=== PATIENT | female | born 1955 | race Caucasian/White ===

== ENCOUNTER 2019-08-12 05:53 | Outpatient (RCR) | payer MEDICARE, MEDICAID, SELFPAY | END 2019-09-07 00:01 | LOC: ONCMED 05:53 | PROVIDERS: Family Provider Family Medicine; Visit Provider Nurse Practitioner | DX: Z51.12 Encounter for antineoplastic immunotherapy (principal); C90.00 Multiple myeloma not having achieved remission; D80.1 Nonfamilial hypogammaglobulinemia; K21.9 Gastro-esophageal reflux disease without esophagitis; J45.20 Mild intermittent asthma, uncomplicated; Z94.84 Stem cells transplant status; Z79.899 Other long term (current) drug therapy; Z79.82 Long term (current) use of aspirin; Z79.891 Long term (current) use of opiate analgesic; Z87.891 Personal history of nicotine dependence | CPT/HCPCS: 96367; 96413; 96415; 99214; J1642; J3489; J7040; J7050; J9145 ==

== ENCOUNTER 2019-09-20 05:39 | Outpatient (RCR) | payer MEDICARE, MEDICAID, SELFPAY ==
[2019-09-17 11:37] LABS: Basophils # 0.1 10^3/uL (0.0-0.1); Basophils % 1.4 %; Eosinophils # 0.2 10^3/uL (0.0-0.8); Eosinophils % 3.6 %; Hemoglobin 15.7 g/dL (11.5-15.3); Lymphocytes # 1.6 10^3/uL (0.8-4.8); Lymphocytes % 32.1 %; Mean Corpuscular HGB Conc 31.4 g/dL (30.0-36.0); Mean Corpuscular Hemoglobin 29.6 pg (28.0-34.0); Mean Corpuscular Volume 94.3 fL (81-99); Mean Platelet Volume 9.9 fL (7.4-10.4); Monocytes # 0.5 10^3/uL (0.2-0.9); Monocytes % 10.3 %; Neutrophils # 2.6 10^3/uL (1.8-7.7); Nucleated Red Blood Cells % 0 %; Platelet Count 224 10^3/cmm (130-400); Red Cell Distribution Width 14.4 % (12.1-15.1)
[2019-09-17 11:52] LABS: Alanine Aminotransferase 11 U/L (0-33); Albumin Level 3.9 g/dL (3.5-5.2); Alkaline Phosphatase 72 IU/L (35-105); Anion Gap 18.4 (5-19); Blood Urea Nitrogen 15 mg/dL (8-23); Calcium 9.5 mg/Dl (8.8-10.2); Carbon Dioxide 22 mmol/L (22-29); Chloride 98 mmol/L (98-107); Globulin 2.6 g/dL (1.3-4.6); Glucose 111 mg/dL (74-106); Potassium 4.4 mmol/L (3.5-5.1); Sodium 134 mmol/L (136-145); Total Bilirubin 0.4 mg/dL (0.15-1.2); Total Protein 6.5 g/dL (6.6-8.7)
[2019-09-17 12:03] LABS: Aspartate Amino Transferase 20 U/L (0-32)
[2019-09-20] MEDS: acetaminophen 325 mg Tablet 650 MG PO (09:20)
[2019-09-20] MEDS: diphenhydrAMINE 25 mg Capsule PO (09:21)
[2019-09-21] MEDS: sodium chloride 0.9% 250 ML 75 ML IV (13:34)
== END 2019-10-08 23:59 | disposition home or self-care (01) ==
LOC: ONCMED 05:39
PROVIDERS: Visit Provider Internal Medicine Medical Oncology
DX: Z51.12 Encounter for antineoplastic immunotherapy (principal); C90.02 Multiple myeloma in relapse; K21.9 Gastro-esophageal reflux disease without esophagitis; J45.20 Mild intermittent asthma, uncomplicated; Z94.84 Stem cells transplant status; Z79.82 Long term (current) use of aspirin; Z79.899 Other long term (current) drug therapy; Z87.891 Personal history of nicotine dependence
CPT/HCPCS: 80053; 85025; 96413; 96415; 99214; J7040; J7050; J9145

== ENCOUNTER 2019-10-18 05:48 | Outpatient (RCR) | payer MEDICARE, MEDICAID, SELFPAY ==
[2019-10-18] MEDS: diphenhydrAMINE 25 mg Capsule PO (09:40)
[2019-10-18] MEDS: acetaminophen 325 mg Tablet 650 MG PO (09:40)
[2019-10-18] MEDS: sodium chloride 0.9% 250 ML 999 ML IV (09:55)
[2019-10-18 12:52] LABS: Folate Level 10.2 ng/mL (4.8-37.3)
[2019-10-18 13:45] LABS: Thyroid Stimulating Hormone 1.98 uIU/mL (0.27-4.20); Vitamin B12 310 pg/mL (232-1245)
[2019-10-18 14:57] LABS: Free T4 Free Thyroxine 0.99 ng/dL (0.82-1.77)
--- NOTE | 2019-10-20 12:53 | ONC FU_ITS ---
[facility] Patient Note Patient: Salima Farrell Unit #: [id number]: [id number] Dictated By: Ac CarrDate of Visit: Oct 18, 2019 Onc MED Follow-Up/Prog Note Chief Complaint: Myeloma. History of Present Illness: Ms Farrell is a 64 year-old woman with IgG lambda myeloma. She had presented in December 2012 with compression fractures of the T11 and L5 vertebral bodies. She underwent kyphoplasty at both levels, and biopsies were consistent with plasma cell neoplasm. Her protein electrophoresis showed biclonal protein bands with lambda light chain 0.33 g/dL and IgG lambda 4.6 g/dL. There were additional lytic lesions noted on her skeletal survey. Her 24 hour urine reportedly showed 7 gm of Bence-Zabala proteinuria. Bone marrow aspiration/biopsy in January 2013 showed atypical plasma cell infiltrate comprising 91% of the marrow cellularity. She underwent treatment with 4 cycles of Velcade/Revlimid/dexamethasone followed by high-dose melphalan/autologous stem cell transplant in May 2013. She began maintenance Revlimid in August 2013. It was stopped as of July 2015 due to toxicities. As of July 2016 her repeat bone marrow aspiration/biopsy showed 30-40% plasma cells. She restarted treatment with Revlimid. It was stopped again in December 2017 due to toxicity, mainly cytopenias. At that point her protein electrophoresis showed M protein at 1.52 g/dL. Skeletal survey reportedly showed no new abnormalities. Her repeat marrow aspiration/biopsy in February 2018 showed 70% involvement by plasma cells. M protein at that point was up to 1.82 g/dL. PET/CT on 04/01/2018 showed new osseous involvement in the right sacral ala, SUV 4.15. She was seen by Dr. Shlomo Tanner on 04/06/2018. It was recommended that she begin salvage therapy with a combination of daratumumab, pomalidomide, and dexamethasone in preparation for possible second transplant procedure. She was seen here initially on 04/10/2018, as at that point she desired to have her treatment administered closer to home. She then returned to begin her treatment with daratumumab, pomalidomide, and dexamethasone on 04/29/2018. Due to her previous cytopenias with Revlimid, the pomalidomide was initiated at a reduced dosage of 3 mg daily on a 21/28 day schedule. She received her initial infusion of daratumumab on 04/29/2018. She tolerated it well, and she was able to proceed with her 2nd weekly infusion on 05/06/2018. She presented for her week 3 infusion on 05/12/2018. At that point her treatment was put on hold due to a decrease in her white blood cell count to 1500. As of 06/03/2018 her repeat protein electrophoresis showed a significant decrease in her M protein to 0.44 g/dL. The free light chain assay showed elevated lambda light chain at 7.99 mg/L with kappa light chain 0.1840 mg/L and decreased kappa/lambda ratio at 0.0230. The pomalidomide remained on hold due to persistent neutropenia, but she was able restart weekly daratumumab infusions. As of 06/17/2018 the white count had recovered, and she then restarted pomalidomide with a further dose reduction to 2 mg daily. She completed her 8th weekly infusion of daratumumab on 07/08/2018, following which the frequency of the infusions was increased to every 2 weeks. Her repeat protein electrophoresis on 08/04/2018 showed the M protein decreased to 0.14 g/dL. The free light chain assay showed the lambda light chain decreased to 0.3960 mg/dL with kappa/lambda ratio at 0.3081. Her quantitative immunoglobulin levels were very low with IgG 280 mg/dL, IgA 13 mg/dL, and IgM < 5 mg/dL. She continued her treatment with daratumumab in combination with pomalidomide/dexamethasone with the pomalidomide dosed at 1 mg daily on a 21/28 day schedule and dexamethasone 40 mg on the weeks of daratumumab. She completed the 8th infusion of daratumumab at the 2-week interval on 10/28/2018. She has since then continued the same treatment but with the daratumumab infusions administered every 4 weeks. As of December 2018 her protein electrophoresis showed just a faint residual M protein band, and her subsequent protein electrophoresis studies had not shown any significant change. Her other medical illnesses have been limited to GERD and mild asthma. Her other surgical/procedural history includes previous appendectomy and hysterectomy/bilateral salpingo-oophorectomy. She had a minimal smoking history in the past, and she quit smoking in 1991. INTERIM HISTORY: On 09/12/2019 she was admitted to [facility] in [place] with shortness of breath, wheezing, and productive cough. She did not have acute infiltrate on chest xray, but she was significantly hypoxic. She continued empiric antibiotic coverage with Levaquin, though it appeared to have most likely have been a viral illness. Since her recent hospitalization, she has been utilizing oxygen supplementation. Ms Farrell is here today for follow-up. She states overall she continues to feel pretty good. Her biggest concern today is that she has a lot of fatigue in the afternoon. She states she takes a nap but is then still really fatigued. Is been consistent over the last several weeks. She denies any shortness of breath or orthopnea. She said no fever or chills. She states she was in the hospital couple weeks ago with shortness of breath but had no diagnosis of any infectious diseases. She states she was discharged on oxygen supplementation and that has helped tremendously. She also has some ulcer symptoms . She states she is had a lot of stress and now has some burning in her upper stomach and lower throat area. She is wondering what she can try [id number] if it flares. We did discuss Maalox or Mylanta and even Tums or Rolaids as needed. We can also increase her PPI to twice daily if needed. She states otherwise she feels pretty good her appetite is good. She states she is had no problems with blood in her stools. She denies any evidence of bleeding elsewhere. She states her pain continues to be well managed with her current pain management regimen. She said no lower extremity edema and denies orthopnea. She denies any mouth sores, sore throat or difficulty swallowing. She continues to require ambulation assistance with a walking cane. Her overall status seems to be stable. Her ECOG is 1. Past Medical History: Gastroesophageal reflux disease IgG kappa myeloma Mild asthma Past Surgical History: Appendectomy Bone marrow aspiration/biopsy in January 2013, July 2016, and February 2018 Kyphoplasty at T11 and L5 vertebral levels Tubal ligation Colonoscopy in 2012 Hysterectomy/bilateral salpingo-oophorectomy in 2008 Allergies: Codeine Sulfate Medications: ALPRAZolam 1 Tablet (of 1 mg) Oral t.i.d. Benzonatate 1 Capsule (of 100 mg) Oral t.i.d. PRN Childrens Aspirin 2 Tablet (of 81 mg) Tablet, chewable Oral daily Cyclobenzaprine HCl 1 Tablet (of 10 mg) Oral t.i.d. Diclofenac Sodium 1 (1 %) Gel (jelly) Transdermal four times a day Gabapentin 1 Capsule (of 100 mg) Oral t.i.d. Lidocaine 3 patch(es) (of 5 %) Patch Topical q 24 hours Lidocaine 1 (5 %) Ointment Topical q 3 hours PRN Melatonin 1 Tablet (of 10 mg) Oral at bedtime Morphine Sulfate 1 - 2 Tablet (of 30 mg) Oral q 4 hours Morphine Sulfate ER 1 (100 mg) Tablet, controlled release Oral q 12 hours Mupirocin 1 (2 %) Ointment Topical PRN Omeprazole 1 Tablet (of 40 mg) Capsule Oral daily Valerian Root 2 (1000 mg) Capsule Oral daily Ventolin HFA 2 puff(s) (of 108 (90 base) mcg/act) Aerosol, solution Inhalation q 4 hours Family History: Ms. Farrell's mother at age 85: breast cancer, and myocardial infarction, and heart disease. Ms. Farrell's father at age 85: heart disease, and myocardial infarction. Ms. Farrell has 4 sisters: 2 alive, 2 . Ms. Farrell's first sister's ovarian cancer. Another sister's colon cancer. Another sister's myeloma. Another sister's breast cancer. Both parents of heart attack in their mid 80s. One brother of a gunshot wound, another with complications of diabetes, and another of old age. A sister of colon cancer and another sister of ovarian cancer. A sister has been treated for melanoma and is still living at age 75. Another sister has been treated for breast cancer and is still living at age 67. Social History: Ms. Farrell is and she is a disabled. Ms. Farrell quit smoking 26 years ago but had smoked for 13 years. She has no history of drinking. She had minimal smoking history in the past, and the range of 2-3 cigarettes per day. She quit smoking in 1991. She currently does not drink alcohol. She has had moderate alcohol use in the past. Review Of Symptoms: Constitutional Denies fevers, chills, night sweats. Has excessive fatigue but no weight loss. Allergic/Immunologic No reactions. Eyes Denies significant visual changes. No diplopia. No amaurosis. ENMT Denies changes in hearing, sore throat, mouth sores, difficulty or changes in swallowing ability, and/or sinus drainage. Endocrine No diabetes, thyroid disease or hormone replacement. Denies hot flashes or night sweats. Hematologic/Lymphatic Denies easy bruising or bleeding. The patient denies any tender or palpable lymph nodes. Respiratory Denies dyspnea on exertion, chest pain, or hemoptysis. Denies orthopnea. Cardiovascular Denies anginal chest pain, palpitations or orthopnea. Gastrointestinal Denies nausea, vomiting, diarrhea, GI bleeding, or constipation. Denies change in bowel habits and/or stool color, or early satiety. Some burning in stomach area-has alot of stress at home. Genitourinary (F) No hematuria, hesitancy, incontinence, vaginal bleeding, discharge or other problems with urination. Musculoskeletal Denies joint swelling or redness. No decreased range of motion. Integumentary Denies chronic rashes, inflammation, ulcerations or skin changes. Neurologic Denies headache, blurred vision, and no areas of focal weakness or numbness. Slow gait-assisted with cane. No sensory problems. Psychiatric Denies insomnia, depression, nicolette or mood swings. Vital Signs: Performed on Oct 18, 2019 09:00 Height - 57.00 in Weight - 167.0 lbs (LOW) BSA - 1.67 sq.m BMI - 36.14 (HIGH) Temperature - 97.7 F (LOW) Pulse - 93 /min Respiration - 20 /min BP - 121/70 mm(hg) O2 Sat - 94 % (LOW) Pain - 0,1 - No physically strenuous activity, but ambulatory and able to carry out light or sedentary work (e.g. office work, light house work). (ECOG) Physical Examination: Constitutional Alert, oriented, no acute distress. Skin pink, warm and dry. Head Normocephalic; atraumatic. Eyes Conjunctivae and sclerae are clear and without icterus. Pupils are reactive and equal. ENMT No oral exudates, ulcers, masses, thrush or mucositis. Oropharynx clear. Tongue normal. Neck Supple without masses or thyromegaly. No jugular venous distension. Hematologic/Lymphatic No petechiae or purpura. No tender or palpable lymph nodes in the cervical or supraclavicular areas. Respiratory Lungs are clear to auscultation without rhonchi or wheezing. Cardiovascular Regular rate and rhythm of heart without murmurs,clicks, gallops or rubs. Abdomen Non-tender, non-distended, no masses, ascites. Good bowel sounds noted in all quads. No guarding or rebound tenderness. No pulsatile masses. Back/Spine Non-tender to palpation. Extremities No visible deformities, no cyanosis, clubbing or edema. Pulses 4+ and equal bilaterally. Musculoskeletal No tenderness or swelling, normal range of motion without obvious weakness. Integumentary No rashes or lesions. Neurologic No sensory or motor deficits, normal cerebellar function, slow gait-normal for her. Psychiatric Alert and oriented times three. Coherent speech. Verbalizes understanding of our discussions today. Laboratory:Test performed on Oct 18, 2019 11:45 T4, Free 0.99 ng/dL TSH 1.98 uIU/mL Vitamin B12 310 pg/mL Test performed on Oct 11, 2019 08:29 Glucose 124 mg/dL Protein, Total 5.7 g/dL Albumin, SPE 3.22 g/dL BUN 13 mg/dL Creatinine 0.64 mg/dL Cr Clearance (Est) 106.50 mL/min Sodium 134 mmol/L Potassium 3.9 mmol/L Chloride 97 mmol/L CO2 26 mmol/L Calcium 9.3 mg/dL Albumin 3.6 g/dL Bilirubin, Total 0.3 mg/dL Alkaline Phosphatase 71 IU/L AST (SGOT) 15 IU/L ALT (SGPT) 12 IU/L WBC 5.1 10^9/L RBC 4.83 10^12/L HGB 13.9 g/dL HCT 43.4 % MCV 89.9 fl MCH 28.8 pg MCHC 32.0 g/dL RDW 15.1 % Platelet Count 291 10^9/L MPV 9.2 fL Neutrophils (Gran) 2.58 10^9/L Lymphocytes 1.19 10^9/L Monocytes 1.08 10^9/L Eosinophils 0.13 10^9/L Basophils 0.12 10^9/L Manual Lymphocytes 23 % Manual Monocytes 21 % Manual Eosinophils 3 % Manual Basophils 2 % IGA 15 mg/dL IGG 332 mg/dL IGM 5 mg/dL [place] / Lambda Ratio 0.17 Absolute Value Lambda Light Chain 6.78 [place] Light Chain 1.18 [id number] 0.22 g/dL [id number] 0.85 g/dL Beta Globulin 0.96 g/dL Gamma Globulin 0.43 g/dL M-Rene 0.09 g/dL SPE Interpretation No significant change in monoclonal proteinemia since prior study. Test performed on Sep 17, 2019 08:40 Neutrophil % 3.6 % Test performed on Sep 09, 2019 14:02 Platelet Estimate Consistent with count RBC Morphology Normal Test performed on Jul 14, 2019 16:04 Vitamin D (25-Hydroxy) 60 ng/mL Test performed on Jul 13, 2019 09:17 Lambda Light Chain (Quant) 6.83 mg/dL [place] Light Chain (Quant) 0.91 mg/dL Test performed on Jun 15, 2019 09:49 Manual Segs 65 % Impression: 1. Patient with IgG lambda myeloma, initially diagnosed in December 2012. She had associated lytic bone involvement with vertebral compression fractures at T11 and L5. 2. She had a good response to initial treatment with or cycles of Velcade/Revlimid/dexamethasone followed by high-dose melphalan/stem cell transplant in May 2013. 3. She then continued maintenance Revlimid until July 2015, stopped at that time due to toxicity. 4. She had evidence of disease progression on repeat bone marrow aspiration/biopsy July 2016, and she then restarted Revlimid. Treatment was stopped in December 2017 due to toxicity, mainly cytopenias. 5. She had evidence of disease progression on repeat bone marrow aspiration/biopsy in February 2018. M protein at that point had increased to 1.82 gm/dL. PET/CT showed new area of bone involvement in the right sacral ala. Her other medical illnesses include: 6. GERD. 7. Mild asthma. As of 04/29/2018 she began treatment with daratumumab in combination with pomalidomide and dexamethasone. The pomalidomide was initiated at a reduced dosage of 3 mg daily on a 21/28 day schedule. She completed the first 2 weekly infusions of daratumumab with minimal side effects. At week 3, on 05/12/2018, her white blood cell count had dropped to 1500, and her treatment was put on hold. As of 06/03/2018 her repeat protein electrophoresis showed a significant decrease in the M protein, to 0.44 g/dL. Her white blood cell count at that point remained moderately decreased, and the pomalidomide remain on hold, but I did have her restart weekly daratumumab infusions. As of 06/17/2018 she was able to restart pomalidomide with a further dose reduction to 2 mg daily. She completed her 8th weekly daratumumab infusion on 07/08/2018, following which her treatment was continued at 2-week intervals. She completed the 8th infusion at the 2-week interval on 10/28/2018. She had a very good response by serum protein electrophoresis, though quantitative immunoglobulin levels did show severe hypogammaglobulinemia. Her treatment was complicated by development of significant swelling in the lower extremities, which was suspected to be related to the dexamethasone. It was managed adequately with furosemide. She otherwise tolerated the treatment well. As of December 2018 her serum protein electrophoresis still showed just a faint M protein, so that she did appear to be showing a good response to the treatment. She had then developed mild anemia. Her serum iron studies were consistent with iron deficiency, and the anemia improved on oral iron supplementation. During subsequent follow-up she had continued to tolerate her treatment well. She occasionally required treatment for sinus/respiratory infection. It was unclear to what extent the hypogammaglobulinemia they have been a contributing factor, but she did not appear to be having severe enough illness to warrant replacement IVIG. In August she did develop a more severe respiratory infection, requiring hospital admission in September. She has had a treatment delay because of it, and she has now recoveryed. However, it appears most likely to have been a viral illness. She has otherwise been stable clinically, and thus far there has been no evidence of progression of the myeloma. Plan: 1. Proceed with cycle 18 day 1daratumumab 1100 mg by IV infusion every 4 weeks. 2. 2. She continues pomalidomide 1 mg daily on a 21/28 day schedule along with dexamethasone 20 mg weekly. 3. Lab review from October 11, 2019 reveals a WBC of 5.1, hemoglobin 13.9, platelets 291,000 ANC is 2600. Creatinine 0.6 LFTs are normal. Her IgA was 15 IgG is 332 IgM is 5. Her M spike was 0.09 with no significant change from previous assessment on September 09, 2019. 4. I did request a TSH, B12 be added to the blood in the lab evaluation of fatigue. TSH and free T4 are normal. Her B12 is borderline at 310 with normal being 232 and hiving 1245. 5. We will plan to see her back in 1 month with CBC, CMP and repeat myeloma labs. 6. She has been instructed to contact us in interim should questions or problems arise. 7. I did send in a prescription for increased omeprazole to 40 mg twice daily. She also received written pain prescriptions per Dr. Davies's authorization. Signed By: Ac Carr-, AOCNP Kenroy Davies MD <<Signature on File>>
== END 2019-11-06 23:59 | disposition home or self-care (01) ==
LOC: ONCMED 05:48
PROVIDERS: Absent Provider Internal Medicine Medical Oncology; Visit Provider Nurse Practitioner
DX: Z51.12 Encounter for antineoplastic immunotherapy (principal); C90.00 Multiple myeloma not having achieved remission; K21.9 Gastro-esophageal reflux disease without esophagitis; J45.20 Mild intermittent asthma, uncomplicated; R53.83 Other fatigue; Z79.899 Other long term (current) drug therapy; Z79.82 Long term (current) use of aspirin; Z87.891 Personal history of nicotine dependence
CPT/HCPCS: 82607; 82746; 84439; 84443; 96413; 96415; 99214; J7040; J7050; J9145

== ENCOUNTER 2019-11-15 05:58 | Outpatient (RCR) | payer MEDICARE, MEDICAID, SELFPAY ==
[2019-11-15] MEDS: acetaminophen 325 mg Tablet 650 MG PO (09:05)
[2019-11-15] MEDS: diphenhydrAMINE 25 mg Capsule PO (09:05)
[2019-11-15] MEDS: sodium chloride 0.9% 250 ML 999 ML IV (09:05)
--- NOTE | 2019-11-15 12:22 | ONC FU_ITS ---
Dr. Davies Patient Follow-Up Note Patient: Salima Farrell Unit #: [id number]: [id number] Dicatated By: Kenroy Davies M.D.Date of Visit:Nov 15, 2019 Onc Med Follow-up/Prog Note Chief Complaint: Myeloma. History of Present Illness: This is a 64 year-old woman with IgG lambda myeloma. She had presented in December 2012 with compression fractures of the T11 and L5 vertebral bodies. She underwent kyphoplasty at both levels, and biopsies were consistent with plasma cell neoplasm. Her protein electrophoresis showed biclonal protein bands with lambda light chain 0.33 g/dL and IgG lambda 4.6 g/dL. There were additional lytic lesions noted on her skeletal survey. Her 24 hour urine reportedly showed 7 gm of Bence-Zabala proteinuria. Bone marrow aspiration/biopsy in January 2013 showed atypical plasma cell infiltrate comprising 91% of the marrow cellularity. She underwent treatment with 4 cycles of Velcade/Revlimid/dexamethasone followed by high-dose melphalan/autologous stem cell transplant in May 2013. She began maintenance Revlimid in August 2013. It was stopped as of July 2015 due to toxicities. As of July 2016 her repeat bone marrow aspiration/biopsy showed 30-40% plasma cells. She restarted treatment with Revlimid. It was stopped again in December 2017 due to toxicity, mainly cytopenias. At that point her protein electrophoresis showed M protein at 1.52 g/dL. Skeletal survey reportedly showed no new abnormalities. Her repeat marrow aspiration/biopsy in February 2018 showed 70% involvement by plasma cells. M protein at that point was up to 1.82 g/dL. PET/CT on 04/01/2018 showed new osseous involvement in the right sacral ala, SUV 4.15. She was seen by Dr. Shlomo Tanner on 04/06/2018. It was recommended that she begin salvage therapy with a combination of daratumumab, pomalidomide, and dexamethasone in preparation for possible second transplant procedure. She was seen here initially on 04/10/2018, as at that point she desired to have her treatment administered closer to home. She then returned to begin her treatment with daratumumab, pomalidomide, and dexamethasone on 04/29/2018. Due to her previous cytopenias with Revlimid, the pomalidomide was initiated at a reduced dosage of 3 mg daily on a 21/28 day schedule. She received her initial infusion of daratumumab on 04/29/2018. She tolerated it well, and she was able to proceed with her 2nd weekly infusion on 05/06/2018. She presented for her week 3 infusion on 05/12/2018. At that point her treatment was put on hold due to a decrease in her white blood cell count to 1500. As of 06/03/2018 her repeat protein electrophoresis showed a significant decrease in her M protein to 0.44 g/dL. The free light chain assay showed elevated lambda light chain at 7.99 mg/L with kappa light chain 0.1840 mg/L and decreased kappa/lambda ratio at 0.0230. The pomalidomide remained on hold due to persistent neutropenia, but she was able restart weekly daratumumab infusions. As of 06/17/2018 the white count had recovered, and she then restarted pomalidomide with a further dose reduction to 2 mg daily. She completed her 8th weekly infusion of daratumumab on 07/08/2018, following which the frequency of the infusions was increased to every 2 weeks. Her repeat protein electrophoresis on 08/04/2018 showed the M protein decreased to 0.14 g/dL. The free light chain assay showed the lambda light chain decreased to 0.3960 mg/dL with kappa/lambda ratio at 0.3081. Her quantitative immunoglobulin levels were very low with IgG 280 mg/dL, IgA 13 mg/dL, and IgM < 5 mg/dL. She continued her treatment with daratumumab in combination with pomalidomide/dexamethasone with the pomalidomide dosed at 1 mg daily on a 21/28 day schedule and dexamethasone 40 mg on the weeks of daratumumab. She completed the 8th infusion of daratumumab at the 2-week interval on 10/28/2018. She has since then continued the same treatment but with the daratumumab infusions administered every 4 weeks. As of December 2018 her protein electrophoresis showed just a faint residual M protein band, and her subsequent protein electrophoresis studies had not shown any significant change. Her other medical illnesses have been limited to GERD and mild asthma. Her other surgical/procedural history includes previous appendectomy and hysterectomy/bilateral salpingo-oophorectomy. She had a minimal smoking history in the past, and she quit smoking in 1991. INTERIM HISTORY: On 09/12/2019 she was admitted to [facility] in [place] with shortness of breath, wheezing, and productive cough. She did not have acute infiltrate on chest xray, but she was significantly hypoxic. She continued empiric antibiotic coverage with Levaquin, though it appeared to have most likely have been a viral illness. At her follow-up visit in September she was finally showing recovery from that illness. She continued her treatment with daratumumab/pomalidomide/dexamethasone. She is seen for a follow-up visit. She has been feeling pretty good. Her main complaint is that her back is been hurting her more. She seems to just be more aware of it rather than actually getting significantly worse. The pain occurs just with activity. It is pretty well controlled with medication, but she has had to double up on the immediate release morphine. The pain is in her back from about her bra line down. It had been radiating into the right hip and leg, but that recently has gone away. She says her energy is good. She is still doing light work. ECOG score is 1. She has good appetite. She has gained weight. She does not have fever. She has been having night sweats, but that also stopped. She has had no mouth sores. She has no shortness of breath, cough, or chest pain. She has heartburn if she eats after 6 PM. She has no other GI or complaints. She does not complain of headache or dizziness. She has no focal neurologic symptoms. Medications: Acetaminophen 2 Tablet (of 325 mg) Oral four times a day PRN, ALPRAZolam 1 Tablet (of 1 mg) Oral t.i.d., Benzonatate 1 Capsule (of 100 mg) Oral t.i.d. PRN, Childrens Aspirin 2 Tablet (of 81 mg) Tablet, chewable Oral daily, Cyclobenzaprine HCl 1 Tablet (of 10 mg) Oral t.i.d., Diclofenac Sodium 1 (1 %) Gel (jelly) Transdermal four times a day, Gabapentin 1 Capsule (of 100 mg) Oral t.i.d., Lidocaine 3 patch(es) (of 5 %) Patch Topical q 24 hours, Lidocaine 1 (5 %) Ointment Topical q 3 hours PRN, Melatonin 1 Tablet (of 10 mg) Oral at bedtime, Morphine Sulfate 1 - 2 Tablet (of 30 mg) Oral q 3 hours, Morphine Sulfate ER 1 Tablet (of 100 mg) Tablet, controlled release Oral q 12 hours, Mupirocin 1 (2 %) Ointment Topical PRN, Omeprazole 1 Tablet (of 40 mg) Capsule Oral daily, Valerian Root 2 (1000 mg) Capsule Oral daily, Ventolin HFA 2 puff(s) (of 108 (90 base) mcg/act) Aerosol, solution Inhalation q 4 hours Allergies: Codeine Sulfate Review of Systems: Constitutional - Her energy level is good. She is doing light work at home. Her appetite is good and her weight is up about 5 pounds from last visit. No fever, chills, hot flashes, or night sweats. ECOG score is 1, ENMT - No sinus congestion/drainage. No mouth sores. No sore throat or difficulty swallowing, Hematologic/Lymphatic - She bruises easily, Respiratory - No shortness of breath. No cough. No pleuritic pain or hemoptysis, Cardiovascular - No angina pain. No palpitations, Gastrointestinal - No nausea or vomiting. She has heartburn in the evenings. No diarrhea or constipation. No blood in the stool or black stools, Genitourinary (F) - No dysuria or hematuria. No urinary frequency. No urgency or incontinence, Musculoskeletal - She complains of pain in her lower back and right hip/leg. It occurs mainly with activity, Integumentary - No skin complications, Neurologic - No headache or dizziness. No numbness/paresthesias or other focal neurologic symptoms, Psychiatric - No anxiety or depression. No insomnia. Vital Signs: Performed on Nov 15, 2019 08:29 Height - 57.00 in Weight - 173.6 lbs (HIGH) BSA - 1.69 sq.m BMI - 37.57 (HIGH) Temperature - 98.2 F (LOW) Pulse - 95 /min Respiration - 24 /min BP - 129/64 mm(hg) O2 Sat - 95 % (LOW) Pain - 4 Physical Examination: Constitutional - She appears somewhat weak generally, Eyes - Sclerae nonicteric. Conjunctivae clear, ENMT - No lesions noted in the oral cavity, Hematologic/Lymphatic - No cervical, clavicular, or axillary adenopathy, Respiratory - Lungs sound clear with some decrease in air movement bilaterally, Cardiovascular - Heart rhythm is regular. There is a II/ systolic murmur. There is no gallop or rub noted, Abdomen - Mildly distended but soft. Liver and spleen are not enlarged. There is no abdominal mass or ascites noted and there is no inguinal adenopathy, Extremities - No edema, Neurologic - No focal neurologic deficits noted. Lab/Imaging: Test performed on Nov 08, 2019 08:48 Glucose 104 mg/dL Protein, Total 5.5 g/dL Albumin, SPE 3.36 g/dL BUN 15 mg/dL Creatinine 0.62 mg/dL Cr Clearance (Est) 109.93 mL/min Sodium 131 mmol/L Potassium 4.3 mmol/L Chloride 96 mmol/L CO2 26 mmol/L Calcium 9.0 mg/dL Albumin 3.8 g/dL Bilirubin, Total 0.3 mg/dL Alkaline Phosphatase 66 IU/L AST (SGOT) 22 IU/L ALT (SGPT) 19 IU/L WBC 5.1 10^9/L RBC 4.63 10^12/L HGB 13.4 g/dL HCT 41.7 % MCV 90.1 fl MCH 28.9 pg MCHC 32.1 g/dL RDW 16.2 % Platelet Count 245 10^9/L MPV 9.3 fL Neutrophils (Gran) 1.94 10^9/L Lymphocytes 1.79 10^9/L Monocytes 0.56 10^9/L Eosinophils 0.26 10^9/L Manual Lymphocytes 35 % Manual Monocytes 11 % Manual Eosinophils 5 % IGA 9 mg/dL IGG 280 mg/dL IGM 5 mg/dL Dequincy / Lambda Ratio 0.16 Absolute Value Lambda Light Chain (Quant) 6.52 mg/dL Dequincy Light Chain (Quant) 1.06 mg/dL [id number] 0.20 g/dL [id number] 0.77 g/dL Gamma Globulin 0.43 g/dL SPE Interpretation No significant change in monoclonal proteinemia since prior study Impression: 1. Patient with IgG lambda myeloma, initially diagnosed in December 2012. She had associated lytic bone involvement with vertebral compression fractures at T11 and L5. 2. She had a good response to initial treatment with or cycles of Velcade/Revlimid/dexamethasone followed by high-dose melphalan/stem cell transplant in May 2013. 3. She then continued maintenance Revlimid until July 2015, stopped at that time due to toxicity. 4. She had evidence of disease progression on repeat bone marrow aspiration/biopsy July 2016, and she then restarted Revlimid. Treatment was stopped in December 2017 due to toxicity, mainly cytopenias. 5. She had evidence of disease progression on repeat bone marrow aspiration/biopsy in February 2018. M protein at that point had increased to 1.82 gm/dL. PET/CT showed new area of bone involvement in the right sacral ala. Her other medical illnesses include: 6. GERD. 7. Mild asthma. As of 04/29/2018 she began treatment with daratumumab in combination with pomalidomide and dexamethasone. The pomalidomide was initiated at a reduced dosage of 3 mg daily on a 21/28 day schedule. She completed the first 2 weekly infusions of daratumumab with minimal side effects. At week 3, on 05/12/2018, her white blood cell count had dropped to 1500, and her treatment was put on hold. As of 06/03/2018 her repeat protein electrophoresis showed a significant decrease in the M protein, to 0.44 g/dL. Her white blood cell count at that point remained moderately decreased, and the pomalidomide remain on hold, but I did have her restart weekly daratumumab infusions. As of 06/17/2018 she was able to restart pomalidomide with a further dose reduction to 2 mg daily. She completed her 8th weekly daratumumab infusion on 07/08/2018, following which her treatment was continued at 2-week intervals. She completed the 8th infusion at the 2-week interval on 10/28/2018. She had a very good response by serum protein electrophoresis, though quantitative immunoglobulin levels did show severe hypogammaglobulinemia. Her treatment was complicated by development of significant swelling in the lower extremities, which I suspected was related to the dexamethasone. It was managed adequately with furosemide. She otherwise tolerated the treatment well. As of December 2018 her serum protein electrophoresis still showed just a faint M protein, so that she did appear to be showing a good response to the treatment. She had then developed mild anemia. Her serum iron studies were consistent with iron deficiency, and the anemia improved on oral iron supplementation. During subsequent follow-up she had continued to tolerate her treatment well. She occasionally required treatment for sinus/respiratory infection. It was unclear to what extent the hypogammaglobulinemia they have been a contributing factor, but she did not appear to be having severe enough illness to warrant replacement IVIG. In August she had developed a more severe respiratory infection, requiring hospital admission in September. She has had a treatment delay because of it, but she did recover. She has since then continued treatment with daratumumab/pomalidomide/dexamethasone at the same dosages, thus far with no obvious progression of the myeloma. However, she has had increase the amount of immediate release morphine she has been taking because of the back pain, though it bothers her mainly just with activity. Plan: She will continue treatment with daratumumab 1100 mg by IV infusion every 4 weeks. She continues pomalidomide 1 mg daily on a day schedule along with dexamethasone 20 mg weekly. She is also due today for her 3-month scheduled Zometa infusion. She will be scheduled for a follow-up visit in 4 weeks. In the meantime, I will increase her morning dosage of extended release morphine to 120 mg. The evening dosage will remain at 60 mg and the immediate release morhpine will also remain the same. Signed By: Kenroy Davies M.D. <<Signature on File>>
== END 2019-12-07 23:59 | disposition home or self-care (01) ==
LOC: ONCMED 05:58
PROVIDERS: Absent Provider Nurse Practitioner; Visit Provider Internal Medicine Medical Oncology
DX: Z51.12 Encounter for antineoplastic immunotherapy (principal); C90.00 Multiple myeloma not having achieved remission; K21.9 Gastro-esophageal reflux disease without esophagitis; J45.20 Mild intermittent asthma, uncomplicated; Z94.84 Stem cells transplant status; Z79.899 Other long term (current) drug therapy; Z79.82 Long term (current) use of aspirin; Z87.891 Personal history of nicotine dependence
CPT/HCPCS: 96367; 96413; 96415; 99214; J3489; J7040; J7050; J9145

== ENCOUNTER 2019-12-13 07:52 | Outpatient (RCR) | payer MEDICARE, MEDICAID, SELFPAY ==
[2019-12-13] MEDS: acetaminophen 325 mg Tablet 650 MG PO (09:15)
[2019-12-13] MEDS: sodium chloride 0.9% 250 ML 75 ML IV (09:15)
[2019-12-13] MEDS: diphenhydrAMINE 25 mg Capsule PO (09:17)
--- NOTE | 2019-12-13 16:01 | ONC FU_ITS ---
Dr. Davies Patient Follow-Up Note Patient: Salima Farrell Unit #: [id number]: 1955 Dicatated By: Kenroy Davies M.D.Date of Visit:Dec 13, 2019 Onc Med Follow-up/Prog Note Chief Complaint: Myeloma. History of Present Illness: This is a 64 year-old woman with IgG lambda myeloma. She had presented in December 2012 with compression fractures of the T11 and L5 vertebral bodies. She underwent kyphoplasty at both levels, and biopsies were consistent with plasma cell neoplasm. Her protein electrophoresis showed biclonal protein bands with lambda light chain 0.33 g/dL and IgG lambda 4.6 g/dL. There were additional lytic lesions noted on her skeletal survey. Her 24 hour urine reportedly showed 7 gm of Bence-Zabala proteinuria. Bone marrow aspiration/biopsy in January 2013 showed atypical plasma cell infiltrate comprising 91% of the marrow cellularity. She underwent treatment with 4 cycles of Velcade/Revlimid/dexamethasone followed by high-dose melphalan/autologous stem cell transplant in May 2013. She began maintenance Revlimid in August 2013. It was stopped as of July 2015 due to toxicities. As of July 2016 her repeat bone marrow aspiration/biopsy showed 30-40% plasma cells. She restarted treatment with Revlimid. It was stopped again in December 2017 due to toxicity, mainly cytopenias. At that point her protein electrophoresis showed M protein at 1.52 g/dL. Skeletal survey reportedly showed no new abnormalities. Her repeat marrow aspiration/biopsy in February 2018 showed 70% involvement by plasma cells. M protein at that point was up to 1.82 g/dL. PET/CT on 04/01/2018 showed new osseous involvement in the right sacral ala, SUV 4.15. She was seen by Dr. Shlomo Tanner on 04/06/2018. It was recommended that she begin salvage therapy with a combination of daratumumab, pomalidomide, and dexamethasone in preparation for possible second transplant procedure. She was seen here initially on 04/10/2018, as at that point she desired to have her treatment administered closer to home. She then returned to begin her treatment with daratumumab, pomalidomide, and dexamethasone on 04/29/2018. Due to her previous cytopenias with Revlimid, the pomalidomide was initiated at a reduced dosage of 3 mg daily on a 21/28 day schedule. She received her initial infusion of daratumumab on 04/29/2018. She tolerated it well, and she was able to proceed with her 2nd weekly infusion on 05/06/2018. She presented for her week 3 infusion on 05/12/2018. At that point her treatment was put on hold due to a decrease in her white blood cell count to 1500. As of 06/03/2018 her repeat protein electrophoresis showed a significant decrease in her M protein to 0.44 g/dL. The free light chain assay showed elevated lambda light chain at 7.99 mg/L with kappa light chain 0.1840 mg/L and decreased kappa/lambda ratio at 0.0230. The pomalidomide remained on hold due to persistent neutropenia, but she was able restart weekly daratumumab infusions. As of 06/17/2018 the white count had recovered, and she then restarted pomalidomide with a further dose reduction to 2 mg daily. She completed her 8th weekly infusion of daratumumab on 07/08/2018, following which the frequency of the infusions was increased to every 2 weeks. Her repeat protein electrophoresis on 08/04/2018 showed the M protein decreased to 0.14 g/dL. The free light chain assay showed the lambda light chain decreased to 0.3960 mg/dL with kappa/lambda ratio at 0.3081. Her quantitative immunoglobulin levels were very low with IgG 280 mg/dL, IgA 13 mg/dL, and IgM < 5 mg/dL. She continued her treatment with daratumumab in combination with pomalidomide/dexamethasone with the pomalidomide dosed at 1 mg daily on a 21/28 day schedule and dexamethasone 40 mg on the weeks of daratumumab. She completed the 8th infusion of daratumumab at the 2-week interval on 10/28/2018. She has since then continued the same treatment but with the daratumumab infusions administered every 4 weeks. As of December 2018 her protein electrophoresis showed just a faint residual M protein band, and her subsequent protein electrophoresis studies had not shown any significant change. Her other medical illnesses have been limited to GERD and mild asthma. Her other surgical/procedural history includes previous appendectomy and hysterectomy/bilateral salpingo-oophorectomy. She had a minimal smoking history in the past, and she quit smoking in 1991. INTERIM HISTORY: On 09/12/2019 she was admitted to [facility] in [place] with shortness of breath, wheezing, and productive cough. She did not have acute infiltrate on chest xray, but she was significantly hypoxic. She continued empiric antibiotic coverage with Levaquin, though it appeared to have most likely have been a viral illness. At her follow-up visit in September she was finally showing recovery from that illness. She continued her treatment with daratumumab/pomalidomide/dexamethasone. She is seen for a follow-up visit. She has been feeling good generally. She says her pain is controlled pretty well now with the recent changes in her pain medication. She is still having some acid reflux, though. She has good energy. She is able to do light work at home. Her appetite is good. She has not had fever. She says that some days she sweats all the time, but it is intermittent. She has had no mouth sores. She is not having shortness of breath, cough, or chest pain. She has no other GI or complaints. She does not complain of headache or dizziness. She has no focal neurologic symptoms. Medications: Acetaminophen 2 Tablet (of 325 mg) Oral four times a day PRN, ALPRAZolam 1 Tablet (of 1 mg) Oral t.i.d., Benzonatate 1 Capsule (of 100 mg) Oral t.i.d. PRN, Childrens Aspirin 2 Tablet (of 81 mg) Tablet, chewable Oral daily, Cyclobenzaprine HCl 1 Tablet (of 10 mg) Oral t.i.d., Diclofenac Sodium 1 (1 %) Gel (jelly) Transdermal four times a day, Gabapentin 1 Capsule (of 100 mg) Oral t.i.d., Lidocaine 3 patch(es) (of 5 %) Patch Topical q 24 hours, Lidocaine 1 (5 %) Ointment Topical q 3 hours PRN, Melatonin 1 Tablet (of 10 mg) Oral at bedtime, Morphine Sulfate 1 - 2 Tablet (of 30 mg) Oral q 3 hours, Morphine Sulfate ER (100 mg) Tablet, controlled release Oral Take as Directed, Mupirocin 1 (2 %) Ointment Topical PRN, Omeprazole 1 Tablet (of 40 mg) Capsule Oral daily, Valerian Root 2 (1000 mg) Capsule Oral daily, Ventolin HFA 2 puff(s) (of 108 (90 base) mcg/act) Aerosol, solution Inhalation q 4 hours Allergies: Codeine Sulfate Review of Systems: Constitutional - Her energy level is overall good. She is able to do [employer] work. Her appetite is good and weight is up a few pounds from last visit. No fever, chills, or hot flashes. She complains that she sweats all the time, but it is intermittent. ECOG score is 1, ENMT - No sinus congestion/drainage. No mouth sores. No sore throat or difficulty swallowing, Hematologic/Lymphatic - She bruises easily, Respiratory - No shortness of breath. No cough. No pleuritic pain or hemoptysis. She is no longer using oygen at home, Cardiovascular - No angina pain. No palpitations, Gastrointestinal - No nausea or vomiting. She still has some acid reflux. No diarrhea or constipation. No blood in the stool or black stools, Genitourinary (F) - No dysuria or hematuria. No urinary frequency. No urgency or incontinence, Musculoskeletal - Her pain is adequately controlled with her the recent changes in her pain medication, Integumentary - She still has a little swelling at times, Neurologic - No headache or dizziness. No numbness/paresthesias or other focal neurologic symptoms, Psychiatric - No anxiety or depression. No insomnia. Vital Signs: Performed on Dec 13, 2019 11:45 Height - 57.00 in Temperature - 98.5 F Pulse - 87 /min Respiration - 18 /min BP - 107/62 mm(hg) O2 Sat - 95 % (LOW) Pain - 0 Fatigue - 0 Performed on Dec 13, 2019 08:43 Height - 57.00 in Weight - 175.0 lbs (HIGH) BSA - 1.70 sq.m BMI - 37.87 (HIGH) Temperature - 98.5 F Pulse - 96 /min Respiration - 22 /min BP - 112/67 mm(hg) O2 Sat - 96 % Pain - 0 Physical Examination: Constitutional - She looks pretty good generally, Eyes - Sclerae nonicteric. Conjunctivae clear, ENMT - No lesions noted in the oral cavity, Hematologic/Lymphatic - No cervical, clavicular, or axillary adenopathy, Respiratory - Lungs sound clear with some decrease in air movement bilaterally, Cardiovascular - Heart rhythm is regular. There is a II/ systolic murmur. There is no gallop or rub noted, Abdomen - Mildly distended but soft. Liver and spleen are not enlarged. There is no abdominal mass or ascites noted and there is no inguinal adenopathy, Extremities - Slight edema, Neurologic - No focal neurologic deficits noted. Lab/Imaging: Test performed on Dec 09, 2019 07:55 Glucose 122 mg/dL Protein, Total 5.6 g/dL Albumin, SPE 3.56 g/dL BUN 16 mg/dL Creatinine 0.80 mg/dL Cr Clearance (Est) 85.20 mL/min Sodium 138 mmol/L Potassium 4.0 mmol/L Chloride 100 mmol/L CO2 26 mmol/L Calcium 9.3 mg/dL Albumin 3.9 g/dL Bilirubin, Total 0.3 mg/dL Alkaline Phosphatase 82 IU/L AST (SGOT) 15 IU/L ALT (SGPT) 14 IU/L WBC 4.0 10^9/L RBC 4.64 10^12/L HGB 13.5 g/dL HCT 42.0 % MCV 90.5 fl MCH 29.1 pg MCHC 32.1 g/dL RDW 15.7 % Platelet Count 259 10^9/L MPV 9.6 fL Neutrophils (Gran) 1.22 10^9/L Lymphocytes 1.85 10^9/L Monocytes 0.67 10^9/L Eosinophils 0.18 10^9/L Basophils 0.09 10^9/L Manual Lymphocytes 46 % Manual Monocytes 17 % Manual Eosinophils 5 % Manual Basophils 2 % [place] / Lambda Ratio 0.11 Absolute Value Lambda Light Chain 8.79 [place] Light Chain 0.95 [id number] 0.18 g/dL [id number]-[id number] 0.70 g/dL Beta Globulin 0.78 g/dL Gamma Globulin 0.32 g/dL SPE Interpretation No significant change in monoclonal proteinemia since prior study Impression: 1. Patient with IgG lambda myeloma, initially diagnosed in December 2012. She had associated lytic bone involvement with vertebral compression fractures at T11 and L5. 2. She had a good response to initial treatment with or cycles of Velcade/Revlimid/dexamethasone followed by high-dose melphalan/stem cell transplant in May 2013. 3. She then continued maintenance Revlimid until July 2015, stopped at that time due to toxicity. 4. She had evidence of disease progression on repeat bone marrow aspiration/biopsy July 2016, and she then restarted Revlimid. Treatment was stopped in December 2017 due to toxicity, mainly cytopenias. 5. She had evidence of disease progression on repeat bone marrow aspiration/biopsy in February 2018. M protein at that point had increased to 1.82 gm/dL. PET/CT showed new area of bone involvement in the right sacral ala. Her other medical illnesses include: 6. GERD. 7. Mild asthma. As of 04/29/2018 she began treatment with daratumumab in combination with pomalidomide and dexamethasone. The pomalidomide was initiated at a reduced dosage of 3 mg daily on a 21/ day schedule. She completed the first 2 weekly infusions of daratumumab with minimal side effects. At week 3, on 05/12/2018, her white blood cell count had dropped to 1500, and her treatment was put on hold. As of 06/03/2018 her repeat protein electrophoresis showed a significant decrease in the M protein, to 0.44 g/dL. Her white blood cell count at that point remained moderately decreased, and the pomalidomide remain on hold, but I did have her restart weekly daratumumab infusions. As of 06/17/2018 she was able to restart pomalidomide with a further dose reduction to 2 mg daily. She completed her 8th weekly daratumumab infusion on 07/08/2018, following which her treatment was continued at 2-week intervals. She completed the 8th infusion at the 2-week interval on 10/28/2018. She had a very good response by serum protein electrophoresis, though quantitative immunoglobulin levels did show severe hypogammaglobulinemia. Her treatment was complicated by development of significant swelling in the lower extremities, which I suspected was related to the dexamethasone. It was managed adequately with furosemide. She otherwise tolerated the treatment well. As of December 2018 her serum protein electrophoresis still showed just a faint M protein, so that she did appear to be showing a good response to the treatment. She had then developed mild anemia. Her serum iron studies were consistent with iron deficiency, and the anemia improved on oral iron supplementation. During subsequent follow-up she had continued to tolerate her treatment well. She occasionally required treatment for sinus/respiratory infection. It was unclear to what extent the hypogammaglobulinemia they have been a contributing factor, but she did not appear to be having severe enough illness to warrant replacement IVIG. In August 2019 she had developed a more severe respiratory infection, requiring hospital admission in September. She has had a treatment delay because of it, but she did recover. She has since then continued treatment with daratumumab/pomalidomide/dexamethasone at the same dosages, thus far with no obvious progression of the myeloma. Plan: She will continue treatment with daratumumab 1100 mg by IV infusion every 4 weeks. She continues pomalidomide 1 mg daily on a 21/28 day schedule along with dexamethasone 20 mg weekly. She will be scheduled for a follow-up visit in 4 weeks. Signed By: Kenroy Davies M.D. <<Signature on File>>
== END 2020-01-06 23:59 | disposition home or self-care (01) ==
LOC: ONCMED 07:52
PROVIDERS: Absent Provider Nurse Practitioner; PCP Family Medicine; Visit Provider Internal Medicine Medical Oncology
DX: Z51.12 Encounter for antineoplastic immunotherapy (principal); C90.00 Multiple myeloma not having achieved remission; D80.1 Nonfamilial hypogammaglobulinemia; D50.9 Iron deficiency anemia, unspecified; K21.9 Gastro-esophageal reflux disease without esophagitis; J45.909 Unspecified asthma, uncomplicated
CPT/HCPCS: 96413; 96415; 99214; J7040; J7050; J9145

== ENCOUNTER 2020-01-12 06:51 | Outpatient (RCR) | payer MEDICARE, MEDICAID, SELFPAY ==
[2020-01-12] MEDS: sodium chloride 0.9% 250 ML 75 ML IV (08:20)
[2020-01-12] MEDS: diphenhydrAMINE 25 mg Capsule PO (08:23)
[2020-01-12] MEDS: acetaminophen 325 mg Tablet 650 MG PO (08:25)
--- NOTE | 2020-01-15 10:28 | ONC FU_ITS ---
Dr. Davies Patient Follow-Up Note Patient: Salima Farrell Unit #: [id number]: [id number] Dicatated By: Kenroy Davies M.D.Date of Visit:January 12, 2020 Onc Med Follow-up/Prog Note Chief Complaint: Myeloma. History of Present Illness: This is a 64 year-old woman with IgG lambda myeloma. She had presented in December 2012 with compression fractures of the T11 and L5 vertebral bodies. She underwent kyphoplasty at both levels, and biopsies were consistent with plasma cell neoplasm. Her protein electrophoresis showed biclonal protein bands with lambda light chain 0.33 g/dL and IgG lambda 4.6 g/dL. There were additional lytic lesions noted on her skeletal survey. Her 24 hour urine reportedly showed 7 gm of Bence-Zabala proteinuria. Bone marrow aspiration/biopsy in January 2013 showed atypical plasma cell infiltrate comprising 91% of the marrow cellularity. She underwent treatment with 4 cycles of Velcade/Revlimid/dexamethasone followed by high-dose melphalan/autologous stem cell transplant in May 2013. She began maintenance Revlimid in August 2013. It was stopped as of July 2015 due to toxicities. As of July 2016 her repeat bone marrow aspiration/biopsy showed 30-40% plasma cells. She restarted treatment with Revlimid. It was stopped again in December 2017 due to toxicity, mainly cytopenias. At that point her protein electrophoresis showed M protein at 1.52 g/dL. Skeletal survey reportedly showed no new abnormalities. Her repeat marrow aspiration/biopsy in February 2018 showed 70% involvement by plasma cells. M protein at that point was up to 1.82 g/dL. PET/CT on 04/01/2018 showed new osseous involvement in the right sacral ala, SUV 4.15. She was seen by Dr. Shlomo Tanner on 04/06/2018. It was recommended that she begin salvage therapy with a combination of daratumumab, pomalidomide, and dexamethasone in preparation for possible second transplant procedure. She was seen here initially on 04/10/2018, as at that point she desired to have her treatment administered closer to home. She then returned to begin her treatment with daratumumab, pomalidomide, and dexamethasone on 04/29/2018. Due to her previous cytopenias with Revlimid, the pomalidomide was initiated at a reduced dosage of 3 mg daily on a 21/28 day schedule. She received her initial infusion of daratumumab on 04/29/2018. She tolerated it well, and she was able to proceed with her 2nd weekly infusion on 05/06/2018. She presented for her week 3 infusion on 05/12/2018. At that point her treatment was put on hold due to a decrease in her white blood cell count to 1500. As of 06/03/2018 her repeat protein electrophoresis showed a significant decrease in her M protein to 0.44 g/dL. The free light chain assay showed elevated lambda light chain at 7.99 mg/L with kappa light chain 0.1840 mg/L and decreased kappa/lambda ratio at 0.0230. The pomalidomide remained on hold due to persistent neutropenia, but she was able restart weekly daratumumab infusions. As of 06/17/2018 the white count had recovered, and she then restarted pomalidomide with a further dose reduction to 2 mg daily. She completed her 8th weekly infusion of daratumumab on 07/08/2018, following which the frequency of the infusions was increased to every 2 weeks. Her repeat protein electrophoresis on 08/04/2018 showed the M protein decreased to 0.14 g/dL. The free light chain assay showed the lambda light chain decreased to 0.3960 mg/dL with kappa/lambda ratio at 0.3081. Her quantitative immunoglobulin levels were very low with IgG 280 mg/dL, IgA 13 mg/dL, and IgM < 5 mg/dL. She continued her treatment with daratumumab in combination with pomalidomide/dexamethasone with the pomalidomide dosed at 1 mg daily on a 21/28 day schedule and dexamethasone 40 mg on the weeks of daratumumab. She completed the 8th infusion of daratumumab at the 2-week interval on 10/28/2018. She has since then continued the same treatment but with the daratumumab infusions administered every 4 weeks. As of December 2018 her protein electrophoresis showed just a faint residual M protein band, and her subsequent protein electrophoresis studies had not shown any significant change. Her other medical illnesses have been limited to GERD and mild asthma. Her other surgical/procedural history includes previous appendectomy and hysterectomy/bilateral salpingo-oophorectomy. She had a minimal smoking history in the past, and she quit smoking in 1991. INTERIM HISTORY: On 09/12/2019 she was admitted to [facility] in [place] with shortness of breath, wheezing, and productive cough. She did not have acute infiltrate on chest xray, but she was significantly hypoxic. She continued empiric antibiotic coverage with Levaquin, though it appeared to have most likely have been a viral illness. At her follow-up visit in September she was finally showing recovery from that illness. She continued her treatment with daratumumab/pomalidomide/dexamethasone. She is seen for a follow-up visit. She has been feeling good generally. She has good energy. Her activity is somewhat limited, but she is doing light work. Appetite also is good. She has no fever or night sweats. She has had no mouth sores. She has no shortness of breath, cough, or chest pain. She has just a little bit of acid reflux now. She has no other GI or complaints. Her pain is well controlled with her current medication. She does not complain of headache or dizziness. She has no focal neurologic symptoms. Medications: Acetaminophen 2 Tablet (of 325 mg) Oral four times a day PRN, ALPRAZolam 1 Tablet (of 1 mg) Oral t.i.d., Benzonatate 1 Capsule (of 100 mg) Oral t.i.d. PRN, Childrens Aspirin 2 Tablet (of 81 mg) Tablet, chewable Oral daily, Cyclobenzaprine HCl 1 Tablet (of 10 mg) Oral t.i.d., Diclofenac Sodium 1 (1 %) Gel (jelly) Transdermal four times a day, Gabapentin 1 Capsule (of 100 mg) Oral t.i.d., Lidocaine 3 patch(es) (of 5 %) Patch Topical q 24 hours, Lidocaine 1 (5 %) Ointment Topical q 3 hours PRN, Melatonin 1 Tablet (of 10 mg) Oral at bedtime, Morphine Sulfate 1 - 2 Tablet (of 30 mg) Oral q 3 hours, Morphine Sulfate ER (100 mg) Tablet, controlled release Oral Take as Directed, Mupirocin 1 (2 %) Ointment Topical PRN, Omeprazole 1 Tablet (of 40 mg) Capsule Oral daily, Valerian Root 2 (1000 mg) Capsule Oral daily, Ventolin HFA 2 puff(s) (of 108 (90 base) mcg/act) Aerosol, solution Inhalation q 4 hours Allergies: Codeine Sulfate Review of Systems: Constitutional - She has been feeling good generally. She is able to do light hosue work. Her appetite is good. Her weight is down a little. No fever or night sweats. ECOG score is 1, ENMT - No sinus congestion/drainage. No mouth sores. No sore throat or difficulty swallowing, Hematologic/Lymphatic - She bruises easily, Respiratory - No shortness of breath. No cough. No pleuritic pain or hemoptysis, Cardiovascular - No angina pain. No palpitations, Gastrointestinal - No nausea or vomiting. She has just a little bit of acid reflux now. No diarrhea or constipation. No blood in the stool or black stools, Genitourinary (F) - No dysuria or hematuria. No urinary frequency. No urgency or incontinence, Musculoskeletal - Her pain is well controlled with her current medication, Neurologic - No headache or dizziness. No numbness/paresthesias or other focal neurologic symptoms, Psychiatric - No anxiety or depression. No insomnia. Vital Signs: Performed on January 12, 2020 07:42 Height - 57.00 in Weight - 168.9 lbs (LOW) BSA - 1.67 sq.m BMI - 36.55 (HIGH) Temperature - 97.5 F (LOW) Pulse - 83 /min Respiration - 17 /min BP - 116/69 mm(hg) O2 Sat - 98 % Pain - 0 Physical Examination: Constitutional - She looks pretty good generally, Eyes - Sclerae nonicteric. Conjunctivae clear, ENMT - No lesions noted in the oral cavity, Hematologic/Lymphatic - No cervical, clavicular, or axillary adenopathy, Respiratory - Lungs sound clear, Cardiovascular - Heart rhythm is regular. There is a II/ systolic murmur. There is no gallop or rub noted, Abdomen - Mildly distended but soft. Liver and spleen are not enlarged. There is no abdominal mass or ascites noted and there is no inguinal adenopathy, Extremities - No edema, Neurologic - No focal neurologic deficits noted. Lab/Imaging: Test performed on Jan 06, 2020 07:25 Glucose 132 mg/dL Protein, Total 5.6 g/dL Albumin, SPE 3.81 g/dL BUN 16 mg/dL Creatinine 0.87 mg/dL Cr Clearance (Est) 78.34 mL/min Sodium 139 mmol/L Potassium 3.9 mmol/L Chloride 101 mmol/L CO2 27 mmol/L Calcium 9.1 mg/dL Albumin 4.0 g/dL Bilirubin, Total 0.3 mg/dL Alkaline Phosphatase 62 IU/L AST (SGOT) 17 IU/L ALT (SGPT) 14 IU/L WBC 4.3 10^9/L RBC 4.52 10^12/L HGB 13.7 g/dL HCT 42.1 % MCV 93.1 fl MCH 30.3 pg MCHC 32.5 g/dL RDW 15.3 % Platelet Count 215 10^9/L MPV 9.9 fL Neutrophils (Gran) 1.70 10^9/L Lymphocytes 1.58 10^9/L Monocytes 0.74 10^9/L Eosinophils 0.19 10^9/L Basophils 0.08 10^9/L Manual Lymphocytes 37 % Manual Monocytes 17 % Manual Eosinophils 4 % Manual Basophils 2 % [place] / Lambda Ratio 0.12 Absolute Value Lambda Light Chain 9.06 [place] Light Chain 1.11 Jjezi-1-dgtzgoga 0.16 g/dL Ohmck-1-flqmgrye 0.63 g/dL Beta Globulin 0.72 g/dL Gamma Globulin 0.28 g/dL SPE Interpretation No significant change in monoclonal proteinemia since prior study Impression: 1. Patient with IgG lambda myeloma, initially diagnosed in December 2012. She had associated lytic bone involvement with vertebral compression fractures at T11 and L5. 2. She had a good response to initial treatment with or cycles of Velcade/Revlimid/dexamethasone followed by high-dose melphalan/stem cell transplant in May 2013. 3. She then continued maintenance Revlimid until July 2015, stopped at that time due to toxicity. 4. She had evidence of disease progression on repeat bone marrow aspiration/biopsy July 2016, and she then restarted Revlimid. Treatment was stopped in December 2017 due to toxicity, mainly cytopenias. 5. She had evidence of disease progression on repeat bone marrow aspiration/biopsy in February 2018. M protein at that point had increased to 1.82 gm/dL. PET/CT showed new area of bone involvement in the right sacral ala. Her other medical illnesses include: 6. GERD. 7. Mild asthma. As of 04/29/2018 she began treatment with daratumumab in combination with pomalidomide and dexamethasone. The pomalidomide was initiated at a reduced dosage of 3 mg daily on a 21/ day schedule. She completed the first 2 weekly infusions of daratumumab with minimal side effects. At week 3, on 05/12/2018, her white blood cell count had dropped to 1500, and her treatment was put on hold. As of 06/03/2018 her repeat protein electrophoresis showed a significant decrease in the M protein, to 0.44 g/dL. Her white blood cell count at that point remained moderately decreased, and the pomalidomide remain on hold, but I did have her restart weekly daratumumab infusions. As of 06/17/2018 she was able to restart pomalidomide with a further dose reduction to 2 mg daily. She completed her 8th weekly daratumumab infusion on 07/08/2018, following which her treatment was continued at 2-week intervals. She completed the 8th infusion at the 2-week interval on 10/28/2018. She had a very good response by serum protein electrophoresis, though quantitative immunoglobulin levels did show severe hypogammaglobulinemia. Her treatment was complicated by development of significant swelling in the lower extremities, which I suspected was related to the dexamethasone. It was managed adequately with furosemide. She otherwise tolerated the treatment well. As of December 2018 her serum protein electrophoresis still showed just a faint M protein, so that she did appear to be showing a good response to the treatment. She had then developed mild anemia. Her serum iron studies were consistent with iron deficiency, and the anemia improved on oral iron supplementation. During subsequent follow-up she had continued to tolerate her treatment well. She occasionally required treatment for sinus/respiratory infection. It was unclear to what extent the hypogammaglobulinemia they have been a contributing factor, but she did not appear to be having severe enough illness to warrant replacement IVIG. In August 2019 she had developed a more severe respiratory infection, requiring hospital admission in September. She had a treatment delay because of it, but she did have a good recovery. She has since then continued treatment with daratumumab/pomalidomide/dexamethasone at the same dosages. She has been doing well clinically, and thus far there has been no obvious progression of the myeloma. Plan: She will continue treatment with daratumumab 1100 mg by IV infusion every 4 weeks. She continues pomalidomide 1 mg daily on a 21/28 day schedule along with dexamethasone 20 mg weekly. She will be scheduled for a follow-up visit in 4 weeks. Signed By: Kenroy Davies M.D. <<Signature on File>>
== END 2020-02-06 23:59 | disposition home or self-care (01) ==
LOC: ONCMED 06:51
PROVIDERS: PCP Family Medicine; Visit Provider Internal Medicine Medical Oncology
DX: Z51.12 Encounter for antineoplastic immunotherapy (principal); C90.00 Multiple myeloma not having achieved remission; D80.1 Nonfamilial hypogammaglobulinemia; D50.9 Iron deficiency anemia, unspecified; K21.9 Gastro-esophageal reflux disease without esophagitis; J45.909 Unspecified asthma, uncomplicated; Z92.21 Personal history of antineoplastic chemotherapy
CPT/HCPCS: 96413; 96415; 99214; J7040; J7050; J9145

== ENCOUNTER 2020-02-09 05:52 | Outpatient (CLI) | payer MEDICARE, MEDICAID, SELFPAY ==
[2020-02-09] MEDS: sodium chloride 0.9% (100 ml) 100 ML 75 ML IV (10:15)
[2020-02-09] MEDS: sodium chloride 0.9% 250 ML 75 ML IV (10:15)
[2020-02-09] MEDS: acetaminophen 325 mg Tablet 650 MG PO (10:15)
[2020-02-09] MEDS: diphenhydrAMINE 25 mg Capsule PO (10:30)
--- NOTE | 2020-02-13 14:35 | ONC FU_ITS ---
[facility] Patient Note Patient: Salima Farrell Unit #: [id number]: 1955 Dictated By: Ac CarrDate of Visit: Feb 09, 2020 Onc MED Follow-Up/Prog Note Chief Complaint: Myeloma. History of Present Illness: Ms Farrell is a 64 year-old woman with IgG lambda myeloma. She had presented in December 2012 with compression fractures of the T11 and L5 vertebral bodies. She underwent kyphoplasty at both levels, and biopsies were consistent with plasma cell neoplasm. Her protein electrophoresis showed biclonal protein bands with lambda light chain 0.33 g/dL and IgG lambda 4.6 g/dL. There were additional lytic lesions noted on her skeletal survey. Her 24 hour urine reportedly showed 7 gm of Bence-Zabala proteinuria. Bone marrow aspiration/biopsy in January 2013 showed atypical plasma cell infiltrate comprising 91% of the marrow cellularity. She underwent treatment with 4 cycles of Velcade/Revlimid/dexamethasone followed by high-dose melphalan/autologous stem cell transplant in May 2013. She began maintenance Revlimid in August 2013. It was stopped as of July 2015 due to toxicities. As of July 2016 her repeat bone marrow aspiration/biopsy showed 30-40% plasma cells. She restarted treatment with Revlimid. It was stopped again in December 2017 due to toxicity, mainly cytopenias. At that point her protein electrophoresis showed M protein at 1.52 g/dL. Skeletal survey reportedly showed no new abnormalities. Her repeat marrow aspiration/biopsy in February 2018 showed 70% involvement by plasma cells. M protein at that point was up to 1.82 g/dL. PET/CT on 04/01/2018 showed new osseous involvement in the right sacral ala, SUV 4.15. She was seen by Dr. Shlomo Tanner on 04/06/2018. It was recommended that she begin salvage therapy with a combination of daratumumab, pomalidomide, and dexamethasone in preparation for possible second transplant procedure. She was seen here initially on 04/10/2018, as at that point she desired to have her treatment administered closer to home. She then returned to begin her treatment with daratumumab, pomalidomide, and dexamethasone on 04/29/2018. Due to her previous cytopenias with Revlimid, the pomalidomide was initiated at a reduced dosage of 3 mg daily on a 21/28 day schedule. She received her initial infusion of daratumumab on 04/29/2018. She tolerated it well, and she was able to proceed with her 2nd weekly infusion on 05/06/2018. She presented for her week 3 infusion on 05/12/2018. At that point her treatment was put on hold due to a decrease in her white blood cell count to 1500. As of 06/03/2018 her repeat protein electrophoresis showed a significant decrease in her M protein to 0.44 g/dL. The free light chain assay showed elevated lambda light chain at 7.99 mg/L with kappa light chain 0.1840 mg/L and decreased kappa/lambda ratio at 0.0230. The pomalidomide remained on hold due to persistent neutropenia, but she was able restart weekly daratumumab infusions. As of 06/17/2018 the white count had recovered, and she then restarted pomalidomide with a further dose reduction to 2 mg daily. She completed her 8th weekly infusion of daratumumab on 07/08/2018, following which the frequency of the infusions was increased to every 2 weeks. Her repeat protein electrophoresis on 08/04/2018 showed the M protein decreased to 0.14 g/dL. The free light chain assay showed the lambda light chain decreased to 0.3960 mg/dL with kappa/lambda ratio at 0.3081. Her quantitative immunoglobulin levels were very low with IgG 280 mg/dL, IgA 13 mg/dL, and IgM < 5 mg/dL. She continued her treatment with daratumumab in combination with pomalidomide/dexamethasone with the pomalidomide dosed at 1 mg daily on a 21/28 day schedule and dexamethasone 40 mg on the weeks of daratumumab. She completed the 8th infusion of daratumumab at the 2-week interval on 10/28/2018. She has since then continued the same treatment but with the daratumumab infusions administered every 4 weeks. As of December 2018 her protein electrophoresis showed just a faint residual M protein band, and her subsequent protein electrophoresis studies had not shown any significant change. Her other medical illnesses have been limited to GERD and mild asthma. Her other surgical/procedural history includes previous appendectomy and hysterectomy/bilateral salpingo-oophorectomy. She had a minimal smoking history in the past, and she quit smoking in 1991. INTERIM HISTORY: On 09/12/2019 she was admitted to [facility] in [place] with shortness of breath, wheezing, and productive cough. She did not have acute infiltrate on chest xray, but she was significantly hypoxic. She continued empiric antibiotic coverage with Levaquin, though it appeared to have most likely have been a viral illness. At her follow-up visit in September she was finally showing recovery from that illness. She continued her treatment with daratumumab/pomalidomide/dexamethasone. Mrs. Farrell is here today for follow-up. She states overall she is doing really good. Her energy is good. She is been cooking for her family and staying very busy with this. She states that she tires easily but recovers well with rest. She denies any fever chills or signs of infection for the last 72 hours. She denies any mouth sores. She has had no hearing changes. She denies any worsening of her neuropathy symptoms. She states she has had some pain in the left shoulder but thinks was due to changing bras recently and is tender with the bra strap normally lays. She states that she feels she can move the shoulder fine is just tender. She has had no swelling or redness around the joint. She is had no lymphedema in the arm. She denies any new shortness of breath. She continues to walk with a cane. She states her bowel and bladder are normal for her. She states her breathing is about the same to she states is no worse. She denies cough. She denies any orthopnea. She states she is had no hemoptysis. Her ECOG is 1. Past Medical History: Gastroesophageal reflux disease IgG kappa myeloma Mild asthma Past Surgical History: Appendectomy Bone marrow aspiration/biopsy in January 2013, July 2016, and February 2018 Kyphoplasty at T11 and L5 vertebral levels Tubal ligation Colonoscopy in 2012 Hysterectomy/bilateral salpingo-oophorectomy in 2008 Allergies: Codeine Sulfate Medications: Acetaminophen 2 Tablet (of 325 mg) Oral four times a day PRN ALPRAZolam 1 Tablet (of 1 mg) Oral t.i.d. Benzonatate 1 Capsule (of 100 mg) Oral t.i.d. PRN Childrens Aspirin 2 Tablet (of 81 mg) Tablet, chewable Oral daily Cyclobenzaprine HCl 1 Tablet (of 10 mg) Oral t.i.d. Gabapentin 1 Capsule (of 100 mg) Oral t.i.d. Lidocaine 3 patch(es) (of 5 %) Patch Topical q 24 hours Lidocaine 1 (5 %) Ointment Topical q 3 hours PRN Melatonin 1 Tablet (of 10 mg) Oral at bedtime Morphine Sulfate 1 - 2 Tablet (of 30 mg) Oral q 3 hours Morphine Sulfate ER (100 mg) Tablet, controlled release Oral Take as Directed Mupirocin 1 (2 %) Ointment Topical PRN Omeprazole 1 Tablet (of 40 mg) Capsule Oral daily Phentermine HCl 1 Capsule (of 37.5 mg) Oral daily Pomalidomide 1 Capsule (of 2 mg) Oral daily Valerian Root 2 (1000 mg) Capsule Oral daily Ventolin HFA 2 puff(s) (of 108 (90 base) mcg/act) Aerosol, solution Inhalation q 4 hours Voltaren Gel (jelly) Transdermal Family History: Ms. Farrell's mother at age 85: breast cancer, and myocardial infarction, and heart disease. Ms. Farrell's father at age 85: heart disease, and myocardial infarction. Ms. Farrell has 4 sisters: 2 alive, 2 . Ms. Farrell's first sister's ovarian cancer. Another sister's colon cancer. Another sister's myeloma. Another sister's breast cancer. Both parents of heart attack in their mid 80s. One brother of a gunshot wound, another with complications of diabetes, and another of old age. A sister of colon cancer and another sister of ovarian cancer. A sister has been treated for melanoma and is still living at age 75. Another sister has been treated for breast cancer and is still living at age 67. Social History: Ms. Farrell is and she is a disabled. Ms. Farrell quit smoking 26 years ago but had smoked for 13 years. She has no history of drinking. She had minimal smoking history in the past, and the range of 2-3 cigarettes per day. She quit smoking in 1991. She currently does not drink alcohol. She has had moderate alcohol use in the past. Review Of Symptoms: Constitutional Denies fevers, chills, night sweats. Has excessive fatigue but no weight loss. Allergic/Immunologic No reactions. Eyes Denies significant visual changes. No diplopia. No amaurosis. ENMT Denies changes in hearing, sore throat, mouth sores, difficulty or changes in swallowing ability, and/or sinus drainage. Endocrine No diabetes, thyroid disease or hormone replacement. Denies hot flashes or night sweats. Hematologic/Lymphatic Denies easy bruising or bleeding. The patient denies any tender or palpable lymph nodes. Respiratory Denies dyspnea on exertion, chest pain, or hemoptysis. Denies orthopnea. Cardiovascular Denies anginal chest pain, palpitations or orthopnea. Gastrointestinal Denies nausea, vomiting, diarrhea, GI bleeding, or constipation. Denies change in bowel habits and/or stool color, or early satiety. Genitourinary (F) No hematuria, hesitancy, incontinence, vaginal bleeding, discharge or other problems with urination. Musculoskeletal Denies joint swelling or redness. No decreased range of motion. Integumentary Denies chronic rashes, inflammation, ulcerations or skin changes. Neurologic Denies headache, blurred vision, and no areas of focal weakness or numbness. Slow gait-assisted with cane. No sensory problems. Psychiatric Denies insomnia, depression, nicolette or mood swings. Vital Signs: Performed on Feb 09, 2020 12:00 Height - 57.00 in Temperature - 96.7 F (LOW) Pulse - 87 /min Respiration - 18 /min BP - 115/67 mm(hg) O2 Sat - 95 % (LOW) Pain - 0 Fatigue - 0 Performed on Feb 09, 2020 09:16 Height - 57.00 in Weight - 167.2 lbs (LOW) BSA - 1.67 sq.m BMI - 36.18 (HIGH) Temperature - 97.5 F (LOW) Pulse - 82 /min Respiration - 18 /min BP - 137/65 mm(hg) O2 Sat - 95 % (LOW) Pain - 0,1 - No physically strenuous activity, but ambulatory and able to carry out light or sedentary work (e.g. office work, light house work). (ECOG) Physical Examination: Constitutional Alert, oriented, no acute distress. Skin pink, warm and dry. Head Normocephalic; atraumatic. Eyes Conjunctivae and sclerae are clear and without icterus. Pupils are reactive and equal. Neck Supple without masses or thyromegaly. No jugular venous distension. Hematologic/Lymphatic No petechiae or purpura. No tender or palpable lymph nodes in the cervical or supraclavicular areas. Respiratory Lungs are clear to auscultation without rhonchi or wheezing. Cardiovascular Regular rate and rhythm of heart without murmurs,clicks, gallops or rubs. Abdomen Non-tender, non-distended, no masses, ascites. Good bowel sounds noted in all quads. No guarding or rebound tenderness. No pulsatile masses. Back/Spine Non-tender to palpation. Extremities No visible deformities, no cyanosis, clubbing or edema. Pulses 4+ and equal bilaterally. Musculoskeletal No tenderness or swelling, normal range of motion without obvious weakness. Integumentary No rashes or lesions. Neurologic No sensory or motor deficits, normal cerebellar function, slow gait-normal for her. Psychiatric Alert and oriented times three. Coherent speech. Verbalizes understanding of our discussions today. Laboratory:Test performed on Feb 07, 2020 08:05 Glucose 154 mg/dL Protein, Total 5.5 g/dL Albumin, SPE 3.36 g/dL BUN 20 mg/dL Creatinine 0.65 mg/dL Cr Clearance (Est) 104.86 mL/min Sodium 137 mmol/L Potassium 4.1 mmol/L Chloride 102 mmol/L CO2 23 mmol/L Calcium 9.3 mg/dL Albumin 3.8 g/dL Bilirubin, Total 0.2 mg/dL Alkaline Phosphatase 56 IU/L AST (SGOT) 17 IU/L ALT (SGPT) 18 IU/L WBC 5.7 10^9/L RBC 4.75 10^12/L HGB 14.2 g/dL HCT 42.9 % MCV 90.3 fl MCH 29.9 pg MCHC 33.1 g/dL RDW 14.4 % Platelet Count 209 10^9/L MPV 9.4 fL Neutrophils (Gran) 2.85 10^9/L Lymphocytes 1.95 10^9/L Monocytes 0.67 10^9/L Eosinophils 0.16 10^9/L Basophils 0.07 10^9/L Manual Lymphocytes 34 % Manual Monocytes 12 % Manual Eosinophils 3 % Manual Basophils 1 % [place] / Lambda Ratio 0.14 Absolute Value Lambda Light Chain 9.60 [place] Light Chain 1.38 [id number] 0.20 g/dL [id number] 0.70 g/dL Beta Globulin 0.77 g/dL Gamma Globulin 0.47 g/dL SPE Interpretation No significant change in monoclonal proteinemia since prior study Impression: 1. Patient with IgG lambda myeloma, initially diagnosed in December 2012. She had associated lytic bone involvement with vertebral compression fractures at T11 and L5. 2. She had a good response to initial treatment with or cycles of Velcade/Revlimid/dexamethasone followed by high-dose melphalan/stem cell transplant in May 2013. 3. She then continued maintenance Revlimid until July 2015, stopped at that time due to toxicity. 4. She had evidence of disease progression on repeat bone marrow aspiration/biopsy July 2016, and she then restarted Revlimid. Treatment was stopped in December 2017 due to toxicity, mainly cytopenias. 5. She had evidence of disease progression on repeat bone marrow aspiration/biopsy in February 2018. M protein at that point had increased to 1.82 gm/dL. PET/CT showed new area of bone involvement in the right sacral ala. Her other medical illnesses include: 6. GERD. 7. Mild asthma. As of 04/29/2018 she began treatment with daratumumab in combination with pomalidomide and dexamethasone. The pomalidomide was initiated at a reduced dosage of 3 mg daily on a 21/28 day schedule. She completed the first 2 weekly infusions of daratumumab with minimal side effects. At week 3, on 05/12/2018, her white blood cell count had dropped to 1500, and her treatment was put on hold. As of 06/03/2018 her repeat protein electrophoresis showed a significant decrease in the M protein, to 0.44 g/dL. Her white blood cell count at that point remained moderately decreased, and the pomalidomide remain on hold, but I did have her restart weekly daratumumab infusions. As of 06/17/2018 she was able to restart pomalidomide with a further dose reduction to 2 mg daily. She completed her 8th weekly daratumumab infusion on 07/08/2018, following which her treatment was continued at 2-week intervals. She completed the 8th infusion at the 2-week interval on 10/28/2018. She had a very good response by serum protein electrophoresis, though quantitative immunoglobulin levels did show severe hypogammaglobulinemia. Her treatment was complicated by development of significant swelling in the lower extremities, which was suspected to be related to the dexamethasone. It was managed adequately with furosemide. She otherwise tolerated the treatment well. As of December 2018 her serum protein electrophoresis still showed just a faint M protein, so that she did appear to be showing a good response to the treatment. She had then developed mild anemia. Her serum iron studies were consistent with iron deficiency, and the anemia improved on oral iron supplementation. During subsequent follow-up she had continued to tolerate her treatment well. She occasionally required treatment for sinus/respiratory infection. It was unclear to what extent the hypogammaglobulinemia they have been a contributing factor, but she did not appear to be having severe enough illness to warrant replacement IVIG. In August 2019 she had developed a more severe respiratory infection, requiring hospital admission in September. She had a treatment delay because of it, but she did have a good recovery. She has since then continued treatment with daratumumab/pomalidomide/dexamethasone at the same dosages. She has been doing well clinically, and thus far there has been no obvious progression of the myeloma. Plan: 1. Proceed with cycle 22 day 1 daratumumab 1100 mg by IV infusion every 4 weeks. 2. She continues pomalidomide 1 mg daily on a 21/28 day schedule along with dexamethasone 20 mg weekly. She is due to start the pomalidomide on 02/12/2020. 3. Lab review from February 07, 2020 reveals a WBC of 5.7, hemoglobin 14.2, platelets 209,000 ANC is 2900. Creatinine 0.6 LFTs are normal. Her M spike was 0.09 with no significant change from previous assessment on jan, 2020. 4. We will plan to see her back in 1 month with CBC, CMP and repeat myeloma labs. 5. She has been instructed to contact us in interim should questions or problems arise. Signed By: Ac Carr-CINDY, HARITHA Davies MD <<Signature on File>>
== END 2020-02-09 05:53 | disposition home or self-care (01) ==
PROVIDERS: PCP Family Medicine; Visit Provider Nurse Practitioner
DX: Z51.12 Encounter for antineoplastic immunotherapy (principal); C90.00 Multiple myeloma not having achieved remission; D50.9 Iron deficiency anemia, unspecified; D80.1 Nonfamilial hypogammaglobulinemia; J45.902 Unspecified asthma with status asthmaticus; K21.9 Gastro-esophageal reflux disease without esophagitis; Z79.899 Other long term (current) drug therapy
CPT/HCPCS: 96367; 96413; 99214; J3489; J7040; J7050; J9145

== ENCOUNTER 2020-03-08 08:55 | Outpatient (CLI) | payer MEDICARE, MEDICAID, SELFPAY ==
[2020-03-08] MEDS: alteplase 1 mg/mL SDV 2 mL 2 MG INTRACATH (10:50)
[2020-03-08] MEDS: acetaminophen 325 mg Tablet 650 MG PO (10:55)
[2020-03-08] MEDS: diphenhydrAMINE 25 mg Capsule PO (10:55)
[2020-03-08] MEDS: sodium chloride 0.9% 250 ML 75 ML IV (10:59)
--- NOTE | 2020-03-09 07:09 | ONC FU_ITS ---
Dr. Davies Patient Follow-Up Note Patient: Salima Farrell Unit #: [id number]: [id number] Dicatated By: Kenroy Davies M.D.Date of Visit:Mar 08, 2020 Onc Med Follow-up/Prog Note Chief Complaint: Myeloma. History of Present Illness: This is a 64 year-old woman with IgG lambda myeloma. She had presented in December 2012 with compression fractures of the T11 and L5 vertebral bodies. She underwent kyphoplasty at both levels, and biopsies were consistent with plasma cell neoplasm. Her protein electrophoresis showed biclonal protein bands with lambda light chain 0.33 g/dL and IgG lambda 4.6 g/dL. There were additional lytic lesions noted on her skeletal survey. Her 24 hour urine reportedly showed 7 gm of Bence-Zabala proteinuria. Bone marrow aspiration/biopsy in January 2013 showed atypical plasma cell infiltrate comprising 91% of the marrow cellularity. She underwent treatment with 4 cycles of Velcade/Revlimid/dexamethasone followed by high-dose melphalan/autologous stem cell transplant in May 2013. She began maintenance Revlimid in August 2013. It was stopped as of July 2015 due to toxicities. As of July 2016 her repeat bone marrow aspiration/biopsy showed 30-40% plasma cells. She restarted treatment with Revlimid. It was stopped again in December 2017 due to toxicity, mainly cytopenias. At that point her protein electrophoresis showed M protein at 1.52 g/dL. Skeletal survey reportedly showed no new abnormalities. Her repeat marrow aspiration/biopsy in February 2018 showed 70% involvement by plasma cells. M protein at that point was up to 1.82 g/dL. PET/CT on 04/01/2018 showed new osseous involvement in the right sacral ala, SUV 4.15. She was seen by Dr. Shlomo Tanner on 04/06/2018. It was recommended that she begin salvage therapy with a combination of daratumumab, pomalidomide, and dexamethasone in preparation for possible second transplant procedure. She was seen here initially on 04/10/2018, as at that point she desired to have her treatment administered closer to home. She then returned to begin her treatment with daratumumab, pomalidomide, and dexamethasone on 04/29/2018. Due to her previous cytopenias with Revlimid, the pomalidomide was initiated at a reduced dosage of 3 mg daily on a 21/28 day schedule. She received her initial infusion of daratumumab on 04/29/2018. She tolerated it well, and she was able to proceed with her 2nd weekly infusion on 05/06/2018. She presented for her week 3 infusion on 05/12/2018. At that point her treatment was put on hold due to a decrease in her white blood cell count to 1500. As of 06/03/2018 her repeat protein electrophoresis showed a significant decrease in her M protein to 0.44 g/dL. The free light chain assay showed elevated lambda light chain at 7.99 mg/L with kappa light chain 0.1840 mg/L and decreased kappa/lambda ratio at 0.0230. The pomalidomide remained on hold due to persistent neutropenia, but she was able restart weekly daratumumab infusions. As of 06/17/2018 the white count had recovered, and she then restarted pomalidomide with a further dose reduction to 2 mg daily. She completed her 8th weekly infusion of daratumumab on 07/08/2018, following which the frequency of the infusions was increased to every 2 weeks. Her repeat protein electrophoresis on 08/04/2018 showed the M protein decreased to 0.14 g/dL. The free light chain assay showed the lambda light chain decreased to 0.3960 mg/dL with kappa/lambda ratio at 0.3081. Her quantitative immunoglobulin levels were very low with IgG 280 mg/dL, IgA 13 mg/dL, and IgM < 5 mg/dL. She continued her treatment with daratumumab in combination with pomalidomide/dexamethasone with the pomalidomide dosed at 1 mg daily on a 21/28 day schedule and dexamethasone 40 mg on the weeks of daratumumab. She completed the 8th infusion of daratumumab at the 2-week interval on 10/28/2018. She has since then continued the same treatment but with the daratumumab infusions administered every 4 weeks. As of December 2018 her protein electrophoresis showed just a faint residual M protein band, and her subsequent protein electrophoresis studies had not shown any significant change. Her other medical illnesses have been limited to GERD and mild asthma. Her other surgical/procedural history includes previous appendectomy and hysterectomy/bilateral salpingo-oophorectomy. She had a minimal smoking history in the past, and she quit smoking in 1991. INTERIM HISTORY: On 09/12/2019 she was admitted to [facility] in [place] with shortness of breath, wheezing, and productive cough. She did not have acute infiltrate on chest xray, but she was significantly hypoxic. She continued empiric antibiotic coverage with Levaquin, though it appeared to have most likely have been a viral illness. At her follow-up visit in September she was finally showing recovery from that illness. She continued her treatment with daratumumab/pomalidomide/dexamethasone. She is seen for a follow-up visit. Her main complaint is that she recently suffered a fracture of her right foot. It occurred after she had walked a mile on a gravel road. She had not been aware of any injury. Her energy has generally been good, though she says she does get tired. ECOG score is 1. She has good appetite. She has been trying to control her weight. She has no shortness of breath, cough, or chest pain. She has no GI or complaints. Her pain is generally well controlled with her medication. She has no focal neurologic symptoms. Medications: Acetaminophen 2 Tablet (of 325 mg) Oral four times a day PRN, ALPRAZolam 1 Tablet (of 1 mg) Oral t.i.d., Benzonatate 1 Capsule (of 100 mg) Oral t.i.d. PRN, Childrens Aspirin 2 Tablet (of 81 mg) Tablet, chewable Oral daily, Cyclobenzaprine HCl 1 Tablet (of 10 mg) Oral t.i.d., Gabapentin 1 Capsule (of 100 mg) Oral t.i.d., Lidocaine 3 patch(es) (of 5 %) Patch Topical q 24 hours, Lidocaine 1 (5 %) Ointment Topical q 3 hours PRN, Melatonin 1 Tablet (of 10 mg) Oral at bedtime, Morphine Sulfate 1 - 2 Tablet (of 30 mg) Oral q 3 hours, Morphine Sulfate ER (100 mg) Tablet, controlled release Oral Take as Directed, Mupirocin 1 (2 %) Ointment Topical PRN, Omeprazole 1 Tablet (of 40 mg) Capsule Oral daily, Phentermine HCl 1 Capsule (of 37.5 mg) Oral daily, Pomalidomide 1 Capsule (of 2 mg) Oral daily, Valerian Root 2 (1000 mg) Capsule Oral daily, Ventolin HFA 2 puff(s) (of 108 (90 base) mcg/act) Aerosol, solution Inhalation q 4 hours, Voltaren Gel (jelly) Transdermal Allergies: Codeine Sulfate Review of Systems: Constitutional - Her energy is good, but she does get tired. Her appetite is good. She is trying to contorl her weight. No fever, night sweats, or hot flashes. ECOG score is 1, ENMT - No sinus congestion/drainage. No mouth sores. No sore throat or difficulty swallowing, Hematologic/Lymphatic - No abnormal bruising or bleeding, Respiratory - No shortness of breath. No cough. No pleuritic pain or hemoptysis, Cardiovascular - No angina pain. No palpitations, Gastrointestinal - No nausea or vomiting. Her acid reflux is adequately managed. No diarrhea or constipation. No blood in the stool or black stools, Genitourinary (F) - No dysuria or hematuria. No urinary frequency. No urgency or incontinence, Musculoskeletal - She recently suffered a fracture in her right foot. It occurred after she had been walking on a gravel road. She did not have any injury. Her pain is generally well controlled with medication, Integumentary - No skin complications, Neurologic - No headache or dizziness. No numbness or tingling. No other focal neurologic symptoms, Psychiatric - No anxiety or depression. No insomnia. Vital Signs: Performed on Mar 08, 2020 09:20 Height - 57.00 in Weight - 169.9 lbs (HIGH) BSA - 1.68 sq.m BMI - 36.77 (HIGH) Temperature - 97.9 F (LOW) Pulse - 85 /min Respiration - 22 /min BP - 109/72 mm(hg) O2 Sat - 95 % (LOW) Pain - 0 Physical Examination: Constitutional - She looks pretty good generally, Eyes - Sclerae nonicteric. Conjunctivae clear, ENMT - No lesions noted in the oral cavity, Hematologic/Lymphatic - No cervical, clavicular, or axillary adenopathy, Respiratory - Lungs are clear, Cardiovascular - Heart rhythm is regular. There is a II/ systolic murmur. There is no gallop or rub noted, Abdomen - Soft. Liver and spleen are not enlarged. There is no abdominal mass or ascites noted and there is no inguinal adenopathy, Extremities - There is mild swelling of the right leg and right foot. There are small purpuric lesions on both legs, Neurologic - No focal neurologic deficits noted. Lab/Imaging: Test performed on Mar 06, 2020 08:26 Glucose 121 mg/dL Protein, Total 5.3 g/dL Albumin, SPE 2.96 g/dL BUN 17 mg/dL Creatinine 0.67 mg/dL Cr Clearance (Est) 101.73 mL/min Sodium 139 mmol/L Potassium 4.0 mmol/L Chloride 105 mmol/L CO2 25 mmol/L Calcium 8.8 mg/dL Albumin 3.6 g/dL Bilirubin, Total 0.2 mg/dL Alkaline Phosphatase 65 IU/L AST (SGOT) 20 IU/L ALT (SGPT) 22 IU/L WBC 5.7 10^9/L RBC 4.52 10^12/L HGB 13.4 g/dL HCT 41.0 % MCV 90.7 fl MCH 29.6 pg MCHC 32.7 g/dL RDW 14.6 % Platelet Count 207 10^9/L MPV 9.4 fL Neutrophils (Gran) 3.40 10^9/L Lymphocytes 1.34 10^9/L Monocytes 0.66 10^9/L Eosinophils 0.15 10^9/L Basophils 0.08 10^9/L Manual Lymphocytes 24 % Manual Monocytes 12 % Manual Eosinophils 3 % Manual Basophils 1 % Bncfo-5-[id number] 0.21 g/dL Hmtyk-1-sgwthafe 0.76 g/dL Beta Globulin 0.85 g/dL Gamma Globulin 0.52 g/dL M-Rene 0.11 g/dL SPE Interpretation No significant change in monoclonal proteinemia since prior study Impression: 1. Patient with IgG lambda myeloma, initially diagnosed in December 2012. She had associated lytic bone involvement with vertebral compression fractures at T11 and L5. 2. She had a good response to initial treatment with or cycles of Velcade/Revlimid/dexamethasone followed by high-dose melphalan/stem cell transplant in May 2013. 3. She then continued maintenance Revlimid until July 2015, stopped at that time due to toxicity. 4. She had evidence of disease progression on repeat bone marrow aspiration/biopsy July 2016, and she then restarted Revlimid. Treatment was stopped in December 2017 due to toxicity, mainly cytopenias. 5. She had evidence of disease progression on repeat bone marrow aspiration/biopsy in February 2018. M protein at that point had increased to 1.82 gm/dL. PET/CT showed new area of bone involvement in the right sacral ala. Her other medical illnesses include: 6. GERD. 7. Mild asthma. As of 04/29/2018 she began treatment with daratumumab in combination with pomalidomide and dexamethasone. The pomalidomide was initiated at a reduced dosage of 3 mg daily on a 21/28 day schedule. She completed the first 2 weekly infusions of daratumumab with minimal side effects. At week 3, on 05/12/2018, her white blood cell count had dropped to 1500, and her treatment was put on hold. As of 06/03/2018 her repeat protein electrophoresis showed a significant decrease in the M protein, to 0.44 g/dL. Her white blood cell count at that point remained moderately decreased, and the pomalidomide remain on hold, but I did have her restart weekly daratumumab infusions. As of 06/17/2018 she was able to restart pomalidomide with a further dose reduction to 2 mg daily. She completed her 8th weekly daratumumab infusion on 07/08/2018, following which her treatment was continued at 2-week intervals. She completed the 8th infusion at the 2-week interval on 10/28/2018. She had a very good response by serum protein electrophoresis, though quantitative immunoglobulin levels did show severe hypogammaglobulinemia. Her treatment was complicated by development of significant swelling in the lower extremities, which I suspected was related to the dexamethasone. It was managed adequately with furosemide. She otherwise tolerated the treatment well. As of December 2018 her serum protein electrophoresis still showed just a faint M protein, so that she did appear to be showing a good response to the treatment. She had then developed mild anemia. Her serum iron studies were consistent with iron deficiency, and the anemia improved on oral iron supplementation. During follow-up she has occasionally required treatment for sinus/respiratory infection. In August 2019 she had developed a more severe respiratory infection, requiring hospital admission in September. She had a treatment delay because of it, but she did have a good recovery. She has since then continued treatment with daratumumab/pomalidomide/dexamethasone at the same dosages. Overall she has been doing well clinically. There has been no evidence of progression of the myeloma. Thus far I have not felt that her hypogammaglobulinemia has warranted treatment. Plan: She will continue treatment with daratumumab 1100 mg by IV infusion every 4 weeks. She continues pomalidomide 1 mg daily on a 21/28 day schedule along with dexamethasone 20 mg weekly. She will be scheduled for a follow-up visit in 4 weeks. In the meantime, she will be seen at orthopedic clinic for the foot fracture. Signed By: Kenroy Davies M.D. <<Signature on File>>
== END 2020-03-08 08:56 | disposition home or self-care (01) ==
LOC: ONCMED 09:00
PROVIDERS: PCP Family Medicine; Visit Provider Internal Medicine Medical Oncology
DX: Z51.12 Encounter for antineoplastic immunotherapy (principal); C90.00 Multiple myeloma not having achieved remission; D80.1 Nonfamilial hypogammaglobulinemia; D50.9 Iron deficiency anemia, unspecified; K21.9 Gastro-esophageal reflux disease without esophagitis; J45.909 Unspecified asthma, uncomplicated; Z94.84 Stem cells transplant status; Z79.52 Long term (current) use of systemic steroids; Z79.899 Other long term (current) drug therapy
CPT/HCPCS: 36593; 73630; 96375; 96413; 96415; 99214; J2997; J7040; J7050; J9145

== ENCOUNTER 2020-03-08 15:31 | Outpatient (CLI) | payer MEDICARE, MEDICAID, SELFPAY | END 2020-03-08 15:32 | disposition home or self-care (01) | LOC: SPT 15:31 | PROVIDERS: PCP Family Medicine; Visit Provider Specialist | DX: Z46.89 Encounter for fitting and adjustment of other specified devices (principal); S92.354D Nondisplaced fracture of fifth metatarsal bone, right foot, subsequent encounter for fracture with routine healing; X58.XXXD Exposure to other specified factors, subsequent encounter | CPT/HCPCS: 97760; L4361 ==

== ENCOUNTER → 2020-03-29 09:30 | Outpatient (BNVA) | payer MEDICARE, MEDICAID, SELFPAY | PROVIDERS: PCP Family Medicine; Visit Provider Specialist | DX: S92.354A Nondisplaced fracture of fifth metatarsal bone, right foot, initial encounter for closed fracture (principal); X58.XXXA Exposure to other specified factors, initial encounter | CPT/HCPCS: 73630 ==

== ENCOUNTER 2020-04-05 08:43 | Outpatient (CLI) | payer MEDICARE, MEDICAID, SELFPAY ==
[2020-04-05] MEDS: diphenhydrAMINE 25 mg Capsule PO (10:10)
[2020-04-05] MEDS: sodium chloride 0.9% 250 ML 999 ML IV (10:10)
[2020-04-05] MEDS: acetaminophen 325 mg Tablet 650 MG PO (10:10)
--- NOTE | 2020-04-09 13:11 | ONC FU_ITS ---
[facility] Patient Note Patient: Salima Farrell Unit #: [id number]: [id number] Dictated By: Ac CarrDate of Visit: Apr 05, 2020 Onc MED Follow-Up/Prog Note Chief Complaint: Myeloma. History of Present Illness: Ms Farrell is a 64 year-old woman with IgG lambda myeloma. She had presented in December 2012 with compression fractures of the T11 and L5 vertebral bodies. She underwent kyphoplasty at both levels, and biopsies were consistent with plasma cell neoplasm. Her protein electrophoresis showed biclonal protein bands with lambda light chain 0.33 g/dL and IgG lambda 4.6 g/dL. There were additional lytic lesions noted on her skeletal survey. Her 24 hour urine reportedly showed 7 gm of Bence-Zabala proteinuria. Bone marrow aspiration/biopsy in January 2013 showed atypical plasma cell infiltrate comprising 91% of the marrow cellularity. She underwent treatment with 4 cycles of Velcade/Revlimid/dexamethasone followed by high-dose melphalan/autologous stem cell transplant in May 2013. She began maintenance Revlimid in August 2013. It was stopped as of July 2015 due to toxicities. As of July 2016 her repeat bone marrow aspiration/biopsy showed 30-40% plasma cells. She restarted treatment with Revlimid. It was stopped again in December 2017 due to toxicity, mainly cytopenias. At that point her protein electrophoresis showed M protein at 1.52 g/dL. Skeletal survey reportedly showed no new abnormalities. Her repeat marrow aspiration/biopsy in February 2018 showed 70% involvement by plasma cells. M protein at that point was up to 1.82 g/dL. PET/CT on 04/01/2018 showed new osseous involvement in the right sacral ala, SUV 4.15. She was seen by Dr. Shlomo Tanner on 04/06/2018. It was recommended that she begin salvage therapy with a combination of daratumumab, pomalidomide, and dexamethasone in preparation for possible second transplant procedure. She was seen here initially on 04/10/2018, as at that point she desired to have her treatment administered closer to home. She then returned to begin her treatment with daratumumab, pomalidomide, and dexamethasone on 04/29/2018. Due to her previous cytopenias with Revlimid, the pomalidomide was initiated at a reduced dosage of 3 mg daily on a 21/28 day schedule. She received her initial infusion of daratumumab on 04/29/2018. She tolerated it well, and she was able to proceed with her 2nd weekly infusion on 05/06/2018. She presented for her week 3 infusion on 05/12/2018. At that point her treatment was put on hold due to a decrease in her white blood cell count to 1500. As of 06/03/2018 her repeat protein electrophoresis showed a significant decrease in her M protein to 0.44 g/dL. The free light chain assay showed elevated lambda light chain at 7.99 mg/L with kappa light chain 0.1840 mg/L and decreased kappa/lambda ratio at 0.0230. The pomalidomide remained on hold due to persistent neutropenia, but she was able restart weekly daratumumab infusions. As of 06/17/2018 the white count had recovered, and she then restarted pomalidomide with a further dose reduction to 2 mg daily. She completed her 8th weekly infusion of daratumumab on 07/08/2018, following which the frequency of the infusions was increased to every 2 weeks. Her repeat protein electrophoresis on 08/04/2018 showed the M protein decreased to 0.14 g/dL. The free light chain assay showed the lambda light chain decreased to 0.3960 mg/dL with kappa/lambda ratio at 0.3081. Her quantitative immunoglobulin levels were very low with IgG 280 mg/dL, IgA 13 mg/dL, and IgM < 5 mg/dL. She continued her treatment with daratumumab in combination with pomalidomide/dexamethasone with the pomalidomide dosed at 1 mg daily on a 21/28 day schedule and dexamethasone 40 mg on the weeks of daratumumab. She completed the 8th infusion of daratumumab at the 2-week interval on 10/28/2018. She has since then continued the same treatment but with the daratumumab infusions administered every 4 weeks. As of December 2018 her protein electrophoresis showed just a faint residual M protein band, and her subsequent protein electrophoresis studies had not shown any significant change. Her other medical illnesses have been limited to GERD and mild asthma. Her other surgical/procedural history includes previous appendectomy and hysterectomy/bilateral salpingo-oophorectomy. She had a minimal smoking history in the past, and she quit smoking in 1991. INTERIM HISTORY: On 09/12/2019 she was admitted to [facility] in [place] with shortness of breath, wheezing, and productive cough. She did not have acute infiltrate on chest xray, but she was significantly hypoxic. She continued empiric antibiotic coverage with Levaquin, though it appeared to have most likely have been a viral illness. At her follow-up visit in September she was finally showing recovery from that illness. She continued her treatment with daratumumab/pomalidomide/dexamethasone. Ms. Farrell is here today for follow-up. She states overall she is feeling good. She states she had upper respiratory infection/bronchitis last week. She states that she still has a bit of a cough but overall it is much better. She denies any fever or chills. She has had no mouth sores sore throat or difficulty swallowing. She denies any nausea or vomiting. She denies any new pain. She did recently have a fracture in her foot that is noted to be healing she has followed with Dr. Ybarra for that. She denies any diarrhea or constipation. Other than her foot she denies any pain. She states her pain medication is working well for her currently. Her ECOG is 1. Past Medical History: Gastroesophageal reflux disease IgG kappa myeloma Mild asthma Past Surgical History: Appendectomy Bone marrow aspiration/biopsy in January 2013, July 2016, and February 2018 Kyphoplasty at T11 and L5 vertebral levels Tubal ligation Colonoscopy in 2012 Hysterectomy/bilateral salpingo-oophorectomy in 2008 Allergies: Codeine Sulfate Medications: Acetaminophen 2 Tablet (of 325 mg) Oral four times a day PRN ALPRAZolam 1 Tablet (of 1 mg) Oral t.i.d. Benzonatate 1 Capsule (of 100 mg) Oral t.i.d. PRN Childrens Aspirin 2 Tablet (of 81 mg) Tablet, chewable Oral daily Cyclobenzaprine HCl 1 Tablet (of 10 mg) Oral t.i.d. Gabapentin 1 Capsule (of 100 mg) Oral t.i.d. Lidocaine 3 patch(es) (of 5 %) Patch Topical q 24 hours Lidocaine 1 (5 %) Ointment Topical q 3 hours PRN Melatonin 1 Tablet (of 10 mg) Oral at bedtime Morphine Sulfate 1 - 2 Tablet (of 30 mg) Oral q 3 hours Morphine Sulfate ER (100 mg) Tablet, controlled release Oral Take as Directed Mupirocin 1 (2 %) Ointment Topical PRN Omeprazole 1 Tablet (of 40 mg) Capsule Oral daily Phentermine HCl 1 Capsule (of 37.5 mg) Oral daily Pomalidomide 1 Capsule (of 2 mg) Oral daily Valerian Root 2 (1000 mg) Capsule Oral daily Ventolin HFA 2 puff(s) (of 108 (90 base) mcg/act) Aerosol, solution Inhalation q 4 hours Voltaren Gel (jelly) Transdermal Family History: Ms. Farrell's mother at age 85: breast cancer, and myocardial infarction, and heart disease. Ms. Farrell's father at age 85: heart disease, and myocardial infarction. Ms. Farrell has 4 sisters: 2 alive, 2 . Ms. Farrell's first sister's ovarian cancer. Another sister's colon cancer. Another sister's myeloma. Another sister's breast cancer. Both parents of heart attack in their mid 80s. One brother of a gunshot wound, another with complications of diabetes, and another of old age. A sister of colon cancer and another sister of ovarian cancer. A sister has been treated for melanoma and is still living at age 75. Another sister has been treated for breast cancer and is still living at age 67. Social History: Ms. Farrell is and she is a disabled. Ms. Farrell quit smoking 26 years ago but had smoked for 13 years. She has no history of drinking. She had minimal smoking history in the past, and the range of 2-3 cigarettes per day. She quit smoking in 1991. She currently does not drink alcohol. She has had moderate alcohol use in the past. Review Of Symptoms: Constitutional Denies fevers, chills, night sweats. Has excessive fatigue but no weight loss. Allergic/Immunologic No reactions. Eyes Denies significant visual changes. No diplopia. No amaurosis. ENMT Denies changes in hearing, sore throat, mouth sores, difficulty or changes in swallowing ability, and/or sinus drainage. Endocrine No diabetes, thyroid disease or hormone replacement. Denies hot flashes or night sweats. Hematologic/Lymphatic Denies easy bruising or bleeding. The patient denies any tender or palpable lymph nodes. Respiratory Denies dyspnea on exertion, chest pain, or hemoptysis. Denies orthopnea. Cardiovascular Denies anginal chest pain, palpitations or orthopnea. Gastrointestinal Denies nausea, vomiting, diarrhea, GI bleeding, or constipation. Denies change in bowel habits and/or stool color, or early satiety. Genitourinary (F) No hematuria, hesitancy, incontinence, vaginal bleeding, discharge or other problems with urination. Musculoskeletal Denies joint swelling or redness. No decreased range of motion. Integumentary Denies chronic rashes, inflammation, ulcerations or skin changes. Neurologic Denies headache, blurred vision, and no areas of focal weakness or numbness. Slow gait-assisted with cane. No sensory problems. Psychiatric Denies insomnia, depression, nicolette or mood swings. Vital Signs: Performed on Apr 05, 2020 09:05 Height - 57.00 in Weight - 175.4 lbs (HIGH) BSA - 1.70 sq.m BMI - 37.96 (HIGH) Temperature - 97.6 F (LOW) Pulse - 93 /min Respiration - 17 /min BP - 124/77 mm(hg) O2 Sat - 94 % (LOW) Pain - 0,1 - No physically strenuous activity, but ambulatory and able to carry out light or sedentary work (e.g. office work, light house work). (ECOG) Physical Examination: Constitutional Alert, oriented, no acute distress. Skin pink, warm and dry. Head Normocephalic; atraumatic. Eyes Conjunctivae and sclerae are clear and without icterus. Pupils are reactive and equal. Neck Supple without masses or thyromegaly. No jugular venous distension. Hematologic/Lymphatic No petechiae or purpura. No tender or palpable lymph nodes in the cervical or supraclavicular areas. Respiratory Lungs are clear to auscultation without rhonchi or wheezing. Cardiovascular Regular rate and rhythm of heart without murmurs,clicks, gallops or rubs. Abdomen Non-tender, non-distended, no masses, ascites. Back/Spine Non-tender to palpation. Extremities No visible deformities, no cyanosis, clubbing or edema. Pulses 4+ and equal bilaterally. Musculoskeletal No tenderness or swelling, normal range of motion without obvious weakness. Integumentary No rashes or lesions. Neurologic No sensory or motor deficits, normal cerebellar function, slow gait-normal for her. Psychiatric Alert and oriented times three. Coherent speech. Verbalizes understanding of our discussions today. Laboratory:Test performed on Apr 03, 2020 09:52 Glucose 106 mg/dL Protein, Total 5.4 g/dL Albumin, SPE 3.35 g/dL BUN 21 mg/dL Creatinine 0.83 mg/dL Cr Clearance (Est) 82.12 mL/min Sodium 140 mmol/L Potassium 4.3 mmol/L Chloride 102 mmol/L CO2 27 mmol/L Calcium 9.3 mg/dL Albumin 3.7 g/dL Bilirubin, Total 0.2 mg/dL Alkaline Phosphatase 66 IU/L AST (SGOT) 18 IU/L ALT (SGPT) 17 IU/L WBC 6.0 10^9/L RBC 4.52 10^12/L HGB 13.4 g/dL HCT 41.0 % MCV 90.7 fl MCH 29.6 pg MCHC 32.7 g/dL RDW 14.7 % Platelet Count 268 10^9/L MPV 9.3 fL Neutrophils (Gran) 3.32 10^9/L Lymphocytes 1.85 10^9/L Monocytes 0.57 10^9/L Eosinophils 0.17 10^9/L Basophils 0.08 10^9/L Manual Lymphocytes 31 % Manual Monocytes 10 % Manual Eosinophils 3 % Manual Basophils 1 % IGA 13 mg/dL IGG 379 mg/dL IGM 6 mg/dL Calhoun / Lambda Ratio 0.17 Absolute Value Lambda Light Chain 24.34 Calhoun Light Chain 4.07 [id number] 0.31 g/dL [id number]-[id number] 0.73 g/dL Beta Globulin 0.71 g/dL Gamma Globulin 0.32 g/dL SPE Interpretation No significant change in monoclonal proteinemia since prior study Test performed on Mar 06, 2020 08:26 M-Rene 0.11 g/dL Test performed on Nov 08, 2019 08:48 Lambda Light Chain (Quant) 6.52 mg/dL Calhoun Light Chain (Quant) 1.06 mg/dL Test performed on Oct 18, 2019 11:45 T4, Free 0.99 ng/dL TSH 1.98 uIU/mL Vitamin B12 310 pg/mL Impression: 1. Patient with IgG lambda myeloma, initially diagnosed in December 2012. She had associated lytic bone involvement with vertebral compression fractures at T11 and L5. 2. She had a good response to initial treatment with or cycles of Velcade/Revlimid/dexamethasone followed by high-dose melphalan/stem cell transplant in May 2013. 3. She then continued maintenance Revlimid until July 2015, stopped at that time due to toxicity. 4. She had evidence of disease progression on repeat bone marrow aspiration/biopsy July 2016, and she then restarted Revlimid. Treatment was stopped in December 2017 due to toxicity, mainly cytopenias. 5. She had evidence of disease progression on repeat bone marrow aspiration/biopsy in February 2018. M protein at that point had increased to 1.82 gm/dL. PET/CT showed new area of bone involvement in the right sacral ala. Her other medical illnesses include: 6. GERD. 7. Mild asthma. As of 04/29/2018 she began treatment with daratumumab in combination with pomalidomide and dexamethasone. The pomalidomide was initiated at a reduced dosage of 3 mg daily on a 21/28 day schedule. She completed the first 2 weekly infusions of daratumumab with minimal side effects. At week 3, on 05/12/2018, her white blood cell count had dropped to 1500, and her treatment was put on hold. As of 06/03/2018 her repeat protein electrophoresis showed a significant decrease in the M protein, to 0.44 g/dL. Her white blood cell count at that point remained moderately decreased, and the pomalidomide remain on hold, but I did have her restart weekly daratumumab infusions. As of 06/17/2018 she was able to restart pomalidomide with a further dose reduction to 2 mg daily. She completed her 8th weekly daratumumab infusion on 07/08/2018, following which her treatment was continued at 2-week intervals. She completed the 8th infusion at the 2-week interval on 10/28/2018. She had a very good response by serum protein electrophoresis, though quantitative immunoglobulin levels did show severe hypogammaglobulinemia. Her treatment was complicated by development of significant swelling in the lower extremities, which was suspected to be related to the dexamethasone. It was managed adequately with furosemide. She otherwise tolerated the treatment well. As of December 2018 her serum protein electrophoresis still showed just a faint M protein, so that she did appear to be showing a good response to the treatment. She had then developed mild anemia. Her serum iron studies were consistent with iron deficiency, and the anemia improved on oral iron supplementation. During subsequent follow-up she had continued to tolerate her treatment well. She occasionally required treatment for sinus/respiratory infection. It was unclear to what extent the hypogammaglobulinemia they have been a contributing factor, but she did not appear to be having severe enough illness to warrant replacement IVIG. In August 2019 she had developed a more severe respiratory infection, requiring hospital admission in September. She had a treatment delay because of it, but she did have a good recovery. She has since then continued treatment with daratumumab/pomalidomide/dexamethasone at the same dosages. She has been doing well clinically, and thus far there has been no obvious progression of the myeloma. Plan: 1. Proceed with cycle 24 day 1 daratumumab 1100 mg by IV infusion every 4 weeks. 2. She continues pomalidomide 1 mg daily on a 21/28 day schedule along with dexamethasone 10 mg twice weekly. She started the pomalidomide on 03/22/2020. 3. Lab review from April 03, 2020 reveals a WBC of 6.0, hemoglobin 13.4, platelets 268,000 ANC is 3300. Creatinine 0.8 LFTs are normal. Her SPEP from 04/03/2020 reports no significant change in monoclonal proteinemia since prior study . 4. We will plan to see her back in 1 month with CBC, CMP and repeat myeloma labs. 5. She has been instructed to contact us in interim should questions or problems arise. 6. I did hold her Zometa today she does have a healing fracture in her foot. 7. We did discuss her frequent infections but she states this 1 she acquired from her family and she is not been sick for some time. She has immunoglobulin deficiency and may be a candidate for IVIG replacement if she has frequent infections. She verbalized understanding states she will keep us updated. Signed By: Ac Carr-CINDY, AOGURVINDERP Kenroy Davies MD <<Signature on File>>
== END 2020-04-05 08:44 | disposition home or self-care (01) ==
LOC: ONCMED 08:47
PROVIDERS: PCP Family Medicine; Visit Provider Nurse Practitioner
DX: Z51.12 Encounter for antineoplastic immunotherapy (principal); C90.00 Multiple myeloma not having achieved remission; D80.1 Nonfamilial hypogammaglobulinemia; S92.909D Unspecified fracture of unspecified foot, subsequent encounter for fracture with routine healing; X58.XXXD Exposure to other specified factors, subsequent encounter; K21.9 Gastro-esophageal reflux disease without esophagitis; J45.909 Unspecified asthma, uncomplicated; Z87.891 Personal history of nicotine dependence; Z79.899 Other long term (current) drug therapy; Z79.52 Long term (current) use of systemic steroids
CPT/HCPCS: 96413; 96415; 99214; J7040; J7050; J9145

== ENCOUNTER 2020-05-03 09:24 | Outpatient (CLI) | payer MEDICARE, MEDICAID, SELFPAY ==
[2020-05-03] MEDS: sodium chloride 0.9% 250 ML 75 ML IV (10:15)
[2020-05-03] MEDS: diphenhydrAMINE 25 mg Capsule PO (10:15)
[2020-05-03] MEDS: acetaminophen 325 mg Tablet 650 MG PO (10:30)
--- NOTE | 2020-05-07 09:28 | ONC FU_ITS ---
Dr. Davies Patient Follow-Up Note Patient: Salima Farrell Unit #: [id number]: 1955 Dicatated By: Kenroy Davies M.D.Date of Visit:May 03, 2020 Onc Med Follow-up/Prog Note Chief Complaint: Myeloma. History of Present Illness: This is a 64 year-old woman with IgG lambda myeloma. She had presented in December 2012 with compression fractures of the T11 and L5 vertebral bodies. She underwent kyphoplasty at both levels, and biopsies were consistent with plasma cell neoplasm. Her protein electrophoresis showed biclonal protein bands with lambda light chain 0.33 g/dL and IgG lambda 4.6 g/dL. There were additional lytic lesions noted on her skeletal survey. Her 24 hour urine reportedly showed 7 gm of Bence-Zabala proteinuria. Bone marrow aspiration/biopsy in January 2013 showed atypical plasma cell infiltrate comprising 91% of the marrow cellularity. She underwent treatment with 4 cycles of Velcade/Revlimid/dexamethasone followed by high-dose melphalan/autologous stem cell transplant in May 2013. She began maintenance Revlimid in August 2013. It was stopped as of July 2015 due to toxicities. As of July 2016 her repeat bone marrow aspiration/biopsy showed 30-40% plasma cells. She restarted treatment with Revlimid. It was stopped again in December 2017 due to toxicity, mainly cytopenias. At that point her protein electrophoresis showed M protein at 1.52 g/dL. Skeletal survey reportedly showed no new abnormalities. Her repeat marrow aspiration/biopsy in February 2018 showed 70% involvement by plasma cells. M protein at that point was up to 1.82 g/dL. PET/CT on 04/01/2018 showed new osseous involvement in the right sacral ala, SUV 4.15. She was seen by Dr. Shlomo Tanner on 04/06/2018. It was recommended that she begin salvage therapy with a combination of daratumumab, pomalidomide, and dexamethasone in preparation for possible second transplant procedure. She was seen here initially on 04/10/2018, as at that point she desired to have her treatment administered closer to home. She then returned to begin her treatment with daratumumab, pomalidomide, and dexamethasone on 04/29/2018. Due to her previous cytopenias with Revlimid, the pomalidomide was initiated at a reduced dosage of 3 mg daily on a 21/28 day schedule. She received her initial infusion of daratumumab on 04/29/2018. She tolerated it well, and she was able to proceed with her 2nd weekly infusion on 05/06/2018. She presented for her week 3 infusion on 05/12/2018. At that point her treatment was put on hold due to a decrease in her white blood cell count to 1500. As of 06/03/2018 her repeat protein electrophoresis showed a significant decrease in her M protein to 0.44 g/dL. The free light chain assay showed elevated lambda light chain at 7.99 mg/L with kappa light chain 0.1840 mg/L and decreased kappa/lambda ratio at 0.0230. The pomalidomide remained on hold due to persistent neutropenia, but she was able restart weekly daratumumab infusions. As of 06/17/2018 the white count had recovered, and she then restarted pomalidomide with a further dose reduction to 2 mg daily. She completed her 8th weekly infusion of daratumumab on 07/08/2018, following which the frequency of the infusions was increased to every 2 weeks. Her repeat protein electrophoresis on 08/04/2018 showed the M protein decreased to 0.14 g/dL. The free light chain assay showed the lambda light chain decreased to 0.3960 mg/dL with kappa/lambda ratio at 0.3081. Her quantitative immunoglobulin levels were very low with IgG 280 mg/dL, IgA 13 mg/dL, and IgM < 5 mg/dL. She continued her treatment with daratumumab in combination with pomalidomide/dexamethasone with the pomalidomide dosed at 1 mg daily on a 21/28 day schedule and dexamethasone 40 mg on the weeks of daratumumab. She completed the 8th infusion of daratumumab at the 2-week interval on 10/28/2018. She has since then continued the same treatment but with the daratumumab infusions administered every 4 weeks. As of December 2018 her protein electrophoresis showed just a faint residual M protein band, and her subsequent protein electrophoresis studies had not shown any significant change. Her other medical illnesses have been limited to GERD and mild asthma. Her other surgical/procedural history includes previous appendectomy and hysterectomy/bilateral salpingo-oophorectomy. She had a minimal smoking history in the past, and she quit smoking in 1991. INTERIM HISTORY: On 09/12/2019 she was admitted to [facility] in [place] with shortness of breath, wheezing, and productive cough. She did not have acute infiltrate on chest xray, but she was significantly hypoxic. She continued empiric antibiotic coverage with Levaquin, though it appeared to have most likely have been a viral illness. At her follow-up visit in September she was finally showing recovery from that illness. She continued her treatment with daratumumab/pomalidomide/dexamethasone. She is seen for a follow-up visit. As of her follow-up visit on 04/05/2020 she had been doing well clinically with her M protein stable at 0.16 g/dL. Following that treatment, though, she became very ill. She indicates that she actually started having a cough during her daratumumab infusion and after returning home she had fever in the range of 101 to 102 degrees and she was out of it for 2 days, with virtually no recollection of that time period. She then had generalized bone pain and severe headache for 2 weeks and she could not eat during that time. By about the 11th day she began to feel better, but during that week she developed vomiting and diarrhea. During the past week she has felt better, with resolution of virtually all of those symptoms. She indicates that her son and daughter had a similar illness, as did a nephew of a friend of hers. He had actually been hospitalized and diagnosed with viral encephalitis. She did not have COVID testing. She says her energy is okay now. Her ECOG score is 1. Her appetite also is better. She has had no further fever. She does complain that she sweats all the time, but that is not new. She had sore mouth and throat for 10 days, but that is better now. She has no shortness of breath, cough, or chest pain. She still has some acid reflux, but she is not having nausea and her bowel function is back to normal. She has no complaints. Her pain is much better, and it is now controlled with her medication. She is no longer having headache. She does not complain of dizziness. She has no focal neurologic symptoms. Medications: Acetaminophen 2 Tablet (of 325 mg) Oral four times a day PRN, ALPRAZolam 1 Tablet (of 1 mg) Oral t.i.d., Benzonatate 1 Capsule (of 100 mg) Oral t.i.d. PRN, Childrens Aspirin 2 Tablet (of 81 mg) Tablet, chewable Oral daily, Cyclobenzaprine HCl 1 Tablet (of 10 mg) Oral t.i.d., Gabapentin 1 Capsule (of 100 mg) Oral t.i.d., Lidocaine 3 patch(es) (of 5 %) Patch Topical q 24 hours, Lidocaine 1 (5 %) Ointment Topical q 3 hours PRN, Melatonin 1 Tablet (of 10 mg) Oral at bedtime, Morphine Sulfate 1 - 2 Tablet (of 30 mg) Oral q 3 hours, Morphine Sulfate ER (100 mg) Tablet, controlled release Oral Take as Directed, Mupirocin 1 (2 %) Ointment Topical PRN, Omeprazole 1 Tablet (of 40 mg) Capsule Oral daily, Phentermine HCl 1 Capsule (of 37.5 mg) Oral daily, Pomalidomide 1 Capsule (of 2 mg) Oral daily, Valerian Root 2 (1000 mg) Capsule Oral daily, Ventolin HFA 2 puff(s) (of 108 (90 base) mcg/act) Aerosol, solution Inhalation q 4 hours, Voltaren Gel (jelly) Transdermal Allergies: Codeine Sulfate Review of Systems: Constitutional - She was very ill after her last treatment. Her energy is OK now. Appetite also is better. She had fever the first night, but none since then. She sweats all the time. ECOG score is 1, ENMT - She had sinus drainage, sore mouth, and sore throat. No difficulty swallowing, Hematologic/Lymphatic - She has easy bruising, Respiratory - No shortness of breath. No cough. No pleuritic pain or hemoptysis, Cardiovascular - No angina pain. No palpitations, Gastrointestinal - She had nausea/vomiting and diarrhea, but that has been better this past week. No blood in the stool or black stools, Genitourinary (F) - No dysuria or hematuria. No urinary frequency. No urgency or incontinence, Musculoskeletal - She had generalized bone pain for 2 weeks, but her pain now is well controlled with medication, Integumentary - No skin rash, Neurologic - She had severe headache. No dizziness. No numbness or tingling. No other focal neurologic symptoms, Psychiatric - No anxiety or depression. No insomnia. Vital Signs: Performed on May 03, 2020 12:00 Height - 57.00 in Temperature - 96.7 F (LOW) Pulse - 78 /min Respiration - 18 /min BP - 110/69 mm(hg) O2 Sat - 99 % Pain - 0 Fatigue - 0 Performed on May 03, 2020 09:29 Height - 57.00 in Weight - 171.2 lbs (LOW) BSA - 1.68 sq.m BMI - 37.05 (HIGH) Temperature - 98.3 F (LOW) Pulse - 101 /min (HIGH) Respiration - 20 /min BP - 149/75 mm(hg) (HIGH) O2 Sat - 97 % Pain - 0 Physical Examination: Constitutional - She looks pretty good generally, Eyes - Sclerae nonicteric. Conjunctivae clear, ENMT - No lesions noted in the oral cavity, Hematologic/Lymphatic - No cervical, clavicular, or axillary adenopathy, Respiratory - Lungs are clear, Cardiovascular - Heart rhythm is regular. There is a II/ systolic murmur. There is no gallop or rub noted, Abdomen - Mildly distended but soft. Liver and spleen are not enlarged. There is no abdominal mass or ascites noted and there is no inguinal adenopathy, Extremities - Slight edema, Neurologic - No focal neurologic deficits noted. Lab/Imaging: Test performed on Apr 28, 2020 07:46 Glucose 170 mg/dL Protein, Total 5.4 g/dL Albumin, SPE 3.48 g/dL BUN 15 mg/dL Creatinine 0.52 mg/dL Cr Clearance (Est) 131.07 mL/min Sodium 138 mmol/L Potassium 3.9 mmol/L Chloride 104 mmol/L CO2 22 mmol/L Calcium 8.9 mg/dL Albumin 3.8 g/dL Bilirubin, Total 0.3 mg/dL Alkaline Phosphatase 51 IU/L AST (SGOT) 15 IU/L ALT (SGPT) 12 IU/L WBC 5.2 10^9/L RBC 4.17 10^12/L HGB 12.5 g/dL HCT 38.2 % MCV 91.6 fl MCH 30.0 pg MCHC 32.7 g/dL RDW 15.0 % Platelet Count 250 10^9/L MPV 9.4 fL Neutrophils (Gran) 3.17 10^9/L Lymphocytes 1.52 10^9/L Monocytes 0.42 10^9/L Eosinophils 0.01 10^9/L Basophils 0.01 10^9/L Manual Lymphocytes 30 % Manual Monocytes 8 % Manual Eosinophils 0 % Manual Basophils 0 % IGA 12 mg/dL IGG 403 mg/dL IGM 9 mg/dL [place] / Lambda Ratio 0.06 Absolute Value Lambda Light Chain 21.46 [place] Light Chain 1.21 [id number] 0.29 g/dL [id number] 0.64 g/dL Beta Globulin 0.64 g/dL Gamma Globulin 0.34 g/dL SPE Interpretation No significant change in monoclonal proteinemia since prior study Impression: 1. Patient with IgG lambda myeloma, initially diagnosed in December 2012. She had associated lytic bone involvement with vertebral compression fractures at T11 and L5. 2. She had a good response to initial treatment with or cycles of Velcade/Revlimid/dexamethasone followed by high-dose melphalan/stem cell transplant in May 2013. 3. She then continued maintenance Revlimid until July 2015, stopped at that time due to toxicity. 4. She had evidence of disease progression on repeat bone marrow aspiration/biopsy July 2016, and she then restarted Revlimid. Treatment was stopped in December 2017 due to toxicity, mainly cytopenias. 5. She had evidence of disease progression on repeat bone marrow aspiration/biopsy in February 2018. M protein at that point had increased to 1.82 gm/dL. PET/CT showed new area of bone involvement in the right sacral ala. Her other medical illnesses include: 6. GERD. 7. Mild asthma. As of 04/29/2018 she began treatment with daratumumab in combination with pomalidomide and dexamethasone. The pomalidomide was initiated at a reduced dosage of 3 mg daily on a 21/28 day schedule. She completed the first 2 weekly infusions of daratumumab with minimal side effects. At week 3, on 05/12/2018, her white blood cell count had dropped to 1500, and her treatment was put on hold. As of 06/03/2018 her repeat protein electrophoresis showed a significant decrease in the M protein, to 0.44 g/dL. Her white blood cell count at that point remained moderately decreased, and the pomalidomide remain on hold, but I did have her restart weekly daratumumab infusions. As of 06/17/2018 she was able to restart pomalidomide with a further dose reduction to 2 mg daily. She completed her 8th weekly daratumumab infusion on 07/08/2018, following which her treatment was continued at 2-week intervals. She completed the 8th infusion at the 2-week interval on 10/28/2018. She had a very good response by serum protein electrophoresis, though quantitative immunoglobulin levels did show severe hypogammaglobulinemia. Her treatment was complicated by development of significant swelling in the lower extremities, which I suspected was related to the dexamethasone. It was managed adequately with furosemide. She otherwise tolerated the treatment well. As of December 2018 her serum protein electrophoresis still showed just a faint M protein, so that she did appear to be showing a good response to the treatment. She had then developed mild anemia. Her serum iron studies were consistent with iron deficiency, and the anemia improved on oral iron supplementation. During follow-up she has occasionally required treatment for sinus/respiratory infection. In August 2019 she had developed a more severe respiratory infection, requiring hospital admission in September. She had a treatment delay because of it, but she did have a good recovery. She then continued treatment with daratumumab/pomalidomide/dexamethasone at the same dosages. As of her follow-up visit on 04/05/2020 she was doing well clinically, and her M protein was stable at 0.16 g/dL. Following that treatment, she had a severe illness which included cough, fever, memory loss, generalized bone pain, severe headache, sore mouth and throat, and eventually vomiting and diarrhea. Over the past week or so her symptoms have completely resolved. The cause of the illness is uncertain, though it was likely some type of viral syndrome. She did not have COVID testing. Plan: Her symptoms now have completely resolved. Her blood counts are adequate and her M protein is stable. As such, she will continue treatment with daratumumab in combination with pomalidomide and dexamethasone. The dosages remain the same. She returns in 1 month. Signed By: Kenroy Davies M.D. <<Signature on File>>
== END 2020-05-03 09:25 | disposition home or self-care (01) ==
LOC: ONCMED 09:26
PROVIDERS: PCP Family Medicine; Visit Provider Internal Medicine Medical Oncology
DX: Z51.12 Encounter for antineoplastic immunotherapy (principal); C90.00 Multiple myeloma not having achieved remission; K21.9 Gastro-esophageal reflux disease without esophagitis; J45.909 Unspecified asthma, uncomplicated; Z79.899 Other long term (current) drug therapy; Z79.52 Long term (current) use of systemic steroids; Z94.84 Stem cells transplant status
CPT/HCPCS: 96413; 96415; 99214; J7040; J7050; J9145

== ENCOUNTER 2020-05-31 08:57 | Outpatient (CLI) | payer MEDICARE, MEDICAID, SELFPAY ==
[2020-05-31] MEDS: acetaminophen 325 mg Tablet 650 MG PO (10:10)
[2020-05-31] MEDS: diphenhydrAMINE 25 mg Capsule PO (10:10)
[2020-05-31] MEDS: alteplase 1 mg/mL SDV 2 mL 2 MG IV (10:10)
[2020-05-31] MEDS: sodium chloride 0.9% 250 ML 75 ML IV (10:40)
[2020-05-31] MEDS: zoledronic acid 4 MG in sodium chloride 0.9% (100 ml) 100 ML 375 MG IV (12:20)
--- NOTE | 2020-06-09 07:14 | ONC FU_ITS ---
[facility] Patient Note Patient: Salima Farrell Unit #: [id number]: [id number] Dictated By: Ac CarrDate of Visit: May 31, 2020 Onc MED Follow-Up/Prog Note Chief Complaint: Myeloma. History of Present Illness: Ms Farrell is a 64 year-old woman with IgG lambda myeloma. She had presented in December 2012 with compression fractures of the T11 and L5 vertebral bodies. She underwent kyphoplasty at both levels, and biopsies were consistent with plasma cell neoplasm. Her protein electrophoresis showed biclonal protein bands with lambda light chain 0.33 g/dL and IgG lambda 4.6 g/dL. There were additional lytic lesions noted on her skeletal survey. Her 24 hour urine reportedly showed 7 gm of Bence-Zabala proteinuria. Bone marrow aspiration/biopsy in January 2013 showed atypical plasma cell infiltrate comprising 91% of the marrow cellularity. She underwent treatment with 4 cycles of Velcade/Revlimid/dexamethasone followed by high-dose melphalan/autologous stem cell transplant in May 2013. She began maintenance Revlimid in August 2013. It was stopped as of July 2015 due to toxicities. As of July 2016 her repeat bone marrow aspiration/biopsy showed 30-40% plasma cells. She restarted treatment with Revlimid. It was stopped again in December 2017 due to toxicity, mainly cytopenias. At that point her protein electrophoresis showed M protein at 1.52 g/dL. Skeletal survey reportedly showed no new abnormalities. Her repeat marrow aspiration/biopsy in February 2018 showed 70% involvement by plasma cells. M protein at that point was up to 1.82 g/dL. PET/CT on 04/01/2018 showed new osseous involvement in the right sacral ala, SUV 4.15. She was seen by Dr. Shlomo Tanner on 04/06/2018. It was recommended that she begin salvage therapy with a combination of daratumumab, pomalidomide, and dexamethasone in preparation for possible second transplant procedure. She was seen here initially on 04/10/2018, as at that point she desired to have her treatment administered closer to home. She then returned to begin her treatment with daratumumab, pomalidomide, and dexamethasone on 04/29/2018. Due to her previous cytopenias with Revlimid, the pomalidomide was initiated at a reduced dosage of 3 mg daily on a 21/28 day schedule. She received her initial infusion of daratumumab on 04/29/2018. She tolerated it well, and she was able to proceed with her 2nd weekly infusion on 05/06/2018. She presented for her week 3 infusion on 05/12/2018. At that point her treatment was put on hold due to a decrease in her white blood cell count to 1500. As of 06/03/2018 her repeat protein electrophoresis showed a significant decrease in her M protein to 0.44 g/dL. The free light chain assay showed elevated lambda light chain at 7.99 mg/L with kappa light chain 0.1840 mg/L and decreased kappa/lambda ratio at 0.0230. The pomalidomide remained on hold due to persistent neutropenia, but she was able restart weekly daratumumab infusions. As of 06/17/2018 the white count had recovered, and she then restarted pomalidomide with a further dose reduction to 2 mg daily. She completed her 8th weekly infusion of daratumumab on 07/08/2018, following which the frequency of the infusions was increased to every 2 weeks. Her repeat protein electrophoresis on 08/04/2018 showed the M protein decreased to 0.14 g/dL. The free light chain assay showed the lambda light chain decreased to 0.3960 mg/dL with kappa/lambda ratio at 0.3081. Her quantitative immunoglobulin levels were very low with IgG 280 mg/dL, IgA 13 mg/dL, and IgM < 5 mg/dL. She continued her treatment with daratumumab in combination with pomalidomide/dexamethasone with the pomalidomide dosed at 1 mg daily on a 21/28 day schedule and dexamethasone 40 mg on the weeks of daratumumab. She completed the 8th infusion of daratumumab at the 2-week interval on 10/28/2018. She has since then continued the same treatment but with the daratumumab infusions administered every 4 weeks. As of December 2018 her protein electrophoresis showed just a faint residual M protein band, and her subsequent protein electrophoresis studies had not shown any significant change. Her other medical illnesses have been limited to GERD and mild asthma. Her other surgical/procedural history includes previous appendectomy and hysterectomy/bilateral salpingo-oophorectomy. She had a minimal smoking history in the past, and she quit smoking in 1991. INTERIM HISTORY: On 09/12/2019 she was admitted to [facility] in [place] with shortness of breath, wheezing, and productive cough. She did not have acute infiltrate on chest xray, but she was significantly hypoxic. She continued empiric antibiotic coverage with Levaquin, though it appeared to have most likely have been a viral illness. At her follow-up visit in September she was finally showing recovery from that illness. She continued her treatment with daratumumab/pomalidomide/dexamethasone. She is seen for a follow-up visit. As of her follow-up visit on 04/05/2020 she had been doing well clinically with her M protein stable at 0.16 g/dL. Following that treatment, though, she became very ill. She indicates that she actually started having a cough during her daratumumab infusion and after returning home she had fever in the range of 101 to 102 degrees and she was out of it for 2 days, with virtually no recollection of that time period. She then had generalized bone pain and severe headache for 2 weeks and she could not eat during that time. By about the 11th day she began to feel better, but during that week she developed vomiting and diarrhea. During the past week she has felt better, with resolution of virtually all of those symptoms. She indicates that her son and daughter had a similar illness, as did a nephew of a friend of hers. He had actually been hospitalized and diagnosed with viral encephalitis. She did not have COVID testing. Ms. Farrell is here today for follow-up. She is due for cycle 26 daratumumab. She states overall she feels good. She denies any new concerns. She has had no new pain. She states her pain is well controlled with her current pain regimen. She denies any new shortness of breath orthopnea. She denies chest pain, palpitations and syncope. She denies any nausea or vomiting. He states her bowels and bladder are normal for her. She has no new neuropathy symptoms and states essentially if she has any its pretty well contained to just her hands and that comes and goes. She denies any mouth sores, sore throat or difficulty swallowing. She states overall she is doing well. Her appetite is good. She is starting to be more active around the house. She states that she is cooking for her family a couple times a week and tolerates this well. Her ECOG is 1. Past Medical History: Gastroesophageal reflux disease IgG kappa myeloma Mild asthma Past Surgical History: Appendectomy Bone marrow aspiration/biopsy in January 2013, July 2016, and February 2018 Kyphoplasty at T11 and L5 vertebral levels Tubal ligation Colonoscopy in 2012 Hysterectomy/bilateral salpingo-oophorectomy in 2008 Allergies: Codeine Sulfate Medications: Acetaminophen 2 Tablet (of 325 mg) Oral four times a day PRN ALPRAZolam 1 Tablet (of 1 mg) Oral t.i.d. Benzonatate 1 Capsule (of 100 mg) Oral t.i.d. PRN Childrens Aspirin 2 Tablet (of 81 mg) Tablet, chewable Oral daily Cyclobenzaprine HCl 1 Tablet (of 10 mg) Oral t.i.d. Gabapentin 1 Capsule (of 100 mg) Oral t.i.d. Lidocaine 3 patch(es) (of 5 %) Patch Topical q 24 hours Lidocaine 1 (5 %) Ointment Topical q 3 hours PRN Melatonin 1 Tablet (of 10 mg) Oral at bedtime Morphine Sulfate 1 - 2 Tablet (of 30 mg) Oral q 3 hours Morphine Sulfate ER (100 mg) Tablet, controlled release Oral Take as Directed Mupirocin 1 (2 %) Ointment Topical PRN Omeprazole 1 Tablet (of 40 mg) Capsule Oral daily Phentermine HCl 1 Capsule (of 37.5 mg) Oral daily Pomalidomide 1 Capsule (of 1 mg) Oral daily Valerian Root 2 (1000 mg) Capsule Oral daily Ventolin HFA 2 puff(s) (of 108 (90 base) mcg/act) Aerosol, solution Inhalation q 4 hours Voltaren Gel (jelly) Transdermal Family History: Ms. Farrell's mother at age 85: breast cancer, and myocardial infarction, and heart disease. Ms. Farrell's father at age 85: heart disease, and myocardial infarction. Ms. Farrell has 4 sisters: 2 alive, 2 . Ms. Farrell's first sister's ovarian cancer. Another sister's colon cancer. Another sister's myeloma. Another sister's breast cancer. Both parents of heart attack in their mid 80s. One brother of a gunshot wound, another with complications of diabetes, and another of old age. A sister of colon cancer and another sister of ovarian cancer. A sister has been treated for melanoma and is still living at age 75. Another sister has been treated for breast cancer and is still living at age 67. Social History: Ms. Farrell is and she is a disabled. Ms. Farrell quit smoking 26 years ago but had smoked for 13 years. She has no history of drinking. She had minimal smoking history in the past, and the range of 2-3 cigarettes per day. She quit smoking in 1991. She currently does not drink alcohol. She has had moderate alcohol use in the past. Review Of Symptoms: Constitutional Denies fevers, chills, night sweats. Allergic/Immunologic No reactions. Eyes Denies significant visual changes. No diplopia. No amaurosis. ENMT Denies changes in hearing, sore throat, mouth sores, difficulty or changes in swallowing ability, and/or sinus drainage. Hematologic/Lymphatic Denies easy bruising or bleeding. The patient denies any tender or palpable lymph nodes. Respiratory Denies dyspnea on exertion, chest pain, or hemoptysis. Denies orthopnea. Cardiovascular Denies anginal chest pain, palpitations or orthopnea. Gastrointestinal Denies nausea, vomiting, diarrhea, GI bleeding, or constipation. Denies change in bowel habits and/or stool color, or early satiety. Genitourinary (F) No hematuria, hesitancy, incontinence, vaginal bleeding, discharge or other problems with urination. Musculoskeletal Denies joint swelling or redness. No decreased range of motion. Integumentary Denies chronic rashes, inflammation, ulcerations or skin changes. Neurologic Denies headache, blurred vision, and no areas of focal weakness or numbness. Slow gait-assisted with cane. No sensory problems. Psychiatric Denies insomnia, depression, nicolette or mood swings. Vital Signs: Performed on May 31, 2020 09:03 Height - 57.00 in Weight - 173.2 lbs (HIGH) BSA - 1.69 sq.m BMI - 37.48 (HIGH) Temperature - 97.8 F (LOW) Pulse - 101 /min (HIGH) Respiration - 20 /min BP - 118/64 mm(hg) O2 Sat - 96 % Pain - 0,1 - No physically strenuous activity, but ambulatory and able to carry out light or sedentary work (e.g. office work, light house work). (ECOG) Physical Examination: Constitutional Alert, oriented, no acute distress. Skin pink, warm and dry. Head Normocephalic; atraumatic. Eyes Conjunctivae and sclerae are clear and without icterus. Pupils are reactive and equal. ENMT No oral exudates, ulcers, masses, thrush or mucositis. Oropharynx clear. Tongue normal. Neck Supple without masses or thyromegaly. No jugular venous distension. Hematologic/Lymphatic No petechiae or purpura. No tender or palpable lymph nodes in the cervical or supraclavicular areas. Respiratory Lungs are clear to auscultation without rhonchi or wheezing. Cardiovascular Regular rate and rhythm of heart without murmurs,clicks, gallops or rubs. Abdomen Non-tender, non-distended, no masses, ascites. Back/Spine Non-tender to palpation. Extremities No visible deformities, no cyanosis, clubbing or edema. Pulses 4+ and equal bilaterally. Musculoskeletal No tenderness or swelling, normal range of motion without obvious weakness. Integumentary No rashes or lesions. Neurologic No sensory or motor deficits, normal cerebellar function, slow gait-normal for her. Psychiatric Alert and oriented times three. Coherent speech. Verbalizes understanding of our discussions today. Laboratory:Test performed on May 24, 2020 16:19 Protein, Total 6 g/dL Albumin, SPE 3.71 g/dL Sudnv-3-dudbgugm 0.32 g/dL Pczqn-0-ujhyanlw 0.82 g/dL Beta Globulin 0.73 g/dL Gamma Globulin 0.40 g/dL Test performed on May 24, 2020 11:02 [place] / Lambda Ratio 0.14 Absolute Value Lambda Light Chain 29.54 [place] Light Chain 3.99 Test performed on May 24, 2020 09:03 Glucose 195 mg/dL BUN 19 mg/dL Creatinine 0.57 mg/dL Cr Clearance (Est) 119.58 mL/min Sodium 138 mmol/L Potassium 4.2 mmol/L Chloride 103 mmol/L CO2 22 mmol/L Calcium 9.4 mg/dL Albumin 4.1 g/dL Bilirubin, Total 0.2 mg/dL Alkaline Phosphatase 64 IU/L AST (SGOT) 21 IU/L ALT (SGPT) 20 IU/L WBC 5.5 10^9/L RBC 4.41 10^12/L HGB 13.2 g/dL HCT 40.3 % MCV 91.4 fl MCH 29.9 pg MCHC 32.8 g/dL RDW 14.9 % Platelet Count 300 10^9/L Neutrophils (Gran) 3.08 10^9/L Lymphocytes 1.66 10^9/L Monocytes 0.61 10^9/L Eosinophils 0 10^9/L Basophils 0.02 10^9/L Test performed on Apr 28, 2020 07:46 MPV 9.4 fL Manual Lymphocytes 30 % Manual Monocytes 8 % Manual Eosinophils 0 % Manual Basophils 0 % IGA 12 mg/dL IGG 403 mg/dL IGM 9 mg/dL SPE Interpretation No significant change in monoclonal proteinemia since prior study Test performed on Mar 06, 2020 08:26 M-Rene 0.11 g/dL Impression: 1. Patient with IgG lambda myeloma, initially diagnosed in December 2012. She had associated lytic bone involvement with vertebral compression fractures at T11 and L5. 2. She had a good response to initial treatment with or cycles of Velcade/Revlimid/dexamethasone followed by high-dose melphalan/stem cell transplant in May 2013. 3. She then continued maintenance Revlimid until July 2015, stopped at that time due to toxicity. 4. She had evidence of disease progression on repeat bone marrow aspiration/biopsy July 2016, and she then restarted Revlimid. Treatment was stopped in December 2017 due to toxicity, mainly cytopenias. 5. She had evidence of disease progression on repeat bone marrow aspiration/biopsy in February 2018. M protein at that point had increased to 1.82 gm/dL. PET/CT showed new area of bone involvement in the right sacral ala. Her other medical illnesses include: 6. GERD. 7. Mild asthma. As of 04/29/2018 she began treatment with daratumumab in combination with pomalidomide and dexamethasone. The pomalidomide was initiated at a reduced dosage of 3 mg daily on a 21/28 day schedule. She completed the first 2 weekly infusions of daratumumab with minimal side effects. At week 3, on 05/12/2018, her white blood cell count had dropped to 1500, and her treatment was put on hold. As of 06/03/2018 her repeat protein electrophoresis showed a significant decrease in the M protein, to 0.44 g/dL. Her white blood cell count at that point remained moderately decreased, and the pomalidomide remain on hold, but I did have her restart weekly daratumumab infusions. As of 06/17/2018 she was able to restart pomalidomide with a further dose reduction to 2 mg daily. She completed her 8th weekly daratumumab infusion on 07/08/2018, following which her treatment was continued at 2-week intervals. She completed the 8th infusion at the 2-week interval on 10/28/2018. She had a very good response by serum protein electrophoresis, though quantitative immunoglobulin levels did show severe hypogammaglobulinemia. Her treatment was complicated by development of significant swelling in the lower extremities, which I suspected was related to the dexamethasone. It was managed adequately with furosemide. She otherwise tolerated the treatment well. As of December 2018 her serum protein electrophoresis still showed just a faint M protein, so that she did appear to be showing a good response to the treatment. She had then developed mild anemia. Her serum iron studies were consistent with iron deficiency, and the anemia improved on oral iron supplementation. During follow-up she has occasionally required treatment for sinus/respiratory infection. In August 2019 she had developed a more severe respiratory infection, requiring hospital admission in September. She had a treatment delay because of it, but she did have a good recovery. She then continued treatment with daratumumab/pomalidomide/dexamethasone at the same dosages. As of her follow-up visit on 04/05/2020 she was doing well clinically, and her M protein was stable at 0.16 g/dL. Following that treatment, she had a severe illness which included cough, fever, memory loss, generalized bone pain, severe headache, sore mouth and throat, and eventually vomiting and diarrhea. Over the past week or so her symptoms have completely resolved. The cause of the illness is uncertain, though it was likely some type of viral syndrome. She did not have COVID testing. Plan: 1. Continue daratumumab cycle 26 today. 2. Continue pomalidomide at 1 mg days 1 through 21 and offer 7 days. 3. Labs from May 24, 2020 were reviewed in detail and discussed with Ms. Farrell and a copy was given to her. WBC 5.5, hemoglobin 13.2, platelets 300,000 ANC is 3000. Potassium 4.2 creatinine 0.57 LFTs are normal. Her monoclonal protein 1 is reported as no significant change in monoclonal proteinemia since prior study her kappa free light chain was reported at 3.99 and her lambda free light chain was 29.64 on 05/24/2020. After Dr. Davies's review, it is reported that the proteins are stable compared to her April 2020 studies. 4. She may have supportive care as needed thus far she has not needed it. 5. We will plan to see her back in a month with CBC CMP and repeat myeloma protein to include SPEP with ANA LILIA, QUIGS, and free light chain analysis. 6. Mrs. Farrell was instructed to contact us in interim should questions or problems arise. Signed By: Ac Carr-, AOCNP Kenroy Davies MD <<Signature on File>>
== END 2020-05-31 08:58 | disposition home or self-care (01) ==
LOC: ONCMED 09:01
PROVIDERS: PCP Family Medicine; Visit Provider Nurse Practitioner
DX: Z51.12 Encounter for antineoplastic immunotherapy (principal); C90.00 Multiple myeloma not having achieved remission; D80.1 Nonfamilial hypogammaglobulinemia; D50.9 Iron deficiency anemia, unspecified; J45.902 Unspecified asthma with status asthmaticus
CPT/HCPCS: 36593; 96367; 96375; 96413; 96415; 99214; J2997; J3489; J7040; J7050; J9145

== ENCOUNTER 2020-06-28 08:46 | Outpatient (CLI) | payer MEDICARE, MEDICAID, SELFPAY ==
[2020-06-28] MEDS: diphenhydrAMINE 25 mg Capsule PO (09:45)
[2020-06-28] MEDS: acetaminophen 325 mg Tablet 650 MG PO (09:45)
[2020-06-28] MEDS: ketorolac 30 mg/mL INJ IVP (09:55)
[2020-06-28] MEDS: sodium chloride 0.9% 250 ML 75 ML IV (10:00)
--- NOTE | 2020-06-28 10:08 | ONC FU_ITS ---
[facility] Patient Note Patient: Salima Farrell Unit #: [id number]: 1955 Dictated By: Ac CarrDate of Visit: Jun 28, 2020 Onc MED Follow-Up/Prog Note Chief Complaint: Myeloma. History of Present Illness: Ms Farrell is a 65 year-old woman with IgG lambda myeloma. She had presented in December 2012 with compression fractures of the T11 and L5 vertebral bodies. She underwent kyphoplasty at both levels, and biopsies were consistent with plasma cell neoplasm. Her protein electrophoresis showed biclonal protein bands with lambda light chain 0.33 g/dL and IgG lambda 4.6 g/dL. There were additional lytic lesions noted on her skeletal survey. Her 24 hour urine reportedly showed 7 gm of Bence-Zabala proteinuria. Bone marrow aspiration/biopsy in January 2013 showed atypical plasma cell infiltrate comprising 91% of the marrow cellularity. She underwent treatment with 4 cycles of Velcade/Revlimid/dexamethasone followed by high-dose melphalan/autologous stem cell transplant in May 2013. She began maintenance Revlimid in August 2013. It was stopped as of July 2015 due to toxicities. As of July 2016 her repeat bone marrow aspiration/biopsy showed 30-40% plasma cells. She restarted treatment with Revlimid. It was stopped again in December 2017 due to toxicity, mainly cytopenias. At that point her protein electrophoresis showed M protein at 1.52 g/dL. Skeletal survey reportedly showed no new abnormalities. Her repeat marrow aspiration/biopsy in February 2018 showed 70% involvement by plasma cells. M protein at that point was up to 1.82 g/dL. PET/CT on 04/01/2018 showed new osseous involvement in the right sacral ala, SUV 4.15. She was seen by Dr. Shlomo Tanner on 04/06/2018. It was recommended that she begin salvage therapy with a combination of daratumumab, pomalidomide, and dexamethasone in preparation for possible second transplant procedure. She was seen here initially on 04/10/2018, as at that point she desired to have her treatment administered closer to home. She then returned to begin her treatment with daratumumab, pomalidomide, and dexamethasone on 04/29/2018. Due to her previous cytopenias with Revlimid, the pomalidomide was initiated at a reduced dosage of 3 mg daily on a 21/28 day schedule. She received her initial infusion of daratumumab on 04/29/2018. She tolerated it well, and she was able to proceed with her 2nd weekly infusion on 05/06/2018. She presented for her week 3 infusion on 05/12/2018. At that point her treatment was put on hold due to a decrease in her white blood cell count to 1500. As of 06/03/2018 her repeat protein electrophoresis showed a significant decrease in her M protein to 0.44 g/dL. The free light chain assay showed elevated lambda light chain at 7.99 mg/L with kappa light chain 0.1840 mg/L and decreased kappa/lambda ratio at 0.0230. The pomalidomide remained on hold due to persistent neutropenia, but she was able restart weekly daratumumab infusions. As of 06/17/2018 the white count had recovered, and she then restarted pomalidomide with a further dose reduction to 2 mg daily. She completed her 8th weekly infusion of daratumumab on 07/08/2018, following which the frequency of the infusions was increased to every 2 weeks. Her repeat protein electrophoresis on 08/04/2018 showed the M protein decreased to 0.14 g/dL. The free light chain assay showed the lambda light chain decreased to 0.3960 mg/dL with kappa/lambda ratio at 0.3081. Her quantitative immunoglobulin levels were very low with IgG 280 mg/dL, IgA 13 mg/dL, and IgM < 5 mg/dL. She continued her treatment with daratumumab in combination with pomalidomide/dexamethasone with the pomalidomide dosed at 1 mg daily on a 21/28 day schedule and dexamethasone 40 mg on the weeks of daratumumab. She completed the 8th infusion of daratumumab at the 2-week interval on 10/28/2018. She has since then continued the same treatment but with the daratumumab infusions administered every 4 weeks. As of December 2018 her protein electrophoresis showed just a faint residual M protein band, and her subsequent protein electrophoresis studies had not shown any significant change. Her other medical illnesses have been limited to GERD and mild asthma. Her other surgical/procedural history includes previous appendectomy and hysterectomy/bilateral salpingo-oophorectomy. She had a minimal smoking history in the past, and she quit smoking in 1991. INTERIM HISTORY: On 09/12/2019 she was admitted to [facility] in [place] with shortness of breath, wheezing, and productive cough. She did not have acute infiltrate on chest xray, but she was significantly hypoxic. She continued empiric antibiotic coverage with Levaquin, though it appeared to have most likely have been a viral illness. At her follow-up visit in September she was finally showing recovery from that illness. She continued her treatment with daratumumab/pomalidomide/dexamethasone. She is seen for a follow-up visit. As of her follow-up visit on 04/05/2020 she had been doing well clinically with her M protein stable at 0.16 g/dL. Following that treatment, though, she became very ill. She indicates that she actually started having a cough during her daratumumab infusion and after returning home she had fever in the range of 101 to 102 degrees and she was out of it for 2 days, with virtually no recollection of that time period. She then had generalized bone pain and severe headache for 2 weeks and she could not eat during that time. By about the 11th day she began to feel better, but during that week she developed vomiting and diarrhea. During the past week she has felt better, with resolution of virtually all of those symptoms. She indicates that her son and daughter had a similar illness, as did a nephew of a friend of hers. He had actually been hospitalized and diagnosed with viral encephalitis. She did not have COVID testing. Ms. Farrell is here today for follow-up. She is due for cycle 27 daratumumab. She was seen in the emergency room at [facility] earlier this week for increased back pain. She states the pain in is around the eighth rib and radiates to both sides. She states it hurts to take a deep breath, cough or just move. She is still having pain today. She states they did not find anything at [place] . She has had slight productive cough but this is not unusual for her. She denies any fever or chills. She does have an abrasion on her left lower leg that is weepy and dark yellow in appearance with associated redness. She states it started out as just a little sore and is now this . It is tender. She states is been draining more over the last 24 to 48 hours. She denies any lower extremity swelling. She denies any recent falls or trauma to account for the sudden pain. She denies any diarrhea or constipation. Her appetite is waxing and waning but good for the most part . She states her fatigue has gotten significantly worse and she is just so tired . Her ECOG currently is 2. Past Medical History: Gastroesophageal reflux disease IgG kappa myeloma Mild asthma Past Surgical History: Appendectomy Bone marrow aspiration/biopsy in January 2013, July 2016, and February 2018 Kyphoplasty at T11 and L5 vertebral levels Tubal ligation Colonoscopy in 2012 Hysterectomy/bilateral salpingo-oophorectomy in 2008 Allergies: Codeine Sulfate Medications: Acetaminophen 2 Tablet (of 325 mg) Oral four times a day PRN ALPRAZolam 1 Tablet (of 1 mg) Oral t.i.d. Benzonatate 1 Capsule (of 100 mg) Oral t.i.d. PRN Childrens Aspirin 2 Tablet (of 81 mg) Tablet, chewable Oral daily Cyclobenzaprine HCl 1 Tablet (of 10 mg) Oral t.i.d. Gabapentin 1 Capsule (of 100 mg) Oral t.i.d. Lidocaine 3 patch(es) (of 5 %) Patch Topical q 24 hours Lidocaine 1 (5 %) Ointment Topical q 3 hours PRN Melatonin 1 Tablet (of 10 mg) Oral at bedtime Morphine Sulfate 1 - 2 Tablet (of 30 mg) Oral q 3 hours Morphine Sulfate ER (100 mg) Tablet, controlled release Oral Take as Directed Mupirocin 1 (2 %) Ointment Topical PRN Omeprazole 1 Tablet (of 40 mg) Capsule Oral daily Phentermine HCl 1 Capsule (of 37.5 mg) Oral daily Pomalidomide 1 Capsule (of 1 mg) Oral daily Valerian Root 2 (1000 mg) Capsule Oral daily Ventolin HFA 2 puff(s) (of 108 (90 base) mcg/act) Aerosol, solution Inhalation q 4 hours Voltaren Gel (jelly) Transdermal Family History: Ms. Farrell's mother at age 85: breast cancer, and myocardial infarction, and heart disease. Ms. Farrell's father at age 85: heart disease, and myocardial infarction. Ms. Farrell has 4 sisters: 2 alive, 2 . Ms. Farrell's first sister's ovarian cancer. Another sister's colon cancer. Another sister's myeloma. Another sister's breast cancer. Both parents of heart attack in their mid 80s. One brother of a gunshot wound, another with complications of diabetes, and another of old age. A sister of colon cancer and another sister of ovarian cancer. A sister has been treated for melanoma and is still living at age 75. Another sister has been treated for breast cancer and is still living at age 67. Social History: Ms. Farrell is and she is a disabled. Ms. Farrell quit smoking 27 years ago but had smoked for 13 years. She has no history of drinking. She had minimal smoking history in the past, and the range of 2-3 cigarettes per day. She quit smoking in 1991. She currently does not drink alcohol. She has had moderate alcohol use in the past. Review Of Symptoms: Constitutional Denies fevers, chills, night sweats. Feels bad overall-worsening fatigue. Back pain Allergic/Immunologic No reactions. Eyes Denies significant visual changes. No diplopia. No amaurosis. ENMT Denies changes in hearing, sore throat, mouth sores, difficulty or changes in swallowing ability, and/or sinus drainage. Endocrine No diabetes, thyroid disease or hormone replacement. Denies hot flashes or night sweats. Hematologic/Lymphatic Denies easy bruising or bleeding. The patient denies any tender or palpable lymph nodes. Respiratory Denies dyspnea on exertion, chest pain, or hemoptysis. Denies orthopnea. Cardiovascular Denies anginal chest pain, palpitations or orthopnea. Gastrointestinal Denies nausea, vomiting, diarrhea, GI bleeding, or constipation. Denies change in bowel habits and/or stool color, or early satiety. Genitourinary (F) No hematuria, hesitancy, incontinence, vaginal bleeding, discharge or other problems with urination. Musculoskeletal Denies joint swelling or redness. No decreased range of motion. Integumentary Denies chronic rashes, inflammation, ulcerations or skin changes. Left leg sore . Neurologic Denies headache, blurred vision, and no areas of focal weakness or numbness. Slow gait-assisted with cane. No sensory problems. Psychiatric Denies insomnia, depression, nicolette or mood swings. Vital Signs: Performed on Jun 28, 2020 08:56 Height - 57.00 in Weight - 172.6 lbs (LOW) BSA - 1.69 sq.m BMI - 37.35 (HIGH) Temperature - 98.2 F (LOW) Pulse - 93 /min Respiration - 20 /min BP - 142/74 mm(hg) (HIGH) O2 Sat - 95 % (LOW) Pain - 10,2 - Ambulatory/capable of all self-care, unable to perform any work activities. Up and about more than 50% of waking hours. (ECOG) Physical Examination: Constitutional Alert, oriented, no acute distress. Skin pink, warm and dry. She obviously does not feel well today and is slower in her gait than normal. She is uncomfortable just sitting in a chair. Head Normocephalic; atraumatic. Eyes Conjunctivae and sclerae are clear and without icterus. Pupils are reactive and equal. Neck Supple without masses or thyromegaly. No jugular venous distension. Hematologic/Lymphatic No petechiae or purpura. No tender or palpable lymph nodes in the cervical or supraclavicular areas. Respiratory Lungs are clear to auscultation without rhonchi or wheezing after cough-lower plcp-luxrpbcop-jvrlscyhj rhonchi prior to cough. Cardiovascular Regular rate and rhythm of heart without murmurs,clicks, gallops or rubs. Abdomen Non-tender, non-distended, no masses, ascites. Back/Spine Non-tender to palpation. Extremities Left lower extremity reveals a 2 cm in diameter open abrasion that is draining a small amount of yellow serosanguineous fluid. It is surrounded by significant redness and mild tissue swelling. Musculoskeletal No tenderness or swelling, normal range of motion without obvious weakness. Integumentary No rashes or lesions. Neurologic No sensory or motor deficits, normal cerebellar function, slow gait-slower than her normal today. Psychiatric Alert and oriented times three. Coherent speech. Verbalizes understanding of our discussions today. Laboratory:Test performed on Jun 22, 2020 04:08 Glucose 218 mg/dL Protein, Total 6.6 g/dL Albumin 4.4 g/dL Albumin, SPE 3.94 g/dL BUN 19 mg/dL Bilirubin, Total 0.2 mg/dL Creatinine 0.60 mg/dL Alkaline Phosphatase 73 IU/L AST (SGOT) 30 IU/L Sodium 136 mmol/L ALT (SGPT) 25 IU/L Potassium 4.2 mmol/L Chloride 100 mmol/L CO2 26 mmol/L Calcium 10.0 mg/dL WBC 6.2 10^9/L RBC 4.80 10^12/L HGB 14.4 g/dL HCT 44.5 % MCV 92.7 fl MCH 30.0 pg MCHC 32.4 g/dL RDW 14.8 % Platelet Count 295 10^9/L MPV 9.7 fL Neutrophils (Gran) 5.31 10^9/L Lymphocytes 0.32 10^9/L Monocytes 0.52 10^9/L Eosinophils 0.00 10^9/L Basophils 0.04 10^9/L Manual Lymphocytes 5 % Manual Monocytes 8 % Manual Eosinophils 0 % Manual Basophils 1 % [place] / Lambda Ratio 0.02 Absolute Value Lambda Light Chain 53.49 [place] Light Chain 1.30 Eiflo-0-jtdhqfkg 0.35 g/dL Gfiwe-1-ynsfdgnr 0.89 g/dL Beta Globulin 0.86 g/dL Gamma Globulin 0.52 g/dL SPE Interpretation Slight increase in monoclonal proteinemia since last study on 05/25/20 (previously M1=0.15, now M1=0.24) Test performed on May 24, 2020 09:03 Cr Clearance (Est) 119.58 mL/min Test performed on Apr 28, 2020 07:46 IGA 12 mg/dL IGG 403 mg/dL IGM 9 mg/dL Test performed on Mar 06, 2020 08:26 M-Rene 0.11 g/dL Impression: 1. Patient with IgG lambda myeloma, initially diagnosed in December 2012. She had associated lytic bone involvement with vertebral compression fractures at T11 and L5. 2. She had a good response to initial treatment with or cycles of Velcade/Revlimid/dexamethasone followed by high-dose melphalan/stem cell transplant in May 2013. 3. She then continued maintenance Revlimid until July 2015, stopped at that time due to toxicity. 4. She had evidence of disease progression on repeat bone marrow aspiration/biopsy July 2016, and she then restarted Revlimid. Treatment was stopped in December 2017 due to toxicity, mainly cytopenias. 5. She had evidence of disease progression on repeat bone marrow aspiration/biopsy in February 2018. M protein at that point had increased to 1.82 gm/dL. PET/CT showed new area of bone involvement in the right sacral ala. Her other medical illnesses include: 6. GERD. 7. Mild asthma. As of 04/29/2018 she began treatment with daratumumab in combination with pomalidomide and dexamethasone. The pomalidomide was initiated at a reduced dosage of 3 mg daily on a 21/ day schedule. She completed the first 2 weekly infusions of daratumumab with minimal side effects. At week 3, on 05/12/2018, her white blood cell count had dropped to 1500, and her treatment was put on hold. As of 06/03/2018 her repeat protein electrophoresis showed a significant decrease in the M protein, to 0.44 g/dL. Her white blood cell count at that point remained moderately decreased, and the pomalidomide remain on hold, but I did have her restart weekly daratumumab infusions. As of 06/17/2018 she was able to restart pomalidomide with a further dose reduction to 2 mg daily. She completed her 8th weekly daratumumab infusion on 07/08/2018, following which her treatment was continued at 2-week intervals. She completed the 8th infusion at the 2-week interval on 10/28/2018. She had a very good response by serum protein electrophoresis, though quantitative immunoglobulin levels did show severe hypogammaglobulinemia. Her treatment was complicated by development of significant swelling in the lower extremities, which I suspected was related to the dexamethasone. It was managed adequately with furosemide. She otherwise tolerated the treatment well. As of December 2018 her serum protein electrophoresis still showed just a faint M protein, so that she did appear to be showing a good response to the treatment. She had then developed mild anemia. Her serum iron studies were consistent with iron deficiency, and the anemia improved on oral iron supplementation. During follow-up she has occasionally required treatment for sinus/respiratory infection. In August 2019 she had developed a more severe respiratory infection, requiring hospital admission in September. She had a treatment delay because of it, but she did have a good recovery. She then continued treatment with daratumumab/pomalidomide/dexamethasone at the same dosages. As of her follow-up visit on 04/05/2020 she was doing well clinically, and her M protein was stable at 0.16 g/dL. Following that treatment, she had a severe illness which included cough, fever, memory loss, generalized bone pain, severe headache, sore mouth and throat, and eventually vomiting and diarrhea. Her symptoms have completely resolved. The cause of the illness is uncertain, though it was likely some type of viral syndrome. She did not have COVID testing. Mrs. Farrell was in the emergency room at [facility] earlier this week with increased pain. There is also noted an increase in her lambda free light chain per her recent labs. This is concerning for possible disease progression of the myeloma. We will have restaging PET CT imaging done as soon as possible. For now she will continue on the daratumumab and we will adjust her pain medication accordingly. Plan: 1. Continue daratumumab cycle 27 today. 2. Continue pomalidomide at 1 mg days 1 through 21 and off for 7 days. 3. Labs from 06/25/2020 were reviewed in detail and discussed with Ms. Farrell and a copy was given to her. WBC 6.2, hemoglobin 14.2, platelets 295,000 ANC is 5000. Creatinine 0.6. LFTs are normal. Her monoclonal protein was reported at 0.24 on May 24, 2020 it was 0.15. Her lambda free light chain was reported at 53.49 and on May 24, 2020 was 29.54. 4. She states she had Toradol in the ER in [place] and this really relieved her pain and helped her breathe better. Will repeat Toradol 30 mg IV while she is here today during her treatment. We have also asked her to increase her extended release morphine from 2 tablets in the morning and 1 at at bedtime to 2 tablets every 12 hours. She is advised she can also increase her immediate release morphine to 2 tablets of the 30 mg every 3-4 hours as needed. 5. I have sent in Levaquin 500 mg 1 daily for her cellulitis in the left lower leg and this will help cover her lungs if she is trying to develop bronchitis/pneumonia which she does pretty easily. 6. We have requested that she have PET CT scanning and healthy will be able to obtain this on the Friday through the mobile PET CT unit. 7. We will plan for tentative follow-up in 1 month but that will be determined based upon the PET CT results. 8 Her routine followup will include CBC CMP and repeat myeloma protein to include SPEP with ANA LILIA, QUIGS, and free light chain analysis. 9. Mrs. Farrell was instructed to contact us in interim should questions or problems arise. Signed By: Ac Carr-, AOCNP Kenroy Davies MD <<Signature on File>>
== END 2020-06-28 08:47 | disposition home or self-care (01) ==
LOC: ONCMED 08:49
PROVIDERS: PCP Family Medicine; Visit Provider Nurse Practitioner
DX: Z51.12 Encounter for antineoplastic immunotherapy (principal); C90.00 Multiple myeloma not having achieved remission; D80.1 Nonfamilial hypogammaglobulinemia; D50.9 Iron deficiency anemia, unspecified; J45.902 Unspecified asthma with status asthmaticus; K21.9 Gastro-esophageal reflux disease without esophagitis; Z79.899 Other long term (current) drug therapy
CPT/HCPCS: 96375; 96413; 96415; 99214; J1885; J7040; J7050; J9145

== ENCOUNTER 2020-08-02 08:45 | Outpatient (CLI) | payer MEDICARE, MEDICAID, SELFPAY ==
[2020-08-02] MEDS: sodium chloride 0.9% 250 ML 999 ML IV (09:38)
[2020-08-02] MEDS: diphenhydrAMINE 25 mg Capsule PO (09:38)
[2020-08-02] MEDS: acetaminophen 325 mg Tablet 650 MG PO (09:38)
--- NOTE | 2020-08-06 11:37 | ONC FU_ITS ---
Dr. Davies Patient Follow-Up Note Patient: Salima Farrell Unit #: [id number]: [id number] Dicatated By: Kenroy Davies M.D.Date of Visit:Aug 02, 2020 Onc Med Follow-up/Prog Note Chief Complaint: Myeloma. History of Present Illness: This is a 65 year-old woman with IgG lambda myeloma. She had presented in December 2012 with compression fractures of the T11 and L5 vertebral bodies. She underwent kyphoplasty at both levels, and biopsies were consistent with plasma cell neoplasm. Her protein electrophoresis showed biclonal protein bands with lambda light chain 0.33 g/dL and IgG lambda 4.6 g/dL. There were additional lytic lesions noted on her skeletal survey. Her 24 hour urine reportedly showed 7 gm of Bence-Zabala proteinuria. Bone marrow aspiration/biopsy in January 2013 showed atypical plasma cell infiltrate comprising 91% of the marrow cellularity. She underwent treatment with 4 cycles of Velcade/Revlimid/dexamethasone followed by high-dose melphalan/autologous stem cell transplant in May 2013. She began maintenance Revlimid in August 2013. It was stopped as of July 2015 due to toxicities. As of July 2016 her repeat bone marrow aspiration/biopsy showed 30-40% plasma cells. She restarted treatment with Revlimid. It was stopped again in December 2017 due to toxicity, mainly cytopenias. At that point her protein electrophoresis showed M protein at 1.52 g/dL. Skeletal survey reportedly showed no new abnormalities. Her repeat marrow aspiration/biopsy in February 2018 showed 70% involvement by plasma cells. M protein at that point was up to 1.82 g/dL. PET/CT on 04/01/2018 showed new osseous involvement in the right sacral ala, SUV 4.15. She was seen by Dr. Shlomo Tanner on 04/06/2018. It was recommended that she begin salvage therapy with a combination of daratumumab, pomalidomide, and dexamethasone in preparation for possible second transplant procedure. She was seen here initially on 04/10/2018, as at that point she desired to have her treatment administered closer to home. She then returned to begin her treatment with daratumumab, pomalidomide, and dexamethasone on 04/29/2018. Due to her previous cytopenias with Revlimid, the pomalidomide was initiated at a reduced dosage of 3 mg daily on a 21/28 day schedule. She received her initial infusion of daratumumab on 04/29/2018. She tolerated it well, and she was able to proceed with her 2nd weekly infusion on 05/06/2018. She presented for her week 3 infusion on 05/12/2018. At that point her treatment was put on hold due to a decrease in her white blood cell count to 1500. As of 06/03/2018 her repeat protein electrophoresis showed a significant decrease in her M protein to 0.44 g/dL. The free light chain assay showed elevated lambda light chain at 7.99 mg/L with kappa light chain 0.1840 mg/L and decreased kappa/lambda ratio at 0.0230. The pomalidomide remained on hold due to persistent neutropenia, but she was able restart weekly daratumumab infusions. As of 06/17/2018 the white count had recovered, and she then restarted pomalidomide with a further dose reduction to 2 mg daily. She completed her 8th weekly infusion of daratumumab on 07/08/2018, following which the frequency of the infusions was increased to every 2 weeks. Her repeat protein electrophoresis on 08/04/2018 showed the M protein decreased to 0.14 g/dL. The free light chain assay showed the lambda light chain decreased to 0.3960 mg/dL with kappa/lambda ratio at 0.3081. Her quantitative immunoglobulin levels were very low with IgG 280 mg/dL, IgA 13 mg/dL, and IgM < 5 mg/dL. She continued her treatment with daratumumab in combination with pomalidomide/dexamethasone with the pomalidomide dosed at 1 mg daily on a 21/28 day schedule and dexamethasone 40 mg on the weeks of daratumumab. She completed the 8th infusion of daratumumab at the 2-week interval on 10/28/2018. She has since then continued the same treatment but with the daratumumab infusions administered every 4 weeks. As of December 2018 her protein electrophoresis showed just a faint residual M protein band, and her subsequent protein electrophoresis studies had not shown any significant change. Her other medical illnesses have been limited to GERD and mild asthma. Her other surgical/procedural history includes previous appendectomy and hysterectomy/bilateral salpingo-oophorectomy. She had a minimal smoking history in the past, and she quit smoking in 1991. INTERIM HISTORY: On 09/12/2019 she was admitted to [facility] in [place] with shortness of breath, wheezing, and productive cough. She did not have acute infiltrate on chest xray, but she was significantly hypoxic. She continued empiric antibiotic coverage with Levaquin, though it appeared to have most likely have been a viral illness. At her follow-up visit in September she was finally showing recovery from that illness, and she was able to continue her treatment. As of her follow-up visit on 04/05/2020 she had been doing well clinically with her M protein stable at 0.16 g/dL. Following that treatment, though, she became very ill. She had actually started having a cough during her daratumumab infusion and after returning home she had fever in the range of 101 to 102 degrees and she was out of it for 2 days, with virtually no recollection of that time period. She then had generalized bone pain and severe headache for 2 weeks and she could not eat during that time. By about the 11th day she began to feel better, but during that week she developed vomiting and diarrhea. She then continued to show gradually recovery. She did not have COVID testing. I had seen her for a follow-up visit on 05/03/2020, and at that point she was able to resume treatment with daratumumab in combination with pomalidomide and dexamethasone. At her follow-up visit on 06/28/2020 she reported increased pain in her back and rib cage. It was severe enough that she had been seen in the emergency room in [place] earlier that week. There have been a slight increase in her lambda free light chain, concerning for disease progression. She was given IV Toradol for the pain and she also was given antibiotic therapy with Levaquin for possible bronchitis. She also was scheduled for restaging PET/CT. That study was completed on 07/01/2020. It showed mild sacral activity and a bilateral pattern which was thought to be more suggestive of reactive uptake than myeloma. Pelvic lesions did not demonstrate increased FDG activity, and were felt to likely correspond to prior sites of active myeloma. She is seen for a scheduled follow-up visit. She says that her whole body was sore after her last treatment and that it took about 2 weeks, but she eventually started to get better. That pain is now almost all resolved, so that she is pretty much back to baseline, with her pain adequately managed with her medication. She also has had improvement in her energy/activity tolerance. ECOG score is 1. Her appetite is good. She has no fever or night sweats. She has just a little bit of cough now. She does not complain of shortness of breath or chest pain. She has no GI or complaints. She does not complain of headache or dizziness, and she has no focal neurologic symptoms. Medications: Acetaminophen 2 Tablet (of 325 mg) Oral four times a day PRN, ALPRAZolam 1 Tablet (of 1 mg) Oral t.i.d., Benzonatate 1 Capsule (of 100 mg) Oral t.i.d. PRN, Childrens Aspirin 2 Tablet (of 81 mg) Tablet, chewable Oral daily, Cyclobenzaprine HCl 1 Tablet (of 10 mg) Oral t.i.d., Gabapentin 1 Capsule (of 100 mg) Oral t.i.d., Lidocaine 3 patch(es) (of 5 %) Patch Topical q 24 hours, Lidocaine 1 (5 %) Ointment Topical q 3 hours PRN, Melatonin 1 Tablet (of 10 mg) Oral at bedtime, Morphine Sulfate 1 - 2 Tablet (of 30 mg) Oral q 3 hours, Morphine Sulfate ER (100 mg) Tablet, controlled release Oral Take as Directed, Mupirocin 1 (2 %) Ointment Topical PRN, Omeprazole 1 Tablet (of 40 mg) Capsule Oral daily, Phentermine HCl 1 Capsule (of 37.5 mg) Oral daily, Pomalidomide 1 Capsule (of 1 mg) Oral daily, Valerian Root 2 (1000 mg) Capsule Oral daily, Ventolin HFA 2 puff(s) (of 108 (90 base) mcg/act) Aerosol, solution Inhalation q 4 hours, Voltaren Gel (jelly) Transdermal Allergies: Codeine Sulfate Review of Systems: Constitutional - Her energy is better, and she is doing light work again. Appetite is good and weight is stable. No fever, night sweats, or hot flashes. ECOG score is 1, ENMT - No sinus congestion/drainage. No mouth sores. No sore throat or difficulty swallowing, Hematologic/Lymphatic - She has easy bruising, Respiratory - No shortness of breath. She has a little bit of cough. No pleuritic pain or hemoptysis, Cardiovascular - No angina pain. No palpitations, Gastrointestinal - No nausea or vomiting. No heartburn or acid reflux. No diarrhea or constipation. No blood in the stool or black stools, Genitourinary (F) - No dysuria or hematuria. No urinary frequency. No urgency or incontinence, Musculoskeletal - Her whole body was sore for about 2 weeks, but it is much better now, and her pain currently is being managed adequately with her medication, Integumentary - No skin rash, Neurologic - No headache or dizziness. No numbness or tingling. No other focal neurologic symptoms, Psychiatric - No anxiety or depression. No insomnia. Vital Signs: Performed on Aug 02, 2020 08:56 Height - 57.00 in Weight - 167.6 lbs (LOW) BSA - 1.67 sq.m BMI - 36.27 (HIGH) Temperature - 98.6 F Pulse - 98 /min Respiration - 24 /min BP - 152/72 mm(hg) (HIGH) O2 Sat - 98 % Pain - 0 Physical Examination: Constitutional - She looks pretty good generally, Eyes - Sclerae nonicteric. Conjunctivae clear, ENMT - No lesions noted in the oral cavity, Hematologic/Lymphatic - No cervical, clavicular, or axillary adenopathy, Respiratory - Lungs are clear, Cardiovascular - Heart rhythm is regular. There is a II/ systolic murmur. There is no gallop or rub noted, Abdomen - Soft. Liver and spleen are not enlarged. There is no abdominal mass or ascites noted and there is no inguinal adenopathy, Extremities - No edema, Integumentary - No skin eruption, Neurologic - She has somewhat limited mobility, but she does not appear to have any focal neurologic deficit. Lab/Imaging: Test performed on Jul 24, 2020 11:03 Protein, Total 6.2 g/dL Albumin, SPE 3.69 g/dL IGA 14 mg/dL IGG 744 mg/dL IGM 6 mg/dL [id number]-[id number] 0.32 g/dL Bkxmc-1-sdhwtexr 0.80 g/dL Beta Globulin 0.79 g/dL Gamma Globulin 0.62 g/dL M-Rene 0.41 g/dL SPE Interpretation trending increase in monoclonal protein since prior studies Impression: 1. Patient with IgG lambda myeloma, initially diagnosed in December 2012. She had associated lytic bone involvement with vertebral compression fractures at T11 and L5. 2. She had a good response to initial treatment with or cycles of Velcade/Revlimid/dexamethasone followed by high-dose melphalan/stem cell transplant in May 2013. 3. She then continued maintenance Revlimid until July 2015, stopped at that time due to toxicity. 4. She had evidence of disease progression on repeat bone marrow aspiration/biopsy July 2016, and she then restarted Revlimid. Treatment was stopped in December 2017 due to toxicity, mainly cytopenias. 5. She had evidence of disease progression on repeat bone marrow aspiration/biopsy in February 2018. M protein at that point had increased to 1.82 gm/dL. PET/CT showed new area of bone involvement in the right sacral ala. Her other medical illnesses include: 6. GERD. 7. Mild asthma. As of 04/29/2018 she began treatment with daratumumab in combination with pomalidomide and dexamethasone. The pomalidomide was initiated at a reduced dosage of 3 mg daily on a 21/28 day schedule. She completed the first 2 weekly infusions of daratumumab with minimal side effects. At week 3, on 05/12/2018, her white blood cell count had dropped to 1500, and her treatment was put on hold. As of 06/03/2018 her repeat protein electrophoresis showed a significant decrease in the M protein, to 0.44 g/dL. Her white blood cell count at that point remained moderately decreased, and the pomalidomide remain on hold, but I did have her restart weekly daratumumab infusions. As of 06/17/2018 she was able to restart pomalidomide with a further dose reduction to 2 mg daily. She completed her 8th weekly daratumumab infusion on 07/08/2018, following which her treatment was continued at 2-week intervals. She completed the 8th infusion at the 2-week interval on 10/28/2018. She had a very good response by serum protein electrophoresis, though quantitative immunoglobulin levels did show severe hypogammaglobulinemia. Her treatment was complicated by development of significant swelling in the lower extremities, which I suspected was related to the dexamethasone. It was managed adequately with furosemide. She otherwise tolerated the treatment well. As of December 2018 her serum protein electrophoresis still showed just a faint M protein, so that she did appear to be showing a good response to the treatment. She had then developed mild anemia. Her serum iron studies were consistent with iron deficiency, and the anemia improved on oral iron supplementation. During follow-up she has occasionally required treatment for sinus/respiratory infection. In August 2019 she had developed a more severe respiratory infection, requiring hospital admission in September 2019. She had a treatment delay because of it, but she did have a good recovery. She then continued treatment with daratumumab/pomalidomide/dexamethasone at the same dosages. As of her follow-up visit on 04/05/2020 she was doing well clinically, and her M protein was stable at 0.16 g/dL. Following that treatment, she had a severe illness which included cough, fever, memory loss, generalized bone pain, severe headache, sore mouth and throat, and eventually vomiting and diarrhea. Those symptoms gradually resolved. A specific cause for illness was not determined. She did not have COVID-19 testing, though. As of her follow-up visit on 05/03/2020 she was able to resume treatment. At her scheduled visit in June 2020 she was having increased pain in the back and rib cage, and there was a slight increase in her M protein and her lambda free light chain. She continued treatment, and she was given Levaquin empirically for bronchitis. Subsequent to that visit, she had increased whole body pain which lasted for about 2 weeks, but it has since then resolved. There has been a slight further increase in the M protein, but the significance of that is uncertain. Her restaging PET/CT on 07/01/2020 showed no obvious progression of the myeloma. Plan: She will continue treatment with daratumumab together with pomalidomide at 1 mg daily on a 21/20-day schedule and weekly dexamethasone. She will be scheduled for a follow-up visit in 4 weeks. Signed By: Kenroy Davies M.D. <<Signature on File>>
== END 2020-08-02 08:46 | disposition home or self-care (01) ==
PROVIDERS: PCP Family Medicine; Visit Provider Internal Medicine Medical Oncology
DX: Z51.12 Encounter for antineoplastic immunotherapy (principal); C90.00 Multiple myeloma not having achieved remission; D80.1 Nonfamilial hypogammaglobulinemia; D50.9 Iron deficiency anemia, unspecified; J45.902 Unspecified asthma with status asthmaticus; K21.9 Gastro-esophageal reflux disease without esophagitis; Z79.899 Other long term (current) drug therapy
CPT/HCPCS: 96413; 96415; 99214; J7040; J7050; J9145

== ENCOUNTER 2020-08-29 08:41 | Outpatient (CLI) | payer MEDICARE, MEDICAID, SELFPAY ==
[2020-08-29] MEDS: sodium chloride 0.9% 250 ML 75 ML IV (09:30)
[2020-08-29] MEDS: acetaminophen 325 mg Tablet 650 MG PO (09:30)
[2020-08-29] MEDS: diphenhydrAMINE 25 mg Capsule PO (09:32)
--- NOTE | 2020-08-29 23:03 | ONC FU_ITS ---
[facility] Patient Note Patient: Salima Farrell Unit #: [id number]: [id number] Dictated By: Ac CarrDate of Visit: Aug 29, 2020 Onc MED Follow-Up/Prog Note Chief Complaint: Myeloma. History of Present Illness: Mrs Farrell is a 65 year-old woman with IgG lambda myeloma. She had presented in December 2012 with compression fractures of the T11 and L5 vertebral bodies. She underwent kyphoplasty at both levels, and biopsies were consistent with plasma cell neoplasm. Her protein electrophoresis showed biclonal protein bands with lambda light chain 0.33 g/dL and IgG lambda 4.6 g/dL. There were additional lytic lesions noted on her skeletal survey. Her 24 hour urine reportedly showed 7 gm of Bence-Zabala proteinuria. Bone marrow aspiration/biopsy in January 2013 showed atypical plasma cell infiltrate comprising 91% of the marrow cellularity. She underwent treatment with 4 cycles of Velcade/Revlimid/dexamethasone followed by high-dose melphalan/autologous stem cell transplant in May 2013. She began maintenance Revlimid in August 2013. It was stopped as of July 2015 due to toxicities. As of July 2016 her repeat bone marrow aspiration/biopsy showed 30-40% plasma cells. She restarted treatment with Revlimid. It was stopped again in December 2017 due to toxicity, mainly cytopenias. At that point her protein electrophoresis showed M protein at 1.52 g/dL. Skeletal survey reportedly showed no new abnormalities. Her repeat marrow aspiration/biopsy in February 2018 showed 70% involvement by plasma cells. M protein at that point was up to 1.82 g/dL. PET/CT on 04/01/2018 showed new osseous involvement in the right sacral ala, SUV 4.15. She was seen by Dr. Shlomo Tanner on 04/06/2018. It was recommended that she begin salvage therapy with a combination of daratumumab, pomalidomide, and dexamethasone in preparation for possible second transplant procedure. She was seen here initially on 04/10/2018, as at that point she desired to have her treatment administered closer to home. She then returned to begin her treatment with daratumumab, pomalidomide, and dexamethasone on 04/29/2018. Due to her previous cytopenias with Revlimid, the pomalidomide was initiated at a reduced dosage of 3 mg daily on a 21/28 day schedule. She received her initial infusion of daratumumab on 04/29/2018. She tolerated it well, and she was able to proceed with her 2nd weekly infusion on 05/06/2018. She presented for her week 3 infusion on 05/12/2018. At that point her treatment was put on hold due to a decrease in her white blood cell count to 1500. As of 06/03/2018 her repeat protein electrophoresis showed a significant decrease in her M protein to 0.44 g/dL. The free light chain assay showed elevated lambda light chain at 7.99 mg/L with kappa light chain 0.1840 mg/L and decreased kappa/lambda ratio at 0.0230. The pomalidomide remained on hold due to persistent neutropenia, but she was able restart weekly daratumumab infusions. As of 06/17/2018 the white count had recovered, and she then restarted pomalidomide with a further dose reduction to 2 mg daily. She completed her 8th weekly infusion of daratumumab on 07/08/2018, following which the frequency of the infusions was increased to every 2 weeks. Her repeat protein electrophoresis on 08/04/2018 showed the M protein decreased to 0.14 g/dL. The free light chain assay showed the lambda light chain decreased to 0.3960 mg/dL with kappa/lambda ratio at 0.3081. Her quantitative immunoglobulin levels were very low with IgG 280 mg/dL, IgA 13 mg/dL, and IgM < 5 mg/dL. She continued her treatment with daratumumab in combination with pomalidomide/dexamethasone with the pomalidomide dosed at 1 mg daily on a 21/28 day schedule and dexamethasone 40 mg on the weeks of daratumumab. She completed the 8th infusion of daratumumab at the 2-week interval on 10/28/2018. She has since then continued the same treatment but with the daratumumab infusions administered every 4 weeks. As of December 2018 her protein electrophoresis showed just a faint residual M protein band, and her subsequent protein electrophoresis studies had not shown any significant change. Her other medical illnesses have been limited to GERD and mild asthma. Her other surgical/procedural history includes previous appendectomy and hysterectomy/bilateral salpingo-oophorectomy. She had a minimal smoking history in the past, and she quit smoking in 1991. INTERIM HISTORY: On 09/12/2019 she was admitted to [facility] in [place] with shortness of breath, wheezing, and productive cough. She did not have acute infiltrate on chest xray, but she was significantly hypoxic. She continued empiric antibiotic coverage with Levaquin, though it appeared to have most likely have been a viral illness. At her follow-up visit in September she was finally showing recovery from that illness, and she was able to continue her treatment. As of her follow-up visit on 04/05/2020 she had been doing well clinically with her M protein stable at 0.16 g/dL. Following that treatment, though, she became very ill. She had actually started having a cough during her daratumumab infusion and after returning home she had fever in the range of 101 to 102 degrees and she was out of it for 2 days, with virtually no recollection of that time period. She then had generalized bone pain and severe headache for 2 weeks and she could not eat during that time. By about the 11th day she began to feel better, but during that week she developed vomiting and diarrhea. She then continued to show gradually recovery. She did not have COVID testing. I had seen her for a follow-up visit on 05/03/2020, and at that point she was able to resume treatment with daratumumab in combination with pomalidomide and dexamethasone. At her follow-up visit on 06/28/2020 she reported increased pain in her back and rib cage. It was severe enough that she had been seen in the emergency room in [place] earlier that week. There have been a slight increase in her lambda free light chain, concerning for disease progression. She was given IV Toradol for the pain and she also was given antibiotic therapy with Levaquin for possible bronchitis. She also was scheduled for restaging PET/CT. That study was completed on 07/01/2020. It showed mild sacral activity and a bilateral pattern which was thought to be more suggestive of reactive uptake than myeloma. Pelvic lesions did not demonstrate increased FDG activity, and were felt to likely correspond to prior sites of active myeloma. Ms Farrell is here today for followup. She has no new concerns today. Her monoclonal protein from 08/23/2020 is stable at 0.48. She states overall she is feeling better. She has had some heartburn but the omeprazole controls this. She states that she has developed an allergy to milk and ice cream and that is when she consumes that she has shortness of breath and wheezing. She has had no throat swelling or tongue swelling . But she states it seems to be pretty persistent every time she drinks milk or eats ice cream. She states she is kind of learned to avoid that or has been taking Benadryl if those symptoms occur. She denies any new pain. She states that her appetite is good. Her energy is fair. She denies any diarrhea or constipation. She has no new neuropathy concerns. She denies any fever or chills. She has had no known recent Covid exposure or pending test. She states that she has had no nausea. She states she is due to see the dentist on September 11, 2019 for some dental work and has requested to hold the [place] until after the dentist appointment. Her ECOG is 1. Past Medical History: Gastroesophageal reflux disease IgG kappa myeloma Mild asthma Past Surgical History: Appendectomy Bone marrow aspiration/biopsy in January 2013, July 2016, and February 2018 Kyphoplasty at T11 and L5 vertebral levels Tubal ligation Colonoscopy in 2012 Hysterectomy/bilateral salpingo-oophorectomy in 2008 Allergies: Codeine Sulfate Medications: Acetaminophen 2 Tablet (of 325 mg) Oral four times a day PRN ALPRAZolam 1 Tablet (of 1 mg) Oral t.i.d. Benzonatate 1 Capsule (of 100 mg) Oral t.i.d. PRN Childrens Aspirin 2 Tablet (of 81 mg) Tablet, chewable Oral daily Cyclobenzaprine HCl 1 Tablet (of 10 mg) Oral t.i.d. Gabapentin 1 Capsule (of 100 mg) Oral t.i.d. Lidocaine 3 patch(es) (of 5 %) Patch Topical q 24 hours Lidocaine 1 (5 %) Ointment Topical q 3 hours PRN Melatonin 1 Tablet (of 10 mg) Oral at bedtime Morphine Sulfate 1 - 2 Tablet (of 30 mg) Oral q 3 hours Morphine Sulfate ER (100 mg) Tablet, controlled release Oral Take as Directed Mupirocin 1 (2 %) Ointment Topical PRN Omeprazole 1 Tablet (of 40 mg) Capsule Oral daily Phentermine HCl 1 Capsule (of 37.5 mg) Oral daily Pomalidomide 1 Capsule (of 1 mg) Oral daily Valerian Root 2 (1000 mg) Capsule Oral daily Ventolin HFA 2 puff(s) (of 108 (90 base) mcg/act) Aerosol, solution Inhalation q 4 hours Voltaren Gel (jelly) Transdermal Family History: Ms. Farrell's mother at age 85: breast cancer, and myocardial infarction, and heart disease. Ms. Farrell's father at age 85: heart disease, and myocardial infarction. Ms. Farrell has 4 sisters: 2 alive, 2 . Ms. Farrell's first sister's ovarian cancer. Another sister's colon cancer. Another sister's myeloma. Another sister's breast cancer. Both parents of heart attack in their mid 80s. One brother of a gunshot wound, another with complications of diabetes, and another of old age. A sister of colon cancer and another sister of ovarian cancer. A sister has been treated for melanoma and is still living at age 75. Another sister has been treated for breast cancer and is still living at age 67. Social History: Ms. Farrell is and she is a disabled. Ms. Farrell quit smoking 27 years ago but had smoked for 13 years. She has no history of drinking. She had minimal smoking history in the past, and the range of 2-3 cigarettes per day. She quit smoking in 1991. She currently does not drink alcohol. She has had moderate alcohol use in the past. Review Of Symptoms: Constitutional Denies fevers, chills, night sweats. Feels bad overall-worsening fatigue. Back pain-chronic and controlled with current pain regimen. Allergic/Immunologic No reactions. Eyes Denies significant visual changes. No diplopia. No amaurosis. ENMT Denies changes in hearing, sore throat, mouth sores, difficulty or changes in swallowing ability, and/or sinus drainage. Hematologic/Lymphatic Denies easy bruising or bleeding. The patient denies any tender or palpable lymph nodes. Respiratory Denies dyspnea on exertion, chest pain, or hemoptysis. Denies orthopnea. Cardiovascular Denies anginal chest pain, palpitations or orthopnea. Gastrointestinal Denies nausea, vomiting, diarrhea, GI bleeding, or constipation. Denies change in bowel habits and/or stool color, or early satiety. Genitourinary (F) No hematuria, hesitancy, incontinence, vaginal bleeding, discharge or other problems with urination. Musculoskeletal Denies joint swelling or redness. No decreased range of motion. Integumentary Denies chronic rashes, inflammation, ulcerations or skin changes. Neurologic Denies headache, blurred vision, and no areas of focal weakness or numbness. Slow gait-assisted with cane. No sensory problems. Psychiatric Denies insomnia, depression, nicolette or mood swings. Vital Signs: Performed on Aug 29, 2020 08:45 Height - 57.00 in Weight - 172.3 lbs (HIGH) BSA - 1.69 sq.m BMI - 37.29 (HIGH) Temperature - 96.5 F (LOW) Pulse - 99 /min Respiration - 15 /min BP - 129/68 mm(hg) O2 Sat - 95 % (LOW) Pain - 0,1 - No physically strenuous activity, but ambulatory and able to carry out light or sedentary work (e.g. office work, light house work). (ECOG) Physical Examination: Constitutional Alert, oriented, no acute distress. Skin pink, warm and dry. Head Normocephalic; atraumatic. Eyes Conjunctivae and sclerae are clear and without icterus. Pupils are reactive and equal. Neck Supple without masses or thyromegaly. No jugular venous distension. Hematologic/Lymphatic No petechiae or purpura. No tender or palpable lymph nodes in the cervical or supraclavicular areas. Respiratory Lungs are clear to auscultation without rhonchi or wheezing. Cardiovascular Regular rate and rhythm of heart without murmurs,clicks, gallops or rubs. Abdomen Non-tender, non-distended, no masses, ascites. Back/Spine Non-tender to palpation. Musculoskeletal No tenderness or swelling, normal range of motion without obvious weakness. Integumentary No rashes or lesions. Neurologic No sensory or motor deficits, normal cerebellar function, slow gait-slow per her normal. Psychiatric Alert and oriented times three. Coherent speech. Verbalizes understanding of our discussions today. Laboratory:Test performed on Aug 23, 2020 07:23 Glucose 130 mg/dL Protein, Total 6.1 g/dL Albumin, SPE 3.58 g/dL BUN 18 mg/dL Creatinine 0.61 mg/dL Cr Clearance (Est) 110.23 mL/min Sodium 137 mmol/L Potassium 3.5 mmol/L Chloride 102 mmol/L CO2 26 mmol/L Calcium 9.2 mg/dL Albumin 4.0 g/dL Globulin 130 g/dL Bilirubin, Total 0.3 mg/dL Alkaline Phosphatase 67 IU/L AST (SGOT) 24 IU/L ALT (SGPT) 19 IU/L WBC 6.5 10^9/L RBC 4.49 10^12/L HGB 13.1 g/dL HCT 41.1 % MCV 91.5 fl MCH 29.2 pg MCHC 31.9 g/dL RDW 14.6 % Platelet Count 265 10^9/L MPV 9.5 fL Neutrophils (Gran) 4.08 10^9/L Lymphocytes 1.92 10^9/L Monocytes 0.42 10^9/L Eosinophils 0.00 10^9/L Basophils 0.01 10^9/L Manual Lymphocytes 30 % Manual Monocytes 7 % Manual Eosinophils 0 % Manual Basophils 0 % IGA 10 mg/dL IGG 848 mg/dL IGM 7 mg/dL [place] / Lambda Ratio 0.01 Absolute Value Lambda Light Chain 164.70 [place] Light Chain 1.16 Ydrsj-5-tglutocr 0.32 g/dL Zevrh-2-ondqyfyg 0.79 g/dL Beta Globulin 0.73 g/dL Gamma Globulin 0.68 g/dL M-Rene 0.48 g/dL SPE Interpretation No significant change in monoclonal proteinemia since prior study. Test performed on Jun 22, 2020 04:08 Bilirubin, Direct 0.2 mg/dL Impression: 1. Patient with IgG lambda myeloma, initially diagnosed in December 2012. She had associated lytic bone involvement with vertebral compression fractures at T11 and L5. 2. She had a good response to initial treatment with or cycles of Velcade/Revlimid/dexamethasone followed by high-dose melphalan/stem cell transplant in May 2013. 3. She then continued maintenance Revlimid until July 2015, stopped at that time due to toxicity. 4. She had evidence of disease progression on repeat bone marrow aspiration/biopsy July 2016, and she then restarted Revlimid. Treatment was stopped in December 2017 due to toxicity, mainly cytopenias. 5. She had evidence of disease progression on repeat bone marrow aspiration/biopsy in February 2018. M protein at that point had increased to 1.82 gm/dL. PET/CT showed new area of bone involvement in the right sacral ala. Her other medical illnesses include: 6. GERD. 7. Mild asthma. As of 04/29/2018 she began treatment with daratumumab in combination with pomalidomide and dexamethasone. The pomalidomide was initiated at a reduced dosage of 3 mg daily on a 21/ day schedule. She completed the first 2 weekly infusions of daratumumab with minimal side effects. At week 3, on 05/12/2018, her white blood cell count had dropped to 1500, and her treatment was put on hold. As of 06/03/2018 her repeat protein electrophoresis showed a significant decrease in the M protein, to 0.44 g/dL. Her white blood cell count at that point remained moderately decreased, and the pomalidomide remain on hold, but I did have her restart weekly daratumumab infusions. As of 06/17/2018 she was able to restart pomalidomide with a further dose reduction to 2 mg daily. She completed her 8th weekly daratumumab infusion on 07/08/2018, following which her treatment was continued at 2-week intervals. She completed the 8th infusion at the 2-week interval on 10/28/2018. She had a very good response by serum protein electrophoresis, though quantitative immunoglobulin levels did show severe hypogammaglobulinemia. Her treatment was complicated by development of significant swelling in the lower extremities, which I suspected was related to the dexamethasone. It was managed adequately with furosemide. She otherwise tolerated the treatment well. As of December 2018 her serum protein electrophoresis still showed just a faint M protein, so that she did appear to be showing a good response to the treatment. She had then developed mild anemia. Her serum iron studies were consistent with iron deficiency, and the anemia improved on oral iron supplementation. During follow-up she has occasionally required treatment for sinus/respiratory infection. In August 2019 she had developed a more severe respiratory infection, requiring hospital admission in September 2019. She had a treatment delay because of it, but she did have a good recovery. She then continued treatment with daratumumab/pomalidomide/dexamethasone at the same dosages. As of her follow-up visit on 04/05/2020 she was doing well clinically, and her M protein was stable at 0.16 g/dL. Following that treatment, she had a severe illness which included cough, fever, memory loss, generalized bone pain, severe headache, sore mouth and throat, and eventually vomiting and diarrhea. Those symptoms gradually resolved. A specific cause for illness was not determined. She did not have COVID-19 testing, though. As of her follow-up visit on 05/03/2020 she was able to resume treatment. At her scheduled visit in June 2020 she was having increased pain in the back and rib cage, and there was a slight increase in her M protein and her lambda free light chain. She continued treatment, and she was given Levaquin empirically for bronchitis. Subsequent to that visit, she had increased whole body pain which lasted for about 2 weeks, but it has since then resolved. There has been a slight further increase in the M protein, but the significance of that is uncertain. Her restaging PET/CT on 07/01/2020 showed no obvious progression of the myeloma. Plan: 1. Proceed with cycle 29s daratumumab together with pomalidomide at 1 mg daily on a 21/20-day schedule and weekly dexamethasone. She will be off the pomalidomide starting this Friday. 2. Labs from 08/23/2020 were reviewed in detail and discussed with Ms. Farrell and a copy was given to her. WBC 6.5, hemoglobin 13.1, platelets are 65,000 ANC was 4000 potassium 3.5 creatinine 0.61 LFTs are normal her abnormal protein is reported at 0.48 and was 0.41 on 07/24/2020. Her IgA and IgM continue to be low but she has been asymptomatic. 3. We will plan to see her back in 4 weeks with CBC CMP. Serum free light chains, SPEP with ANA LILIA. 4. She will need refills on her morphine per written prescription for Dr. Davies today. 5. We will also go ahead and send in a refill for her pomalidomide at 1 mg 21 of 28 days. 6. Ms. Farrell was instructed to contact us in interim should questions or problems arise. Signed By: Melly Carr.Luz Maria.-CINDY, AOCNP Kenroy Davies MD <<Signature on File>>
== END 2020-08-29 08:42 | disposition home or self-care (01) ==
LOC: ONCMED 08:43
PROVIDERS: PCP Family Medicine; Visit Provider Nurse Practitioner
DX: Z51.12 Encounter for antineoplastic immunotherapy (principal); C90.00 Multiple myeloma not having achieved remission; Z87.891 Personal history of nicotine dependence; Z79.899 Other long term (current) drug therapy; K21.9 Gastro-esophageal reflux disease without esophagitis; J45.909 Unspecified asthma, uncomplicated; Z79.891 Long term (current) use of opiate analgesic; Z79.52 Long term (current) use of systemic steroids
CPT/HCPCS: 96413; 96415; 99214; J7040; J7050; J9145

== ENCOUNTER 2020-10-02 08:51 | Outpatient (CLI) | payer MEDICARE, MEDICAID, SELFPAY ==
[2020-10-02] MEDS: diphenhydrAMINE 25 mg Capsule PO (10:19)
[2020-10-02] MEDS: sodium chloride 0.9% 250 ML 75 ML IV (10:20)
[2020-10-02] MEDS: acetaminophen 325 mg Tablet 650 MG PO (10:20)
[2020-10-02] MEDS: zoledronic acid 4 MG in sodium chloride 0.9% (100 ml) 100 ML 315 MG IV (10:20)
--- NOTE | 2020-10-02 16:00 | ONC FU_ITS ---
[facility] Patient Note Patient: Salima Farrell Unit #: [id number]: 1955 Dictated By: Ac CarrDate of Visit: Oct 02, 2020 Onc MED Follow-Up/Prog Note Chief Complaint: Myeloma. History of Present Illness: Mrs Farrell is a 65 year-old woman with IgG lambda myeloma. She had presented in December 2012 with compression fractures of the T11 and L5 vertebral bodies. She underwent kyphoplasty at both levels, and biopsies were consistent with plasma cell neoplasm. Her protein electrophoresis showed biclonal protein bands with lambda light chain 0.33 g/dL and IgG lambda 4.6 g/dL. There were additional lytic lesions noted on her skeletal survey. Her 24 hour urine reportedly showed 7 gm of Bence-Zabala proteinuria. Bone marrow aspiration/biopsy in January 2013 showed atypical plasma cell infiltrate comprising 91% of the marrow cellularity. She underwent treatment with 4 cycles of Velcade/Revlimid/dexamethasone followed by high-dose melphalan/autologous stem cell transplant in May 2013. She began maintenance Revlimid in August 2013. It was stopped as of July 2015 due to toxicities. As of July 2016 her repeat bone marrow aspiration/biopsy showed 30-40% plasma cells. She restarted treatment with Revlimid. It was stopped again in December 2017 due to toxicity, mainly cytopenias. At that point her protein electrophoresis showed M protein at 1.52 g/dL. Skeletal survey reportedly showed no new abnormalities. Her repeat marrow aspiration/biopsy in February 2018 showed 70% involvement by plasma cells. M protein at that point was up to 1.82 g/dL. PET/CT on 04/01/2018 showed new osseous involvement in the right sacral ala, SUV 4.15. She was seen by Dr. Shlomo Tanner on 04/06/2018. It was recommended that she begin salvage therapy with a combination of daratumumab, pomalidomide, and dexamethasone in preparation for possible second transplant procedure. She was seen here initially on 04/10/2018, as at that point she desired to have her treatment administered closer to home. She then returned to begin her treatment with daratumumab, pomalidomide, and dexamethasone on 04/29/2018. Due to her previous cytopenias with Revlimid, the pomalidomide was initiated at a reduced dosage of 3 mg daily on a 21/28 day schedule. She received her initial infusion of daratumumab on 04/29/2018. She tolerated it well, and she was able to proceed with her 2nd weekly infusion on 05/06/2018. She presented for her week 3 infusion on 05/12/2018. At that point her treatment was put on hold due to a decrease in her white blood cell count to 1500. As of 06/03/2018 her repeat protein electrophoresis showed a significant decrease in her M protein to 0.44 g/dL. The free light chain assay showed elevated lambda light chain at 7.99 mg/L with kappa light chain 0.1840 mg/L and decreased kappa/lambda ratio at 0.0230. The pomalidomide remained on hold due to persistent neutropenia, but she was able restart weekly daratumumab infusions. As of 06/17/2018 the white count had recovered, and she then restarted pomalidomide with a further dose reduction to 2 mg daily. She completed her 8th weekly infusion of daratumumab on 07/08/2018, following which the frequency of the infusions was increased to every 2 weeks. Her repeat protein electrophoresis on 08/04/2018 showed the M protein decreased to 0.14 g/dL. The free light chain assay showed the lambda light chain decreased to 0.3960 mg/dL with kappa/lambda ratio at 0.3081. Her quantitative immunoglobulin levels were very low with IgG 280 mg/dL, IgA 13 mg/dL, and IgM < 5 mg/dL. She continued her treatment with daratumumab in combination with pomalidomide/dexamethasone with the pomalidomide dosed at 1 mg daily on a 21/28 day schedule and dexamethasone 40 mg on the weeks of daratumumab. She completed the 8th infusion of daratumumab at the 2-week interval on 10/28/2018. She has since then continued the same treatment but with the daratumumab infusions administered every 4 weeks. As of December 2018 her protein electrophoresis showed just a faint residual M protein band, and her subsequent protein electrophoresis studies had not shown any significant change. Her other medical illnesses have been limited to GERD and mild asthma. Her other surgical/procedural history includes previous appendectomy and hysterectomy/bilateral salpingo-oophorectomy. She had a minimal smoking history in the past, and she quit smoking in 1991. INTERIM HISTORY: On 09/12/2019 she was admitted to [facility] in [place] with shortness of breath, wheezing, and productive cough. She did not have acute infiltrate on chest xray, but she was significantly hypoxic. She continued empiric antibiotic coverage with Levaquin, though it appeared to have most likely have been a viral illness. At her follow-up visit in September she was finally showing recovery from that illness, and she was able to continue her treatment. As of her follow-up visit on 04/05/2020 she had been doing well clinically with her M protein stable at 0.16 g/dL. Following that treatment, though, she became very ill. She had actually started having a cough during her daratumumab infusion and after returning home she had fever in the range of 101 to 102 degrees and she was out of it for 2 days, with virtually no recollection of that time period. She then had generalized bone pain and severe headache for 2 weeks and she could not eat during that time. By about the 11th day she began to feel better, but during that week she developed vomiting and diarrhea. She then continued to show gradually recovery. She did not have COVID testing. She was seen for a follow-up visit on 05/03/2020, and at that point she was able to resume treatment with daratumumab in combination with pomalidomide and dexamethasone. At her follow-up visit on 06/28/2020 she reported increased pain in her back and rib cage. It was severe enough that she had been seen in the emergency room in [place] earlier that week. There have been a slight increase in her lambda free light chain, concerning for disease progression. She was given IV Toradol for the pain and she also was given antibiotic therapy with Levaquin for possible bronchitis. She also was scheduled for restaging PET/CT. That study was completed on 07/01/2020. It showed mild sacral activity and a bilateral pattern which was thought to be more suggestive of reactive uptake than myeloma. Pelvic lesions did not demonstrate increased FDG activity, and were felt to likely correspond to prior sites of active myeloma. Ms Farrell is here today for followup. She was delayed last week because she was sick . She states she had a virus as had been spread around her family. She did have stomach ache/diarrhea; low-grade fever; aches and a cough. She developed a lesion on her right laeral calf area that was draining yellow stuff . She states she applied Nystatin cream to it and it is better . She denies any fever or chills within the last 48 hours. She denies any known COVID-19 exposure and has not been tested within the last 5-7 days.She states she has some Keflex on hand for her leg and started it yesteray. She did bring her bottle with her and she does have enough tablets for 7 days. She was encourgaed to complete this prescription. She states she still has some cough but it is better overall. She has no new concerns today. Her monoclonal protein from 10/02/2020 was 0.61 verses 0.49 in 08/2020. Her IgG is 1001 IgA is 8 IgM is 5. She states overall she is feeling better. She wishes to proceed with treatment today. She denies any new orthopnea. She has had no chest pain or palpitations. She denies any nausea or vomiting. Her energy has been down since has been recovering from this viral illness but states overall she is able to take care of her self. Her ECOG is 2 today. Past Medical History: Gastroesophageal reflux disease IgG kappa myeloma Mild asthma Past Surgical History: Appendectomy Bone marrow aspiration/biopsy in January 2013, July 2016, and February 2018 Kyphoplasty at T11 and L5 vertebral levels Tubal ligation Colonoscopy in 2012 Hysterectomy/bilateral salpingo-oophorectomy in 2008 Allergies: Codeine Sulfate Medications: Acetaminophen 2 Tablet (of 325 mg) Oral four times a day PRN ALPRAZolam 1 Tablet (of 1 mg) Oral t.i.d. Benzonatate 1 Capsule (of 100 mg) Oral t.i.d. PRN Childrens Aspirin 2 Tablet (of 81 mg) Tablet, chewable Oral daily Cyclobenzaprine HCl 1 Tablet (of 10 mg) Oral t.i.d. Gabapentin 1 Capsule (of 100 mg) Oral t.i.d. Lidocaine 3 patch(es) (of 5 %) Patch Topical q 24 hours Lidocaine 1 (5 %) Ointment Topical q 3 hours PRN Melatonin 1 Tablet (of 10 mg) Oral at bedtime Morphine Sulfate 1 - 2 Tablet (of 30 mg) Oral q 3 hours Morphine Sulfate ER (100 mg) Tablet, controlled release Oral Take as Directed Mupirocin 1 (2 %) Ointment Topical PRN Omeprazole 1 Tablet (of 40 mg) Capsule Oral daily Phentermine HCl 1 Capsule (of 37.5 mg) Oral daily Pomalidomide 1 Capsule (of 1 mg) Oral daily Valerian Root 2 (1000 mg) Capsule Oral daily Ventolin HFA 2 puff(s) (of 108 (90 base) mcg/act) Aerosol, solution Inhalation q 4 hours Voltaren Gel (jelly) Transdermal Family History: Ms. Farrell's mother at age 85: breast cancer, and myocardial infarction, and heart disease. Ms. Farrell's father at age 85: heart disease, and myocardial infarction. Ms. Farrell has 4 sisters: 2 alive, 2 . Ms. Farrell's first sister's ovarian cancer. Another sister's colon cancer. Another sister's myeloma. Another sister's breast cancer. Both parents of heart attack in their mid 80s. One brother of a gunshot wound, another with complications of diabetes, and another of old age. A sister of colon cancer and another sister of ovarian cancer. A sister has been treated for melanoma and is still living at age 75. Another sister has been treated for breast cancer and is still living at age 67. Social History: Ms. Farrell is and she is a disabled. Ms. Farrell quit smoking 27 years ago but had smoked for 13 years. She has no history of drinking. She had minimal smoking history in the past, and the range of 2-3 cigarettes per day. She quit smoking in 1991. She currently does not drink alcohol. She has had moderate alcohol use in the past. Review Of Symptoms: Constitutional Denies fevers, chills, night sweats. Back pain-chronic and controlled with current pain regimen. Allergic/Immunologic No reactions. Eyes Denies significant visual changes. No diplopia. No amaurosis. ENMT Denies changes in hearing, sore throat, mouth sores, difficulty or changes in swallowing ability, and/or sinus drainage. Hematologic/Lymphatic Denies easy bruising or bleeding. The patient denies any tender or palpable lymph nodes. Respiratory Denies dyspnea on exertion, chest pain, or hemoptysis. Denies orthopnea. Cardiovascular Denies anginal chest pain, palpitations or orthopnea. Gastrointestinal Denies nausea, vomiting, diarrhea, GI bleeding, or constipation. Denies change in bowel habits and/or stool color, or early satiety. Genitourinary (F) No hematuria, hesitancy, incontinence, vaginal bleeding, discharge or other problems with urination. Musculoskeletal Denies joint swelling or redness. No decreased range of motion. Integumentary Denies chronic rashes, inflammation, ulcerations or skin changes. Neurologic Denies headache, blurred vision, and no areas of focal weakness or numbness. Slow gait-assisted with cane. No sensory problems. Psychiatric Denies insomnia, depression, nicolette or mood swings. Vital Signs: Performed on Oct 02, 2020 12:45 Height - 57.00 in Temperature - 97.6 F (LOW) Pulse - 89 /min Respiration - 18 /min BP - 134/76 mm(hg) O2 Sat - 95 % (LOW) Pain - 0 Fatigue - 0 Performed on Oct 02, 2020 09:21 Height - 57.00 in Weight - 175 lbs (HIGH) BSA - 1.70 sq.m BMI - 37.87 (HIGH) Temperature - 97.0 F (LOW) Pulse - 89 /min Respiration - 17 /min BP - 115/55 mm(hg) O2 Sat - 90 % (LOW) Pain - 0,1 - No physically strenuous activity, but ambulatory and able to carry out light or sedentary work (e.g. office work, light house work). (ECOG) Physical Examination: Constitutional Alert, oriented, no acute distress. Skin pink, warm and dry. Head Normocephalic; atraumatic. Eyes Conjunctivae and sclerae are clear and without icterus. Pupils are reactive and equal. ENMT No oral exudates, ulcers, masses, thrush or mucositis. Oropharynx clear. Tongue normal. Neck Supple without masses or thyromegaly. No jugular venous distension. Hematologic/Lymphatic No petechiae or purpura. No tender or palpable lymph nodes in the cervical or supraclavicular areas. Respiratory Lungs are clear to auscultation without rhonchi or wheezing. Cardiovascular Regular rate and rhythm of heart without murmurs,clicks, gallops or rubs. Abdomen Non-tender, non-distended, no masses, ascites. Back/Spine Non-tender to palpation. Extremities Right lower extremity (lateral calf area) reveals a 1 cm in diameter open abrasion that is yellowish with pink tissue-no active drainage at present. It is surrounded by significant redness (2 cm diameter) and mild tissue swelling. Left calf = 15 inches and right is 17 inches without tenderness or warmth-she states it is chronic bigger than the left. Musculoskeletal No tenderness or swelling, normal range of motion without obvious weakness. Integumentary No rashes or lesions. Neurologic No sensory or motor deficits, normal cerebellar function, slow gait-slow per her normal. Psychiatric Alert and oriented times three. Coherent speech. Verbalizes understanding of our discussions today. Laboratory:Test performed on Sep 28, 2020 16:23 Glucose 137 mg/dL BUN 21 mg/dL Creatinine 0.62 mg/dL Cr Clearance (Est) 108.45 mL/min Sodium 137 mmol/L Potassium 3.7 mmol/L Chloride 105 mmol/L CO2 23 mmol/L Calcium 9.1 mg/dL Protein, Total 6.5 g/dL Albumin 3.4 g/dL Bilirubin, Total 0.3 mg/dL Alkaline Phosphatase 56 IU/L AST (SGOT) 23 IU/L ALT (SGPT) 18 IU/L WBC 7 10^9/L RBC 4.43 10^12/L HGB 12.9 g/dL HCT 41 % MCV 92.6 fl MCH 29.1 pg MCHC 31.5 g/dL RDW 15.3 % Platelet Count 185 10^9/L Neutrophils (Gran) 3.73 10^9/L Lymphocytes 1.68 10^9/L Monocytes 0.96 10^9/L Eosinophils 0.5 10^9/L Basophils 0.08 10^9/L Test performed on Sep 28, 2020 11:09 IGA 8 mg/dL IGG 1001 mg/dL IGM 5 mg/dL Gibson / Lambda Ratio 0.01 Absolute Value Lambda Light Chain 366.71 Gibson Light Chain 3.93 Test performed on Aug 23, 2020 07:23 Albumin, SPE 3.58 g/dL Globulin 130 g/dL MPV 9.5 fL Manual Lymphocytes 30 % Manual Monocytes 7 % Manual Eosinophils 0 % Manual Basophils 0 % Suybt-5-enaslwzy 0.32 g/dL Efwug-6-sqkikswz 0.79 g/dL Beta Globulin 0.73 g/dL Gamma Globulin 0.68 g/dL M-Rene 0.48 g/dL SPE Interpretation No significant change in monoclonal proteinemia since prior study. Test performed on Jun 22, 2020 04:08 Bilirubin, Direct 0.2 mg/dL Impression: 1. Patient with IgG lambda myeloma, initially diagnosed in December 2012. She had associated lytic bone involvement with vertebral compression fractures at T11 and L5. 2. She had a good response to initial treatment with or cycles of Velcade/Revlimid/dexamethasone followed by high-dose melphalan/stem cell transplant in May 2013. 3. She then continued maintenance Revlimid until July 2015, stopped at that time due to toxicity. 4. She had evidence of disease progression on repeat bone marrow aspiration/biopsy July 2016, and she then restarted Revlimid. Treatment was stopped in December 2017 due to toxicity, mainly cytopenias. 5. She had evidence of disease progression on repeat bone marrow aspiration/biopsy in February 2018. M protein at that point had increased to 1.82 gm/dL. PET/CT showed new area of bone involvement in the right sacral ala. Her other medical illnesses include: 6. GERD. 7. Mild asthma. As of 04/29/2018 she began treatment with daratumumab in combination with pomalidomide and dexamethasone. The pomalidomide was initiated at a reduced dosage of 3 mg daily on a 21/28 day schedule. She completed the first 2 weekly infusions of daratumumab with minimal side effects. At week 3, on 05/12/2018, her white blood cell count had dropped to 1500, and her treatment was put on hold. As of 06/03/2018 her repeat protein electrophoresis showed a significant decrease in the M protein, to 0.44 g/dL. Her white blood cell count at that point remained moderately decreased, and the pomalidomide remain on hold, but I did have her restart weekly daratumumab infusions. As of 06/17/2018 she was able to restart pomalidomide with a further dose reduction to 2 mg daily. She completed her 8th weekly daratumumab infusion on 07/08/2018, following which her treatment was continued at 2-week intervals. She completed the 8th infusion at the 2-week interval on 10/28/2018. She had a very good response by serum protein electrophoresis, though quantitative immunoglobulin levels did show severe hypogammaglobulinemia. Her treatment was complicated by development of significant swelling in the lower extremities, which I suspected was related to the dexamethasone. It was managed adequately with furosemide. She otherwise tolerated the treatment well. As of December 2018 her serum protein electrophoresis still showed just a faint M protein, so that she did appear to be showing a good response to the treatment. She had then developed mild anemia. Her serum iron studies were consistent with iron deficiency, and the anemia improved on oral iron supplementation. During follow-up she has occasionally required treatment for sinus/respiratory infection. In August 2019 she had developed a more severe respiratory infection, requiring hospital admission in September 2019. She had a treatment delay because of it, but she did have a good recovery. She then continued treatment with daratumumab/pomalidomide/dexamethasone at the same dosages. As of her follow-up visit on 04/05/2020 she was doing well clinically, and her M protein was stable at 0.16 g/dL. Following that treatment, she had a severe illness which included cough, fever, memory loss, generalized bone pain, severe headache, sore mouth and throat, and eventually vomiting and diarrhea. Those symptoms gradually resolved. A specific cause for illness was not determined. She did not have COVID-19 testing, though. As of her follow-up visit on 05/03/2020 she was able to resume treatment. At her scheduled visit in June 2020 she was having increased pain in the back and rib cage, and there was a slight increase in her M protein and her lambda free light chain. She continued treatment, and she was given Levaquin empirically for bronchitis. Subsequent to that visit, she had increased whole body pain which lasted for about 2 weeks, but it has since then resolved. There has been a slight further increase in the M protein, but the significance of that is uncertain. Her restaging PET/CT on 07/01/2020 showed no obvious progression of the myeloma. Plan: PROBLEMS ADDRESSED TODAY: A. MULTIPLE MYELOMA 1. Proceed with cycle 30 daratumumab together with pomalidomide at 1 mg daily on a -day schedule and weekly dexamethasone. She will resume the pomalidomide starting this Friday (October 07, 2019). 2. Labs from 10/02/2020 were reviewed in detail and discussed with Ms. Farrell and a copy was given to her. WBC 7.0, hemoglobin 12.9, platelets are 185,000 ANC was 3730 potassium 3.7 creatinine 0.62. LFTs are normal her abnormal protein is reported at 0.61 and was 0.41 on 07/24/2020. Her IgA and IgM continue to be low but she does not want to pursue IVIG replacement at this time. 3. We will plan to see her back in 4 weeks with CBC CMP. Serum free light chains, SPEP with ANA LILIA. 4. She will need refills on her morphine per written prescription for Dr. Davies today. 5. We will also go ahead and send in a refill for her Levaquin in the event she does not respond to the current antibiotic. 6. Ms. Farrell was instructed to contact us in interim should questions or problems arise. Signed By: Ac Carr-, AOCNP Kenroy Davies MD <<Signature on File>>
== END 2020-10-02 08:52 | disposition home or self-care (01) ==
LOC: ONCMED 08:55
PROVIDERS: PCP Family Medicine; Visit Provider Nurse Practitioner
DX: Z51.12 Encounter for antineoplastic immunotherapy (principal); C90.00 Multiple myeloma not having achieved remission; R77.9 Abnormality of plasma protein, unspecified; K21.9 Gastro-esophageal reflux disease without esophagitis; J45.909 Unspecified asthma, uncomplicated; Z79.899 Other long term (current) drug therapy; Z87.891 Personal history of nicotine dependence; Z79.891 Long term (current) use of opiate analgesic
CPT/HCPCS: 96367; 96413; 96415; 99215; J3489; J7040; J7050; J9145

== ENCOUNTER 2020-10-30 09:04 | Outpatient (CLI) | payer MEDICARE, MEDICAID, SELFPAY ==
[2020-10-30] MEDS: acetaminophen 325 mg Tablet 650 MG PO (10:10)
[2020-10-30] MEDS: sodium chloride 0.9% 250 ML 75 ML IV (10:10)
[2020-10-30] MEDS: diphenhydrAMINE 25 mg Capsule PO (10:12)
--- NOTE | 2020-11-03 17:09 | ONC FU_ITS ---
Dr. Davies Patient Follow-Up Note Patient: Salima Farrell Unit #: [id number]: [id number] Dicatated By: Kenroy Davies M.D.Date of Visit:Oct 30, 2020 Onc Med Follow-up/Prog Note Chief Complaint: Myeloma. History of Present Illness: This is a 65 year-old woman with IgG lambda myeloma. She had presented in December 2012 with compression fractures of the T11 and L5 vertebral bodies. She underwent kyphoplasty at both levels, and biopsies were consistent with plasma cell neoplasm. Her protein electrophoresis showed biclonal protein bands with lambda light chain 0.33 g/dL and IgG lambda 4.6 g/dL. There were additional lytic lesions noted on her skeletal survey. Her 24 hour urine reportedly showed 7 gm of Bence-Zabala proteinuria. Bone marrow aspiration/biopsy in January 2013 showed atypical plasma cell infiltrate comprising 91% of the marrow cellularity. She underwent treatment with 4 cycles of Velcade/Revlimid/dexamethasone followed by high-dose melphalan/autologous stem cell transplant in May 2013. She began maintenance Revlimid in August 2013. It was stopped as of July 2015 due to toxicities. As of July 2016 her repeat bone marrow aspiration/biopsy showed 30-40% plasma cells. She restarted treatment with Revlimid. It was stopped again in December 2017 due to toxicity, mainly cytopenias. At that point her protein electrophoresis showed M protein at 1.52 g/dL. Skeletal survey reportedly showed no new abnormalities. Her repeat marrow aspiration/biopsy in February 2018 showed 70% involvement by plasma cells. The M protein at that point was up to 1.82 g/dL. PET/CT on 04/01/2018 showed new osseous involvement in the right sacral ala, SUV 4.15. She was seen by Dr. Shlomo Tanner on 04/06/2018. It was recommended that she begin salvage therapy with a combination of daratumumab, pomalidomide, and dexamethasone in preparation for possible second transplant procedure. She was seen here initially on 04/10/2018, as at that point she desired to have her treatment administered closer to home. She then returned to begin her treatment with daratumumab, pomalidomide, and dexamethasone on 04/29/2018. Due to her previous cytopenias with Revlimid, the pomalidomide was initiated at a reduced dosage of 3 mg daily on a day schedule. She began her initial infusion of daratumumab on 04/29/2018. She tolerated it without acute toxicity. She was able to complete 8 infusions at the weekly interval followed by 8 infusions at the 2-week interval. The treatments were then administered at a 4-week interval beginning in November 2018. During that time, she her pomalidomide had to be put on hold due to neutropenia. She eventually was able to tolerate it with the dosage reduced to 1 mg. She did have a very good response by protein electrophoresis. On 09/12/2019 she was admitted to [facility] in [place] with shortness of breath, wheezing, and productive cough. She did not have acute infiltrate on chest xray, but she was significantly hypoxic. She continued empiric antibiotic coverage with Levaquin, though it appeared to have most likely have been a viral illness. At her follow-up visit in September she was finally showing recovery from that illness, and she was able to continue her treatment. As of her follow-up visit on 04/05/2020 she had been doing well clinically with her M protein stable at 0.16 g/dL. Following that treatment, though, she became very ill. She had actually started having a cough during her daratumumab infusion and after returning home she had fever in the range of 101 to 102 degrees and she was out of it for 2 days, with virtually no recollection of that time period. She then had generalized bone pain and severe headache for 2 weeks and she could not eat during that time. By about the 11th day she began to feel better, but during that week she developed vomiting and diarrhea. She then continued to show gradually recovery. She did not have COVID testing. I had seen her for a follow-up visit on 05/03/2020, and at that point she was able to resume treatment with daratumumab in combination with pomalidomide and dexamethasone. Her other medical illnesses have been limited to GERD and mild asthma. Her other surgical/procedural history includes previous appendectomy and hysterectomy/bilateral salpingo-oophorectomy. She had a minimal smoking history in the past, and she quit smoking in 1991. INTERIM HISTORY: At her follow-up visit on 06/28/2020 she reported increased pain in her back and rib cage. It was severe enough that she had been seen in the emergency room in [place] earlier that week. There had been a slight increase in her lambda free light chain, concerning for disease progression. She was given IV Toradol for the pain and she was given antibiotic therapy with Levaquin for possible bronchitis. She also was scheduled for restaging PET/CT. That study was completed on 07/01/2020. It showed mild sacral activity and a bilateral pattern which was thought to be more suggestive of reactive uptake than myeloma. Pelvic lesions did not demonstrate increased FDG activity, and were felt to likely correspond to prior sites of active myeloma. She continued her treatment with daratumumab/pomalidomide/dexamethasone at 4-week intervals. However, at her follow-up visit in September 2020 her M protein had increased to 0.61 g/dL and there was a significant increase in her lambda free light chain to 366.71 mg/L. She is seen for a follow-up visit. She has been feeling tired, but she is still able to do light work. ECOG score is 1. She has good appetite. She has no fever or night sweats. She has not had sore mouth or throat. She has no shortness of breath, cough, or chest pain. She currently has no GI or complaints. She has some back pain, and it does limit her activity, but it is managed adequately with her pain medication. She does not complain of headache or dizziness. She has no focal neurologic symptoms. Medications: Acetaminophen 2 Tablet (of 325 mg) Oral four times a day PRN, ALPRAZolam 1 Tablet (of 1 mg) Oral t.i.d., Benzonatate 1 Capsule (of 100 mg) Oral t.i.d. PRN, Childrens Aspirin 2 Tablet (of 81 mg) Tablet, chewable Oral daily, Cyclobenzaprine HCl 1 Tablet (of 10 mg) Oral t.i.d., Gabapentin 1 Capsule (of 100 mg) Oral t.i.d., Lidocaine 3 patch(es) (of 5 %) Patch Topical q 24 hours, Lidocaine 1 (5 %) Ointment Topical q 3 hours PRN, Melatonin 1 Tablet (of 10 mg) Oral at bedtime, Morphine Sulfate 1 - 2 Tablet (of 30 mg) Oral q 3 hours, Morphine Sulfate ER (100 mg) Tablet, controlled release Oral Take as Directed, Mupirocin 1 (2 %) Ointment Topical PRN, Omeprazole 1 Tablet (of 40 mg) Capsule Oral daily, Phentermine HCl 1 Capsule (of 37.5 mg) Oral daily, Pomalidomide 1 Capsule (of 1 mg) Oral daily, Valerian Root 2 (1000 mg) Capsule Oral daily, Ventolin HFA 2 puff(s) (of 108 (90 base) mcg/act) Aerosol, solution Inhalation q 4 hours, Voltaren Gel (jelly) Transdermal Allergies: Codeine Sulfate Vital Signs: Performed on Oct 30, 2020 09:21 Height - 57.00 in Weight - 173.6 lbs (LOW) BSA - 1.69 sq.m BMI - 37.57 (HIGH) Temperature - 97.9 F (LOW) Pulse - 85 /min Respiration - 18 /min BP - 114/70 mm(hg) O2 Sat - 98 % Pain - 0 Fatigue - 5 Physical Examination: Constitutional - She looks pretty good generally, Eyes - Sclerae nonicteric. Conjunctivae clear, ENMT - No lesions noted in the oral cavity, Hematologic/Lymphatic - No cervical, clavicular, or axillary adenopathy, Respiratory - Lungs are clear, Cardiovascular - Heart rhythm is regular. There is a II/ systolic murmur. There is no gallop or rub noted, Abdomen - Mildly distended but soft. Liver and spleen are not enlarged. There is no abdominal mass or ascites noted and there is no inguinal adenopathy, Extremities - There is mild swelling of the right leg. There are 2 areas of skin ulceration on the right leg. These do appear to be healing, Integumentary - No skin eruption, Neurologic - She does not appear to have any focal neurologic deficit. Lab/Imaging: Test performed on Oct 27, 2020 08:29 Glucose 99 mg/dL Vitamin D (25-Hydroxy) 32 ng/mL BUN 21 mg/dL Creatinine 0.64 mg/dL Cr Clearance (Est) 105.06 mL/min Sodium 139 mmol/L Potassium 4.0 mmol/L Chloride 105 mmol/L CO2 24 mmol/L Calcium 9.5 mg/dL Protein, Total 6.8 g/dL Albumin 3.8 g/dL Bilirubin, Total 0.3 mg/dL Alkaline Phosphatase 51 IU/L AST (SGOT) 22 IU/L ALT (SGPT) 16 IU/L WBC 5.5 10^9/L RBC 4.19 10^12/L HGB 12.5 g/dL HCT 39.1 % MCV 93.3 fl MCH 29.8 pg MCHC 32.0 g/dL RDW 15.6 % Platelet Count 200 10^9/L MPV 9.4 fL Neutrophils (Gran) 2.59 10^9/L Lymphocytes 1.82 10^9/L Monocytes 0.88 10^9/L Eosinophils 0.17 10^9/L Manual Lymphocytes 33 % Manual Monocytes 1 % Manual Eosinophils 16 % Manual Basophils 3 % IGA 7 mg/dL IGG 1414 mg/dL IGM 5 mg/dL [place] / Lambda Ratio 0.01 Absolute Value Lambda Light Chain 4443.34 [place] Light Chain 3.98 Problem List: 1. IgG lambda myeloma, initially diagnosed in December 2012. She had associated lytic bone involvement with vertebral compression fractures at T11 and L5. 2. She has associated hypogammaglobulinemia. 3. GERD. 4. Mild asthma. Problems Addressed with this Encounter and Plan: 1. IgG lambda myeloma, initially diagnosed in December 2012. She had associated lytic bone involvement with vertebral compression fractures at T11 and L5. She had a good response to initial treatment with 4 cycles of Velcade/Revlimid/dexamethasone followed by high-dose melphalan/stem cell transplant in May 2013. She then continued maintenance Revlimid until July 2015, stopped at that time due to toxicity. She had evidence of disease progression on repeat bone marrow aspiration/biopsy July 2016, and she then restarted Revlimid. Treatment was stopped in December 2017 due to toxicity, mainly cytopenias. She had evidence of disease progression again by bone marrow aspiration/biopsy in February 2018. Her M protein at that point had increased to 1.82 gm/dL. PET/CT showed new area of bone involvement in the right sacral ala. As of 04/29/2018 she began treatment with daratumumab in combination with pomalidomide and dexamethasone. The daratumumab was administered weekly for 8 weeks, then every 2 weeks for an additional 8 doses. During that time the pomalidomide had to be put on hold due to neutropenia. She eventually was able to tolerate it with the dosage reduced to 1 mg daily on a 21/28-day schedule. Since November 2018 her treatments have been administered at 4-week intervals. She had a very good response by protein electrophoresis. Over the past several months or has been a continued increase in her M protein and in her serum free lambda light chain, consistent with disease progression. As yet she does not appear to be overtly symptomatic with it. She will now be scheduled for restaging PET/CT. She will be administered her scheduled dosage of daratumumab and she will continue dexamethasone, but the pomalidomide will now be put on hold, and I will begin arrangements to get her started on treatment with a carfilzomib-containing regimen. She will need a baseline echocardiogram due to the potential for cardiac toxicity with the carfilzomib. 2. She has associated hypogammaglobulinemia. She has had occasional respiratory infections, but thus far they have not been frequent enough to justify starting replacement IVIG. 3. She has chronic back pain associated with her vertebral compression fractures. It is being managed adequately with her current medication regimen. 4. She has new swelling in the right leg and she has some associated skin ulcers. As she has been on a treatment regimen which has associated risk for thromboembolism, I will check a venous Doppler of the right leg. She will have further evaluation as indicated. In the meantime, I will have her continue antibiotic coverage with Ceftin. Signed By: Kenroy Davies M.D. <<Signature on File>>
== END 2020-10-30 09:05 | disposition home or self-care (01) ==
PROVIDERS: PCP Family Medicine; Visit Provider Internal Medicine Medical Oncology
DX: Z51.12 Encounter for antineoplastic immunotherapy (principal); C90.00 Multiple myeloma not having achieved remission; D80.1 Nonfamilial hypogammaglobulinemia; M79.89 Other specified soft tissue disorders; L97.919 Non-pressure chronic ulcer of unspecified part of right lower leg with unspecified severity; M48.50XD Collapsed vertebra, not elsewhere classified, site unspecified, subsequent encounter for fracture with routine healing; K21.9 Gastro-esophageal reflux disease without esophagitis; Z79.899 Other long term (current) drug therapy
CPT/HCPCS: 96413; 96415; 99215; J7040; J7050; J9145

== ENCOUNTER 2020-10-30 10:35 | Outpatient (CLI) | payer MEDICARE, MEDICAID, SELFPAY ==
--- NOTE | 2020-10-30 10:51 | USCV_ITS ---
Salima Farrell Age: 65 Gender: F : 1955 Exam Date: 10/30/2020 11:16 Ordering Phys: Kenroy Davies MD Technologist: Mary Gomez [place] [facility] [place]: NON HEALING WOUND RT LOWER LEG HISTORY: Non healing wound Rt. lower leg PROCEDURES: Venous duplex imaging was performed in only the right lower extremity. In addition, the posterior tibial and peroneal trunk were evaluated. The following venous structures were evaluated: common femoral vein, profunda vein, proximal portion of the greater saphenous vein, superficial femoral vein, and the popliteal vein. Serial compression, augmentation maneuvers, and spectral Doppler flow evaluation were performed. FINDINGS: No DVT seen in any vein examined CONCLUSIONS No evidence of right lower extremity DVT. Louie Montiel MD (Electronically Signed) Final Date: 30 October 2020 14:26 S
--- NOTE | 2020-10-30 10:51 | USCV_ITS ---
Salima Farrell Age: 65 Gender: F : 1955 Exam Date: 10/30/2020 11:25 Ordering Phys: Kenroy Davies MD Technologist: Mary Gomez [place] [facility] [place]ication: HI RISK MEDS FOR CHEMO BP: / HR: 75 Rhythm: Sinus Technical Quality: Adequate MEASUREMENTS (Male / Female) Normal Values 2D ECHO LV Diastolic Diameter PLAX 3.5 cm 4.2 - 5.9 / 3.9 - 5.3 cm LV Systolic Diameter PLAX 2.6 cm LV Chamber Size 3.1 cm IVS Diastolic Thickness 1.2 cm 0.6 - 1.0 / 0.6 - 0.9 cm IVS Systolic Thickness 1.5 cm LVPW Diastolic Thickness 1.1 cm 0.6 - 1.0 / 0.6 - 0.9 cm LVPW Systolic Thickness 1.4 cm RV Chamber Size 1.8 cm LVOT Diameter 2.1 cm LV Ejection Fraction 2D Teich 48.2 % LV Ejection Fraction MOD 2C 62.4 % LV Ejection Fraction 2C AL 65.8 % LA Diameter 3.4 cm LA Width 3.3 cm LA Height 4.6 cm RA Width 3.3 cm RA Height 3.1 cm Aorta at Sinotubular Diameter 2.5 cm M-MODE LV Diastolic Diameter MM 4.9 cm 4.2 - 5.9 / 3.9 - 5.3 cm LV Systolic Diameter MM 2.7 cm LV Ejection Fraction MM Teich 75.8 % IVS Diastolic Thickness MM 0.8 cm 0.6 - 1.0 / 0.6 - 0.9 cm IVS Systolic Thickness MM 1.3 cm LVPW Diastolic Thickness MM 0.9 cm 0.6 - 1.0 / 0.6 - 0.9 cm LVPW Systolic Thickness MM 1.3 cm RV Diastolic Diameter MM 0.9 cm Aortic Annulus Diameter 3.3 cm LA Ao Ratio MM 1.3 MV E Point Septal Separation 1.2 cm FINDINGS Left Ventricle Normal left ventricular size. LV systolic function is normal with EF of 60-65%. No regional wall motion abnormalities. Right Ventricle The right ventricle is normal in size and function. Right Atrium The right atrium is normal in size. Left Atrium The left atrium is normal in size. Mitral Valve Mild to moderate mitral annular calcification is seen Aortic Valve Grossly normal Tricuspid Valve Grossly normal Pulmonic Valve Not visualized Pericardium Normal pericardium without effusion. Aorta Normal ascending aorta dimension. CONCLUSIONS This is a limited echocardiogram performed to assess LV systolic function and regional wall motion LV systolic function is normal with EF of 60-65%. No regional wall motion abnormalities. No comparison studies are available. Fausto Mcgarry MD (Electronically Signed) Final Date: 05 November 2020 15:02 S
== END 2020-10-30 10:36 | disposition home or self-care (01) ==
PROVIDERS: PCP Family Medicine; Visit Provider Internal Medicine Medical Oncology
DX: M79.89 Other specified soft tissue disorders (principal); M79.604 Pain in right leg; Z79.899 Other long term (current) drug therapy
CPT/HCPCS: 93308; 93971

== ENCOUNTER 2020-11-23 12:06 | Outpatient (CLI) | payer MEDICARE, MEDICAID, SELFPAY ==
[2020-11-23] MEDS: alteplase 1 mg/mL SDV 2 mL 2 MG INTRACATH ×3 (12:38→16:00)
[2020-11-23 12:58] LABS: Basophils % 0.8 %; Eosinophils # 0.1 10^3/uL (0.0-0.8); Eosinophils % 2.6 %; Hematocrit 41.8 % (37.0-47.0); Hemoglobin 12.8 g/dL (11.5-15.3); Mean Corpuscular HGB Conc 30.6 g/dL (30.0-36.0); Mean Corpuscular Hemoglobin 29.4 pg (28.0-34.0); Mean Corpuscular Volume 96.1 fL (81-99); Mean Platelet Volume 9.8 fL (7.4-10.4); Monocytes # 0.7 10^3/uL (0.2-0.9); Neutrophils # 2.32 10^3/uL (1.8-7.7); Neutrophils % 43.9 %; Nucleated Red Blood Cells % 0 %; Platelet Count 219 10^3/cmm (130-400); Red Blood Count 4.35 10^6/uL (4.1-5.3); White Blood Count 5.3 10^3/uL (4.0-10.0)
[2020-11-23 13:26] LABS: Alanine Aminotransferase 15 U/L (0-33); Albumin Level 3.4 g/dL (3.5-5.2); Alkaline Phosphatase 55 IU/L (35-105); Aspartate Amino Transferase 27 U/L (0-32); Blood Urea Nitrogen 17 mg/dL (8-23); Calcium 9.2 mg/dL (8.5-10.5); Carbon Dioxide 30 mmol/L (22-29); Chloride 103 mmol/L (98-107); Globulin 3.6 g/dL (1.3-4.6); Glomerular Filtration Rate 99.7 mL/min (90-130); Glucose 85 mg/dL (65-115); Osmolality Calculated 289 mOsm/kg (285-295); Sodium 139 mmol/L (136-145); Total Bilirubin 0.2 mg/dL (0.15-1.2)
[2020-11-23] MEDS: dextrose 5% 250 ML IV (16:00)
[2020-11-23] MEDS: dexamethasone 4 mg Tablet 20 MG PO (16:00)
[2020-11-23] MEDS: sodium chloride 0.9% 1,000 ML 1000 ML IV (16:00)
[2020-11-23 16:35] LABS: Immunoglobulin IGA 50 mg/dL (70-400); Immunoglobulin IGG 1844 mg/dL (700-1600); Immunoglobulin IGM 25 mg/dL (40-230); Thyroid Stimulating Hormone 6.91 uIU/mL (0.27-4.20)
[2020-11-24 09:08] LABS: PROTEIN, TOTAL 6.8 g/dL (6.1-8.1)
[2020-11-24 13:19] LABS: KAPPA LIGHT CHAIN, FREE, SERUM 1.1 mg/L (3.3-19.4); KAPPA/LAMBDA LIGHT CHAINS FREE <0.01 (0.26-1.65)
[2020-11-24 13:49] LABS: ABNORMAL PROTEIN BAND 1 1.5 g/dL (NONE DETECTED); ALBUMIN 3.3 g/dL (3.8-4.8); ALPHA 1 GLOBULIN 0.3 g/dL (0.2-0.3); ALPHA 2 GLOBULIN 0.8 g/dL (0.5-0.9); BETA 1 GLOBULIN 0.5 g/dL (0.4-0.6); BETA 2 GLOBULIN 0.3 g/dL (0.2-0.5); GAMMA GLOBULIN 1.6 g/dL (0.8-1.7)
--- NOTE | 2020-12-04 01:00 | ONC FU_ITS ---
[facility] Patient Note Patient: Salima Farrell Unit #: [id number]: 1955 Dictated By: Ac CarrDate of Visit: Nov 23, 2020 Onc MED Follow-Up/Prog Note Chief Complaint: Myeloma. History of Present Illness: Ms Farrell is a 65 year-old woman with IgG lambda myeloma. She had presented in December 2012 with compression fractures of the T11 and L5 vertebral bodies. She underwent kyphoplasty at both levels, and biopsies were consistent with plasma cell neoplasm. Her protein electrophoresis showed biclonal protein bands with lambda light chain 0.33 g/dL and IgG lambda 4.6 g/dL. There were additional lytic lesions noted on her skeletal survey. Her 24 hour urine reportedly showed 7 gm of Bence-Zabala proteinuria. Bone marrow aspiration/biopsy in January 2013 showed atypical plasma cell infiltrate comprising 91% of the marrow cellularity. She underwent treatment with 4 cycles of Velcade/Revlimid/dexamethasone followed by high-dose melphalan/autologous stem cell transplant in May 2013. She began maintenance Revlimid in August 2013. It was stopped as of July 2015 due to toxicities. As of July 2016 her repeat bone marrow aspiration/biopsy showed 30-40% plasma cells. She restarted treatment with Revlimid. It was stopped again in December 2017 due to toxicity, mainly cytopenias. At that point her protein electrophoresis showed M protein at 1.52 g/dL. Skeletal survey reportedly showed no new abnormalities. Her repeat marrow aspiration/biopsy in February 2018 showed 70% involvement by plasma cells. The M protein at that point was up to 1.82 g/dL. PET/CT on 04/01/2018 showed new osseous involvement in the right sacral ala, SUV 4.15. She was seen by Dr. Shlomo Tanner on 04/06/2018. It was recommended that she begin salvage therapy with a combination of daratumumab, pomalidomide, and dexamethasone in preparation for possible second transplant procedure. She was seen here initially on 04/10/2018, as at that point she desired to have her treatment administered closer to home. She then returned to begin her treatment with daratumumab, pomalidomide, and dexamethasone on 04/29/2018. Due to her previous cytopenias with Revlimid, the pomalidomide was initiated at a reduced dosage of 3 mg daily on a day schedule. She began her initial infusion of daratumumab on 04/29/2018. She tolerated it without acute toxicity. She was able to complete 8 infusions at the weekly interval followed by 8 infusions at the 2-week interval. The treatments were then administered at a 4-week interval beginning in November 2018. During that time, she her pomalidomide had to be put on hold due to neutropenia. She eventually was able to tolerate it with the dosage reduced to 1 mg. She did have a very good response by protein electrophoresis. On 09/12/2019 she was admitted to [facility] in [place] with shortness of breath, wheezing, and productive cough. She did not have acute infiltrate on chest xray, but she was significantly hypoxic. She continued empiric antibiotic coverage with Levaquin, though it appeared to have most likely have been a viral illness. At her follow-up visit in September she was finally showing recovery from that illness, and she was able to continue her treatment. As of her follow-up visit on 04/05/2020 she had been doing well clinically with her M protein stable at 0.16 g/dL. Following that treatment, though, she became very ill. She had actually started having a cough during her daratumumab infusion and after returning home she had fever in the range of 101 to 102 degrees and she was out of it for 2 days, with virtually no recollection of that time period. She then had generalized bone pain and severe headache for 2 weeks and she could not eat during that time. By about the 11th day she began to feel better, but during that week she developed vomiting and diarrhea. She then continued to show gradually recovery. She did not have COVID testing. Dr Davies had seen her for a follow-up visit on 05/03/2020, and at that point she was able to resume treatment with daratumumab in combination with pomalidomide and dexamethasone. Her other medical illnesses have been limited to GERD and mild asthma. Her other surgical/procedural history includes previous appendectomy and hysterectomy/bilateral salpingo-oophorectomy. She had a minimal smoking history in the past, and she quit smoking in 1991. INTERIM HISTORY: At her follow-up visit on 06/28/2020 she reported increased pain in her back and rib cage. It was severe enough that she had been seen in the emergency room in [place] earlier that week. There had been a slight increase in her lambda free light chain, concerning for disease progression. She was given IV Toradol for the pain and she was given antibiotic therapy with Levaquin for possible bronchitis. She also was scheduled for restaging PET/CT. That study was completed on 07/01/2020. It showed mild sacral activity and a bilateral pattern which was thought to be more suggestive of reactive uptake than myeloma. Pelvic lesions did not demonstrate increased FDG activity, and were felt to likely correspond to prior sites of active myeloma. She continued her treatment with daratumumab/pomalidomide/dexamethasone at 4-week intervals. However, at her follow-up visit in September 2020 her M protein had increased to 0.61 g/dL and there was a significant increase in her lambda free light chain to 366.71 mg/L. Based on her elevated M protein and lambda free light chain, Dr. Davies recommended that she stop treatment with the daratumumab, pomalidomide, dexamethasone and start a carfilzomib-containing regimen. She has had insurance approval for her treatment plan consisting of carfilzomib 20 mg per metered squared day 1 of cycle 1 only then 70 mg mg/m2 day 8 and 15 of cycle 1 and day 1, 8, 15 of subsequent cycles and dexamethasone 8 mg weekly. This is a 28 day cycle. Ms Farrell is here today for follow-up and to start her first cycle of carfilzomib. She states overall she is more tired and draggy. She has also had more back pain. She is currently on MS ER 100 mg 1 in the morning and 2 at bedtime. She is requesting to increase it to twice daily for the pain. She states her bowels are moving normally for her. She does use stool softeners and laxatives as needed. She denies any nausea or vomiting. She denies any fever or chills. She denies mouth sores, sore throat or difficulty swallowing. She denies any chest pain or palpitations. She has had no recent illnesses. She is known to have hypogammaglobulinemia but has not required any IVIG at this point. She denies any new concerns other than her back pain. Her ECOG is 2. It is noted that her lambda light chain on October 27, 2020 was 4443.34. Past Medical History: Gastroesophageal reflux disease IgG kappa myeloma Mild asthma Past Surgical History: Appendectomy Bone marrow aspiration/biopsy in January 2013, July 2016, and February 2018 Kyphoplasty at T11 and L5 vertebral levels Tubal ligation Colonoscopy in 2012 Hysterectomy/bilateral salpingo-oophorectomy in 2008 Allergies: Codeine Sulfate Medications: Acetaminophen 2 Tablet (of 325 mg) Oral four times a day PRN ALPRAZolam 1 Tablet (of 1 mg) Oral t.i.d. Benzonatate 1 Capsule (of 100 mg) Oral t.i.d. PRN Childrens Aspirin 2 Tablet (of 81 mg) Tablet, chewable Oral daily Cyclobenzaprine HCl 1 Tablet (of 10 mg) Oral t.i.d. Gabapentin 1 Capsule (of 100 mg) Oral t.i.d. Lidocaine 3 patch(es) (of 5 %) Patch Topical q 24 hours Lidocaine 1 (5 %) Ointment Topical q 3 hours PRN Melatonin 1 Tablet (of 10 mg) Oral at bedtime Morphine Sulfate 1 - 2 Tablet (of 30 mg) Oral q 3 hours Morphine Sulfate ER (100 mg) Tablet, controlled release Oral Take as Directed Mupirocin 1 (2 %) Ointment Topical PRN Omeprazole 1 Tablet (of 40 mg) Capsule Oral daily Phentermine HCl 1 Capsule (of 37.5 mg) Oral daily Pomalidomide 1 Capsule (of 1 mg) Oral daily Valerian Root 2 (1000 mg) Capsule Oral daily Ventolin HFA 2 puff(s) (of 108 (90 base) mcg/act) Aerosol, solution Inhalation q 4 hours Voltaren Gel (jelly) Transdermal Family History: Ms. Farrell's mother at age 85: breast cancer, and myocardial infarction, and heart disease. Ms. Farrell's father at age 85: heart disease, and myocardial infarction. Ms. Farrell has 4 sisters: 2 alive, 2 . Ms. Farrell's first sister's ovarian cancer. Another sister's colon cancer. Another sister's myeloma. Another sister's breast cancer. Both parents of heart attack in their mid 80s. One brother of a gunshot wound, another with complications of diabetes, and another of old age. A sister of colon cancer and another sister of ovarian cancer. A sister has been treated for melanoma and is still living at age 75. Another sister has been treated for breast cancer and is still living at age 67. Social History: Ms. Farrell is and she is a disabled. Ms. Farrell quit smoking 27 years ago but had smoked for 13 years. She has no history of drinking. She had minimal smoking history in the past, and the range of 2-3 cigarettes per day. She quit smoking in 1991. She currently does not drink alcohol. She has had moderate alcohol use in the past. Review Of Symptoms: Constitutional Denies fevers, chills, night sweats. Back pain-chronic and NOT controlled with current pain regimen. Allergic/Immunologic No reactions. Eyes Denies significant visual changes. No diplopia. No amaurosis. ENMT Denies changes in hearing, sore throat, mouth sores, difficulty or changes in swallowing ability, and/or sinus drainage. Hematologic/Lymphatic Denies easy bruising or bleeding. The patient denies any tender or palpable lymph nodes. Respiratory Denies dyspnea on exertion, chest pain, or hemoptysis. Denies orthopnea. Cardiovascular Denies anginal chest pain, palpitations or orthopnea. Gastrointestinal Denies nausea, vomiting, diarrhea, GI bleeding, or constipation. Denies change in bowel habits and/or stool color, or early satiety. Genitourinary (F) No hematuria, hesitancy, incontinence, vaginal bleeding, discharge or other problems with urination. Musculoskeletal Denies joint swelling or redness. No decreased range of motion. Integumentary Denies chronic rashes, inflammation, ulcerations or skin changes. Neurologic Denies headache, blurred vision, and no areas of focal weakness or numbness. Slow gait-assisted with cane. No sensory problems. Psychiatric Denies insomnia, depression, nicolette or mood swings. Vital Signs: Performed on Nov 23, 2020 14:35 Height - 57.00 in Weight - 175.2 lbs (HIGH) BSA - 1.70 sq.m BMI - 37.91 (HIGH) Temperature - 97.9 F (LOW) Pulse - 89 /min Respiration - 16 /min BP - 136/84 mm(hg) O2 Sat - 93 % (LOW) Pain - 5,2 - Ambulatory/capable of all self-care, unable to perform any work activities. Up and about more than 50% of waking hours. (ECOG) Physical Examination: Constitutional Alert, oriented, no acute distress. Skin pink, warm and dry. Head Normocephalic; atraumatic. Eyes Conjunctivae and sclerae are clear and without icterus. Pupils are reactive and equal. Hematologic/Lymphatic No petechiae or purpura. No tender or palpable lymph nodes in the cervical or supraclavicular areas. Respiratory Lungs are clear to auscultation without rhonchi or wheezing. Cardiovascular Regular rate and rhythm of heart without murmurs,clicks, gallops or rubs. Chest Left chest wall venous access device is unremarkable. Abdomen Non-tender, non-distended, no masses, ascites. Back/Spine Non-tender to palpation. Musculoskeletal No tenderness or swelling, normal range of motion without obvious weakness. Integumentary No rashes or lesions. Neurologic No sensory or motor deficits, normal cerebellar function, slow cane assisted gait-slow per her normal. Psychiatric Alert and oriented times three. Coherent speech. Verbalizes understanding of our discussions today. Laboratory:Test performed on Nov 28, 2020 08:10 Glucose 121 mg/dL BUN 21 mg/dL Creatinine 0.74 mg/dL Cr Clearance (Est) 91.71 mL/min Sodium 133 mmol/L Potassium 4.0 mmol/L Chloride 98 mmol/L CO2 27 mmol/L Calcium 9.0 mg/dL Protein, Total 7.0 g/dL Albumin 3.3 g/dL Bilirubin, Total 0.2 mg/dL Alkaline Phosphatase 59 IU/L AST (SGOT) 31 IU/L ALT (SGPT) 16 IU/L WBC 7.3 10^9/L RBC 4.36 10^12/L HGB 12.9 g/dL HCT 40.7 % MCV 93.3 fl MCH 29.6 pg MCHC 31.7 g/dL RDW 15.2 % Platelet Count 225 10^9/L MPV 9.6 fL Neutrophils (Gran) 3.68 10^9/L Lymphocytes 2.70 10^9/L Monocytes 0.66 10^9/L Eosinophils 0.14 10^9/L Basophils 0.01 10^9/L Manual Lymphocytes 37 % Manual Monocytes 9 % Manual Eosinophils 2 % Manual Basophils 0 % Test performed on Nov 23, 2020 15:43 TSH 6.91 uIU/mL IgG 1844 mg/dL [place] Free Light Chains 1.1 mg/L Lambda Free Light Chains 1228.9 mg/L IgA 50 mg/dL [place]/Lambda Free Ratio < 0.01 IgM 25 mg/dL Test performed on Nov 23, 2020 12:25 Anion Gap 10.0 eGFR 99.7 mL/min Osmolality - Calculated 289 mOsm/kg Globulin 3.6 g/dL Neutrophil % 43.9 % Lymphocyte % 38.0 % Monocyte % 13.0 % Eosinophil % 2.6 % Basophils % 0.8 % NRBC % 0 % Test performed on Oct 27, 2020 08:29 Vitamin D (25-Hydroxy) 32 ng/mL [place] / Lambda Ratio 0.01 Absolute Value Lambda Light Chain 4443.34 [place] Light Chain 3.98 Test performed on Aug 23, 2020 07:23 Albumin, SPE 3.58 g/dL [id number] 0.32 g/dL [id number] 0.79 g/dL Beta Globulin 0.73 g/dL Gamma Globulin 0.68 g/dL M-Rene 0.48 g/dL SPE Interpretation No significant change in monoclonal proteinemia since prior study. Test performed on Jun 22, 2020 04:08 Bilirubin, Direct 0.2 mg/dL Impression: 1. IgG lambda myeloma, initially diagnosed in December 2012. She had associated lytic bone involvement with vertebral compression fractures at T11 and L5. 2. She has associated hypogammaglobulinemia. 3. GERD. 4. Mild asthma. Plan: 1. IgG lambda myeloma, initially diagnosed in December 2012. She had associated lytic bone involvement with vertebral compression fractures at T11 and L5. She had a good response to initial treatment with 4 cycles of Velcade/Revlimid/dexamethasone followed by high-dose melphalan/stem cell transplant in May 2013. She then continued maintenance Revlimid until July 2015, stopped at that time due to toxicity. She had evidence of disease progression on repeat bone marrow aspiration/biopsy July 2016, and she then restarted Revlimid. Treatment was stopped in December 2017 due to toxicity, mainly cytopenias. She had evidence of disease progression again by bone marrow aspiration/biopsy in February 2018. Her M protein at that point had increased to 1.82 gm/dL. PET/CT showed new area of bone involvement in the right sacral ala. As of 04/29/2018 she began treatment with daratumumab in combination with pomalidomide and dexamethasone. The daratumumab was administered weekly for 8 weeks, then every 2 weeks for an additional 8 doses. During that time the pomalidomide had to be put on hold due to neutropenia. She eventually was able to tolerate it with the dosage reduced to 1 mg daily on a 21/28-day schedule. Since November 2018 her treatments have been administered at 4-week intervals. She had a very good response by protein electrophoresis. Over the past several months or has been a continued increase in her M protein and in her serum free lambda light chain, consistent with disease progression. Her lambda free light chain as of October 27, 2020 was 4443.34. She has been advised to change treatments from the daratumumab/pomalidomide/dexamethasone to carfilzomib and dexamethasone. A. Proceed with cycle 1 day 1 carfilzomib 20 mg per metered squared. B. She is instructed to do dexamethasone 8 mg weekly???day 1, 8, 15 and 22. This is a 28-day regimen. C. Prophylaxis treatment: she will proceed with aspirin 81 mg daily; she is currently on acyclovir 400 mg twice daily and Bactrim twice daily on Mondays and . D. Today's labs reviewed in detail and discussed with Mrs. Farrell and a copy was given to her. WBC 5.3, hemoglobin 12.8, platelets 219,000, ANC is 2320. Creatinine 0.6 potassium 4.0 random glucose 85 LFTs are normal. E. I did request baseline myeloma labs to include SPEP with ANA LILIA, serum free light chain assay, QUIGS and a TSH for monitoring of her significant fatigue. F. Carfilzomib has increased risk for cardiac toxicity. She has also been heavily treatment with chemotherapy in the past. She did have echocardiogram???limited to assess LV systolic function and regional wall motion. This was done on October 30, 2020. It reported LVEF at 6065% and no regional wall motion abnormalities. 2. She has associated hypogammaglobulinemia. She has had occasional respiratory infections, but thus far they have not been frequent enough to justify starting replacement IVIG. 3. She has chronic back pain associated with her vertebral compression fractures. A. She currently is being managed with morphine extended release 100 mg in the morning and 200 mg at night. She has MS IR 30 mg to use 1 or 2 every 4-6 hours as needed. She also has cyclobenzaprine 10 mg to take 3 times daily. She is on gabapentin 100 mg 3 times daily. She also uses Lidoderm patches 5% as needed. She also has Voltaren gel to use as needed. B. Her pain is not adequately controlled with the current dose of MS extended release at 100 mg the morning and 20 mg at night. We will increase her to 200 mg the morning 20 mg at night. She has been advised to watch for sedation and constipation. A new prescription will be authorized per Dr. Davies's written prescription. 4. She had swelling in the right leg and she had some associated skin ulcers. A. As she has been on a treatment regimen which has associated risk for thromboembolism, she did have ultrasound on October 30, 2020 to assess for DVT. It was negative. She was treated with Ceftin and remains on baby aspirin daily. B. The swelling and ulcers patients have vastly improved. She has very slight edema and the ulcerations are healed. 5. Follow-up plan A. I have asked for baseline labs as indicated above. B. To return in 1 week for cycle 1 day 8 carfilzomib. C. I have asked that she have a CBC CMP which may be done the day before her appointment if she wishes. D. She will require port maintenance as she does have a left subclavian Port-A-Cath. Refill EMLA cream for port access. E. Mrs. Farrell was instructed to contact us in interim should questions or problems arise. F. 60 minutes was spent on this visit to include chart review prior to visit; discussion [id number] with the patient in regards to the new plan of care/ medication education and answering questions as well as lab review and post visit documentation. Signed By: Ac Carr-, [facility] Kenroy Davies MD <<Signature on File>>
== END 2020-11-23 12:07 | disposition home or self-care (01) ==
PROVIDERS: PCP Family Medicine; Visit Provider Nurse Practitioner
DX: Z51.11 Encounter for antineoplastic chemotherapy (principal); C90.00 Multiple myeloma not having achieved remission; D80.1 Nonfamilial hypogammaglobulinemia; R53.83 Other fatigue; G89.29 Other chronic pain; M84.58XD Pathological fracture in neoplastic disease, other specified site, subsequent encounter for fracture with routine healing; R60.0 Localized edema; K21.9 Gastro-esophageal reflux disease without esophagitis; J45.909 Unspecified asthma, uncomplicated; Z94.84 Stem cells transplant status; Z79.899 Other long term (current) drug therapy; Z79.82 Long term (current) use of aspirin; Z79.891 Long term (current) use of opiate analgesic; Z95.828 Presence of other vascular implants and grafts
CPT/HCPCS: 36415; 36593; 80053; 82784; 83883; 84155; 84165; 84443; 85025; 96375; 96376; 96413; 99215; J2997; J7030; J8540; J9047

== ENCOUNTER 2020-11-30 05:47 | Outpatient (CLI) | payer MEDICARE, MEDICAID, SELFPAY ==
[2020-11-30] MEDS: sodium chloride 0.9% 500 ML 999 ML IV ×2 (09:30→12:07)
--- NOTE | 2020-11-30 11:07 | IR_ITS ---
WS: [id number] Exam: [place] [id number] Date/Time of Exam: 11/30/2020 11:08 AM Reason For Exam: FLOW STUDY-NO BLOOD RETURN Fluoroscopy time: 1.8 minutes Fluoroscopy of the chest is performed to confirm patency of the indwelling left subclavian port. Injection of contrast into the indwelling left subclavian port shows free spillage from the distal en d of the port indicating patency. The tip of the port ends at the cavoatrial junction. IR/[place] [id number] IMPRESSION: 1. Patent left subclavian port as confirmed by contrast injection.
[2020-11-30] MEDS: iohexol 300 mg/mL 50 mL Btl IV (11:17)
[2020-11-30] MEDS: dexamethasone 4 mg Tablet 20 MG PO (11:34)
--- NOTE | 2020-12-04 01:17 | ONC FU_ITS ---
[facility] Patient Note Patient: Salima Farrell Unit #: [id number]: 1955 Dictated By: Ac CarrDate of Visit: Nov 30, 2020 Onc MED Follow-Up/Prog Note Chief Complaint: Myeloma. History of Present Illness: Ms Farrell is a 65 year-old woman with IgG lambda myeloma. She had presented in December 2012 with compression fractures of the T11 and L5 vertebral bodies. She underwent kyphoplasty at both levels, and biopsies were consistent with plasma cell neoplasm. Her protein electrophoresis showed biclonal protein bands with lambda light chain 0.33 g/dL and IgG lambda 4.6 g/dL. There were additional lytic lesions noted on her skeletal survey. Her 24 hour urine reportedly showed 7 gm of Bence-Zabala proteinuria. Bone marrow aspiration/biopsy in January 2013 showed atypical plasma cell infiltrate comprising 91% of the marrow cellularity. She underwent treatment with 4 cycles of Velcade/Revlimid/dexamethasone followed by high-dose melphalan/autologous stem cell transplant in May 2013. She began maintenance Revlimid in August 2013. It was stopped as of July 2015 due to toxicities. As of July 2016 her repeat bone marrow aspiration/biopsy showed 30-40% plasma cells. She restarted treatment with Revlimid. It was stopped again in December 2017 due to toxicity, mainly cytopenias. At that point her protein electrophoresis showed M protein at 1.52 g/dL. Skeletal survey reportedly showed no new abnormalities. Her repeat marrow aspiration/biopsy in February 2018 showed 70% involvement by plasma cells. The M protein at that point was up to 1.82 g/dL. PET/CT on 04/01/2018 showed new osseous involvement in the right sacral ala, SUV 4.15. She was seen by Dr. Shlomo Tanner on 04/06/2018. It was recommended that she begin salvage therapy with a combination of daratumumab, pomalidomide, and dexamethasone in preparation for possible second transplant procedure. She was seen here initially on 04/10/2018, as at that point she desired to have her treatment administered closer to home. She then returned to begin her treatment with daratumumab, pomalidomide, and dexamethasone on 04/29/2018. Due to her previous cytopenias with Revlimid, the pomalidomide was initiated at a reduced dosage of 3 mg daily on a day schedule. She began her initial infusion of daratumumab on 04/29/2018. She tolerated it without acute toxicity. She was able to complete 8 infusions at the weekly interval followed by 8 infusions at the 2-week interval. The treatments were then administered at a 4-week interval beginning in November 2018. During that time, she her pomalidomide had to be put on hold due to neutropenia. She eventually was able to tolerate it with the dosage reduced to 1 mg. She did have a very good response by protein electrophoresis. On 09/12/2019 she was admitted to [facility] in [place] with shortness of breath, wheezing, and productive cough. She did not have acute infiltrate on chest xray, but she was significantly hypoxic. She continued empiric antibiotic coverage with Levaquin, though it appeared to have most likely have been a viral illness. At her follow-up visit in September she was finally showing recovery from that illness, and she was able to continue her treatment. As of her follow-up visit on 04/05/2020 she had been doing well clinically with her M protein stable at 0.16 g/dL. Following that treatment, though, she became very ill. She had actually started having a cough during her daratumumab infusion and after returning home she had fever in the range of 101 to 102 degrees and she was out of it for 2 days, with virtually no recollection of that time period. She then had generalized bone pain and severe headache for 2 weeks and she could not eat during that time. By about the 11th day she began to feel better, but during that week she developed vomiting and diarrhea. She then continued to show gradually recovery. She did not have COVID testing. Dr Davies had seen her for a follow-up visit on 05/03/2020, and at that point she was able to resume treatment with daratumumab in combination with pomalidomide and dexamethasone. Her other medical illnesses have been limited to GERD and mild asthma. Her other surgical/procedural history includes previous appendectomy and hysterectomy/bilateral salpingo-oophorectomy. She had a minimal smoking history in the past, and she quit smoking in 1991. INTERIM HISTORY: At her follow-up visit on 06/28/2020 she reported increased pain in her back and rib cage. It was severe enough that she had been seen in the emergency room in [place] earlier that week. There had been a slight increase in her lambda free light chain, concerning for disease progression. She was given IV Toradol for the pain and she was given antibiotic therapy with Levaquin for possible bronchitis. She also was scheduled for restaging PET/CT. That study was completed on 07/01/2020. It showed mild sacral activity and a bilateral pattern which was thought to be more suggestive of reactive uptake than myeloma. Pelvic lesions did not demonstrate increased FDG activity, and were felt to likely correspond to prior sites of active myeloma. She continued her treatment with daratumumab/pomalidomide/dexamethasone at 4-week intervals. However, at her follow-up visit in September 2020 her M protein had increased to 0.61 g/dL and there was a significant increase in her lambda free light chain to 366.71 mg/L. Based on her elevated M protein and lambda free light chain, Dr. Davies recommended that she stop treatment with the daratumumab, pomalidomide, dexamethasone and start a carfilzomib-containing regimen. She has had insurance approval for her treatment plan consisting of carfilzomib 20 mg per metered squared day 1 of cycle 1 only then 70 mg mg/m2 day 8 and 15 of cycle 1 and day 1, 8, 15 of subsequent cycles and dexamethasone 8 mg weekly. This is a 28 day cycle. Ms Farrell began her first cycle of carfilzomib on 11/23/2020. She was having more back pain on the 11/23/2020 visit. Her MS ER was increased to 200 mg every 12 hours. She states her back pain is much better. She states I feel great overall . She states her energy is some better especially with the pain improved. Her appetite is good. She states she is able to do more around the house. She denies any nausea or vomiting. She denies any neuropathy symptoms. She has had no fever or chills. She denies any mouth sores, sore throat or difficulty swallowing. She states her bowels are normal for her. She denies any diarrhea. She denies any urinary symptoms. She denies cough or shortness of breath. She denies any hemoptysis. Her ECOG is 1 today. Past Medical History: Gastroesophageal reflux disease IgG kappa myeloma Mild asthma Past Surgical History: Appendectomy Bone marrow aspiration/biopsy in January 2013, July 2016, and February 2018 Kyphoplasty at T11 and L5 vertebral levels Tubal ligation Colonoscopy in 2012 Hysterectomy/bilateral salpingo-oophorectomy in 2008 Allergies: Codeine Sulfate Medications: Acetaminophen 2 Tablet (of 325 mg) Oral four times a day PRN ALPRAZolam 1 Tablet (of 1 mg) Oral t.i.d. Benzonatate 1 Capsule (of 100 mg) Oral t.i.d. PRN Childrens Aspirin 2 Tablet (of 81 mg) Tablet, chewable Oral daily Cyclobenzaprine HCl 1 Tablet (of 10 mg) Oral t.i.d. Gabapentin 1 Capsule (of 100 mg) Oral t.i.d. Lidocaine 3 patch(es) (of 5 %) Patch Topical q 24 hours Lidocaine 1 (5 %) Ointment Topical q 3 hours PRN Melatonin 1 Tablet (of 10 mg) Oral at bedtime Morphine Sulfate 1 - 2 Tablet (of 30 mg) Oral q 3 hours Morphine Sulfate ER (100 mg) Tablet, controlled release Oral Take as Directed Mupirocin 1 (2 %) Ointment Topical PRN Omeprazole 1 Tablet (of 40 mg) Capsule Oral daily Phentermine HCl 1 Capsule (of 37.5 mg) Oral daily Pomalidomide 1 Capsule (of 1 mg) Oral daily Valerian Root 2 (1000 mg) Capsule Oral daily Ventolin HFA 2 puff(s) (of 108 (90 base) mcg/act) Aerosol, solution Inhalation q 4 hours Voltaren Gel (jelly) Transdermal Family History: Ms. Farrell's mother at age 85: breast cancer, and myocardial infarction, and heart disease. Ms. Farrell's father at age 85: heart disease, and myocardial infarction. Ms. Farrell has 4 sisters: 2 alive, 2 . Ms. Farrell's first sister's ovarian cancer. Another sister's colon cancer. Another sister's myeloma. Another sister's breast cancer. Both parents of heart attack in their mid 80s. One brother of a gunshot wound, another with complications of diabetes, and another of old age. A sister of colon cancer and another sister of ovarian cancer. A sister has been treated for melanoma and is still living at age 75. Another sister has been treated for breast cancer and is still living at age 67. Social History: Ms. Farrell is and she is a disabled. Ms. Farrell quit smoking 27 years ago but had smoked for 13 years. She has no history of drinking. She had minimal smoking history in the past, and the range of 2-3 cigarettes per day. She quit smoking in 1991. She currently does not drink alcohol. She has had moderate alcohol use in the past. Review Of Symptoms: Constitutional Denies fevers, chills, night sweats. Back pain-chronic and controlled with current pain regimen. Allergic/Immunologic No reactions. Eyes Denies significant visual changes. No diplopia. No amaurosis. ENMT Denies changes in hearing, sore throat, mouth sores, difficulty or changes in swallowing ability, and/or sinus drainage. Endocrine No diabetes, thyroid disease or hormone replacement. Denies hot flashes or night sweats. Hematologic/Lymphatic Denies easy bruising or bleeding. The patient denies any tender or palpable lymph nodes. Respiratory Denies dyspnea on exertion, chest pain, or hemoptysis. Denies orthopnea. Cardiovascular Denies anginal chest pain, palpitations or orthopnea. Gastrointestinal Denies nausea, vomiting, diarrhea, GI bleeding, or constipation. Denies change in bowel habits and/or stool color, or early satiety. Genitourinary (F) No hematuria, hesitancy, incontinence, vaginal bleeding, discharge or other problems with urination. Musculoskeletal Denies joint swelling or redness. No decreased range of motion. Integumentary Denies chronic rashes, inflammation, ulcerations or skin changes. Neurologic Denies headache, blurred vision, and no areas of focal weakness or numbness. Slow gait-assisted with cane. No sensory problems. Psychiatric Denies insomnia, depression, nicolette or mood swings. Vital Signs: Performed on Nov 30, 2020 08:26 Height - 57.00 in Weight - 175.6 lbs (HIGH) BSA - 1.70 sq.m BMI - 38.00 (HIGH) Temperature - 98.4 F Pulse - 107 /min (HIGH) Respiration - 19 /min BP - 124/71 mm(hg) O2 Sat - 99 % Pain - 0,2 - Ambulatory/capable of all self-care, unable to perform any work activities. Up and about more than 50% of waking hours. (ECOG) Physical Examination: Constitutional Alert, oriented, no acute distress. Skin pink, warm and dry. Head Normocephalic; atraumatic. Eyes Conjunctivae and sclerae are clear and without icterus. Pupils are reactive and equal. ENMT No oral exudates, ulcers, masses, thrush or mucositis. Oropharynx clear. Tongue normal. Neck Supple without masses or thyromegaly. No jugular venous distension. Hematologic/Lymphatic No petechiae or purpura. No tender or palpable lymph nodes in the cervical or supraclavicular areas. Respiratory Lungs are clear to auscultation without rhonchi or wheezing. Cardiovascular Regular rate and rhythm of heart without murmurs,clicks, gallops or rubs. Abdomen Non-tender, non-distended, no masses, ascites. Back/Spine Non-tender to palpation. Musculoskeletal No tenderness or swelling, normal range of motion without obvious weakness. Integumentary No rashes or lesions. Neurologic No sensory or motor deficits, normal cerebellar function, slow cane assisted gait-slow per her normal. Psychiatric Alert and oriented times three. Coherent speech. Verbalizes understanding of our discussions today. Laboratory:Test performed on Nov 28, 2020 08:10 Glucose 121 mg/dL BUN 21 mg/dL Creatinine 0.74 mg/dL Cr Clearance (Est) 91.71 mL/min Sodium 133 mmol/L Potassium 4.0 mmol/L Chloride 98 mmol/L CO2 27 mmol/L Calcium 9.0 mg/dL Protein, Total 7.0 g/dL Albumin 3.3 g/dL Bilirubin, Total 0.2 mg/dL Alkaline Phosphatase 59 IU/L AST (SGOT) 31 IU/L ALT (SGPT) 16 IU/L WBC 7.3 10^9/L RBC 4.36 10^12/L HGB 12.9 g/dL HCT 40.7 % MCV 93.3 fl MCH 29.6 pg MCHC 31.7 g/dL RDW 15.2 % Platelet Count 225 10^9/L MPV 9.6 fL Neutrophils (Gran) 3.68 10^9/L Lymphocytes 2.70 10^9/L Monocytes 0.66 10^9/L Eosinophils 0.14 10^9/L Basophils 0.01 10^9/L Manual Lymphocytes 37 % Manual Monocytes 9 % Manual Eosinophils 2 % Manual Basophils 0 % Test performed on Nov 23, 2020 15:43 TSH 6.91 uIU/mL IgG 1844 mg/dL [place] Free Light Chains 1.1 mg/L Lambda Free Light Chains 1228.9 mg/L IgA 50 mg/dL [place]/Lambda Free Ratio < 0.01 IgM 25 mg/dL Test performed on Nov 23, 2020 12:25 Anion Gap 10.0 eGFR 99.7 mL/min Osmolality - Calculated 289 mOsm/kg Globulin 3.6 g/dL Neutrophil % 43.9 % Lymphocyte % 38.0 % Monocyte % 13.0 % Eosinophil % 2.6 % Basophils % 0.8 % NRBC % 0 % Test performed on Oct 27, 2020 08:29 Vitamin D (25-Hydroxy) 32 ng/mL [place] / Lambda Ratio 0.01 Absolute Value Lambda Light Chain 4443.34 [place] Light Chain 3.98 Test performed on Aug 23, 2020 07:23 Albumin, SPE 3.58 g/dL Sgwle-8-defvirxn 0.32 g/dL Nkpdi-6-lgrfwmhw 0.79 g/dL Beta Globulin 0.73 g/dL Gamma Globulin 0.68 g/dL M-Rene 0.48 g/dL SPE Interpretation No significant change in monoclonal proteinemia since prior study. Test performed on Jun 22, 2020 04:08 Bilirubin, Direct 0.2 mg/dL Impression: 1. IgG lambda myeloma, initially diagnosed in December 2012. She had associated lytic bone involvement with vertebral compression fractures at T11 and L5. 2. She has associated hypogammaglobulinemia. 3. GERD. 4. Mild asthma. Plan: 1. IgG lambda myeloma, initially diagnosed in December 2012. She had associated lytic bone involvement with vertebral compression fractures at T11 and L5. She had a good response to initial treatment with 4 cycles of Velcade/Revlimid/dexamethasone followed by high-dose melphalan/stem cell transplant in May 2013. She then continued maintenance Revlimid until July 2015, stopped at that time due to toxicity. She had evidence of disease progression on repeat bone marrow aspiration/biopsy July 2016, and she then restarted Revlimid. Treatment was stopped in December 2017 due to toxicity, mainly cytopenias. She had evidence of disease progression again by bone marrow aspiration/biopsy in February 2018. Her M protein at that point had increased to 1.82 gm/dL. PET/CT showed new area of bone involvement in the right sacral ala. As of 04/29/2018 she began treatment with daratumumab in combination with pomalidomide and dexamethasone. The daratumumab was administered weekly for 8 weeks, then every 2 weeks for an additional 8 doses. During that time the pomalidomide had to be put on hold due to neutropenia. She eventually was able to tolerate it with the dosage reduced to 1 mg daily on a 21/28-day schedule. Since November 2018 her treatments have been administered at 4-week intervals. She had a very good response by protein electrophoresis. Over the past several months or has been a continued increase in her M protein and in her serum free lambda light chain, consistent with disease progression. Her lambda free light chain as of October 27, 2020 was 4443.34. She has been advised to change treatments from the daratumumab/pomalidomide/dexamethasone to carfilzomib and dexamethasone. She began her first cycle on November 23, 2020. A. Proceed with cycle 1 day 8 carfilzomib 70 mg per metered squared. B. She was instructed to continue dexamethasone 8 mg weekly???day 1, 8, 15 and 22. This is a 28-day regimen. C. Prophylaxis treatment: she will proceed with aspirin 81 mg daily; she is currently on acyclovir 400 mg twice daily and Bactrim twice daily on Mondays and . D. Today's labs reviewed in detail and discussed with Mrs. Farrell and a copy was given to her. WBC 7.3, hemoglobin 12.9, platelets 1 25,000 ANC is 3680. Potassium 4.0, random glucose 121, creatinine 0.7, LFTs are normal. On November 23, 2020 her IgA was 50, IgG 1844, IgM was 25. Her kappa free light chain was 1.1 and lambda free light chain was 1228.9. The M spike/abnormal protein from her protein electrophoresis on November 23, 2020 was reported at 1.5. E. Her TSH from November 23, 2020 was reported at 6.9. Her fatigue is significantly better today we will plan to repeat this with her next visit to determine if it needs treated. She is currently not on any thyroid replacement. F. Carfilzomib has increased risk for cardiac toxicity. She has also been heavily treatment with chemotherapy in the past. She did have echocardiogram???limited to assess LV systolic function and regional wall motion. This was done on October 30, 2020. It reported LVEF at 6065% and no regional wall motion abnormalities. 2. She has associated hypogammaglobulinemia. She has had occasional respiratory infections, but thus far they have not been frequent enough to justify starting replacement IVIG. 3. She has chronic back pain associated with her vertebral compression fractures. A. She currently is being managed with morphine extended release 200 mg in the morning and 200 mg at night. B. She has MS IR 30 mg to use 1 or 2 every 4-6 hours as needed. C. She also has cyclobenzaprine 10 mg to take 3 times daily. She is on gabapentin 100 mg 3 times daily. She also uses Lidoderm patches 5% as needed. She also has Voltaren gel to use as needed. 4. She had had swelling in the right leg and she had some associated skin ulcers. A. As she has been on a treatment regimen which has associated risk for thromboembolism, she did have ultrasound on October 30, 2020 to assess for DVT. It was negative. She was treated with Ceftin and remains on baby aspirin daily. B. The swelling and ulcers patients have vastly improved. She has very slight edema and the ulcerations are healed. 5. Lack of blood return via venous access device A. Ms. Farrell did require a flow study on her venous access device as we were unable to get blood return after administering Cathflo twice. The flow study was normal blood refill. There is no evidence of DVT or obstruction. Her chemotherapy was administered through her port without any obvious implications. B. She may require continued peripheral venous access for blood work due to the lack of blood return from the port. 6. Follow-up plan A. Return in 1 week for cycle 1 day 15 carfilzomib. B. I have asked that she have a CBC CMP which may be done the day before her appointment if she wishes. C. She will require port maintenance as she does have a left subclavian Port-A-Cath. D. Mrs. Farrell was instructed to contact us in interim should questions or problems arise. Signed By: Ac Carr-, [facility] Kenroy Davies MD <<Signature on File>>
== END 2020-11-30 05:48 | disposition home or self-care (01) ==
PROVIDERS: PCP Family Medicine; Visit Provider Nurse Practitioner
DX: C90.00 Multiple myeloma not having achieved remission (principal); D80.1 Nonfamilial hypogammaglobulinemia; R53.83 Other fatigue; K21.9 Gastro-esophageal reflux disease without esophagitis; G89.29 Other chronic pain; M84.58XD Pathological fracture in neoplastic disease, other specified site, subsequent encounter for fracture with routine healing; R60.0 Localized edema; Z79.82 Long term (current) use of aspirin; Z79.899 Other long term (current) drug therapy; Z79.891 Long term (current) use of opiate analgesic; Z95.828 Presence of other vascular implants and grafts
CPT/HCPCS: 36598; 96361; 96413; 99215; J7040; J8540; J9047; Q9967

== ENCOUNTER 2020-12-07 05:51 | Outpatient (CLI) | payer MEDICARE, MEDICAID, SELFPAY ==
[2020-12-07] MEDS: sodium chloride 0.9% 500 ML 999 ML IV (12:28)
[2020-12-07] MEDS: dexamethasone 4 mg Tablet 20 MG PO (12:35)
--- NOTE | 2020-12-20 22:29 | ONC FU_ITS ---
[facility] Patient Note Patient: Salima Farrell Unit #: [id number]: 1955 Dictated By: Ac CarrDate of Visit: Dec 07, 2020 Onc MED Follow-Up/Prog Note Chief Complaint: Myeloma. History of Present Illness: Ms Farrell is a 65 year-old woman with IgG lambda myeloma. She had presented in December 2012 with compression fractures of the T11 and L5 vertebral bodies. She underwent kyphoplasty at both levels, and biopsies were consistent with plasma cell neoplasm. Her protein electrophoresis showed biclonal protein bands with lambda light chain 0.33 g/dL and IgG lambda 4.6 g/dL. There were additional lytic lesions noted on her skeletal survey. Her 24 hour urine reportedly showed 7 gm of Bence-Zabala proteinuria. Bone marrow aspiration/biopsy in January 2013 showed atypical plasma cell infiltrate comprising 91% of the marrow cellularity. She underwent treatment with 4 cycles of Velcade/Revlimid/dexamethasone followed by high-dose melphalan/autologous stem cell transplant in May 2013. She began maintenance Revlimid in August 2013. It was stopped as of July 2015 due to toxicities. As of July 2016 her repeat bone marrow aspiration/biopsy showed 30-40% plasma cells. She restarted treatment with Revlimid. It was stopped again in December 2017 due to toxicity, mainly cytopenias. At that point her protein electrophoresis showed M protein at 1.52 g/dL. Skeletal survey reportedly showed no new abnormalities. Her repeat marrow aspiration/biopsy in February 2018 showed 70% involvement by plasma cells. The M protein at that point was up to 1.82 g/dL. PET/CT on 04/01/2018 showed new osseous involvement in the right sacral ala, SUV 4.15. She was seen by Dr. Shlomo Tanner on 04/06/2018. It was recommended that she begin salvage therapy with a combination of daratumumab, pomalidomide, and dexamethasone in preparation for possible second transplant procedure. She was seen here initially on 04/10/2018, as at that point she desired to have her treatment administered closer to home. She then returned to begin her treatment with daratumumab, pomalidomide, and dexamethasone on 04/29/2018. Due to her previous cytopenias with Revlimid, the pomalidomide was initiated at a reduced dosage of 3 mg daily on a day schedule. She began her initial infusion of daratumumab on 04/29/2018. She tolerated it without acute toxicity. She was able to complete 8 infusions at the weekly interval followed by 8 infusions at the 2-week interval. The treatments were then administered at a 4-week interval beginning in November 2018. During that time, she her pomalidomide had to be put on hold due to neutropenia. She eventually was able to tolerate it with the dosage reduced to 1 mg. She did have a very good response by protein electrophoresis. On 09/12/2019 she was admitted to [facility] in [place] with shortness of breath, wheezing, and productive cough. She did not have acute infiltrate on chest xray, but she was significantly hypoxic. She continued empiric antibiotic coverage with Levaquin, though it appeared to have most likely have been a viral illness. At her follow-up visit in September she was finally showing recovery from that illness, and she was able to continue her treatment. As of her follow-up visit on 04/05/2020 she had been doing well clinically with her M protein stable at 0.16 g/dL. Following that treatment, though, she became very ill. She had actually started having a cough during her daratumumab infusion and after returning home she had fever in the range of 101 to 102 degrees and she was out of it for 2 days, with virtually no recollection of that time period. She then had generalized bone pain and severe headache for 2 weeks and she could not eat during that time. By about the 11th day she began to feel better, but during that week she developed vomiting and diarrhea. She then continued to show gradually recovery. She did not have COVID testing. Dr Davies had seen her for a follow-up visit on 05/03/2020, and at that point she was able to resume treatment with daratumumab in combination with pomalidomide and dexamethasone. Her other medical illnesses have been limited to GERD and mild asthma. Her other surgical/procedural history includes previous appendectomy and hysterectomy/bilateral salpingo-oophorectomy. She had a minimal smoking history in the past, and she quit smoking in 1991. INTERIM HISTORY: At her follow-up visit on 06/28/2020 she reported increased pain in her back and rib cage. It was severe enough that she had been seen in the emergency room in [place] earlier that week. There had been a slight increase in her lambda free light chain, concerning for disease progression. She was given IV Toradol for the pain and she was given antibiotic therapy with Levaquin for possible bronchitis. She also was scheduled for restaging PET/CT. That study was completed on 07/01/2020. It showed mild sacral activity and a bilateral pattern which was thought to be more suggestive of reactive uptake than myeloma. Pelvic lesions did not demonstrate increased FDG activity, and were felt to likely correspond to prior sites of active myeloma. She continued her treatment with daratumumab/pomalidomide/dexamethasone at 4-week intervals. However, at her follow-up visit in September 2020 her M protein had increased to 0.61 g/dL and there was a significant increase in her lambda free light chain to 366.71 mg/L. Based on her elevated M protein and lambda free light chain, Dr. Davies recommended that she stop treatment with the daratumumab, pomalidomide, dexamethasone and start a carfilzomib-containing regimen. She has had insurance approval for her treatment plan consisting of carfilzomib 20 mg per metered squared day 1 of cycle 1 only then 70 mg mg/m2 day 8 and 15 of cycle 1 and day 1, 8, 15 of subsequent cycles and dexamethasone 8 mg weekly. This is a 28 day cycle. Ms Farrell began her first cycle of carfilzomib on 11/23/2020. She was having more back pain on the 11/23/2020 visit. Her MS ER was increased to 200 mg every 12 hours. She states her pain is well controlled now. She states that she feels much better overall. She has no new concerns today. She has had trouble getting her MS ER filled and we are not certain why. We will call them to try to get further answers regarding this. She states otherwise she is doing well. She denies any fever or chills. She denies any mouth sores, sore throat or difficulty swallowing. She has had no signs of infection. She has occasional cough but states that is normal for her. She is not have any productive cough or hemoptysis. She denies any bowel or bladder changes. Her appetite is good. Energy is good. She denies any lower extremity edema. She denies any nausea or vomiting. She denies any diarrhea or constipation. Her ECOG is 1. Past Medical History: Gastroesophageal reflux disease IgG kappa myeloma Mild asthma Past Surgical History: Appendectomy Bone marrow aspiration/biopsy in January 2013, July 2016, and February 2018 Kyphoplasty at T11 and L5 vertebral levels Tubal ligation Colonoscopy in 2012 Hysterectomy/bilateral salpingo-oophorectomy in 2008 Allergies: Codeine Sulfate Medications: Acetaminophen 2 Tablet (of 325 mg) Oral four times a day PRN ALPRAZolam 1 Tablet (of 1 mg) Oral t.i.d. Benzonatate 1 Capsule (of 100 mg) Oral t.i.d. PRN Childrens Aspirin 2 Tablet (of 81 mg) Tablet, chewable Oral daily Cyclobenzaprine HCl 1 Tablet (of 10 mg) Oral t.i.d. Gabapentin 1 Capsule (of 100 mg) Oral t.i.d. Lidocaine 3 patch(es) (of 5 %) Patch Topical q 24 hours Lidocaine 1 (5 %) Ointment Topical q 3 hours PRN Melatonin 1 Tablet (of 10 mg) Oral at bedtime Morphine Sulfate 1 - 2 Tablet (of 30 mg) Oral q 3 hours Morphine Sulfate ER (100 mg) Tablet, controlled release Oral Take as Directed Mupirocin 1 (2 %) Ointment Topical PRN Omeprazole 1 Tablet (of 40 mg) Capsule Oral daily Phentermine HCl 1 Capsule (of 37.5 mg) Oral daily Pomalidomide 1 Capsule (of 1 mg) Oral daily Valerian Root 2 (1000 mg) Capsule Oral daily Ventolin HFA 2 puff(s) (of 108 (90 base) mcg/act) Aerosol, solution Inhalation q 4 hours Voltaren Gel (jelly) Transdermal Family History: Ms. Farrell's mother at age 85: breast cancer, and myocardial infarction, and heart disease. Ms. Farrell's father at age 85: heart disease, and myocardial infarction. Ms. Farrell has 4 sisters: 2 alive, 2 . Ms. Farrell's first sister's ovarian cancer. Another sister's colon cancer. Another sister's myeloma. Another sister's breast cancer. Both parents of heart attack in their mid 80s. One brother of a gunshot wound, another with complications of diabetes, and another of old age. A sister of colon cancer and another sister of ovarian cancer. A sister has been treated for melanoma and is still living at age 75. Another sister has been treated for breast cancer and is still living at age 67. Social History: Ms. Farrell is and she is a disabled. Ms. Farrell quit smoking 27 years ago but had smoked for 13 years. She has no history of drinking. She had minimal smoking history in the past, and the range of 2-3 cigarettes per day. She quit smoking in 1991. She currently does not drink alcohol. She has had moderate alcohol use in the past. Review Of Symptoms: Vital Signs: Performed on Dec 07, 2020 11:34 Height - 57.00 in Weight - 172 lbs (LOW) BSA - 1.69 sq.m BMI - 37.22 (HIGH) Temperature - 97.6 F (LOW) Pulse - 101 /min (HIGH) Respiration - 18 /min BP - 119/76 mm(hg) O2 Sat - 99 % Pain - 5,1 - No physically strenuous activity, but ambulatory and able to carry out light or sedentary work (e.g. office work, light house work). (ECOG) Physical Examination: Constitutional Alert, oriented, no acute distress. Skin pink, warm and dry. Head Normocephalic; atraumatic. Eyes Conjunctivae and sclerae are clear and without icterus. Pupils are reactive and equal. Neck Supple without masses or thyromegaly. No jugular venous distension. Hematologic/Lymphatic No petechiae or purpura. No tender or palpable lymph nodes in the cervical or supraclavicular areas. Respiratory Lungs are clear to auscultation without rhonchi or wheezing. Cardiovascular Regular rate and rhythm of heart without murmurs,clicks, gallops or rubs. Chest Left chest wall venous access device is unremarkable. Abdomen Non-tender, non-distended, no masses, ascites. Back/Spine Non-tender to palpation. Musculoskeletal No tenderness or swelling, normal range of motion without obvious weakness. Integumentary No rashes or lesions. Neurologic No sensory or motor deficits, normal cerebellar function, slow cane assisted gait-slow per her normal. Psychiatric Alert and oriented times three. Coherent speech. Verbalizes understanding of our discussions today. Laboratory:Test performed on Dec 19, 2020 08:22 Glucose 99 mg/dL BUN 18 mg/dL Creatinine 0.70 mg/dL Cr Clearance (Est) 96.95 mL/min Sodium 133 mmol/L Potassium 4.0 mmol/L Chloride 96 mmol/L CO2 29 mmol/L Calcium 9.0 mg/dL Protein, Total 7.1 g/dL Albumin 3.3 g/dL Bilirubin, Total 0.3 mg/dL Alkaline Phosphatase 56 IU/L AST (SGOT) 34 IU/L ALT (SGPT) 13 IU/L WBC 4.2 10^9/L RBC 3.99 10^12/L HGB 11.9 g/dL HCT 37.2 % MCV 93.2 fl MCH 29.8 pg MCHC 32.0 g/dL RDW 15.0 % Platelet Count 201 10^9/L MPV 9.5 fL Neutrophils (Gran) 1.82 10^9/L Lymphocytes 1.75 10^9/L Monocytes 0.54 10^9/L Eosinophils 0.06 10^9/L Basophils 0.01 10^9/L Manual Lymphocytes 42 % Manual Monocytes 13 % Manual Eosinophils 1 % Manual Basophils 0 % IGA 5 mg/dL IGG 2060 mg/dL IGM 5 mg/dL Test performed on Nov 23, 2020 15:43 TSH 6.91 uIU/mL [place] Free Light Chains 1.1 mg/L Lambda Free Light Chains 1228.9 mg/L [place]/Lambda Free Ratio < 0.01 Test performed on Nov 23, 2020 12:25 Anion Gap 10.0 eGFR 99.7 mL/min Osmolality - Calculated 289 mOsm/kg Globulin 3.6 g/dL Neutrophil % 43.9 % Lymphocyte % 38.0 % Monocyte % 13.0 % Eosinophil % 2.6 % Basophils % 0.8 % NRBC % 0 % Test performed on Oct 27, 2020 08:29 Vitamin D (25-Hydroxy) 32 ng/mL [place] / Lambda Ratio 0.01 Absolute Value Lambda Light Chain 4443.34 [place] Light Chain 3.98 Test performed on Aug 23, 2020 07:23 Albumin, SPE 3.58 g/dL Orhpm-5-lvmpphpz 0.32 g/dL Xxuzc-9-uhgdpvnz 0.79 g/dL Beta Globulin 0.73 g/dL Gamma Globulin 0.68 g/dL M-Rene 0.48 g/dL SPE Interpretation No significant change in monoclonal proteinemia since prior study. Test performed on Jun 22, 2020 04:08 Bilirubin, Direct 0.2 mg/dL Impression: 1. IgG lambda myeloma, initially diagnosed in December 2012. She had associated lytic bone involvement with vertebral compression fractures at T11 and L5. 2. She has associated hypogammaglobulinemia. 3. GERD. 4. Mild asthma. Plan: 1. IgG lambda myeloma, initially diagnosed in December 2012. She had associated lytic bone involvement with vertebral compression fractures at T11 and L5. She had a good response to initial treatment with 4 cycles of Velcade/Revlimid/dexamethasone followed by high-dose melphalan/stem cell transplant in May 2013. She then continued maintenance Revlimid until July 2015, stopped at that time due to toxicity. She had evidence of disease progression on repeat bone marrow aspiration/biopsy July 2016, and she then restarted Revlimid. Treatment was stopped in December 2017 due to toxicity, mainly cytopenias. She had evidence of disease progression again by bone marrow aspiration/biopsy in February 2018. Her M protein at that point had increased to 1.82 gm/dL. PET/CT showed new area of bone involvement in the right sacral ala. As of 04/29/2018 she began treatment with daratumumab in combination with pomalidomide and dexamethasone. The daratumumab was administered weekly for 8 weeks, then every 2 weeks for an additional 8 doses. During that time the pomalidomide had to be put on hold due to neutropenia. She eventually was able to tolerate it with the dosage reduced to 1 mg daily on a 21/28-day schedule. Since November 2018 her treatments have been administered at 4-week intervals. She had a very good response by protein electrophoresis. Over the past several months or has been a continued increase in her M protein and in her serum free lambda light chain, consistent with disease progression. Her lambda free light chain as of October 27, 2020 was 4443.34. She has been advised to change treatments from the daratumumab/pomalidomide/dexamethasone to carfilzomib and dexamethasone. She began her first cycle on November 23, 2020. A. Proceed with cycle 1 day 15 carfilzomib 70 mg/m2. B. She was instructed to continue dexamethasone 8 mg weekly???day 1, 8, 15 and 22. This is a 28-day regimen. C. Prophylaxis treatment: she will proceed with aspirin 81 mg daily; she is currently on acyclovir 400 mg twice daily and Bactrim twice daily on Mondays and . D. Labs from December 06, 2020 were reviewed in detail and discussed with Ms. Farrell and a copy was given to her. WBC 4.9, hemoglobin 12.9, platelets 209,000 ANC is 2170. Creatinine is 0.8 random glucose 110 potassium 4.1 LFTs are normal. On November 23, 2020 her IgA was 50, IgG 1844, IgM was 25. Her kappa free light chain was 1.1 and lambda free light chain was 1228.9. The M spike/abnormal protein from her protein electrophoresis on November 23, 2020 was reported at 1.5. E. Her TSH from November 23, 2020 was reported at 6.9. Her fatigue is significantly better today we will plan to repeat this with her next cycle to determine if it needs treated. She is currently not on any thyroid replacement. F. Carfilzomib has increased risk for cardiac toxicity. She has also been heavily treatment with chemotherapy in the past. She did have echocardiogram???limited to assess LV systolic function and regional wall motion. This was done on October 30, 2020. It reported LVEF at 60-65% and no regional wall motion abnormalities. 2. She has associated hypogammaglobulinemia. She has had occasional respiratory infections, but thus far they have not been frequent enough to justify starting replacement IVIG. 3. She has chronic back pain associated with her vertebral compression fractures. A. She currently is being managed with morphine extended release 200 mg in the morning and 200 mg at night. B. She has MS IR 30 mg to use 1 or 2 every 4-6 hours as needed. C. She also has cyclobenzaprine 10 mg to take 3 times daily. She is on gabapentin 100 mg 3 times daily. She also uses Lidoderm patches 5% as needed. She also has Voltaren gel to use as needed. 4. She had had swelling in the right leg and she had some associated skin ulcers. A. As she has been on a treatment regimen which has associated risk for thromboembolism, she did have ultrasound on October 30, 2020 to assess for DVT. It was negative. She was treated with Ceftin and remains on baby aspirin daily. B. The swelling and ulcers patients have vastly improved. She has very slight edema and the ulcerations are healed. 5. Lack of blood return via venous access device A. Ms. Farrell did require a flow study on her venous access device as we were unable to get blood return after administering Cathflo twice. The flow study was normal blood refill. There is no evidence of DVT or obstruction. Her chemotherapy was administered through her port without any obvious implications. B. She may require continued peripheral venous access for blood work due to the lack of blood return from the port. 6. Follow-up plan A. Return in 2 weeks for cycle 2 day 1 carfilzomib. B. She will be due for her CBC, CMP, QUIGS, kappa free light chain assay and SPEP with [facility]IL[facility] as well as repeat TSH. C. She will require port maintenance as she does have a left subclavian Port-A-Cath. D. Mrs. Farrell was instructed to contact us in interim should questions or problems arise. Signed By: Ac Carr-, [facility] Kenroy Davies MD <<Signature on File>>
== END 2020-12-07 05:52 | disposition home or self-care (01) ==
LOC: ONCMED 05:54
PROVIDERS: PCP Family Medicine; Visit Provider Nurse Practitioner
DX: C90.00 Multiple myeloma not having achieved remission (principal); D80.1 Nonfamilial hypogammaglobulinemia; G89.29 Other chronic pain; M84.58XD Pathological fracture in neoplastic disease, other specified site, subsequent encounter for fracture with routine healing; R60.0 Localized edema; R53.83 Other fatigue; K21.9 Gastro-esophageal reflux disease without esophagitis; J45.909 Unspecified asthma, uncomplicated; Z79.899 Other long term (current) drug therapy; Z79.82 Long term (current) use of aspirin; Z79.52 Long term (current) use of systemic steroids; Z79.891 Long term (current) use of opiate analgesic; Z87.891 Personal history of nicotine dependence; Z95.828 Presence of other vascular implants and grafts
CPT/HCPCS: 96361; 96413; 99214; J7040; J8540; J9047

== ENCOUNTER 2020-12-21 06:05 | Outpatient (CLI) | payer MEDICARE, MEDICAID, SELFPAY ==
[2020-12-21] MEDS: sodium chloride 0.9% 500 ML 999 ML IV (14:29)
--- NOTE | 2021-01-04 10:24 | ONC FU_ITS ---
[facility] Patient Note Patient: Salima Farrell Unit #: [id number]: [id number] Dictated By: Ac CarrDate of Visit: Dec 21, 2020 Onc MED Follow-Up/Prog Note Chief Complaint: Myeloma. History of Present Illness: Ms Farrell is a 65 year-old woman with IgG lambda myeloma. She had presented in December 2012 with compression fractures of the T11 and L5 vertebral bodies. She underwent kyphoplasty at both levels, and biopsies were consistent with plasma cell neoplasm. Her protein electrophoresis showed biclonal protein bands with lambda light chain 0.33 g/dL and IgG lambda 4.6 g/dL. There were additional lytic lesions noted on her skeletal survey. Her 24 hour urine reportedly showed 7 gm of Bence-Zabala proteinuria. Bone marrow aspiration/biopsy in January 2013 showed atypical plasma cell infiltrate comprising 91% of the marrow cellularity. She underwent treatment with 4 cycles of Velcade/Revlimid/dexamethasone followed by high-dose melphalan/autologous stem cell transplant in May 2013. She began maintenance Revlimid in August 2013. It was stopped as of July 2015 due to toxicities. As of July 2016 her repeat bone marrow aspiration/biopsy showed 30-40% plasma cells. She restarted treatment with Revlimid. It was stopped again in December 2017 due to toxicity, mainly cytopenias. At that point her protein electrophoresis showed M protein at 1.52 g/dL. Skeletal survey reportedly showed no new abnormalities. Her repeat marrow aspiration/biopsy in February 2018 showed 70% involvement by plasma cells. The M protein at that point was up to 1.82 g/dL. PET/CT on 04/01/2018 showed new osseous involvement in the right sacral ala, SUV 4.15. She was seen by Dr. Shlomo Tanner on 04/06/2018. It was recommended that she begin salvage therapy with a combination of daratumumab, pomalidomide, and dexamethasone in preparation for possible second transplant procedure. She was seen here initially on 04/10/2018, as at that point she desired to have her treatment administered closer to home. She then returned to begin her treatment with daratumumab, pomalidomide, and dexamethasone on 04/29/2018. Due to her previous cytopenias with Revlimid, the pomalidomide was initiated at a reduced dosage of 3 mg daily on a day schedule. She began her initial infusion of daratumumab on 04/29/2018. She tolerated it without acute toxicity. She was able to complete 8 infusions at the weekly interval followed by 8 infusions at the 2-week interval. The treatments were then administered at a 4-week interval beginning in November 2018. During that time, she her pomalidomide had to be put on hold due to neutropenia. She eventually was able to tolerate it with the dosage reduced to 1 mg. She did have a very good response by protein electrophoresis. On 09/12/2019 she was admitted to [facility] in [place] with shortness of breath, wheezing, and productive cough. She did not have acute infiltrate on chest xray, but she was significantly hypoxic. She continued empiric antibiotic coverage with Levaquin, though it appeared to have most likely have been a viral illness. At her follow-up visit in September she was finally showing recovery from that illness, and she was able to continue her treatment. As of her follow-up visit on 04/05/2020 she had been doing well clinically with her M protein stable at 0.16 g/dL. Following that treatment, though, she became very ill. She had actually started having a cough during her daratumumab infusion and after returning home she had fever in the range of 101 to 102 degrees and she was out of it for 2 days, with virtually no recollection of that time period. She then had generalized bone pain and severe headache for 2 weeks and she could not eat during that time. By about the 11th day she began to feel better, but during that week she developed vomiting and diarrhea. She then continued to show gradually recovery. She did not have COVID testing. Dr Davies had seen her for a follow-up visit on 05/03/2020, and at that point she was able to resume treatment with daratumumab in combination with pomalidomide and dexamethasone. Her other medical illnesses have been limited to GERD and mild asthma. Her other surgical/procedural history includes previous appendectomy and hysterectomy/bilateral salpingo-oophorectomy. She had a minimal smoking history in the past, and she quit smoking in 1991. INTERIM HISTORY: At her follow-up visit on 06/28/2020 she reported increased pain in her back and rib cage. It was severe enough that she had been seen in the emergency room in [place] earlier that week. There had been a slight increase in her lambda free light chain, concerning for disease progression. She was given IV Toradol for the pain and she was given antibiotic therapy with Levaquin for possible bronchitis. She also was scheduled for restaging PET/CT. That study was completed on 07/01/2020. It showed mild sacral activity and a bilateral pattern which was thought to be more suggestive of reactive uptake than myeloma. Pelvic lesions did not demonstrate increased FDG activity, and were felt to likely correspond to prior sites of active myeloma. She continued her treatment with daratumumab/pomalidomide/dexamethasone at 4-week intervals. However, at her follow-up visit in September 2020 her M protein had increased to 0.61 g/dL and there was a significant increase in her lambda free light chain to 366.71 mg/L. Her lambda free light chain in October 2020 was 446 and on November 24, 2020 it was 1228.9. Based on her elevated M protein and lambda free light chain, Dr. Davies recommended that she stop treatment with the daratumumab, pomalidomide, dexamethasone and start a carfilzomib-containing regimen. She has had insurance approval for her treatment plan consisting of carfilzomib 20 mg per metered squared day 1 of cycle 1 only then 70 mg mg/m2 day 8 and 15 of cycle 1 and day 1, 8, 15 of subsequent cycles and dexamethasone 8 mg weekly. This is a 28 day cycle. Ms Farrell began her first cycle of carfilzomib on 11/23/2020. She was having more back pain on the 11/23/2020 visit. Her MS ER was increased to 200 mg every 12 hours and this has worked well for her pain. She is now completed 1 full cycle of the carfilzomib regimen. She has tolerated it well overall. Her day 15 treatment was on December 07, 2020. Ms. Farrell is here today for follow-up. She is due for cycle 2-day 1 carfilzomib. She states overall she is doing well. However she has been having some jittery's and some fatigue more than normal. She states that she just gets the shakes and is not sure what is causing that. She is currently taking dexamethasone. She continues to have lower extremity cellulitis but states it is better. She has been on antibiotic with cefuroxine and mupirocin cream and this is helping her legs tremendously. We will also have her use Lasix as needed for the edema. She denies any new shortness of breath orthopnea. She is had no hemoptysis. She denies any nausea or vomiting. She has chronic constipation but is currently controlled. She uses MiraLAX as needed. She is also using stool softeners. She states her appetite is good and her energy is fair. She is able to cook and take care of her family as she wants. She denies any other concerns today. Her ECOG is 1. She states her back pain is still well controlled with MS ER 200 mg every 12 hours. Past Medical History: Gastroesophageal reflux disease IgG kappa myeloma Mild asthma Past Surgical History: Appendectomy Bone marrow aspiration/biopsy in January 2013, July 2016, and February 2018 Kyphoplasty at T11 and L5 vertebral levels Tubal ligation Colonoscopy in 2012 Hysterectomy/bilateral salpingo-oophorectomy in 2008 Allergies: Codeine Sulfate Medications: Acetaminophen 2 Tablet (of 325 mg) Oral four times a day PRN ALPRAZolam 1 Tablet (of 1 mg) Oral t.i.d. Benzonatate 1 Capsule (of 100 mg) Oral t.i.d. PRN Childrens Aspirin 2 Tablet (of 81 mg) Tablet, chewable Oral daily Cyclobenzaprine HCl 1 Tablet (of 10 mg) Oral t.i.d. Gabapentin 1 Capsule (of 100 mg) Oral t.i.d. Lidocaine 3 patch(es) (of 5 %) Patch Topical q 24 hours Lidocaine 1 (5 %) Ointment Topical q 3 hours PRN Melatonin 1 Tablet (of 10 mg) Oral at bedtime Morphine Sulfate 1 - 2 Tablet (of 30 mg) Oral q 3 hours Morphine Sulfate ER (100 mg) Tablet, controlled release Oral Take as Directed Mupirocin 1 (2 %) Ointment Topical PRN Omeprazole 1 Tablet (of 40 mg) Capsule Oral daily Phentermine HCl 1 Capsule (of 37.5 mg) Oral daily Pomalidomide 1 Capsule (of 1 mg) Oral daily Valerian Root 2 (1000 mg) Capsule Oral daily Ventolin HFA 2 puff(s) (of 108 (90 base) mcg/act) Aerosol, solution Inhalation q 4 hours Voltaren Gel (jelly) Transdermal Family History: Ms. Farrell's mother at age 85: breast cancer, and myocardial infarction, and heart disease. Ms. Farrell's father at age 85: heart disease, and myocardial infarction. Ms. Farrell has 4 sisters: 2 alive, 2 . Ms. Farrell's first sister's ovarian cancer. Another sister's colon cancer. Another sister's myeloma. Another sister's breast cancer. Both parents of heart attack in their mid 80s. One brother of a gunshot wound, another with complications of diabetes, and another of old age. A sister of colon cancer and another sister of ovarian cancer. A sister has been treated for melanoma and is still living at age 75. Another sister has been treated for breast cancer and is still living at age 67. Social History: Ms. Farrell is and she is a disabled. Ms. Farrell quit smoking 27 years ago but had smoked for 13 years. She has no history of drinking. She had minimal smoking history in the past, and the range of 2-3 cigarettes per day. She quit smoking in 1991. She currently does not drink alcohol. She has had moderate alcohol use in the past. Review Of Symptoms: see above Vital Signs: Performed on Dec 21, 2020 13:27 Height - 57.00 in Weight - 179.6 lbs (HIGH) BSA - 1.72 sq.m BMI - 38.87 (HIGH) Temperature - 98.5 F Pulse - 78 /min Respiration - 19 /min BP - 126/79 mm(hg) O2 Sat - 96 % Pain - 0,1 - No physically strenuous activity, but ambulatory and able to carry out light or sedentary work (e.g. office work, light house work). (ECOG) Physical Examination: Constitutional Alert, oriented, no acute distress. Skin pink, warm and dry. Head Normocephalic; atraumatic. Eyes Conjunctivae and sclerae are clear and without icterus. Pupils are reactive and equal. Neck Supple without masses or thyromegaly. No jugular venous distension. Hematologic/Lymphatic No petechiae or purpura. No tender or palpable lymph nodes in the cervical or supraclavicular areas. Respiratory Lungs are clear to auscultation without rhonchi or wheezing. Cardiovascular Regular rate and rhythm of heart without murmurs,clicks, gallops or rubs. Chest Left chest wall venous access device is unremarkable. Abdomen Non-tender, non-distended, no masses, ascites. Back/Spine Non-tender to palpation. Extremities She has 2+ bilateral lower extremity edema with mild erythema and slight temperature/warmness. Both legs have small lacerations that are currently scabbed over without drainage. Musculoskeletal No tenderness or swelling, normal range of motion without obvious weakness. Neurologic No sensory or motor deficits, normal cerebellar function, slow cane assisted gait-slow per her normal. Psychiatric Alert and oriented times three. Coherent speech. Verbalizes understanding of our discussions today. Laboratory: Test performed on Dec 19, 2020 08:22 IGA 5 mg/dL IGG 2060 mg/dL IGM 5 mg/dL Beemer / Lambda Ratio 0.00 Absolute Value Lambda Light Chain 902.00 Beemer Light Chain 0.93 Test performed on Nov 23, 2020 15:43 TSH 6.91 uIU/mL Beemer Free Light Chains 1.1 mg/L Lambda Free Light Chains 1228.9 mg/L Beemer/Lambda Free Ratio < 0.01 Impression: 1. IgG lambda myeloma, initially diagnosed in December 2012. She had associated lytic bone involvement with vertebral compression fractures at T11 and L5. 2. She has associated hypogammaglobulinemia. 3. GERD. 4. Mild asthma. Plan: 1. IgG lambda myeloma, initially diagnosed in December 2012. She had associated lytic bone involvement with vertebral compression fractures at T11 and L5. She had a good response to initial treatment with 4 cycles of Velcade/Revlimid/dexamethasone followed by high-dose melphalan/stem cell transplant in May 2013. She then continued maintenance Revlimid until July 2015, stopped at that time due to toxicity. She had evidence of disease progression on repeat bone marrow aspiration/biopsy July 2016, and she then restarted Revlimid. Treatment was stopped in December 2017 due to toxicity, mainly cytopenias. She had evidence of disease progression again by bone marrow aspiration/biopsy in February 2018. Her M protein at that point had increased to 1.82 gm/dL. PET/CT showed new area of bone involvement in the right sacral ala. As of 04/29/2018 she began treatment with daratumumab in combination with pomalidomide and dexamethasone. The daratumumab was administered weekly for 8 weeks, then every 2 weeks for an additional 8 doses. During that time the pomalidomide had to be put on hold due to neutropenia. She eventually was able to tolerate it with the dosage reduced to 1 mg daily on a 21/28-day schedule. Since November 2018 her treatments have been administered at 4-week intervals. She had a very good response by protein electrophoresis. Over the past several months or has been a continued increase in her M protein and in her serum free lambda light chain, consistent with disease progression. Her lambda free light chain as of October 27, 2020 was 4443.34. She has been advised to change treatments from the daratumumab/pomalidomide/dexamethasone to carfilzomib and dexamethasone. She began her first cycle on November 23, 2020. A. Proceed with cycle 2 day 1 carfilzomib 70 mg/m2. B. She was instructed to STOP dexamethasone 8 mg weekly???day 1, 8, 15 and 22. She has had intolerance of the dexamethasone in the past. C. Prophylaxis treatment: she will proceed with aspirin 81 mg daily; she is currently on acyclovir 400 mg twice daily and Bactrim twice daily on Mondays and . D. Labs from December 19, 2020 were reviewed in detail and discussed with Ms. Farrell and a copy was given to her. WBC 4.2, hemoglobin 11.9, platelets 201,000, ANC is 1820. Potassium 4.0 random glucose 99 albumin 3.3 and LFTs are normal. Her lambda free light chain was reported at 902 compared to 1229 on 11/23/2020. E. Her TSH from November 23, 2020 was reported at 6.9. Her fatigue is significantly better today we will plan to repeat this with her next cycle to determine if it needs treated. She is currently not on any thyroid replacement. F. Carfilzomib has increased risk for cardiac toxicity. She has also been heavily treatment with chemotherapy in the past. She did have echocardiogram???limited to assess LV systolic function and regional wall motion. This was done on October 30, 2020. It reported LVEF at 60-65% and no regional wall motion abnormalities. 2. She has associated hypogammaglobulinemia. A. She has had occasional respiratory infections, but thus far they have not been frequent enough to justify starting replacement IVIG. 3. She has chronic back pain associated with her vertebral compression fractures. A. She currently is being managed with morphine extended release 200 mg in the morning and 200 mg at night. B. She has MS IR 30 mg to use 1 or 2 every 4-6 hours as needed. C. She also has cyclobenzaprine 10 mg to take 3 times daily. She is on gabapentin 100 mg 3 times daily. She also uses Lidoderm patches 5% as needed. She also has Voltaren gel to use as needed. 4. She had had swelling in the lower legs bilaterally and she had some associated skin ulcers. A. As she has been on a treatment regimen which has associated risk for thromboembolism, she did have ultrasound on October 30, 2020 to assess for DVT. It was negative. She was treated with Ceftin and remains on baby aspirin daily. B. The swelling and ulcers patients have vastly improved. She has mild edema and the ulcerations are healing well. C. She will remain on the Ceftin until the ulcers are healed. D. Refill Lasix 40 mg daily-take 1 or 2 daily as needed dependig on the status of the lower extremity edema. Her renal function has been normal. Her potassium is normal. 6. Follow-up plan A. Return in 1 week for cycle 2 day 8 carfilzomib. B. She will require port maintenance as she does have a left subclavian Port-A-Cath. C. Mrs. Farrell was instructed to contact us in interim should questions or problems arise. Signed By: Ac Carr-, [facility] Kenroy Davies MD <<Signature on File>>
== END 2020-12-21 06:06 | disposition home or self-care (01) ==
LOC: ONCMED 06:07
PROVIDERS: PCP Family Medicine; Visit Provider Nurse Practitioner
DX: Z51.11 Encounter for antineoplastic chemotherapy (principal); C90.00 Multiple myeloma not having achieved remission; C79.51 Secondary malignant neoplasm of bone; D80.1 Nonfamilial hypogammaglobulinemia; K21.9 Gastro-esophageal reflux disease without esophagitis; J45.909 Unspecified asthma, uncomplicated; M48.55XG Collapsed vertebra, not elsewhere classified, thoracolumbar region, subsequent encounter for fracture with delayed healing; Z79.899 Other long term (current) drug therapy
CPT/HCPCS: 96413; 99214; J7040; J9047

== ENCOUNTER 2020-12-28 06:22 | Outpatient (CLI) | payer MEDICARE, MEDICAID, SELFPAY ==
[2020-12-28] MEDS: sodium chloride 0.9% 500 ML 999 ML IV (10:24)
== END 2020-12-28 06:23 | disposition home or self-care (01) ==
LOC: ONCMED 06:22
PROVIDERS: Visit Provider Nurse Practitioner
DX: Z51.11 Encounter for antineoplastic chemotherapy (principal); C90.02 Multiple myeloma in relapse; D80.1 Nonfamilial hypogammaglobulinemia; D50.9 Iron deficiency anemia, unspecified; R53.82 Chronic fatigue, unspecified; M79.10 Myalgia, unspecified site; J45.902 Unspecified asthma with status asthmaticus
CPT/HCPCS: 96413; J7040; J9047

== ENCOUNTER 2021-01-04 06:11 | Outpatient (CLI) | payer MEDICARE, MEDICAID, SELFPAY ==
[2021-01-04] MEDS: sodium chloride 0.9% 250 ML 75 ML IV (10:07)
--- NOTE | 2021-01-16 12:34 | ONC FU_ITS ---
[facility] Patient Note Patient: Salima Farrell Unit #: [id number]: 1955 Dictated By: Ac aCrrDate of Visit: Jan 04, 2021 Onc MED Follow-Up/Prog Note Chief Complaint: Myeloma. History of Present Illness: Ms Farrell is a 65 year-old woman with IgG lambda myeloma. She had presented in December 2012 with compression fractures of the T11 and L5 vertebral bodies. She underwent kyphoplasty at both levels, and biopsies were consistent with plasma cell neoplasm. Her protein electrophoresis showed biclonal protein bands with lambda light chain 0.33 g/dL and IgG lambda 4.6 g/dL. There were additional lytic lesions noted on her skeletal survey. Her 24 hour urine reportedly showed 7 gm of Bence-Zabala proteinuria. Bone marrow aspiration/biopsy in January 2013 showed atypical plasma cell infiltrate comprising 91% of the marrow cellularity. She underwent treatment with 4 cycles of Velcade/Revlimid/dexamethasone followed by high-dose melphalan/autologous stem cell transplant in May 2013. She began maintenance Revlimid in August 2013. It was stopped as of July 2015 due to toxicities. As of July 2016 her repeat bone marrow aspiration/biopsy showed 30-40% plasma cells. She restarted treatment with Revlimid. It was stopped again in December 2017 due to toxicity, mainly cytopenias. At that point her protein electrophoresis showed M protein at 1.52 g/dL. Skeletal survey reportedly showed no new abnormalities. Her repeat marrow aspiration/biopsy in February 2018 showed 70% involvement by plasma cells. The M protein at that point was up to 1.82 g/dL. PET/CT on 04/01/2018 showed new osseous involvement in the right sacral ala, SUV 4.15. She was seen by Dr. Shlomo Tanner on 04/06/2018. It was recommended that she begin salvage therapy with a combination of daratumumab, pomalidomide, and dexamethasone in preparation for possible second transplant procedure. She was seen here initially on 04/10/2018, as at that point she desired to have her treatment administered closer to home. She then returned to begin her treatment with daratumumab, pomalidomide, and dexamethasone on 04/29/2018. Due to her previous cytopenias with Revlimid, the pomalidomide was initiated at a reduced dosage of 3 mg daily on a day schedule. She began her initial infusion of daratumumab on 04/29/2018. She tolerated it without acute toxicity. She was able to complete 8 infusions at the weekly interval followed by 8 infusions at the 2-week interval. The treatments were then administered at a 4-week interval beginning in November 2018. During that time, she her pomalidomide had to be put on hold due to neutropenia. She eventually was able to tolerate it with the dosage reduced to 1 mg. She did have a very good response by protein electrophoresis. On 09/12/2019 she was admitted to [facility] in [place] with shortness of breath, wheezing, and productive cough. She did not have acute infiltrate on chest xray, but she was significantly hypoxic. She continued empiric antibiotic coverage with Levaquin, though it appeared to have most likely have been a viral illness. At her follow-up visit in September she was finally showing recovery from that illness, and she was able to continue her treatment. As of her follow-up visit on 04/05/2020 she had been doing well clinically with her M protein stable at 0.16 g/dL. Following that treatment, though, she became very ill. She had actually started having a cough during her daratumumab infusion and after returning home she had fever in the range of 101 to 102 degrees and she was out of it for 2 days, with virtually no recollection of that time period. She then had generalized bone pain and severe headache for 2 weeks and she could not eat during that time. By about the 11th day she began to feel better, but during that week she developed vomiting and diarrhea. She then continued to show gradually recovery. She did not have COVID testing. Dr Davies had seen her for a follow-up visit on 05/03/2020, and at that point she was able to resume treatment with daratumumab in combination with pomalidomide and dexamethasone. Her other medical illnesses have been limited to GERD and mild asthma. Her other surgical/procedural history includes previous appendectomy and hysterectomy/bilateral salpingo-oophorectomy. She had a minimal smoking history in the past, and she quit smoking in 1991. INTERIM HISTORY: At her follow-up visit on 06/28/2020 she reported increased pain in her back and rib cage. It was severe enough that she had been seen in the emergency room in [place] earlier that week. There had been a slight increase in her lambda free light chain, concerning for disease progression. She was given IV Toradol for the pain and she was given antibiotic therapy with Levaquin for possible bronchitis. She also was scheduled for restaging PET/CT. That study was completed on 07/01/2020. It showed mild sacral activity and a bilateral pattern which was thought to be more suggestive of reactive uptake than myeloma. Pelvic lesions did not demonstrate increased FDG activity, and were felt to likely correspond to prior sites of active myeloma. She continued her treatment with daratumumab/pomalidomide/dexamethasone at 4-week intervals. However, at her follow-up visit in September 2020 her M protein had increased to 0.61 g/dL and there was a significant increase in her lambda free light chain to 366.71 mg/L. Based on her elevated M protein and lambda free light chain, Dr. Davies recommended that she stop treatment with the daratumumab, pomalidomide, dexamethasone and start a carfilzomib-containing regimen. She has had insurance approval for her treatment plan consisting of carfilzomib 20 mg per metered squared day 1 of cycle 1 only then 70 mg mg/m2 day 8 and 15 of cycle 1 and day 1, 8, 15 of subsequent cycles and dexamethasone 8 mg weekly. This is a 28 day cycle. Ms Farrell began her first cycle of carfilzomib on 11/23/2020. She was having more back pain on the 11/23/2020 visit. Her MS ER was increased to 200 mg every 12 hours. She states her pain is well controlled now. She is here today for followup and cycle 2 day 15 carfilzomib. Her dexamethasone was stopped on cycle 2-day 8 due to jitteriness and fatigue as well as shakes . She has had intolerance of the dexamethasone in the past. She states she is feeling much better off the dexamethasone. She states that she feels much better overall. She has no new concerns today. She denies any fever or chills. She denies any mouth sores, sore throat or difficulty swallowing. She has had no signs of infection. She has occasional cough but states that is normal for her. She is not have any productive cough or hemoptysis. She denies any bowel or bladder changes. Her appetite is good. Energy is good. She states her lower extremity swelling is better and the sors are healing much better. She has had no drainage from them. She denies any nausea or vomiting. She denies any diarrhea or constipation. Her ECOG is 1. Past Medical History: Gastroesophageal reflux disease IgG kappa myeloma Mild asthma Past Surgical History: Appendectomy Bone marrow aspiration/biopsy in January 2013, July 2016, and February 2018 Kyphoplasty at T11 and L5 vertebral levels Tubal ligation Colonoscopy in 2012 Hysterectomy/bilateral salpingo-oophorectomy in 2008 Allergies: Codeine Sulfate Medications: Acetaminophen 2 Tablet (of 325 mg) Oral four times a day PRN ALPRAZolam 1 Tablet (of 1 mg) Oral t.i.d. Benzonatate 1 Capsule (of 100 mg) Oral t.i.d. PRN Childrens Aspirin 2 Tablet (of 81 mg) Tablet, chewable Oral daily Cyclobenzaprine HCl 1 Tablet (of 10 mg) Oral t.i.d. Gabapentin 1 Capsule (of 100 mg) Oral t.i.d. Lidocaine 3 patch(es) (of 5 %) Patch Topical q 24 hours Lidocaine 1 (5 %) Ointment Topical q 3 hours PRN Melatonin 1 Tablet (of 10 mg) Oral at bedtime Morphine Sulfate 1 - 2 Tablet (of 30 mg) Oral q 3 hours Morphine Sulfate ER (100 mg) Tablet, controlled release Oral Take as Directed Mupirocin 1 (2 %) Ointment Topical PRN Omeprazole 1 Tablet (of 40 mg) Capsule Oral daily Phentermine HCl 1 Capsule (of 37.5 mg) Oral daily Pomalidomide 1 Capsule (of 1 mg) Oral daily Valerian Root 2 (1000 mg) Capsule Oral daily Ventolin HFA 2 puff(s) (of 108 (90 base) mcg/act) Aerosol, solution Inhalation q 4 hours Voltaren Gel (jelly) Transdermal Family History: Ms. Farrell's mother at age 85: breast cancer, and myocardial infarction, and heart disease. Ms. Farrell's father at age 85: heart disease, and myocardial infarction. Ms. Farrell has 4 sisters: 2 alive, 2 . Ms. Farrell's first sister's ovarian cancer. Another sister's colon cancer. Another sister's myeloma. Another sister's breast cancer. Both parents of heart attack in their mid 80s. One brother of a gunshot wound, another with complications of diabetes, and another of old age. A sister of colon cancer and another sister of ovarian cancer. A sister has been treated for melanoma and is still living at age 75. Another sister has been treated for breast cancer and is still living at age 67. Social History: Ms. Farrell is and she is a disabled. Ms. Farrell quit smoking 27 years ago but had smoked for 13 years. She has no history of drinking. She had minimal smoking history in the past, and the range of 2-3 cigarettes per day. She quit smoking in 1991. She currently does not drink alcohol. She has had moderate alcohol use in the past. Review Of Symptoms: <See Above> Vital Signs: Performed on Jan 04, 2021 08:27 Height - 57.00 in Weight - 176.4 lbs (LOW) BSA - 1.71 sq.m BMI - 38.17 (HIGH) Temperature - 98.2 F (LOW) Pulse - 120 /min (HIGH) Respiration - 18 /min BP - 122/75 mm(hg) O2 Sat - 91 % (LOW) Pain - 0 Fatigue - 8,1 - No physically strenuous activity, but ambulatory and able to carry out light or sedentary work (e.g. office work, light house work). (ECOG) Physical Examination: Constitutional Alert, oriented, no acute distress. Skin pink, warm and dry. Head Normocephalic; atraumatic. Eyes Conjunctivae and sclerae are clear and without icterus. Pupils are reactive and equal. Neck Supple without masses or thyromegaly. No jugular venous distension. Hematologic/Lymphatic No petechiae or purpura. No tender or palpable lymph nodes in the cervical or supraclavicular areas. Respiratory Lungs are clear to auscultation without rhonchi or wheezing. Cardiovascular Regular rate and rhythm of heart without murmurs,clicks, gallops or rubs. Chest Left chest wall venous access device is unremarkable. Abdomen Non-tender, non-distended, no masses, ascites. Back/Spine Non-tender to palpation. Extremities She has 2+ bilateral lower extremity edema with mild erythema and slight temperature/warmness. Both legs have small lacerations that are currently scabbed over without drainage. Musculoskeletal No tenderness or swelling, normal range of motion without obvious weakness. Integumentary No rashes or lesions. Neurologic No sensory or motor deficits, normal cerebellar function, slow cane assisted gait-slow per her normal. Psychiatric Alert and oriented times three. Coherent speech. Verbalizes understanding of our discussions today. Laboratory:Test performed on Jan 02, 2021 07:22 Glucose 148 mg/dL BUN 20 mg/dL Creatinine 0.99 mg/dL Cr Clearance (Est) 68.55 mL/min Sodium 136 mmol/L Potassium 3.7 mmol/L Chloride 98 mmol/L CO2 32 mmol/L Calcium 9.3 mg/dL Protein, Total 7.0 g/dL Albumin 3.3 g/dL Bilirubin, Total 0.3 mg/dL Alkaline Phosphatase 51 IU/L AST (SGOT) 38 IU/L ALT (SGPT) 12 IU/L WBC 4.0 10^9/L RBC 3.84 10^12/L HGB 11.5 g/dL HCT 36.0 % MCV 93.8 fl MCH 29.9 pg MCHC 31.9 g/dL RDW 14.9 % Platelet Count 222 10^9/L MPV 9.9 fL Neutrophils (Gran) 1.42 10^9/L Lymphocytes 1.86 10^9/L Monocytes 0.65 10^9/L Eosinophils 0.04 10^9/L Basophils 0.02 10^9/L Manual Lymphocytes 47 % Manual Monocytes 16 % Manual Eosinophils 1 % Manual Basophils 1 % Test performed on Dec 19, 2020 08:22 IGA 5 mg/dL IGG 2060 mg/dL IGM 5 mg/dL [place] / Lambda Ratio 0.00 Absolute Value Lambda Light Chain 902.00 [place] Light Chain 0.93 Impression: 1. IgG lambda myeloma, initially diagnosed in December 2012. She had associated lytic bone involvement with vertebral compression fractures at T11 and L5. 2. She has associated hypogammaglobulinemia. 3. GERD. 4. Mild asthma. Plan/Problems Addressed at this Visit: 1. IgG lambda myeloma, initially diagnosed in December 2012. She had associated lytic bone involvement with vertebral compression fractures at T11 and L5. She had a good response to initial treatment with 4 cycles of Velcade/Revlimid/dexamethasone followed by high-dose melphalan/stem cell transplant in May 2013. She then continued maintenance Revlimid until July 2015, stopped at that time due to toxicity. She had evidence of disease progression on repeat bone marrow aspiration/biopsy July 2016, and she then restarted Revlimid. Treatment was stopped in December 2017 due to toxicity, mainly cytopenias. She had evidence of disease progression again by bone marrow aspiration/biopsy in February 2018. Her M protein at that point had increased to 1.82 gm/dL. PET/CT showed new area of bone involvement in the right sacral ala. As of 04/29/2018 she began treatment with daratumumab in combination with pomalidomide and dexamethasone. The daratumumab was administered weekly for 8 weeks, then every 2 weeks for an additional 8 doses. During that time the pomalidomide had to be put on hold due to neutropenia. She eventually was able to tolerate it with the dosage reduced to 1 mg daily on a 21/28-day schedule. Since November 2018 her treatments have been administered at 4-week intervals. She had a very good response by protein electrophoresis. Over the past several months or has been a continued increase in her M protein and in her serum free lambda light chain, consistent with disease progression. Her lambda free light chain as of October 27, 2020 was 4443.34. She has been advised to change treatments from the daratumumab/pomalidomide/dexamethasone to carfilzomib and dexamethasone. She began her first cycle on November 23, 2020. A. Proceed with cycle 2 day 15 carfilzomib 70 mg/m2. B. She was instructed to stop the dexamethasone on day 8 of cycle 2 due to jitteriness, shakes and intolerance. C. Prophylaxis treatment: she will proceed with aspirin 81 mg daily; she is currently on acyclovir 400 mg twice daily and Bactrim twice daily on Mondays and . D. Labs from January 02, 2021 were reviewed in detail and discussed with Ms. Farrell and a copy was given to her. WBC 4.0, hemoglobin 11.5, platelets 222,000 ANC is 1420. Potassium 3.7 creatinine 0.99 LFTs are normal. Her lambda light chain on December 19, 2020 was 902 and on November 24, 2020 was 1228.9. E. Her TSH from November 23, 2020 was reported at 6.9. Her fatigue is significantly better today we will plan to repeat this with her next cycle to determine if it needs treated. She is currently not on any thyroid replacement. F. Carfilzomib has increased risk for cardiac toxicity. She has also been heavily treatment with chemotherapy in the past. She did have echocardiogram???limited to assess LV systolic function and regional wall motion. This was done on October 30, 2020. It reported LVEF at 60-65% and no regional wall motion abnormalities. 2. She has associated hypogammaglobulinemia. She has had occasional respiratory infections, but thus far they have not been frequent enough to justify starting replacement IVIG. 3. She has chronic back pain associated with her vertebral compression fractures. A. She currently is being managed with morphine extended release 200 mg in the morning and 200 mg at night. B. She has MS IR 30 mg to use 1 or 2 every 4-6 hours as needed. C. She also has cyclobenzaprine 10 mg to take 3 times daily. She is on gabapentin 100 mg 3 times daily. She also uses Lidoderm patches 5% as needed. She also has Voltaren gel to use as needed. 4. She had had swelling in the right leg and she had some associated skin ulcers. A. As she has been on a treatment regimen which has associated risk for thromboembolism, she did have ultrasound on October 30, 2020 to assess for DVT. It was negative. She was treated with Ceftin and remains on baby aspirin daily. B. The swelling and ulcers patients have vastly improved. She has very slight edema and the ulcerations are healed. 5. Lack of blood return via venous access device A. Ms. Farrell did require a flow study on her venous access device as we were unable to get blood return after administering Cathflo twice. The flow study was normal blood refill. There is no evidence of DVT or obstruction. Her chemotherapy was administered through her port without any obvious implications. B. She may require continued peripheral venous access for blood work due to the lack of blood return from the port. 6. Follow-up plan A. Return in 2 weeks for cycle 3 day 1 carfilzomib. B. She will be due for her CBC, CMP, QUIGS, kappa free light chain assay and SPEP with ANA LILIA as well as repeat TSH. C. She will require port maintenance as she does have a left subclavian Port-A-Cath. D. Mrs. Farrell was instructed to contact us in interim should questions or problems arise. Signed By: Ac Carr-, [facility] Kenroy Davies MD <<Signature on File>>
== END 2021-01-04 06:12 | disposition home or self-care (01) ==
LOC: ONCMED 06:14
PROVIDERS: Visit Provider Nurse Practitioner
DX: Z51.11 Encounter for antineoplastic chemotherapy (principal); C90.02 Multiple myeloma in relapse; D80.1 Nonfamilial hypogammaglobulinemia; D50.9 Iron deficiency anemia, unspecified; R53.83 Other fatigue; J45.902 Unspecified asthma with status asthmaticus; M79.10 Myalgia, unspecified site; K21.9 Gastro-esophageal reflux disease without esophagitis; Z79.899 Other long term (current) drug therapy
CPT/HCPCS: 96413; 99214; J7050; J9047

== ENCOUNTER 2021-01-18 05:58 | Outpatient (CLI) | payer MEDICARE, MEDICAID, SELFPAY ==
[2021-01-18] MEDS: sodium chloride 0.9% 500 ML IV (14:27)
--- NOTE | 2021-01-18 14:31 | PC.PHAR ---
VERBAL ORDER FROM [facility] THAT OK TO ROUND DOSE TO 30MG FROM 34MG
--- NOTE | 2021-01-30 15:04 | ONC FU_ITS ---
[facility] Patient Note Patient: Salima Farrell Unit #: [id number]: [id number] Dictated By: Ac CarrDate of Visit: January 18, 2021 Onc MED Follow-Up/Prog Note Chief Complaint: Myeloma. History of Present Illness: Ms Farrell is a 65 year-old woman with IgG lambda myeloma. She had presented in December 2012 with compression fractures of the T11 and L5 vertebral bodies. She underwent kyphoplasty at both levels, and biopsies were consistent with plasma cell neoplasm. Her protein electrophoresis showed biclonal protein bands with lambda light chain 0.33 g/dL and IgG lambda 4.6 g/dL. There were additional lytic lesions noted on her skeletal survey. Her 24 hour urine reportedly showed 7 gm of Bence-Zabala proteinuria. Bone marrow aspiration/biopsy in January 2013 showed atypical plasma cell infiltrate comprising 91% of the marrow cellularity. She underwent treatment with 4 cycles of Velcade/Revlimid/dexamethasone followed by high-dose melphalan/autologous stem cell transplant in May 2013. She began maintenance Revlimid in August 2013. It was stopped as of July 2015 due to toxicities. As of July 2016 her repeat bone marrow aspiration/biopsy showed 30-40% plasma cells. She restarted treatment with Revlimid. It was stopped again in December 2017 due to toxicity, mainly cytopenias. At that point her protein electrophoresis showed M protein at 1.52 g/dL. Skeletal survey reportedly showed no new abnormalities. Her repeat marrow aspiration/biopsy in February 2018 showed 70% involvement by plasma cells. The M protein at that point was up to 1.82 g/dL. PET/CT on 04/01/2018 showed new osseous involvement in the right sacral ala, SUV 4.15. She was seen by Dr. Shlomo Tanner on 04/06/2018. It was recommended that she begin salvage therapy with a combination of daratumumab, pomalidomide, and dexamethasone in preparation for possible second transplant procedure. She was seen here initially on 04/10/2018, as at that point she desired to have her treatment administered closer to home. She then returned to begin her treatment with daratumumab, pomalidomide, and dexamethasone on 04/29/2018. Due to her previous cytopenias with Revlimid, the pomalidomide was initiated at a reduced dosage of 3 mg daily on a day schedule. She began her initial infusion of daratumumab on 04/29/2018. She tolerated it without acute toxicity. She was able to complete 8 infusions at the weekly interval followed by 8 infusions at the 2-week interval. The treatments were then administered at a 4-week interval beginning in November 2018. During that time, she her pomalidomide had to be put on hold due to neutropenia. She eventually was able to tolerate it with the dosage reduced to 1 mg. She did have a very good response by protein electrophoresis. On 09/12/2019 she was admitted to [facility] in [place] with shortness of breath, wheezing, and productive cough. She did not have acute infiltrate on chest xray, but she was significantly hypoxic. She continued empiric antibiotic coverage with Levaquin, though it appeared to have most likely have been a viral illness. At her follow-up visit in September she was finally showing recovery from that illness, and she was able to continue her treatment. As of her follow-up visit on 04/05/2020 she had been doing well clinically with her M protein stable at 0.16 g/dL. Following that treatment, though, she became very ill. She had actually started having a cough during her daratumumab infusion and after returning home she had fever in the range of 101 to 102 degrees and she was out of it for 2 days, with virtually no recollection of that time period. She then had generalized bone pain and severe headache for 2 weeks and she could not eat during that time. By about the 11th day she began to feel better, but during that week she developed vomiting and diarrhea. She then continued to show gradually recovery. She did not have COVID testing. Dr Davies had seen her for a follow-up visit on 05/03/2020, and at that point she was able to resume treatment with daratumumab in combination with pomalidomide and dexamethasone. Her other medical illnesses have been limited to GERD and mild asthma. Her other surgical/procedural history includes previous appendectomy and hysterectomy/bilateral salpingo-oophorectomy. She had a minimal smoking history in the past, and she quit smoking in 1991. INTERIM HISTORY: At her follow-up visit on 06/28/2020 she reported increased pain in her back and rib cage. It was severe enough that she had been seen in the emergency room in [place] earlier that week. There had been a slight increase in her lambda free light chain, concerning for disease progression. She was given IV Toradol for the pain and she was given antibiotic therapy with Levaquin for possible bronchitis. She also was scheduled for restaging PET/CT. That study was completed on 07/01/2020. It showed mild sacral activity and a bilateral pattern which was thought to be more suggestive of reactive uptake than myeloma. Pelvic lesions did not demonstrate increased FDG activity, and were felt to likely correspond to prior sites of active myeloma. She continued her treatment with daratumumab/pomalidomide/dexamethasone at 4-week intervals. However, at her follow-up visit in September 2020 her M protein had increased to 0.61 g/dL and there was a significant increase in her lambda free light chain to 366.71 mg/L. Based on her elevated M protein and lambda free light chain, Dr. Davies recommended that she stop treatment with the daratumumab, pomalidomide, dexamethasone and start a carfilzomib-containing regimen. She has had insurance approval for her treatment plan consisting of carfilzomib 20 mg per metered squared day 1 of cycle 1 only then 70 mg mg/m2 day 8 and 15 of cycle 1 and day 1, 8, 15 of subsequent cycles and dexamethasone 8 mg weekly. This is a 28 day cycle. Ms Farrell began her first cycle of carfilzomib on 11/23/2020. She was having more back pain on the 11/23/2020 visit. Her MS ER was increased to 200 mg every 12 hours. She states her pain is well controlled now. She is here today for followup and cycle 3 day 1 carfilzomib. Her dexamethasone was stopped on cycle 2-day 8 due to jitteriness and fatigue as well as shakes . She has had intolerance of the dexamethasone in the past. She states this last treatment hit her little harder than the previous 3. She states that she had bad side effects with nausea and fatigue she states she just felt she could get out of it for several days. She also states that she had some shortness of breath and chest tightness with exertion. That all is better at this time but states it lasted for several days after treatment. She is concerned that she may not be able to tolerate the treatment. Her appetite is marginal but she states it has improved over the last 3 to 4 days. Her energy is some better but not back to her normal yet. She denies any nausea or vomiting. She states her bowels and bladder been normal for her. She has had no worsening of her chronic back pain. She is had no symptoms of neuropathy with this treatment. Her ECOG is 2 today. We discussed at length holding her treatment today but she states she did not get hydration with the carfilzomib last treatment and wanted to pursue that today to see if that would possibly make her feel better. Past Medical History: Gastroesophageal reflux disease IgG kappa myeloma Mild asthma Past Surgical History: Appendectomy Bone marrow aspiration/biopsy in January 2013, July 2016, and February 2018 Kyphoplasty at T11 and L5 vertebral levels Tubal ligation Colonoscopy in 2012 Hysterectomy/bilateral salpingo-oophorectomy in 2008 Allergies: Codeine Sulfate Medications: Acetaminophen 2 Tablet (of 325 mg) Oral four times a day PRN ALPRAZolam 1 Tablet (of 1 mg) Oral t.i.d. Benzonatate 1 Capsule (of 100 mg) Oral t.i.d. PRN Childrens Aspirin 2 Tablet (of 81 mg) Tablet, chewable Oral daily Cyclobenzaprine HCl 1 Tablet (of 10 mg) Oral t.i.d. Gabapentin 1 Capsule (of 100 mg) Oral t.i.d. Lidocaine 3 patch(es) (of 5 %) Patch Topical q 24 hours Lidocaine 1 (5 %) Ointment Topical q 3 hours PRN Melatonin 1 Tablet (of 10 mg) Oral at bedtime Morphine Sulfate 1 - 2 Tablet (of 30 mg) Oral q 3 hours Morphine Sulfate ER (100 mg) Tablet, controlled release Oral Take as Directed Mupirocin 1 (2 %) Ointment Topical PRN Omeprazole 1 Tablet (of 40 mg) Capsule Oral daily Phentermine HCl 1 Capsule (of 37.5 mg) Oral daily Pomalidomide 1 Capsule (of 1 mg) Oral daily Valerian Root 2 (1000 mg) Capsule Oral daily Ventolin HFA 2 puff(s) (of 108 (90 base) mcg/act) Aerosol, solution Inhalation q 4 hours Voltaren Gel (jelly) Transdermal Family History: Ms. Farrell's mother at age 85: breast cancer, and myocardial infarction, and heart disease. Ms. Farrell's father at age 85: heart disease, and myocardial infarction. Ms. Farrell has 4 sisters: 2 alive, 2 . Ms. Farrell's first sister's ovarian cancer. Another sister's colon cancer. Another sister's myeloma. Another sister's breast cancer. Both parents of heart attack in their mid 80s. One brother of a gunshot wound, another with complications of diabetes, and another of old age. A sister of colon cancer and another sister of ovarian cancer. A sister has been treated for melanoma and is still living at age 75. Another sister has been treated for breast cancer and is still living at age 67. Social History: Ms. Farrell is and she is a disabled. Ms. Farrell quit smoking 27 years ago but had smoked for 13 years. She has no history of drinking. She had minimal smoking history in the past, and the range of 2-3 cigarettes per day. She quit smoking in 1991. She currently does not drink alcohol. She has had moderate alcohol use in the past. Review Of Symptoms: <See Above> Vital Signs: Performed on January 18, 2021 13:37 Height - 57.00 in Weight - 172.0 lbs (LOW) BSA - 1.69 sq.m BMI - 37.22 (HIGH) Temperature - 97.5 F (LOW) Pulse - 108 /min (HIGH) Respiration - 19 /min BP - 122/74 mm(hg) O2 Sat - 96 % Pain - 0,1 - No physically strenuous activity, but ambulatory and able to carry out light or sedentary work (e.g. office work, light house work). (ECOG) Physical Examination: Constitutional Alert, oriented, no acute distress. Skin pink, warm and dry. Head Normocephalic; atraumatic. Eyes Conjunctivae and sclerae are clear and without icterus. Pupils are reactive and equal. Neck Supple without masses or thyromegaly. No jugular venous distension. Hematologic/Lymphatic No petechiae or purpura. No tender or palpable lymph nodes in the cervical or supraclavicular areas. Respiratory Lungs are clear to auscultation without rhonchi or wheezing. Cardiovascular Regular rate and rhythm of heart without murmurs,clicks, gallops or rubs. Chest Left chest wall venous access device is unremarkable. Abdomen Non-tender, non-distended, no masses, ascites. Back/Spine Non-tender to palpation. Extremities She has 2+ bilateral lower extremity edema with mild erythema and slight temperature/warmness. Both legs have small lacerations that are currently scabbed over without drainage. Musculoskeletal No tenderness or swelling, normal range of motion without obvious weakness. Integumentary No rashes or lesions. Neurologic No sensory or motor deficits, normal cerebellar function, slow cane assisted gait-slow per her normal. Psychiatric Alert and oriented times three. Coherent speech. Verbalizes understanding of our discussions today. Laboratory:Test performed on January 24, 2021 10:37 Glucose 98 mg/dL BUN 16 mg/dL Creatinine 0.65 mg/dL Cr Clearance (Est) 104.40 mL/min Sodium 137 mmol/L Potassium 3.9 mmol/L Chloride 103 mmol/L CO2 25 mmol/L Calcium 9.6 mg/dL Protein, Total 7.0 g/dL Albumin 3.5 g/dL Bilirubin, Total 0.3 mg/dL Alkaline Phosphatase 46 IU/L AST (SGOT) 32 IU/L ALT (SGPT) 9 IU/L WBC 4.0 10^9/L RBC 3.63 10^12/L HGB 10.9 g/dL HCT 33.1 % MCV 91.2 fl MCH 30.0 pg MCHC 32.9 g/dL RDW 13.8 % Platelet Count 226 10^9/L MPV 10.3 fL Neutrophils (Gran) 1.98 10^9/L Lymphocytes 1.51 10^9/L Monocytes 0.46 10^9/L Eosinophils 0.02 10^9/L Basophils 0.02 10^9/L Manual Lymphocytes 38 % Manual Monocytes 12 % Manual Eosinophils 1 % Manual Basophils 1 % Test performed on January 17, 2021 07:27 TSH 10.82 uU/mL Albumin, SPE 3.49 g/dL Globulin 1.86 g/dL IGA 5 mg/dL IGG 2269 mg/dL IGM 5 mg/dL [place] / Lambda Ratio 0.00 Absolute Value Lambda Light Chain 988.00 [place] Light Chain 1.05 [id number] 0.30 g/dL [id number]-[id number] 0.73 g/dL Beta Globulin 0.69 g/dL SPE Interpretation mild increase in monoclonal proteinemia since prior study Impression: 1. IgG lambda myeloma, initially diagnosed in December 2012. She had associated lytic bone involvement with vertebral compression fractures at T11 and L5. 2. She has associated hypogammaglobulinemia. 3. GERD. 4. Mild asthma. Plan/Problems Addressed at this Visit: 1. IgG lambda myeloma, initially diagnosed in December 2012. She had associated lytic bone involvement with vertebral compression fractures at T11 and L5. She had a good response to initial treatment with 4 cycles of Velcade/Revlimid/dexamethasone followed by high-dose melphalan/stem cell transplant in May 2013. She then continued maintenance Revlimid until July 2015, stopped at that time due to toxicity. She had evidence of disease progression on repeat bone marrow aspiration/biopsy July 2016, and she then restarted Revlimid. Treatment was stopped in December 2017 due to toxicity, mainly cytopenias. She had evidence of disease progression again by bone marrow aspiration/biopsy in February 2018. Her M protein at that point had increased to 1.82 gm/dL. PET/CT showed new area of bone involvement in the right sacral ala. As of 04/29/2018 she began treatment with daratumumab in combination with pomalidomide and dexamethasone. The daratumumab was administered weekly for 8 weeks, then every 2 weeks for an additional 8 doses. During that time the pomalidomide had to be put on hold due to neutropenia. She eventually was able to tolerate it with the dosage reduced to 1 mg daily on a 21/28-day schedule. Since November 2018 her treatments have been administered at 4-week intervals. She had a very good response by protein electrophoresis. Over the past several months or has been a continued increase in her M protein and in her serum free lambda light chain, consistent with disease progression. Her lambda free light chain as of October 27, 2020 was 4443.34. She has been advised to change treatments from the daratumumab/pomalidomide/dexamethasone to carfilzomib and dexamethasone. She began her first cycle on November 23, 2020. A. Proceed with cycle 3 day 1 carfilzomib 70 mg/m2. Resume previous hydration???she generally receives about 500 mL of normal saline with a carfilzomib such as 250 before 250 post. B. She has stopped the dexamethasone on day 8 of cycle 2 due to jitteriness, shakes and intolerance. C. Prophylaxis treatment: she will proceed with aspirin 81 mg daily; she is currently on acyclovir 400 mg twice daily and Bactrim twice daily on Mondays and . D. Labs from January 17, 2021 were reviewed in detail and discussed with Ms. Farrell and a copy was given to her. WBC 4.5, hemoglobin 11.2, platelets 216,000, ANC is 6070. Potassium 4.1 creatinine 0.9 LFTs are normal. Her TSH is 10.82. Her lambda light chain on December 19, 2020 was 902 and on November 24, 2020 was 1228.9. E. Her TSH from November 23, 2020 was reported at 6.9. Her TSH today is 10.82 we will go ahead and start her on 25 mcg of Synthyroid as she is having significant fatigue which is difficult to relate to either the carfilzomib for the hypothyroidism. F. Carfilzomib has increased risk for cardiac toxicity. She has also been heavily treatment with chemotherapy in the past. She did have echocardiogram???limited to assess LV systolic function and regional wall motion. This was done on October 30, 2020. It reported LVEF at 60-65% and no regional wall motion abnormalities. G. Of also sent a prescription for Nitrostat to use as needed for the chest tightness with exertion. It is difficult to determine if this is cardiac or not. If she has good response with nitroglycerin she will need referral to cardiology and if she continues to have persistent chest discomfort with exertion, she will need referral to cardiology. 2. She has associated hypogammaglobulinemia. She has had occasional respiratory infections, but thus far they have not been frequent enough to justify starting replacement IVIG. 3. She has chronic back pain associated with her vertebral compression fractures. A. She currently is being managed with morphine extended release 200 mg in the morning and 200 mg at night. B. She has MS IR 30 mg to use 1 or 2 every 4-6 hours as needed. C. She also has cyclobenzaprine 10 mg to take 3 times daily. She is on gabapentin 100 mg 3 times daily. She also uses Lidoderm patches 5% as needed. She also has Voltaren gel to use as needed. 4. She had had swelling in the right leg and she had some associated skin ulcers. A. As she has been on a treatment regimen which has associated risk for thromboembolism, she did have ultrasound on October 30, 2020 to assess for DVT. It was negative. She was treated with Ceftin and remains on baby aspirin daily. B. The swelling and ulcers patients have vastly improved. She has very slight edema and the ulcerations are healed. 5. Lack of blood return via venous access device A. Ms. Farrell did require a flow study on her venous access device as we were unable to get blood return after administering Cathflo twice. The flow study was normal blood refill. There is no evidence of DVT or obstruction. Her chemotherapy was administered through her port without any obvious implications. B. She may require continued peripheral venous access for blood work due to the lack of blood return from the port. 6. Follow-up plan A. Return in 1 week for cycle 3 day 8 carfilzomib. B. She will be due for her CBC, CMP, C. She will require port maintenance as she does have a left subclavian Port-A-Cath. D. Mrs. Farrell was instructed to contact us in interim should questions or problems arise. Signed By: Ac Carr-, [facility] Kenroy Davies MD <<Signature on File>>
== END 2021-01-18 05:59 | disposition home or self-care (01) ==
LOC: ONCMED 06:00
PROVIDERS: Visit Provider Nurse Practitioner
DX: Z51.11 Encounter for antineoplastic chemotherapy (principal); C90.00 Multiple myeloma not having achieved remission; C79.51 Secondary malignant neoplasm of bone; D80.1 Nonfamilial hypogammaglobulinemia; K21.9 Gastro-esophageal reflux disease without esophagitis; J45.20 Mild intermittent asthma, uncomplicated; Z79.899 Other long term (current) drug therapy
CPT/HCPCS: 96361; 96413; 99214; J7040; J9047

== ENCOUNTER 2021-01-24 17:23 | Observation (INO) | payer MEDICARE, MEDICAID, SELFPAY ==
[2021-01-24 17:24] VITALS: BP 152/87; PULSE 132; RESP 18; TEMP 37.1; O2SAT 93; BMI 37.0
--- NOTE | 2021-01-24 17:35 | ECG_ITS ---
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 Measurements Intervals [place] Rate: 91 P: 51 MI: 161 QRS: 76 QRSD: 82 T: 64 QT: 344 QTc: 424 Interpretive Statements SINUS RHYTHM No previous ECG available for comparison Electronically Signed On 01-25-2021 10:10:52 CDT by Ryann Wheatley M.D. [id number]
--- NOTE | 2021-01-24 18:51 | ED_ITS ---
HPI - Nausea/Vomiting/Diarrhea General: Chief complaint: Nausea/Vomiting/Diarrhea Stated complaint: PT SICK FROM NEW CHEMO Time Seen by Provider: 01/24/21 17:35 History of Present Illness: HPI Narrative: Patient has myeloma and is a chemo patient for the past 3 months she is had a lot of difficulty with the latest chemotherapy. She has been having vomiting the past couple of days she has a significant loss of appetite she is losing almost a pound every couple of days she is getting weaker. She was seen at [place] earlier this morning given some IV fluids but after she left there she continues to have loss of appetite nausea and just generalized malaise and she spoke to oncology who sent her over here for admission. She has chronic pain she has a headache this is been ongoing for the past couple months with this chemotherapy and denies any fevers or this being a new complaint. She denies any specific abdominal pain Review of Systems Narrative: General: Denies fever positive for fatigue severe weakness HEENT: denies ear pain, denies nasal congestion, denies vision changes, denies sore throat Neck: denies masses or pain Resp: denies cough, denies shortness of breath, denies pleuritic pain Cardio: denies chest pain, denies edema GI: denies abdominal pain, positive for nausea and vomiting, denies black/tarry or bloody stools : denies hematuria, denies dysuria Neuro: + headache, denies dizziness, denies motor or sensory changes Musculoskeletal: denies pain, denies swelling Skin: denies rashes Psych: denies SI or HI Endocrine: denies thyroid symptoms, denies lymphadenopathy all over ROS reviewed and patient denies PFSH ED PFSH: Medical History (Updated 01/24/21 @ 18:55 by Sandy Wade DO) Gastroesophageal reflux disease Mild asthma Multiple myeloma Transplanted bone marrow present Surgical History H/O kyphoplasty History of tubal ligation Hx of appendectomy Hx of total hysterectomy Family History Mother Cancer Heart attack Father Cancer Heart attack Brother Diabetes Sister Diabetes Cancer Social History Smoking and tobacco status: former smoker Alcohol intake: never Physical Exam Narrative: EXAM NARRATIVE: General: a/o/3, no distress Head: atraumatic HEENT: normal eyes, normal conjunctiva, normal hearing, normal external nose, normal mouth, mucous membranes dry Neck: FROM, trachea midline Chest: normal expansion, no gross deformities Resp: normal speech, no retractions, no accessory muscle use, CTA bilaterally Cardio: increased rate and regularrhythm and no murmur, no peripheral edema, normal peripheral pulses GI: soft, flat non tender, no guarding normal BS : deferred Musculoskeletal: FROM, no pain or gross deformities Neuro: a/o appropriate for age, no gross motor or sensory deficits, CN II-XII grossly intact, normal coordination, normal speech Skin: no rashes Psych: cooperative, normal mood and effect Course Vital Signs: Vital signs: Vital Signs Temperature 98.7 F 01/24/21 17:24 Pulse Rate 132 H 01/24/21 17:24 Respiratory Rate 18 01/24/21 17:24 Blood Pressure 152/87 01/24/21 17:24 Pulse Oximetry 93 01/24/21 17:24 MDM - Nausea/Vomiting/Diarrhea Medical Records: Attestation: I reviewed the patient's medical records. Lab Data: Attestation: I reviewed the patient's lab results. Labs: Lab Results 01/24/21 01/24/21 01/24/21 Range/Units 18:51 19:45 19:45 WBC 3.7 L (4.0-10.0) 10^3/ uL RBC 3.69 L (4.1-5.3) 10^6/u L Hgb 11.1 L (11.5-15.3) g/dL Hct 33.7 L (37.0-47.0) % MCV 91.3 (81-99) fL MCH 30.1 (28.0-34.0) pg MCHC 32.9 (30.0-36.0) g/dL RDW 13.5 (12.1-15.1) % Plt Count 216 (130-400) 10^3/c mm MPV 10.4 (7.4-10.4) fL Neut % (Auto) 28.5 % Lymph % (Auto) 55.9 % [place] % (Auto) 14.2 % Eos % (Auto) 1.1 % Baso % (Auto) 0.3 % Neut # (Auto) 1.04 L (1.8-7.7) 10^3/u L Lymph # (Auto) 2.0 (0.8-4.8) 10^3/u L [place] # (Auto) 0.5 (0.2-0.9) 10^3/u L Eos # (Auto) 0.0 (0.0-0.8) 10^3/u L Baso # (Auto) 0.0 (0.0-0.1) 10^3/u L Nucleated RBC % (a uto) 0 % Nucleated RBCs # 0.0 /100WBC Sodium 139 (136-145) mmol/L Potassium 4.0 (3.5-5.1) mmol/L Chloride 106 (98-107) mmol/L Carbon Dioxide 24 (22-29) mmol/L Anion Gap 13.0 (5-19) BUN 13 (8-23) mg/dL Creatinine 0.5 (0.5-0.9) mg/dL GFR Calculation 123.1 (90-130) mL/min Glucose 94 (65-115) mg/dL Calculated Osmolal ity 288 (285-295) mOsm/k g Calcium 8.9 (8.5-10.5) mg/dL Total Bilirubin 0.4 (0.15-1.2) mg/dL AST 29 (0-32) U/L ALT 8 (0-33) U/L Alkaline Phosphata se 44 (35-105) IU/L Total Protein 7.0 (6.6-8.7) g/dL Albumin 3.7 (3.5-5.2) g/dL Globulin 3.3 (1.3-4.6) g/dL Lipase 33 (13-60) U/L Urine Color Yellow (Yellow) Urine Appearance Clear (CLEAR) Urine pH 5 (5-7) Ur Specific Gravit y 1.020 (1.005-1.030) Urine Protein Trace (Negative) Urine Glucose (UA) Norm (Normal) Urine Ketones Negative (Negative) Urine Blood Neg (Negative) Urine Nitrate Negative (Negative) Urine Bilirubin Neg (Negative) Urine Urobilinogen Norm (Negative) mg/dL Ur Leukocyte Raeann ase Negative (Negative) Urine RBC 10-15 H (0-2) /hpf Urine WBC None (0-5) /hpf Ur Squamous Epith Cells 0-4 H (0-5) /hpf Amorphous Sediment Not Reportable Urine Bacteria 1+ H (NONE) /hpf Hyaline Casts 15-25 H /lpf Fine Granular Cast s 5-10 H /lpf Urine Mucus 2+ /hpf EKG Data^: EKG 1: EKG interpretation date: 01/24/21 EKG interpretation time: 18:54 Interpretation: NSR, rate 91, no acute st changes or elevation Discharge Plan Discharge Admit Provider: Lucas Oleary Clinical Impression: Dehydration, Adult failure to thrive, Chemotherapy induced nausea and vomiting Condition: Stable Coding Level of Care Code ED Hadoop Application Developer for Sinan Emanuel
[2021-01-24 19:50] LABS: Basophils % 0.3 %; Eosinophils % 1.1 %; Hematocrit 33.7 % (37.0-47.0); Hemoglobin 11.1 g/dL (11.5-15.3); Lymphocytes % 55.9 %; Mean Corpuscular HGB Conc 32.9 g/dL (30.0-36.0); Mean Corpuscular Hemoglobin 30.1 pg (28.0-34.0); Mean Corpuscular Volume 91.3 fL (81-99); Mean Platelet Volume 10.4 fL (7.4-10.4); Monocytes # 0.5 10^3/uL (0.2-0.9); Monocytes % 14.2 %; Neutrophils # 1.04 10^3/uL (1.8-7.7); Neutrophils % 28.5 %; Nucleated Red Blood Cells % 0 %; Platelet Count 216 10^3/cmm (130-400); Red Blood Count 3.69 10^6/uL (4.1-5.3); Red Cell Distribution Width 13.5 % (12.1-15.1); White Blood Count 3.7 10^3/uL (4.0-10.0)
[2021-01-24 20:08] LABS: Alanine Aminotransferase 8 U/L (0-33); Albumin Level 3.7 g/dL (3.5-5.2); Alkaline Phosphatase 44 IU/L (35-105); Aspartate Amino Transferase 29 U/L (0-32); Blood Urea Nitrogen 13 mg/dL (8-23); Calcium 8.9 mg/dL (8.5-10.5); Carbon Dioxide 24 mmol/L (22-29); Chloride 106 mmol/L (98-107); Creatinine Clr Calc Pharmacy 80.6251; Globulin 3.3 g/dL (1.3-4.6); Glomerular Filtration Rate 123.1 mL/min (90-130); Glucose 94 mg/dL (65-115); Lipase 33 U/L (13-60); Osmolality Calculated 288 mOsm/kg (285-295); Sodium 139 mmol/L (136-145); Total Bilirubin 0.4 mg/dL (0.15-1.2)
[2021-01-24 20:09] LABS: Urine Appearance Clear (CLEAR); Urine Color Yellow (Yellow); pH Urine 5 (5-7)
[2021-01-24 20:10] LABS: Bilirubin Urine Neg (Negative); Blood Urine Neg (Negative); Glucose Urine UA Norm (Normal); Ketones Urine Negative (Negative); Leukocyte Esterase Urine Negative (Negative); Nitrate Urine Negative (Negative); Protein Urine Trace (Negative); Urobilinogen Urine Norm (Negative)
[2021-01-24 20:11] LABS: Hyaline Casts Urine 15-25 /lpf
[2021-01-24 20:12] LABS: Add Urine Culture? Yes; Bacteria Urine 1+ /hpf; Mucus Urine 2+ /hpf; Squamous Epithelial Cell Urine 0-4 /hpf (0-5)
--- NOTE | 2021-01-24 20:42 | CTR_ITS ---
PROCEDURE INFORMATION: Exam: CT Head Without Contrast Exam date and time: 01/24/2021 8:44 PM Age: 65 years old Clinical indication: Pain; Headache; Additional info: Headache, multiple myeloma TECHNIQUE: Imaging protocol: Computed tomography of the head without contrast. Radiation optimization: All CT scans at this facility use at least one of these dose optimization techniques: automated exposure control; mA and/or kV adjustment per patient size (includes targeted exams where dose is matched to clinical indication); or iterative reconstruction. COMPARISON: No relevant prior studies available. RADIATION DOSE METRICS: Total DLP (mGy-cm): 1455.57 FINDINGS: Brain: Diffuse mild cerebral age related volume loss. Mild patchy low attenuation in the white matter compatible with mild chronic small vessel ischemic disease. No midline shift, mass, fluid collection, or evidence of hemorrhage. Cerebral ventricles: Ventricular enlargement proportional to volume loss. Bones/joints: Unremarkable. No acute fracture. Paranasal sinuses: Visualized sinuses are unremarkable. No fluid levels. Mastoid air cells: Visualized mastoid air cells are well aerated. Soft tissues: Unremarkable. CT/CT head wo con* [id number] IMPRESSION: Mild involutional changes, no acute intracranial abnormality. Radiation Dose CTDIVOL = (mGy): DLP = 1455.57 (mGy-cm)
[2021-01-24] MEDS: sodium chloride 0.9% 1,000 ML 999 ML IV (21:10)
[2021-01-24] MEDS: promethazine 25 mg Tablet PO (21:12)
[2021-01-24] MEDS: ondansetron 2 mg/ML SDV 2 mL 4 MG IVP (21:12)
[2021-01-24] MEDS: ketorolac 30 mg/mL INJ IVP (21:14)
--- NOTE | 2021-01-24 21:30 | PM.HP ---
Providers/Chief Complaint Primary Care Provider: Job Alexander Chief Complaint: PT SICK FROM NEW CHEMO History of Present Illness Salima Farrell is a 65 year old female with past medical history of multiple myeloma which was diagnosed in 2012. She underwent multiple courses of chemotherapy since then. Temporary remission was achieved couple of years ago. However recurrence was found about a year ago for which she started a new course of chemotherapy with Dr Davies. The treatments were changed 2 weeks ago due to progression of the disease. Since then the patient developed increasing nausea and vomiting, generalized weakness and tiredness. The patient is unable to eat or drink due to persistent nausea. She is progressively losing her weight. Initial disease was in T11 and L5 spine. However since then it has spread all over her body. According to the patient 98% affecting her bones. She normally takes morphine for the pain but currently unable to take it due to persistent nausea and vomiting. She also reports headache. Denies any focal weakness or sensory loss. No fever or chills. A week ago she was prescribed as needed nitroglycerin for chest pain but she does not believe that helps. Today she denies any chest pain. She also denies cough or shortness of breath. No diarrhea or abdominal pain. No rectal blood. No hematemesis. The patient denies dysuria. Review of Systems General: Reports: 10 or more systems reviewed and unremarkable except in HPI and below Medications/Allergies Home Medications Medication Instructions Recorded Confirmed Last Taken Type Cam walker #1 each 03/08/20 01/24/21 Unknown Rx Morphine Sulfate See Rx Instructions .ROUTE .COMPLEX 03/08/20 01/24/21 01/24/21 History acetaminophen 325 mg capsule 325 mg PO QID PRN 03/08/20 01/24/21 Unknown History alprazolam 1 mg tablet 1 mg PO TID 03/08/20 01/24/21 01/24/21 History benzonatate 100 mg capsule 100 mg PO TID 03/08/20 01/24/21 Unknown History cyclobenzaprine 10 mg tablet 10 mg PO TID 03/08/20 01/24/21 01/23/21 History diclofenac sodium 1 % topical gel 2 gm TOPICAL QID 03/08/20 01/24/21 Unknown History gabapentin 100 mg capsule 100 mg PO BEDTIME 03/08/20 01/24/21 01/23/21 History lidocaine 5 % topical patch 3 patch TOPICAL DAILY 03/08/20 01/24/21 01/24/21 History melatonin 10 mg capsule 10 mg PO DAILY 03/08/20 01/24/21 01/23/21 History mupirocin 2 % topical ointment 1 applic TOPICAL BID 03/08/20 01/24/21 01/23/21 History omeprazole 40 mg capsule,delayed 40 mg PO DAILY 03/08/20 01/24/21 01/23/21 History release albuterol sulfate See Rx Instructions .ROUTE .COMPLEX 01/24/21 01/24/21 01/24/21 History aspirin 325 - 650 mg PO Q4H PRN 01/24/21 01/24/21 01/24/21 History ibuprofen 200 - 400 mg PO Q4H PRN 01/24/21 01/24/21 01/24/21 History levothyroxine 25 mcg PO DAILY 01/24/21 01/24/21 01/20/21 History nitroglycerin 0.4 mg SUBLINGUAL Q5M PRN 01/24/21 01/24/21 01/23/21 History ondansetron HCl 8 mg PO Q8H PRN 01/24/21 01/24/21 01/24/21 History sodium chloride See Rx Instructions .ROUTE .COMPLEX 01/24/21 01/24/21 Unknown History tamsulosin 0.4 mg PO DAILY 01/24/21 01/24/21 01/23/21 History valerian root 1 cap PO DAILY 01/24/21 01/24/21 01/23/21 History Allergies Allergy/AdvReac Type Severity Reaction Status Date / Time codeine Allergy Unknown unknown Verified 03/29/20 09:30 PFSH Acute PFSH: Medical History (Updated 01/24/21 @ 18:55 by Sandy Wade DO) Gastroesophageal reflux disease Mild asthma Multiple myeloma Transplanted bone marrow present Surgical History H/O kyphoplasty History of tubal ligation Hx of appendectomy Hx of total hysterectomy Family History Mother Cancer Heart attack Father Cancer Heart attack Brother Diabetes Sister Diabetes Cancer Social History Smoking and tobacco status: former smoker Alcohol intake: never Vitals/I&O/Wt Last Vital Signs Temp 98.7 F 01/24/21 17:24 Pulse 132 H 01/24/21 17:24 Resp 18 01/24/21 17:24 BP 152/87 01/24/21 17:24 Pulse Ox 93 01/24/21 17:24 Weight last 48 hrs Weight 74.843 kg Physical Exam Narrative: EXAM NARRATIVE: Patient is in mild to moderate distress due to the pain and nausea. She is awake alert and oriented. Responses are adequate. Mood and affect are appropriate. Skin is warm and dry. Moist mucous membranes Neck supple. No JVD Eyes PERRL, extraocular muscles are intact Normal speech. No facial asymmetry Lungs are clear bilaterally. No respiratory distress Heart S1, S2, regular Abdomen soft, nontender, bowel sounds are present Extremities bilateral edema. No cyanosis or calf tenderness bilaterally. Neuro. No focal weakness. Data : 01/24/21 19:45 01/24/21 19:45 Other Labs: Laboratory Results WBC 3.7 10^3/uL (4.0-10.0) L 01/24/21 19:45 RBC 3.69 10^6/uL (4.1-5.3) L 01/24/21 19:45 Hgb 11.1 g/dL (11.5-15.3) L 01/24/21 19:45 Hct 33.7 % (37.0-47.0) L 01/24/21 19:45 MCV 91.3 fL (81-99) 01/24/21 19:45 MCH 30.1 pg (28.0-34.0) 01/24/21 19:45 MCHC 32.9 g/dL (30.0-36.0) 01/24/21 19:45 RDW 13.5 % (12.1-15.1) 01/24/21 19:45 Plt Count 216 10^3/cmm (130-400) 01/24/21 19:45 MPV 10.4 fL (7.4-10.4) 01/24/21 19:45 Neut % (Auto) 28.5 % 01/24/21 19:45 Lymph % (Auto) 55.9 % 01/24/21 19:45 [place] % (Auto) 14.2 % 01/24/21 19:45 Eos % (Auto) 1.1 % 01/24/21 19:45 Baso % (Auto) 0.3 % 01/24/21 19:45 Neut # (Auto) 1.04 10^3/uL (1.8-7.7) L 01/24/21 19:45 Lymph # (Auto) 2.0 10^3/uL (0.8-4.8) 01/24/21 19:45 [place] # (Auto) 0.5 10^3/uL (0.2-0.9) 01/24/21 19:45 Eos # (Auto) 0.0 10^3/uL (0.0-0.8) 01/24/21 19:45 Baso # (Auto) 0.0 10^3/uL (0.0-0.1) 01/24/21 19:45 Nucleated RBC % (auto) 0 % 01/24/21 19:45 Nucleated RBCs # 0.0 /100WBC 01/24/21 19:45 Sodium 139 mmol/L (136-145) 01/24/21 19:45 Potassium 4.0 mmol/L (3.5-5.1) 01/24/21 19:45 Chloride 106 mmol/L (98-107) 01/24/21 19:45 Carbon Dioxide 24 mmol/L (22-29) 01/24/21 19:45 Anion Gap 13.0 (5-19) 01/24/21 19:45 BUN 13 mg/dL (8-23) 01/24/21 19:45 Creatinine 0.5 mg/dL (0.5-0.9) 01/24/21 19:45 GFR Calculation 123.1 mL/min (90-130) 01/24/21 19:45 Glucose 94 mg/dL (65-115) 01/24/21 19:45 Calculated Osmolality 288 mOsm/kg (285-295) 01/24/21 19:45 Calcium 8.9 mg/dL (8.5-10.5) 01/24/21 19:45 Total Bilirubin 0.4 mg/dL (0.15-1.2) 01/24/21 19:45 AST 29 U/L (0-32) 01/24/21 19:45 ALT 8 U/L (0-33) 05/19/21 19:45 Alkaline Phosphatase 44 IU/L (35-105) 01/24/21 19:45 Total Protein 7.0 g/dL (6.6-8.7) 01/24/21 19:45 Albumin 3.7 g/dL (3.5-5.2) 01/24/21 19:45 Globulin 3.3 g/dL (1.3-4.6) 01/24/21 19:45 Lipase 33 U/L (13-60) 01/24/21 19:45 Urine Color Yellow (Yellow) 01/24/21 18:51 Urine Appearance Clear (CLEAR) 01/24/21 18:51 Urine pH 5 (5-7) 01/24/21 18:51 Ur Specific [place] 1.020 (1.005-1.030) 01/24/21 18:51 Urine Protein Trace (Negative) 01/24/21 18:51 Urine Glucose (UA) Norm (Normal) 01/24/21 18:51 Urine Ketones Negative (Negative) 01/24/21 18:51 Urine Blood Neg (Negative) 01/24/21 18:51 Urine Nitrate Negative (Negative) 01/24/21 18:51 Urine Bilirubin Neg (Negative) 01/24/21 18:51 Urine Urobilinogen Norm mg/dL (Negative) 01/24/21 18:51 Ur Leukocyte Esterase Negative (Negative) 01/24/21 18:51 Urine RBC 10-15 /hpf (0-2) H 01/24/21 18:51 Urine WBC None /hpf (0-5) 01/24/21 18:51 Ur Squamous Epith Cells 0-4 /hpf (0-5) H 01/24/21 18:51 Amorphous Sediment Not Reportable 01/24/21 18:51 Urine Bacteria 1+ /hpf (NONE) H 01/24/21 18:51 Hyaline Casts 15-25 /lpf H 01/24/21 18:51 Fine Granular Casts 5-10 /lpf H 01/24/21 18:51 Urine Mucus 2+ /hpf 01/24/21 18:[address] 01/24/21 20:42 IMPRESSION: Mild involutional changes, no acute intracranial abnormality. Radiation Dose CTDIVOL = (mGy): DLP = 1455.57 (mGy-cm) A&P Additional A&P Information 65-year-old female with past medical history of multiple myeloma which is progressing, undergoing new course of chemotherapy with Dr. Davies. She presents with complaints of nausea and vomiting, weight loss, dehydration, generalized weakness. Nausea and vomiting. Suspected to be secondary to chemotherapy. We will admit her for observation. Will start IV fluids. We will monitor and replace her electrolytes as needed. We will initiate nausea medications. Advanced multiple myeloma chronic pain. Will order as needed morphine. Will contact Dr. Davies and inform him about patient's admission. DVT prophylaxis.. Teds and SCDs. Will start Lovenox. CODE STATUS. The patient wants to be DNR. She understands what DNR means. She does not want cardiac or respiratory resuscitation. She would prefer to peacefully when the time comes. The plan of care was discussed with the patient. She verbalized understanding and agreement. Attestations Medical Necessity Statement*: Observation Coding Level of Care Code Acute Digital Account Coordinator for Sinan Emanuel
[2021-01-24 23:14] LABS: Add Urine Microscopic? NO; Charge for UA Resulting for Rev
[2021-01-24 23:15] LABS: Specific Gravity, Urine 1.015 (1.005-1.030); Urine Appearance Clear (CLEAR); Urine Color Yellow (Yellow); pH Urine 5 (5-7)
[2021-01-24 23:16] LABS: Bilirubin Urine Neg (Negative); Blood Urine Neg (Negative); Glucose Urine UA Norm (Normal); Ketones Urine Negative (Negative); Leukocyte Esterase Urine Negative (Negative); Nitrate Urine Negative (Negative); Protein Urine Neg (Negative); Urobilinogen Urine Norm (Negative)
[2021-01-24] MEDS: enoxaparin 40 mg/0.4 mL Syringe SUBCUT (23:26)
[2021-01-24] MEDS: D5-NS 0.45% + KCL 20 mEq 20 MEQ/1,000 ML BAG 100 MEQ IV (23:27)
[2021-01-24 23:36] VITALS: BP 171/91; PULSE 72; RESP 18; TEMP 36.7; O2SAT 94
[2021-01-25] VITALS (8 sets, daily range): BP systolic 147–164; BP diastolic 78–91; PULSE 83–87; RESP 16–20; TEMP 36.7–37.4; O2SAT 92–96
[2021-01-25] MEDS: ondansetron 2 mg/ML SDV 2 mL 4 MG IVP (03:30)
[2021-01-25] MEDS: morphine 4 mg/mL SDV 1 mL IVP ×2 (05:12→08:50)
[2021-01-25 05:25] LABS: Basophils % 0.6 %; Eosinophils # 0.1 10^3/uL (0.0-0.8); Eosinophils % 2.2 %; Hematocrit 32.7 % (37.0-47.0); Lymphocytes # 1.6 10^3/uL (0.8-4.8); Lymphocytes % 50.8 %; Mean Corpuscular HGB Conc 33.6 g/dL (30.0-36.0); Mean Corpuscular Hemoglobin 30.6 pg (28.0-34.0); Mean Corpuscular Volume 91.1 fL (81-99); Mean Platelet Volume 10.4 fL (7.4-10.4); Monocytes # 0.5 10^3/uL (0.2-0.9); Monocytes % 15.8 %; Neutrophils % 30.3 %; Nucleated Red Blood Cells % 0 %; Platelet Count 213 10^3/cmm (130-400); Red Blood Count 3.59 10^6/uL (4.1-5.3); Red Cell Distribution Width 13.4 % (12.1-15.1); White Blood Count 3.2 10^3/uL (4.0-10.0)
[2021-01-25 05:40] LABS: Alanine Aminotransferase 8 U/L (0-33); Albumin Level 3.2 g/dL (3.5-5.2); Alkaline Phosphatase 39 IU/L (35-105); Anion Gap 10.9 (5-19); Aspartate Amino Transferase 28 U/L (0-32); Carbon Dioxide 25 mmol/L (22-29); Chloride 105 mmol/L (98-107); Creatinine Clr Calc Pharmacy 80.6251; Globulin 3.4 g/dL (1.3-4.6); Glomerular Filtration Rate 99.7 mL/min (90-130); Glucose 113 mg/dL (65-115); Neutrophils # 0.96 10^3/uL (1.8-7.7); Phosphorus 4.1 mg/dL (2.5-4.5); Potassium 3.9 mmol/L (3.5-5.1); Total Bilirubin 0.5 mg/dL (0.15-1.2); Total Protein 6.6 g/dL (6.6-8.7)
[2021-01-25 06:14] LABS: Blood Urea Nitrogen 11 mg/dL (8-23); Magnesium 1.7 mg/dL (1.7-2.3); Thyroid Stimulating Hormone 2.13 uIU/mL (0.27-4.20)
[2021-01-25 06:24] LABS: Calcium 8.4 mg/dL (8.5-10.5)
[2021-01-25 06:25] LABS: Osmolality Calculated 284 mOsm/kg (285-295)
[2021-01-25 06:35] LABS: Sodium 137 mmol/L (136-145)
[2021-01-25] MEDS: D5-NS 0.45% + KCL 20 mEq 20 MEQ/1,000 ML BAG 100 MEQ IV (08:49)
[2021-01-25] MEDS: pantoprazole DR 40 mg Tablet PO (08:50)
--- NOTE | 2021-01-25 08:53 | PC.OT ---
OT note: Patient and nurse reported patient has been mod I to get to bathroom with use of cane. OT discussed fall prevention with patient and she reported she uses 4 wheel walker at home. OT offered to get front wheel walker for patient to use while here at hospital and pt declined this. Pt encouraged to use shower chair, especially when feeling sick or weak and pt reported she has one available but doesn't typically use it. Pt educated on importance of fall prevention and she voiced understanding. Pt declined OT and PT at this time. No further therapy at this time.
[2021-01-25] MEDS: lidocaine 5% Patch 3 PATCH TOPICAL (09:03)
--- NOTE | 2021-01-25 10:17 | PC.CHAP ---
Pastoral Care Encounter/Spiritual Assessment Type of Contact [] Declined corporate intern visit [] Patient/Family/Request visit [] Outpatient visit [] Follow-up visit [] Physician referral [] Code/Alert [] Routine visit [] Staff referral [] Actively dying [] Patient sleeping [] Family support [] [] Out of room [] Palliative care [] [] Receiving care in room [] Pre-surgical visit [] Trauma [] Long length of stay [] ICU visit [x] Other: Isolation Relational/Emotional Strength [] Patient feels connected with others/family/visitors/staff [] Distress [] Loneliness/isolation [] Abandonment Spirituality of Patient [] Person of Carole [] Attends Methodist of their Carole [] Believes in Prayer [] Reads Bible or Jew materials [] There are Spiritual issues to be addressed Medical Pathologist Interventions [] Prayer [] Active listening [] Non-anxious presence [] Spiritual/emotional support [] Crisis/trauma care [] Spiritual counseling [] Bereavement support [] Provided bereavement packet [] Provided Bible/devotional materials [] Provided toy/stuffed animal, coloring book to patient or family member [] Provided Communion [] Anointing/[place] [] Salvation [] Completed spiritual assessment [] Other: Impact on Illness or Injury [] Angry [] Fearful [] Anxious [] Often cries [] Exhaustion [] Unable to work [] Unable to attend jehovah's witness [] Unable to walk/stand [] Unable to read [] Unable to drive [] Unable to eat/drink [] Unable to sleep [] Unable to be with family [] Patient intubated [] Other: Summary Isolation Time spent with patient 5 mins
--- NOTE | 2021-01-25 10:54 | PC.NURSE ---
Home Meds Pt states she is supposed to take 2 100 mg tablets of morphine ER in the morning and at night, 12 hours apart. She has not been taking the full 200 mg d/t nausea but has been taking 100 mg. She also has a prescription for 30 mg morphine IR q4h PRN. Both of these meds were confirmed with her pharmacy by this nurse. Orders were given to continue 100 mg morphine ER q12h.
[2021-01-25] MEDS: morphine ER (12 HR) 100 mg Tablet PO (12:15)
--- NOTE | 2021-01-25 14:49 | P.DS_ITS ---
Discharge Providers Date of Admission: 01/24/21 20:59 Date of Discharge: January 25, 2021 Attending Provider at Admission: Lucas Oleary Attending Provider at Discharge: Nasim Solorzano MD Primary Care Provider: Job Alexander Reason for Visit Reason for Visit: PT SICK FROM [facility] Course Hospital Course Salima Farrell is a 65 year old female with past medical history of multiple myeloma which was diagnosed in 2012. She underwent multiple courses of chemotherapy since then. Temporary remission was achieved couple of years ago. However recurrence was found about a year ago for which she started a new course of chemotherapy with Dr Davies. The treatments were changed 2 weeks ago due to progression of the disease. Since then the patient developed increasing nausea and vomiting, generalized weakness and tiredness. The patient is unable to eat or drink due to persistent nausea. She is progressively losing her weight. Initial disease was in T11 and L5 spine. However since then it has spread all over her body. According to the patient 98% affecting her bones. She normally takes morphine for the pain but currently unable to take it due to persistent nausea and vomiting. She also reports headache. Denies any focal weakness or sensory loss. No fever or chills. A week ago she was prescribed as needed nitroglycerin for chest pain but she does not believe that helps. Today she denies any chest pain. She also denies cough or shortness of breath. No diarrhea or abdominal pain. No rectal blood. No hematemesis. The patient denies dysuria. Patient was admitted to the hospital because of dehydration. Overnight she received IV hydration. She is already feeling a lot better. At first she was kept n.p.o. and was gradually advanced on diet. Patient is able to tolerate her pain medications. She has been discharged hemodynamically stable condition with advised to take full liquid to GI soft diet for now and then advance gradually to regular diet within next few days. Her blood work showed leukopenia/neutropenia for which she is being discharged on Levaquin. Her case has been discussed with her outpatient oncologist and would like to see her in a week. Patient is advised to use mupirocin ointment on boil on her leg. She does not have any signs of cellulitis or infection at present. Physical Exam Narrative: EXAM NARRATIVE: Patient is in mild to moderate distress due to the pain and nausea. She is awake alert and oriented. Responses are adequate. Mood and affect are appropriate. Skin is warm and dry. Moist mucous membranes Neck supple. No JVD Eyes PERRL, extraocular muscles are intact Normal speech. No facial asymmetry Lungs are clear bilaterally. No respiratory distress Heart S1, S2, regular Abdomen soft, nontender, bowel sounds are present Extremities bilateral edema. No cyanosis or calf tenderness bilaterally. Neuro. No focal weakness. Discharge Data Data Completed and Pending: Completed Studies During Hospitalization Category Date Time Status CT head wo con* [id number] Urgent Cat Scan 01/24/21 20:42 Completed Pending at discharge Category Date Time Status Urine Culture Sta t Lab 01/24/21 18:51 Received Labs from last 24 hours 01/25/21 01/25/21 01/24/21 04:52 04:52 22:40 WBC 3.2 L RBC 3.59 L Hgb 11.0 L Hct 32.7 L MCV 91.1 MCH 30.6 MCHC 33.6 RDW 13.4 Plt Count 213 MPV 10.4 Neut % (Auto) 30.3 Lymph % (Auto) 50.8 [place] % (Auto) 15.8 Eos % (Auto) 2.2 Baso % (Auto) 0.6 Neut # (Auto) 0.96 L* Lymph # (Auto) 1.6 [place] # (Auto) 0.5 Eos # (Auto) 0.1 Baso # (Auto) 0.0 Nucleated RBC % (a uto) 0 Nucleated RBCs # 0.0 Sodium 137 Potassium 3.9 Chloride 105 Carbon Dioxide 25 Anion Gap 10.9 BUN 11 Creatinine 0.6 GFR Calculation 99.7 Glucose 113 Calculated Osmolal ity 284 L Calcium 8.4 L Phosphorus 4.1 Magnesium 1.7 Total Bilirubin 0.5 AST 28 ALT 8 Alkaline Phosphata se 39 Total Protein 6.6 Albumin 3.2 L Globulin 3.4 Lipase TSH 2.13 Urine Color Yellow Urine Appearance Clear Urine pH 5 Ur Specific [place] y 1.015 Urine Protein Neg Urine Glucose (UA) Norm Urine Ketones Negative Urine Blood Neg Urine Nitrate Negative Urine Bilirubin Neg Urine Urobilinogen Norm Ur Leukocyte Raeann ase Negative Urine RBC Urine WBC Ur Squamous Epith Cells Amorphous Sediment Urine Bacteria Hyaline Casts Fine Granular Cast s Urine Mucus 01/24/21 01/24/21 01/24/21 19:45 19:45 18:51 WBC 3.7 L RBC 3.69 L Hgb 11.1 L Hct 33.7 L MCV 91.3 MCH 30.1 MCHC 32.9 RDW 13.5 Plt Count 216 MPV 10.4 Neut % (Auto) 28.5 Lymph % (Auto) 55.9 [place] % (Auto) 14.2 Eos % (Auto) 1.1 Baso % (Auto) 0.3 Neut # (Auto) 1.04 L Lymph # (Auto) 2.0 [place] # (Auto) 0.5 Eos # (Auto) 0.0 Baso # (Auto) 0.0 Nucleated RBC % (a uto) 0 Nucleated RBCs # 0.0 Sodium 139 Potassium 4.0 Chloride 106 Carbon Dioxide 24 Anion Gap 13.0 BUN 13 Creatinine 0.5 GFR Calculation 123.1 Glucose 94 Calculated Osmolal ity 288 Calcium 8.9 Phosphorus Magnesium Total Bilirubin 0.4 AST 29 ALT 8 Alkaline Phosphata se 44 Total Protein 7.0 Albumin 3.7 Globulin 3.3 Lipase 33 TSH Urine Color Yellow Urine Appearance Clear Urine pH 5 Ur Specific [place] 1.020 Urine Protein Trace Urine Glucose (UA) Norm Urine Ketones Negative Urine Blood Neg Urine Nitrate Negative Urine Bilirubin Neg Urine Urobilinogen Norm Ur Leukocyte Raeann ase Negative Urine RBC 10-15 H Urine WBC None Ur Squamous Epith Cells 0-4 H Amorphous Sediment Not Reportable Urine Bacteria 1+ H Hyaline Casts 15-25 H Fine Granular Cast s 5-10 H Urine Mucus 2+ Addt'l Data from Hospital Stay: Laboratory Results WBC 3.2 10^3/uL (4.0- 10.0) L 01/25/21 04:52 RBC 3.59 10^6/uL (4.1 -5.3) L 01/25/21 04:52 Hgb 11.0 g/dL (11.5-1 5.3) L 01/25/21 04:52 Hct 32.7 % (37.0-47.0 ) L 01/25/21 04:52 MCV 91.1 fL (81-99) 01/25/21 04:52 MCH 30.6 pg (28.0-34. 0) 01/25/21 04:52 MCHC 33.6 g/dL (30.0-3 6.0) 01/25/21 04:52 RDW 13.4 % (12.1-15.1 ) 01/25/21 04:52 Plt Count 213 10^3/cmm (130 -400) 01/25/21 04:52 MPV 10.4 fL (7.4-10.4 ) 01/25/21 04:52 Neut % (Auto) 30.3 % 01/25/21 04:52 Lymph % (Auto) 50.8 % 01/25/21 04:52 [place] % (Auto) 15.8 % 01/25/21 04:52 Eos % (Auto) 2.2 % 01/25/21 04:52 Baso % (Auto) 0.6 % 01/25/21 04:52 Neut # (Auto) 0.96 10^3/uL (1.8 -7.7) L* 01/25/21 04:52 Lymph # (Auto) 1.6 10^3/uL (0.8- 4.8) 01/25/21 04:52 [place] # (Auto) 0.5 10^3/uL (0.2- 0.9) 01/25/21 04:52 Eos # (Auto) 0.1 10^3/uL (0.0- 0.8) 01/25/21 04:52 Baso # (Auto) 0.0 10^3/uL (0.0- 0.1) 01/25/21 04:52 Nucleated RBC % (a uto) 0 % 01/25/21 04:52 Nucleated RBCs # 0.0 /100WBC 01/25/21 04:52 Sodium 137 mmol/L (136-1 45) 01/25/21 04:52 Potassium 3.9 mmol/L (3.5-5 .1) 01/25/21 04:52 Chloride 105 mmol/L (98-10 7) 01/25/21 04:52 Carbon Dioxide 25 mmol/L (22-29) 01/25/21 04:52 Anion Gap 10.9 (5-19) 01/25/21 04:52 BUN 11 mg/dL (8-23) 01/25/21 04:52 Creatinine 0.6 mg/dL (0.5-0. 9) 01/25/21 04:52 GFR Calculation 99.7 mL/min (90-1 30) 01/25/21 04:52 Glucose 113 mg/dL (65-115 ) 01/25/21 04:52 Calculated Osmolal ity 284 mOsm/kg (285- 295) L 01/25/21 04:52 Calcium 8.4 mg/dL (8.5-10 .5) L 01/25/21 04:52 Phosphorus 4.1 mg/dL (2.5-4. 5) 01/25/21 04:52 Magnesium 1.7 mg/dL (1.7-2. 3) 01/25/21 04:52 Total Bilirubin 0.5 mg/dL (0.15-1 .2) 01/25/21 04:52 AST 28 U/L (0-32) 01/25/21 04:52 ALT 8 U/L (0-33) 01/25/21 04:52 Alkaline Phosphata se 39 IU/L (35-105) 01/25/21 04:52 Total Protein 6.6 g/dL (6.6-8.7 ) 01/25/21 04:52 Albumin 3.2 g/dL (3.5-5.2 ) L 01/25/21 04:52 Globulin 3.4 g/dL (1.3-4.6 ) 01/25/21 04:52 Lipase 33 U/L (13-60) 01/24/21 19:45 TSH 2.13 uIU/mL (0.27 -4.20) 01/25/21 04:52 Urine Color Yellow (Yellow) 01/24/21 22:40 Urine Appearance Clear (CLEAR) 01/24/21 22:40 Urine pH 5 (5-7) 01/24/21 22:40 Ur Specific [place] y 1.015 (1.005-1.0 30) 01/24/21 22:40 Urine Protein Neg (Negative) 01/24/21 22:40 Urine Glucose (UA) Norm (Normal) 01/24/21 22:40 Urine Ketones Negative (Negati ve) 01/24/21 22:40 Urine Blood Neg (Negative) 01/24/21 22:40 Urine Nitrate Negative (Negati ve) 01/24/21 22:40 Urine Bilirubin Neg (Negative) 01/24/21 22:40 Urine Urobilinogen Norm mg/dL (Negat leandro) 01/24/21 22:40 Ur Leukocyte Raeann ase Negative (Negati ve) 01/24/21 22:40 Urine RBC 10-15 /hpf (0-2) H 01/24/21 18:51 Urine WBC None /hpf (0-5) 01/24/21 18:51 Ur Squamous Epith Cells 0-4 /hpf (0-5) H 01/24/21 18:51 Amorphous Sediment Not Reportable 01/24/21 18:51 Urine Bacteria 1+ /hpf (NONE) H 01/24/21 18:51 Hyaline Casts 15-25 /lpf H 01/24/21 18:51 Fine Granular Cast s 5-10 /lpf H 01/24/21 18:51 Urine Mucus 2+ /hpf 01/24/21 18:[address] 01/24/21 20:42 IMPRESSION: Mild involutional changes, no acute intracranial abnormality. Radiation Dose CTDIVOL = (mGy): DLP = 1455.57 (mGy-cm) Vitals: Last Vital Signs Temp 98.0 F 01/25/21 12:00 Pulse 83 01/25/21 12:00 Resp 20 H 01/25/21 12:15 BP 164/91 01/25/21 12:00 Pulse Ox 96 01/25/21 12:00 Discharge Plan Discharge Patient Disposition: Home Condition: Stable Prescriptions: New levofloxacin 500 mg tablet 500 mg PO DAILY 5 Days Qty: 5 RF: 0 Continued acetaminophen 325 mg capsule 325 mg PO QID PRN (Reason: Pain) RF: 0 alprazolam 1 mg tablet 1 mg PO TID RF: 0 benzonatate 100 mg capsule 100 mg PO TID RF: 0 cyclobenzaprine 10 mg tablet 10 mg PO TID RF: 0 gabapentin 100 mg capsule 100 mg PO BEDTIME RF: 0 lidocaine 5 % adhesive patch,medicated 3 patch TOPICAL DAILY RF: 0 melatonin 10 mg capsule 10 mg PO DAILY RF: 0 Morphine Sulfate tablet See Rx Instructions .ROUTE .COMPLEX RF: 0 omeprazole 40 mg capsule,delayed release(DR/EC) 40 mg PO DAILY RF: 0 diclofenac sodium [Voltaren] 1 % gel 2 gm TOPICAL QID RF: 0 (DME) Cam walker See Rx Instructions .ROUTE .MEDSUPPLY Qty: 1 RF: 0 aspirin 325 mg Tablet 325 - 650 mg PO Q4H PRN (Reason: pain/headache) RF: 0 ibuprofen 200 mg Tablet 200 - 400 mg PO Q4H PRN (Reason: headache/pain) RF: 0 albuterol sulfate See Rx Instructions .ROUTE .COMPLEX RF: 0 valerian root 1 cap PO DAILY RF: 0 levothyroxine 25 mcg Tablet 25 mcg PO DAILY RF: 0 sodium chloride 0.9 % solution See Rx Instructions .ROUTE .COMPLEX RF: 0 tamsulosin 0.4 mg capsule 0.4 mg PO DAILY RF: 0 nitroglycerin 0.4 mg Tablet, Sublingual 0.4 mg SUBLINGUAL Q5M PRN (Reason: Chest Pain) RF: 0 morphine 30 mg tablet 30 mg PO Q4H PRN (Reason: Pain) RF: 0 morphine 100 mg tablet extended release 200 mg PO Q12H RF: 0 ondansetron HCl 8 mg tablet 8 mg PO Q8H PRN (Reason: nausea/vomiting) Qty: 15 RF: 0 mupirocin 2 % ointment 1 applic TOPICAL BID Qty: 30 RF: 0 Discharge Orders: Discharge Order (Routine); Ordered 01/25/21 Ordered By: Nasim Solorzano Referrals: Job Alexander [Primary Care Provider] - 7-10 days Kenroy Davies MD [Hospitalist] - 4-7 days Discharge Diet: Advance as tolerated and GI Soft Discharge Activity: Resume usual activity Patient Instructions: Opioid Safety Discharge Attestations Time Spent in Discharge Care*: greater than 30 min Specific Discharge Activities: educating patient, educating and/or supporting family/caregiver, discussing with pcp/other providers, discussing with child support case officer/social workers/dc planners, documenting/other paperwork and evaluating patient/reviewing data Status at Discharge: Cognitive status at discharge: cognitively intact , Behavioral status at discharge: cooperative , Functional status at discharge: uses cane/walker Overall status at discharge: patient is back to baseline Quality Metrics Clinical Quality Measures During this hospital stay, did patient experience: None Coding Level of Care Code Acute Chg FW DC note
--- NOTE | 2021-01-25 15:37 | PC.PT ---
PT note; patient declines physical therapy intervention; see above OT note, will attempt to encourage patient to use front wheel walker while here versus cane.
== END 2021-01-25 18:18 | disposition home or self-care (01) ==
LOC: ER 18:55 → MEDSURG 01-25 07:17
PROVIDERS: Admitting Provider Internal Medicine; Emergency Provider Emergency Medicine; PCP Family Medicine; Visit Provider Student in an Organized Health Care Education/Training Program
DX: E86.0 Dehydration (principal); C90.00 Multiple myeloma not having achieved remission; T45.1X5A Adverse effect of antineoplastic and immunosuppressive drugs, initial encounter; K21.9 Gastro-esophageal reflux disease without esophagitis; J45.909 Unspecified asthma, uncomplicated; Z87.891 Personal history of nicotine dependence
CPT/HCPCS: 36591; 70450; 80053; 81001; 81003; 83690; 83735; 84100; 84443; 85025; 87086; 93005; 96361; 96365; 96366; 96372; 96375; 99285; G0378; J1650; J1885; J2270; J2405; J7030; Q0169

== ENCOUNTER 2021-02-09 10:26 | Outpatient (CLI) | payer MEDICARE, MEDICAID, SELFPAY ==
--- NOTE | 2021-02-09 16:52 | ONC FU_ITS ---
Dr. Davies Patient Follow-Up Note Patient: Salima Farrell Unit #: [id number]: 1955 Dicatated By: Kenroy Davies M.D.Date of Visit:Feb 09, 2021 Onc Med Follow-up/Prog Note Chief Complaint: Myeloma. History of Present Illness: This is a 65 year-old woman with IgG lambda myeloma. She had presented in December 2012 with compression fractures of the T11 and L5 vertebral bodies. She underwent kyphoplasty at both levels, and biopsies were consistent with plasma cell neoplasm. Her protein electrophoresis showed biclonal protein bands with lambda light chain 0.33 g/dL and IgG lambda 4.6 g/dL. There were additional lytic lesions noted on her skeletal survey. Her 24 hour urine reportedly showed 7 gm of Bence-Zabala proteinuria. Bone marrow aspiration/biopsy in January 2013 showed atypical plasma cell infiltrate comprising 91% of the marrow cellularity. She underwent treatment with 4 cycles of Velcade/Revlimid/dexamethasone followed by high-dose melphalan/autologous stem cell transplant in May 2013. She began maintenance Revlimid in August 2013. It was stopped as of July 2015 due to toxicities. As of July 2016 her repeat bone marrow aspiration/biopsy showed 30-40% plasma cells. She restarted treatment with Revlimid. It was stopped again in December 2017 due to toxicity, mainly cytopenias. At that point her protein electrophoresis showed M protein at 1.52 g/dL. Skeletal survey reportedly showed no new abnormalities. Her repeat marrow aspiration/biopsy in February 2018 showed 70% involvement by plasma cells. The M protein at that point was up to 1.82 g/dL. PET/CT on 04/01/2018 showed new osseous involvement in the right sacral ala, SUV 4.15. She was seen by Dr. Shlomo Tanner on 04/06/2018. It was recommended that she begin salvage therapy with a combination of daratumumab, pomalidomide, and dexamethasone in preparation for possible second transplant procedure. She was seen here initially on 04/10/2018, as at that point she desired to have her treatment administered closer to home. She then returned to begin her treatment with daratumumab, pomalidomide, and dexamethasone on 04/29/2018. Due to her previous cytopenias with Revlimid, the pomalidomide was initiated at a reduced dosage of 3 mg daily on a day schedule. She began her initial infusion of daratumumab on 04/29/2018. She tolerated it without acute toxicity. She was able to complete 8 infusions at the weekly interval followed by 8 infusions at the 2-week interval. The treatments were then administered at a 4-week interval beginning in November 2018. During that time, she her pomalidomide had to be put on hold due to neutropenia. She eventually was able to tolerate it with the dosage reduced to 1 mg. She did have a very good response by protein electrophoresis. On 09/12/2019 she was admitted to [facility] in [place] with shortness of breath, wheezing, and productive cough. She did not have acute infiltrate on chest xray, but she was significantly hypoxic. She continued empiric antibiotic coverage with Levaquin, though it appeared to have most likely have been a viral illness. At her follow-up visit in September she was finally showing recovery from that illness, and she was able to continue her treatment. As of her follow-up visit on 04/05/2020 she had been doing well clinically with her M protein stable at 0.16 g/dL. Following that treatment, though, she became very ill. She had actually started having a cough during her daratumumab infusion and after returning home she had fever in the range of 101 to 102 degrees and she was out of it for 2 days, with virtually no recollection of that time period. She then had generalized bone pain and severe headache for 2 weeks and she could not eat during that time. By about the 11th day she began to feel better, but during that week she developed vomiting and diarrhea. She then continued to show gradually recovery. She did not have COVID testing. I had seen her for a follow-up visit on 05/03/2020, and at that point she was able to resume treatment with daratumumab in combination with pomalidomide and dexamethasone. Her other medical illnesses have been limited to GERD and mild asthma. Her other surgical/procedural history includes previous appendectomy and hysterectomy/bilateral salpingo-oophorectomy. She had a minimal smoking history in the past, and she quit smoking in 1991. INTERIM HISTORY: At her follow-up visit on 06/28/2020 she reported increased pain in her back and rib cage. It was severe enough that she had been seen in the emergency room in [place] earlier that week. There had been a slight increase in her lambda free light chain, concerning for disease progression. She was given IV Toradol for the pain and she was given antibiotic therapy with Levaquin for possible bronchitis. She also was scheduled for restaging PET/CT. That study was completed on 07/01/2020. It showed mild sacral activity and a bilateral pattern which was thought to be more suggestive of reactive uptake than myeloma. Pelvic lesions did not demonstrate increased FDG activity, and were felt to likely correspond to prior sites of active myeloma. She continued her treatment with daratumumab/pomalidomide/dexamethasone at 4-week intervals. However, at her follow-up visit in September 2020 her M protein had increased to 0.61 g/dL and there was a significant increase in her lambda free light chain to 366.71 mg/L. As of her follow-up visit on 10/30/2020 she continued treatment with daratumumab, but her pomalidomide was put on hold and her treatment was then transitioned to salvage therapy with a carfilzomib/dexamethasone regimen. She began her 1st cycle of treatment on 11/23/2020 with the carfilzomib administered on days 1, 8, and 15 of a 28-day schedule. She initially was able to tolerate that treatment with acceptable toxicity, and she continue with cycle 2 on 12/21/2020 and with cycle 3 on 11/18/2020. On 01/24/2021 she was admitted to the hospital with several days of nausea/vomiting. She also reported increased weakness and fatigue. This was all thought to be treatment related. She did improve with IV hydration and symptomatic measures. She was discharged home on 01/25/2021. She is seen now for a follow-up visit. She is still feeling tired, but her energy is beginning to get better. She is doing light work. ECOG score is 1. Appetite also is getting better. She does not have fever or night sweats. She has had no mouth sores. She does not complain of shortness of breath or cough. She has had a couple of little spells of chest pain. Thus far they have not been bad. She does have nitroglycerin available, but she has not had to take it. Her nausea is better now. Her acid reflux symptoms are under control with medication. Bowel function has been okay. She does report having hesitancy with urination, and she recently increased her tamsulosin dosage to 0.8 mg daily. Her pain remains adequately controlled with medication. She was having headache, but that is better now. She has not been dizzy. She has had recurrence of numbness/tingling in her right hand. It had resolved when she initially started the pomalidomide, and it has come back now that she stopped taking it. She has no other focal neurologic symptoms. Medications: Acetaminophen 2 Tablet (of 325 mg) Oral four times a day PRN, ALPRAZolam 1 Tablet (of 1 mg) Oral t.i.d., Benzonatate 1 Capsule (of 100 mg) Oral t.i.d. PRN, Childrens Aspirin 2 Tablet (of 81 mg) Tablet, chewable Oral daily, Cyclobenzaprine HCl 1 Tablet (of 10 mg) Oral t.i.d., Gabapentin 1 Capsule (of 100 mg) Oral t.i.d., Lidocaine 3 patch(es) (of 5 %) Patch Topical q 24 hours, Lidocaine 1 (5 %) Ointment Topical q 3 hours PRN, Melatonin 1 Tablet (of 10 mg) Oral at bedtime, Morphine Sulfate 1 - 2 Tablet (of 30 mg) Oral q 3 hours, Morphine Sulfate ER (100 mg) Tablet, controlled release Oral Take as Directed, Mupirocin 1 (2 %) Ointment Topical PRN, Omeprazole 1 Tablet (of 40 mg) Capsule Oral daily, Phentermine HCl 1 Capsule (of 37.5 mg) Oral daily, Pomalidomide 1 Capsule (of 1 mg) Oral daily, Tamsulosin HCl (0.4 mg) Capsule Oral b.i.d., Valerian Root 2 (1000 mg) Capsule Oral daily, Ventolin HFA 2 puff(s) (of 108 (90 base) mcg/act) Aerosol, solution Inhalation q 4 hours, Voltaren Gel (jelly) Transdermal Allergies: Codeine Sulfate Vital Signs: Performed on Feb 09, 2021 11:05 Height - 57.00 in Weight - 170.8 lbs (LOW) BSA - 1.68 sq.m BMI - 36.96 (HIGH) Temperature - 97.6 F (LOW) Pulse - 94 /min Respiration - 18 /min BP - 131/80 mm(hg) O2 Sat - 96 % Pain - 0 Fatigue - 7 Physical Examination: Constitutional - She appears somewhat weak generally, Eyes - Sclerae nonicteric. Conjunctivae clear, ENMT - No lesions noted in the oral cavity, Hematologic/Lymphatic - No cervical, clavicular, or axillary adenopathy, Respiratory - Lungs are clear, Cardiovascular - Heart rhythm is regular. There is a II/ systolic murmur. There is no gallop or rub noted, Abdomen - Mildly distended but soft. Liver and spleen are not enlarged. There is no abdominal mass or ascites noted and there is no inguinal adenopathy, Extremities - Mild edema, Integumentary - No skin eruption, Neurologic - No focal neurologic deficits noted. Lab/Imaging: Test performed on Feb 07, 2021 10:56 Glucose 114 mg/dL BUN 15 mg/dL Creatinine 0.73 mg/dL Cr Clearance (Est) 92.96 mL/min Sodium 137 mmol/L Potassium 4.7 mmol/L Chloride 102 mmol/L CO2 26 mmol/L Calcium 9.4 mg/dL Protein, Total 7.3 g/dL Albumin 3.4 g/dL Bilirubin, Total 0.4 mg/dL Alkaline Phosphatase 47 IU/L AST (SGOT) 37 IU/L ALT (SGPT) 10 IU/L WBC 2.9 10^9/L RBC 3.56 10^12/L HGB 10.6 g/dL HCT 32.5 % MCV 91.3 fl MCH 29.8 pg MCHC 32.6 g/dL RDW 14.5 % Platelet Count 206 10^9/L MPV 10.6 fL Neutrophils (Gran) 1.35 10^9/L Lymphocytes 1.05 10^9/L Monocytes 0.41 10^9/L Eosinophils 0.05 10^9/L Basophils 0.01 10^9/L Manual Lymphocytes 37 % Manual Monocytes 14 % Manual Eosinophils 2 % Manual Basophils 0 % Problem List: 1. IgG lambda myeloma, initially diagnosed in December 2012. She had associated lytic bone involvement with vertebral compression fractures at T11 and L5. 2. She has associated hypogammaglobulinemia. 3. GERD. 4. Mild asthma. Problems Addressed with this Encounter and Plan: 1. Patient with IgG lambda myeloma, initially diagnosed in December 2012. She had associated lytic bone involvement with vertebral compression fractures at T11 and L5. She had a good response to initial treatment with 4 cycles of Velcade/Revlimid/dexamethasone followed by high-dose melphalan/stem cell transplant in May 2013. She then continued maintenance Revlimid until July 2015, stopped at that time due to toxicity. She had evidence of disease progression on repeat bone marrow aspiration/biopsy July 2016, and she then restarted Revlimid. Treatment was stopped in December 2017 due to toxicity, mainly cytopenias. She had evidence of disease progression again by bone marrow aspiration/biopsy in February 2018. Her M protein at that point had increased to 1.82 gm/dL. PET/CT showed new area of bone involvement in the right sacral ala. As of 04/29/2018 she began treatment with daratumumab in combination with pomalidomide and dexamethasone. The daratumumab was administered weekly for 8 weeks, then every 2 weeks for an additional 8 doses. During that time the pomalidomide had to be put on hold due to neutropenia. She eventually was able to tolerate it with the dosage reduced to 1 mg daily on a 21/28-day schedule. Since November 2018 her treatments have been administered at 4-week intervals. She had a very good response by protein electrophoresis. As of September 2020 there was a significant increase in her M protein and her serum free light chain assay. As of her follow-up visit on 10/30/2019 when she continued treatment with daratumumab, but her pomalidomide was put on hold and in November 2020 she began a trial of salvage therapy with a carfilzomib/dexamethasone regimen. Initially she was able to tolerate it with acceptable toxicity. However, during her 3rd cycle she was admitted to the hospital with nausea/vomiting and weakness/fatigue, thought to be treatment related. She has improved with symptomatic/supportive measures. Her treatment, though, has been on hold. She is showing gradual recovery following her recent illness. She will be scheduled for repeat laboratory studies next week to include CBC, comprehensive metabolic profile, LDH level, sed rate, serum protein electrophoresis, quantitative immunoglobulin levels, and serum free light chain assay. Depending on the findings, I will begin planning for her further treatment, most likely with belantamab mafodotin. 2. She has associated hypogammaglobulinemia. She has had occasional respiratory infections, but thus far they have not been frequent enough to justify starting replacement IVIG. 3. She has chronic back pain associated with her vertebral compression fractures. It is being managed adequately with her current medication regimen. Signed By: Kenroy Davies M.D. <<Signature on File>>
== END 2021-02-09 10:27 | disposition home or self-care (01) ==
LOC: ONCMED 10:29
PROVIDERS: PCP Family Medicine; Visit Provider Internal Medicine Medical Oncology
DX: C90.00 Multiple myeloma not having achieved remission (principal); D80.1 Nonfamilial hypogammaglobulinemia; M54.9 Dorsalgia, unspecified; M84.68XS Pathological fracture in other disease, other site, sequela; J45.20 Mild intermittent asthma, uncomplicated; K21.9 Gastro-esophageal reflux disease without esophagitis; Z92.21 Personal history of antineoplastic chemotherapy; Z79.899 Other long term (current) drug therapy
CPT/HCPCS: 99214

== ENCOUNTER 2021-02-26 05:58 | Outpatient (CLI) | payer MEDICARE, MEDICAID, SELFPAY ==
--- NOTE | 2021-03-13 00:58 | ONC FU_ITS ---
[facility] Patient Note Patient: Salima Farrell Unit #: [id number]: 1955 Dictated By: Ac CarrDate of Visit: Feb 26, 2021 Onc MED Follow-Up/Prog Note Chief Complaint: Myeloma. History of Present Illness: Ms Farrell is a 65 year-old woman with IgG lambda myeloma. She had presented in December 2012 with compression fractures of the T11 and L5 vertebral bodies. She underwent kyphoplasty at both levels, and biopsies were consistent with plasma cell neoplasm. Her protein electrophoresis showed biclonal protein bands with lambda light chain 0.33 g/dL and IgG lambda 4.6 g/dL. There were additional lytic lesions noted on her skeletal survey. Her 24 hour urine reportedly showed 7 gm of Bence-Zabala proteinuria. Bone marrow aspiration/biopsy in January 2013 showed atypical plasma cell infiltrate comprising 91% of the marrow cellularity. She underwent treatment with 4 cycles of Velcade/Revlimid/dexamethasone followed by high-dose melphalan/autologous stem cell transplant in May 2013. She began maintenance Revlimid in August 2013. It was stopped as of July 2015 due to toxicities. As of July 2016 her repeat bone marrow aspiration/biopsy showed 30-40% plasma cells. She restarted treatment with Revlimid. It was stopped again in December 2017 due to toxicity, mainly cytopenias. At that point her protein electrophoresis showed M protein at 1.52 g/dL. Skeletal survey reportedly showed no new abnormalities. Her repeat marrow aspiration/biopsy in February 2018 showed 70% involvement by plasma cells. The M protein at that point was up to 1.82 g/dL. PET/CT on 04/01/2018 showed new osseous involvement in the right sacral ala, SUV 4.15. She was seen by Dr. Shlomo Tanner on 04/06/2018. It was recommended that she begin salvage therapy with a combination of daratumumab, pomalidomide, and dexamethasone in preparation for possible second transplant procedure. She was seen here initially on 04/10/2018, as at that point she desired to have her treatment administered closer to home. She then returned to begin her treatment with daratumumab, pomalidomide, and dexamethasone on 04/29/2018. Due to her previous cytopenias with Revlimid, the pomalidomide was initiated at a reduced dosage of 3 mg daily on a day schedule. She began her initial infusion of daratumumab on 04/29/2018. She tolerated it without acute toxicity. She was able to complete 8 infusions at the weekly interval followed by 8 infusions at the 2-week interval. The treatments were then administered at a 4-week interval beginning in November 2018. During that time, she her pomalidomide had to be put on hold due to neutropenia. She eventually was able to tolerate it with the dosage reduced to 1 mg. She did have a very good response by protein electrophoresis. On 09/12/2019 she was admitted to [facility] in [place] with shortness of breath, wheezing, and productive cough. She did not have acute infiltrate on chest xray, but she was significantly hypoxic. She continued empiric antibiotic coverage with Levaquin, though it appeared to have most likely have been a viral illness. At her follow-up visit in September she was finally showing recovery from that illness, and she was able to continue her treatment. As of her follow-up visit on 04/05/2020 she had been doing well clinically with her M protein stable at 0.16 g/dL. Following that treatment, though, she became very ill. She had actually started having a cough during her daratumumab infusion and after returning home she had fever in the range of 101 to 102 degrees and she was out of it for 2 days, with virtually no recollection of that time period. She then had generalized bone pain and severe headache for 2 weeks and she could not eat during that time. By about the 11th day she began to feel better, but during that week she developed vomiting and diarrhea. She then continued to show gradually recovery. She did not have COVID testing. Dr Davies had seen her for a follow-up visit on 05/03/2020, and at that point she was able to resume treatment with daratumumab in combination with pomalidomide and dexamethasone. Her other medical illnesses have been limited to GERD and mild asthma. Her other surgical/procedural history includes previous appendectomy and hysterectomy/bilateral salpingo-oophorectomy. She had a minimal smoking history in the past, and she quit smoking in 1991. INTERIM HISTORY: At her follow-up visit on 06/28/2020 she reported increased pain in her back and rib cage. It was severe enough that she had been seen in the emergency room in [place] earlier that week. There had been a slight increase in her lambda free light chain, concerning for disease progression. She was given IV Toradol for the pain and she was given antibiotic therapy with Levaquin for possible bronchitis. She also was scheduled for restaging PET/CT. That study was completed on 07/01/2020. It showed mild sacral activity and a bilateral pattern which was thought to be more suggestive of reactive uptake than myeloma. Pelvic lesions did not demonstrate increased FDG activity, and were felt to likely correspond to prior sites of active myeloma. She continued her treatment with daratumumab/pomalidomide/dexamethasone at 4-week intervals. However, at her follow-up visit in September 2020 her M protein had increased to 0.61 g/dL and there was a significant increase in her lambda free light chain to 366.71 mg/L. As of her follow-up visit on 10/30/2020 she continued treatment with daratumumab, but her pomalidomide was put on hold and her treatment was then transitioned to salvage therapy with a carfilzomib/dexamethasone regimen. She began her 1st cycle of treatment on 11/23/2020 with the carfilzomib administered on days 1, 8, and 15 of a 28-day schedule. She initially was able to tolerate that treatment with acceptable toxicity, and she continue with cycle 2 on 12/21/2020 and with cycle 3 on 11/18/2020. On 01/24/2021 she was admitted to the hospital with several days of nausea/vomiting. She also reported increased weakness and fatigue. This was all thought to be treatment related. She did improve with IV hydration and symptomatic measures. She was discharged home on 01/25/2021. She was seen by Dr Davies for a follow-up visit on 02/09/2021. She was still feeling tired, but her energy is beginning to get better. She was doing light work. ECOG score was 1. Dr. Davies had recommended that she pursue further treatment with Blenrep. Her free lambda light chain was reported at 1155.8 on 02/12/2021. Her creatinine is normal at 0.75. Her IgA was less than 5 IgG was 2517 milligrams per deciliter. Mrs. Farrell is here today begin her first cycle of Blenrep. She has no new concerns. She states she is still getting around relatively well. She has had no fever or chills. She denies any mouth sores, sore throat or difficulty swallowing. She continues to have chronic shortness of breath but states it is stable. She has chronic pain as well. Also is controlled. She is has no nausea or vomiting. She denies any diarrhea or constipation. Her ECOG is 1. Past Medical History: Gastroesophageal reflux disease IgG kappa myeloma Mild asthma Past Surgical History: Appendectomy Bone marrow aspiration/biopsy in January 2013, July 2016, and February 2018 Kyphoplasty at T11 and L5 vertebral levels Tubal ligation Colonoscopy in 2012 Hysterectomy/bilateral salpingo-oophorectomy in 2008 Allergies: Codeine Sulfate Medications: Acetaminophen 2 Tablet (of 325 mg) Oral four times a day PRN ALPRAZolam 1 Tablet (of 1 mg) Oral t.i.d. Benzonatate 1 Capsule (of 100 mg) Oral t.i.d. PRN Childrens Aspirin 2 Tablet (of 81 mg) Tablet, chewable Oral daily Cyclobenzaprine HCl 1 Tablet (of 10 mg) Oral t.i.d. Gabapentin 1 Capsule (of 100 mg) Oral t.i.d. Lidocaine 3 patch(es) (of 5 %) Patch Topical q 24 hours Lidocaine 1 (5 %) Ointment Topical q 3 hours PRN Melatonin 1 Tablet (of 10 mg) Oral at bedtime Morphine Sulfate 1 - 2 Tablet (of 30 mg) Oral q 3 hours Morphine Sulfate ER (100 mg) Tablet, controlled release Oral Take as Directed Mupirocin 1 (2 %) Ointment Topical PRN Omeprazole 1 Tablet (of 40 mg) Capsule Oral daily Phentermine HCl 1 Capsule (of 37.5 mg) Oral daily Pomalidomide 1 Capsule (of 1 mg) Oral daily Tamsulosin HCl (0.4 mg) Capsule Oral b.i.d. Valerian Root 2 (1000 mg) Capsule Oral daily Ventolin HFA 2 puff(s) (of 108 (90 base) mcg/act) Aerosol, solution Inhalation q 4 hours Voltaren Gel (jelly) Transdermal Family History: Ms. Farrell's mother at age 85: breast cancer, and myocardial infarction, and heart disease. Ms. Farrell's father at age 85: heart disease, and myocardial infarction. Ms. Farrell has 4 sisters: 2 alive, 2 . Ms. Farrell's first sister's ovarian cancer. Another sister's colon cancer. Another sister's myeloma. Another sister's breast cancer. Both parents of heart attack in their mid 80s. One brother of a gunshot wound, another with complications of diabetes, and another of old age. A sister of colon cancer and another sister of ovarian cancer. A sister has been treated for melanoma and is still living at age 75. Another sister has been treated for breast cancer and is still living at age 67. Social History: Ms. Farrell is and she is a disabled. Ms. Farrell quit smoking 27 years ago but had smoked for 13 years. She has no history of drinking. She had minimal smoking history in the past, and the range of 2-3 cigarettes per day. She quit smoking in 1991. She currently does not drink alcohol. She has had moderate alcohol use in the past. Review Of Symptoms: <See Above> Vital Signs: Performed on Feb 26, 2021 13:57 Height - 57.00 in Weight - 164.6 lbs (LOW) BSA - 1.66 sq.m BMI - 35.62 (HIGH) Temperature - 96.8 F (LOW) Pulse - 90 /min Respiration - 18 /min BP - 130/80 mm(hg) O2 Sat - 99 % Pain - 0 Fatigue - 5,2 - Ambulatory/capable of all self-care, unable to perform any work activities. Up and about more than 50% of waking hours. (ECOG) Physical Examination: Constitutional Alert, oriented, no acute distress. Skin pink, warm and dry. Head Normocephalic; atraumatic. Eyes Conjunctivae and sclerae are clear and without icterus. Pupils are reactive and equal. Neck Supple without masses or thyromegaly. No jugular venous distension. Hematologic/Lymphatic No petechiae or purpura. No tender or palpable lymph nodes in the cervical or supraclavicular areas. Respiratory Lungs are clear to auscultation without rhonchi or wheezing. Cardiovascular Regular rate and rhythm of heart without murmurs,clicks, gallops or rubs. Chest Left chest wall venous access device is unremarkable. Abdomen Non-tender, non-distended, no masses, ascites. Back/Spine Non-tender to palpation. Musculoskeletal No tenderness or swelling, normal range of motion without obvious weakness. Integumentary No rashes or lesions. Neurologic No sensory or motor deficits, normal cerebellar function, slow cane assisted gait-slow per her normal. Psychiatric Alert and oriented times three. Coherent speech. Verbalizes understanding of our discussions today. Laboratory:Test performed on Feb 12, 2021 08:00 Glucose 114 mg/dL LDH, Total 180 IU/L BUN 19 mg/dL Creatinine 0.75 mg/dL Cr Clearance (Est) 90.48 mL/min Sodium 138 mmol/L Potassium 4.1 mmol/L Chloride 103 mmol/L CO2 27 mmol/L Calcium 9.1 mg/dL Protein, Total 6.7 g/dL Albumin 3.3 g/dL Globulin 3.4 g/dL Bilirubin, Total 0.4 mg/dL Alkaline Phosphatase 43 IU/L AST (SGOT) 32 IU/L ALT (SGPT) 10 IU/L Test performed on Feb 07, 2021 10:56 WBC 2.9 10^9/L RBC 3.56 10^12/L HGB 10.6 g/dL HCT 32.5 % MCV 91.3 fl MCH 29.8 pg MCHC 32.6 g/dL RDW 14.5 % Platelet Count 206 10^9/L MPV 10.6 fL Neutrophils (Gran) 1.35 10^9/L Lymphocytes 1.05 10^9/L Monocytes 0.41 10^9/L Eosinophils 0.05 10^9/L Basophils 0.01 10^9/L Manual Lymphocytes 37 % Manual Monocytes 14 % Manual Eosinophils 2 % Manual Basophils 0 % Impression: 1. IgG lambda myeloma, initially diagnosed in December 2012. She had associated lytic bone involvement with vertebral compression fractures at T11 and L5. 2. She has associated hypogammaglobulinemia. 3. GERD. 4. Mild asthma. Plan/Problems Addressed at this Visit: 1. IgG lambda myeloma, initially diagnosed in December 2012. She had associated lytic bone involvement with vertebral compression fractures at T11 and L5. She had a good response to initial treatment with 4 cycles of Velcade/Revlimid/dexamethasone followed by high-dose melphalan/stem cell transplant in May 2013. She then continued maintenance Revlimid until July 2015, stopped at that time due to toxicity. She had evidence of disease progression on repeat bone marrow aspiration/biopsy July 2016, and she then restarted Revlimid. Treatment was stopped in December 2017 due to toxicity, mainly cytopenias. She had evidence of disease progression again by bone marrow aspiration/biopsy in February 2018. Her M protein at that point had increased to 1.82 gm/dL. PET/CT showed new area of bone involvement in the right sacral ala. As of 04/29/2018 she began treatment with daratumumab in combination with pomalidomide and dexamethasone. The daratumumab was administered weekly for 8 weeks, then every 2 weeks for an additional 8 doses. During that time the pomalidomide had to be put on hold due to neutropenia. She eventually was able to tolerate it with the dosage reduced to 1 mg daily on a 21/28-day schedule. Since November 2018 her treatments have been administered at 4-week intervals. She had a very good response by protein electrophoresis. As of September 2020 there was a significant increase in her M protein and her serum free light chain assay. As of her follow-up visit on 10/30/2019 when she continued treatment with daratumumab, but her pomalidomide was put on hold and in November 2020 she began a trial of salvage therapy with a carfilzomib/dexamethasone regimen. Initially she was able to tolerate it with acceptable toxicity. However, during her 3rd cycle she was admitted to the hospital with nausea/vomiting and weakness/fatigue, thought to be treatment related. She has improved with symptomatic/supportive measures. Her treatment, though, had been on hold. Her last carfilzomib administration was on January 18, 2021. She is showing gradual recovery following her recent illness. She will be scheduled for repeat laboratory studies next week to include CBC, comprehensive metabolic profile, LDH level, sed rate, serum protein electrophoresis, quantitative immunoglobulin levels, and serum free light chain assay. Depending on the findings, Dr Davies had began planning for her further treatment, most likely with belantamab mafodotin. Her IgG on 02/14/2021 was reported @ 2517 and her free lambda light chain was 1155.8. Her LFTs were normal and creatinine was 0.75. These were reported to request obtained through [facility]. A. Proceed with cycle 1 day 1 Blenrep 2.5 mg/kg. B. Standard antiemetics and premeds. C. We did review her IgG and free light chain assay from 02/14/2021 and a copy was given to her. Her last CBC was on February 07, 2021 reported with a WBC of 2.9, hemoglobin 10.6 platelets were 206,000 and ANC was 1350. D. I requested weekly CBC CMP. She typically has these drawn at [facility]. E. We will plan to see her back in 3 weeks with CBC CMP and repeat QUIGS, SPEP with ANA LILIA and serum free light chain assay. F. She is aware that she will need an eye exam at least 2 weeks prior to her next cycle of Blenrep. G. She is aware to use refresh eyedrops multiple times daily. 2. She has associated hypogammaglobulinemia. She has had occasional respiratory infections, but thus far they have not been frequent enough to justify starting replacement IVIG. 3. She has chronic back pain associated with her vertebral compression fractures. A. It is being managed adequately with her current medication regimen. B. She is currently on extended release morphine 200 mg every 12 hours and MS IR 30 mg every 4 hours as needed breakthrough pain. 4. chemoeducation on Blenrep: A. This drug cause changes in the corneal epithelium resulting in changes in vision, including severe vision loss and corneal ulcer and possible blurred vision and dry eyes. She is to have a eye exam prior to each dose. Other adverse reactions include thrombocytopenia, infusion related reactions (21% with severe infusion related reaction at 3%), diarrhea, nausea, decreased appetite, constipation. Abnormal labs to include's serum albumin decreased potassium decreased serum sodium and increased gamma glutamyltransferase and increased serum glucose. Decreased hemoglobin, decreased neutrophils lymphocytopenia and thrombocytopenia???as above have been reported. Increased serum alk phos and increased serum aspirate aminotransferase. Fatigue was less than 20%. Vision changes as above. Decreased visual acuity was reported at 53%. Increased serum creatinine was it 28%. Arthralgia at 12%. Fever was noted in 6 to 22% of patients undergoing study. 5. Followup plan A. weekly labs as indicated above B. Follow-up in 3 weeks for consideration of cycle 3 Blenrep. C. Mrs. Farrell was instructed to contact us in interim should questions or problems arise. Total time spent coordinating Mrs. Farrell's care today including review of records and plan of care prior to visit as well as discussion of plan of care, chemotherapy education, lab review, side effect medication management and follow-up plan as well as post visit documentation was 50 minutes. Signed By: Ac Carr-, AOCNP Kenroy Davies MD <<Signature on File>>
== END 2021-02-26 05:59 | disposition home or self-care (01) ==
LOC: ONCMED 06:01
PROVIDERS: PCP Family Medicine; Visit Provider Nurse Practitioner
DX: C90.00 Multiple myeloma not having achieved remission (principal); C79.51 Secondary malignant neoplasm of bone; D80.1 Nonfamilial hypogammaglobulinemia; K21.9 Gastro-esophageal reflux disease without esophagitis; J45.20 Mild intermittent asthma, uncomplicated; Z79.899 Other long term (current) drug therapy; Z92.21 Personal history of antineoplastic chemotherapy; Z79.52 Long term (current) use of systemic steroids
CPT/HCPCS: 99215

== ENCOUNTER 2021-02-27 09:30 | Outpatient (CLI) | payer MEDICARE, MEDICAID, SELFPAY ==
[2021-02-27] MEDS: ondansetron 2 mg/ML SDV 2 mL 8 MG IV (10:03)
[2021-02-27] MEDS: sodium chloride 0.9% 250 ML 999 ML IV (10:03)
[2021-02-27] MEDS: diphenhydrAMINE 50 mg/mL SDV 1mL 25 MG IV (10:05)
[2021-02-27] MEDS: acetaminophen 325 mg Tablet 650 MG PO (10:07)
== END 2021-02-27 09:31 | disposition home or self-care (01) ==
PROVIDERS: PCP Family Medicine; Visit Provider Nurse Practitioner
DX: Z51.12 Encounter for antineoplastic immunotherapy (principal); C90.00 Multiple myeloma not having achieved remission; D80.1 Nonfamilial hypogammaglobulinemia; D50.9 Iron deficiency anemia, unspecified; R53.83 Other fatigue; J45.902 Unspecified asthma with status asthmaticus; Z79.899 Other long term (current) drug therapy
CPT/HCPCS: 96375; 96413; J1200; J2405; J7050; J9037

== ENCOUNTER 2021-03-02 23:53 | Inpatient (IN) | payer MEDICARE, MEDICAID, SELFPAY ==
[2021-03-03] VITALS (43 sets, daily range): BP systolic 93–155; BP diastolic 52–83; PULSE 87–115; RESP 10–40; TEMP 36.6–37.1; O2SAT 80–100; BMI 25.6
--- NOTE | 2021-03-03 00:12 | XRR_ITS ---
PROCEDURE INFORMATION: Exam: XR Chest Exam date and time: 03/03/2021 12:12 AM Age: 65 years old Clinical indication: Condition or disease; Other: Multiple myeloma; Prior surgery; Surgery date: 6+ months; Surgery type: Port; Patient HX: Lethargic and mental status change; Additional info: AMS TECHNIQUE: Imaging protocol: XR of the chest. Views: 1 view. COMPARISON: OT C-arm FL for CVA [id number] 07/09/2018 8:51 AM FINDINGS: Tubes, catheters and devices: Left-sided Port-A-Cath present, not significantly changed. Lungs: Pulmonary vascularity probably upper range of normal. No definite CHF/pulmonary edema. Poor inspiration somewhat limits evaluation, especially of the lung bases. Mild to moderate bilateral lower lung opacities, greater on the right. Findings could represent pneumonitis and/or atelectasis. Please correlate clinically. Pleural spaces: No visible pneumothorax. No definite pleural fluid. Heart/Mediastinum: Heart size is within normal limits. Bones/joints: Prominent compression deformity in the lower thoracic spine, probably T11. XR/XR chest 1V portable [id number] IMPRESSION: 1. Mild to moderate bilateral lower lung opacities, greater on the right. Findings could represent pneumonitis and/or atelectasis. 2. Other findings discussed above.
--- NOTE | 2021-03-03 00:12 | CTR_ITS ---
PROCEDURE INFORMATION: Exam: CT Head Without Contrast Exam date and time: 03/03/2021 12:12 AM Age: 65 years old Clinical indication: Condition or disease; History of cancer (specify primary cancer site): ; Primary cancer: Multiple myeloma; Patient HX: Lethargic and mental status change; Additional info: AMS TECHNIQUE: Imaging protocol: Computed tomography of the head without contrast. Radiation optimization: All CT scans at this facility use at least one of these dose optimization techniques: automated exposure control; mA and/or kV adjustment per patient size (includes targeted exams where dose is matched to clinical indication); or iterative reconstruction. COMPARISON: CT head wo con* [id number] 01/24/2021 8:54 PM RADIATION DOSE METRICS: Total DLP (mGy-cm): 1325.25 FINDINGS: Brain: No acute intracranial hemorrhage or mass effect. There is mild decreased attenuation in the periventricular white matter, likely from microvascular disease. No definite acute infarct by CT. MRI could be more sensitive/specific for detection, as clinically directed. Cerebral ventricles: Ventricle size is normal for age. Paranasal sinuses: Included paranasal sinuses are essentially clear. Mastoid air cells: No significant acute finding. Vasculature: Vascular calcifications in the internal carotid arteries. Bones/joints: No definite acute skull fracture. CT/CT head wo con* [id number] IMPRESSION: 1. No acute intracranial hemorrhage or mass effect. 2. Changes of microvascular disease. 3. No definite acute infarct by CT, see above. 4. Other findings discussed above. Radiation Dose CTDIVOL = (mGy): DLP = 1325.25 (mGy-cm)
--- NOTE | 2021-03-03 00:14 | ECG_ITS ---
[facility] Test Date: 2021-03-03 Pat Name: Salima Farrell Department: Room: Gender: Female [employer]: : 1955 Requested By: Adis Moss Order Number: [id number] Delores MD: Ryann Wheatley M.D. Measurements Intervals [place] Rate: 113 P: 48 AL: 138 QRS: 80 QRSD: 90 T: 43 QT: 311 QTc: 428 Interpretive Statements SINUS TACHYCARDIA POSSIBLE INFERIOR MYOCARDIAL INFARCTION [30 ms Q WAVE IN II/aVF], PROBABLY OLD ABNORMAL RHYTHM ECG Compared to ECG 01/24/2021 17:58:40 Myocardial infarct finding now present Sinus rhythm no longer present Electronically Signed On 03-04-2021 9:35:20 CDT by Ryann Wheatley M.D. [id number]
[2021-03-03] MEDS: naloxone 0.4 mg/ml SDV IVP ×2 (00:28→02:10)
[2021-03-03] MEDS: sodium chloride 0.9% 1,000 ML 999 ML IV ×2 (00:28→01:29)
[2021-03-03] MEDS: cefTRIAXone 1,000 mg SDV 1000 MG IM (00:28)
--- NOTE | 2021-03-03 00:37 | W.ED.AMS ---
HPI - Altered Mental Status General: Chief Complaint: Altered Mental Status Stated Complaint: infection, sent by Dr. Davies Time Seen by Provider: 03/03/21 00:01 History of Present Illness: HPI narrative: 65-year-old female with a history of multiple myeloma, on immunotherapy, presents with altered mental status, lethargy, and fever. The patient was not acting right earlier today, so the family spoke with Dr. Davies who asked them to bring her here. She presents quite lethargic, but able to answer simple questions mostly appropriately. MD complaint: altered mental status and decreased responsiveness Onset (ago): hour(s) Timing confirmed by: family member Severity: moderate Consistency of symptoms: Getting Worse Context: change in medication, recent fever and cancer Associated symptoms: Deny auditory hallucinations, visual hallucinations or delusions Review of Systems Const: Reports: fever(s), chills and change in appetite Eyes: Denies: change in vision Card: Denies: chest pain or palpitations Resp: Reports: dyspnea and non-productive cough; Denies: productive cough GI: Denies: abdominal pain, nausea or vomiting : Denies: difficulty voiding Neuro: Reports: lack of coordination and confusion; Denies: headache(s) Psych: Denies: visual hallucinations or auditory hallucinations PFSH ED PFSH: Medical History (Updated 03/03/21 @ 05:26 by Adis Palomares DO) Gastroesophageal reflux disease Mild asthma Multiple myeloma Transplanted bone marrow present Surgical History H/O kyphoplasty History of tubal ligation Hx of appendectomy Hx of total hysterectomy Family History Mother Cancer Heart attack Father Cancer Heart attack Brother Diabetes Sister Diabetes Cancer Social History Smoking and tobacco status: former smoker Alcohol intake: never Physical Exam Const: GENERAL APPEARANCE: lethargic, ill appearing and frail appearing ORIENTATION/CONSCIOUSNESS: Yes confused and Yes lethargic HENMT: COMMON NORMALS: normocephalic; oral mucous membranes not moist HEAD & SCALP: normocephalic Eye: COMMON NORMALS: Equal, round and reactive pupils present and EOMs intact bilaterally GENERAL EYE: other (Pupils small) PUPIL: Yes Equal, round and reactive pupils present Chest: COMMONS NORMALS: normal inspection of the chest Resp: COMMON NORMALS: clear to auscultation bilaterally EFFORT & INSPECTION: Yes abnormal respiratory pattern, Yes decreased respiratory effort and Yes prolonged expiratory phase AUSCULTATION: clear to auscultation bilaterally and diminished lung sounds Cardio: COMMON NORMALS: regular rhythm and Peripheral pulses 2+ throughout RATE: tachycardic RHYTHM: regular rhythm PERIPHERAL PULSES: Peripheral pulses 2+ throughout GI: COMMON NORMALS: Normal to inspection, nondistended, normoactive bowel sounds present and Soft to palpation PALPATION: Yes Soft to palpation Neuro: CHERIE COMA SCALE: document GCS findings Hyannis coma scale eye opening: To sound Cherie coma scale verbal response: Words Hyannis coma scale motor response: Obey commands Cherie coma scale total score: 12 COMMON NORMALS: CN's II-XII intact bilaterally SENSORIUM/ORIENTATION: Yes lethargic SPEECH: abnormal speech Details: slurred GAIT: Yes Unable to assess gait Psych: THOUGHT CONTENT: No delusions Course Consultations: Consultation #1: serena Vital Signs: Vital signs: Vital Signs Temperature 98.7 F 03/03/21 04:30 Pulse Rate 98 03/03/21 05:15 Respiratory Rate 14 03/03/21 05:15 Blood Pressure 99/55 03/03/21 05:15 Pulse Oximetry 95 03/03/21 05:15 MDM - Altered Mental Status MDM Narrative: Medical decision making narrative: 65-year-old female with a history of multiple myeloma. She presents nearly obtunded. Initial blood gas showed a pH of 7.35. She was hypoxic on arrival, with some improvement with nasal cannula oxygenation. Due to her obtundation, and hypoxia, BiPAP was ordered. She seemed to wake up shortly after administration of BiPAP at least to some degree. It was noticed that she takes morphine, and she was given Narcan with significant improvement in her mental status as well. Laboratory shows a bicarbonate level 17. BUN of 71 with a creatinine of 1.8. She is thrombocytopenic with a platelet count of 73, and a hemoglobin of 10. Chest x-ray reveals right greater than left side pneumonia. Rapid COVID-19 test is negative. She was given 1 g Rocephin immediately following blood cultures in the ER. Broad-spectrum antibiotic therapy will be continued in the ICU. She was fluid resuscitated with 2 L here. Lab Data: Labs: Lab Results 03/03/21 03/03/21 03/03/21 Range/Units 00:22 00:24 00:24 WBC 6.1 (4.0-10.0) 10^3/ uL RBC 3.42 L (4.1-5.3) 10^6/u L Hgb 10.3 L (11.5-15.3) g/dL Hct 32.0 L (37.0-47.0) % MCV 93.6 (81-99) fL MCH 30.1 (28.0-34.0) pg MCHC 32.2 (30.0-36.0) g/dL RDW 15.1 (12.1-15.1) % Plt Count 73 L (130-400) 10^3/c mm MPV 10.5 H (7.4-10.4) fL Lymph % (Auto) Not Reportable Ross % (Auto) Not Reportable Lymph # (Auto) Not Reportable Ross # (Auto) Not Reportable Total Counted 100 (0-100) Atypical Lymphs % 0.0 (0-5) % Absolute Neutrophi ls 4.7 (1.4-6.5) 10^3/c mm Segmented Neutroph ils 50 % Abs Segm Neuts (Ma n) 3.1 (1.6-7.1) 10/cmm Band Neutrophils 27.0 % Abs Band Neuts (Ma n) 1.6 H (0.0-1.2) 10^3/c mm Absolute Lymphocyt es 0.9 L (1.2-3.4) 10^3/c mm Lymphocytes (Manua l) 15 % Monocytes (Manual) 5.0 % Absolute Monocytes 0.3 (0.1-0.6) 10^3/c mm Eosinophils (Manua l) 0 % Absolute Eosinophi ls 0.0 (0.0-0.7) 10^3/c mm Basophils (Manual) 0.0 % Absolute Basophils 0.0 (0.0-0.2) 10^3/c mm Metamyelocytes 3.0 % Platelet Estimate Decreased L (Normal) Giant Platelets Trace Polychromasia Trace Poikilocytosis 1+ H [place] Cells 1+ H D-Dimer (0-0.59) ug/mIFE U Specimen Type Sample Site ABG pH (7.35-7.45) ABG pCO2 (35-45) mmHg ABG pO2 (80.0-100.0) mmH g ABG HCO3 (22-26) mmol/L ABG Base Excess (-2.0-2.0) mmol/ L Savage Test Hematocrit (37-47) % O2 Delivery Device FiO2 % Industrial Health Engineer ID Sodium 132 L (136-145) mmol/L Potassium 4.3 (3.5-5.1) mmol/L Chloride 101 (98-107) mmol/L Carbon Dioxide 17 L (22-29) mmol/L Anion Gap 18.3 (5-19) BUN 71 H (8-23) mg/dL Creatinine 1.8 H (0.5-0.9) mg/dL GFR Calculation 28.1 L (90-130) mL/min Glucose 117 H (65-115) mg/dL Calculated Osmolal ity 296 H (285-295) mOsm/k g Lactate (0.5-2.2) mmol/L Calcium 8.9 (8.5-10.5) mg/dL Phosphorus 4.3 (2.5-4.5) mg/dL Magnesium 2.4 H (1.7-2.3) mg/dL Total Bilirubin 0.2 (0.15-1.2) mg/dL AST 354 H (0-32) U/L ALT 39 H (0-33) U/L Alkaline Phosphata se 155 H (35-105) IU/L Creatine Kinase 345 H* (26-192) U/L Troponin T Baselin e (0-10) ng/L Troponin T 120 Min [place] (0-10) ng/L Delta Troponin T (0-10) ABS# C-Reactive Protein 126.2 H (0.0-4.9) mg/L NT-Pro-B Natriuret Pep 220 H (0-125) pg/mL Total Protein 6.9 (6.6-8.7) g/dL Albumin 3.2 L (3.5-5.2) g/dL Globulin 3.7 (1.3-4.6) g/dL Procalcitonin (0-0.5) ng/mL TSH (0.27-4.20) uIU/ mL Urine Color (Yellow) Urine Appearance (CLEAR) Urine pH (5-7) Ur Specific Gravit y (1.005-1.030) Urine Protein (Negative) Urine Glucose (UA) (Normal) Urine Ketones (Negative) Urine Blood (Negative) Urine Nitrate (Negative) Urine Bilirubin (Negative) Urine Urobilinogen (Negative) mg/dL Ur Leukocyte Raeann ase (Negative) Ethyl Alcohol < 10 (0-10) mg/dL SARS-CoV-2 Ag (Rap id) Negative (Negative) 03/03/21 03/03/21 03/03/21 Range/Units 00:24 00:24 00:33 WBC (4.0-10.0) 10^3/ uL RBC (4.1-5.3) 10^6/u L Hgb (11.5-15.3) g/dL Hct (37.0-47.0) % MCV (81-99) fL MCH (28.0-34.0) pg MCHC (30.0-36.0) g/dL RDW (12.1-15.1) % Plt Count (130-400) 10^3/c mm MPV (7.4-10.4) fL Lymph % (Auto) Ross % (Auto) Lymph # (Auto) Ross # (Auto) Total Counted (0-100) Atypical Lymphs % (0-5) % Absolute Neutrophi ls (1.4-6.5) 10^3/c mm Segmented Neutroph ils % Abs Segm Neuts (Ma n) (1.6-7.1) 10/cmm Band Neutrophils % Abs Band Neuts (Ma n) (0.0-1.2) 10^3/c mm Absolute Lymphocyt es (1.2-3.4) 10^3/c mm Lymphocytes (Manua l) % Monocytes (Manual) % Absolute Monocytes (0.1-0.6) 10^3/c mm Eosinophils (Manua l) % Absolute Eosinophi ls (0.0-0.7) 10^3/c mm Basophils (Manual) % Absolute Basophils (0.0-0.2) 10^3/c mm Metamyelocytes % Platelet Estimate (Normal) Giant Platelets Polychromasia Poikilocytosis [place] Cells D-Dimer >= 20.00 H (0-0.59) ug/mIFE U Specimen Type Sample Site ABG pH (7.35-7.45) ABG pCO2 (35-45) mmHg ABG pO2 (80.0-100.0) mmH g ABG HCO3 (22-26) mmol/L ABG Base Excess (-2.0-2.0) mmol/ L [place] Test Hematocrit (37-47) % O2 Delivery Device FiO2 % Industrial Health Engineer ID Sodium (136-145) mmol/L Potassium (3.5-5.1) mmol/L Chloride (98-107) mmol/L Carbon Dioxide (22-29) mmol/L Anion Gap (5-19) BUN (8-23) mg/dL Creatinine (0.5-0.9) mg/dL GFR Calculation (90-130) mL/min Glucose (65-115) mg/dL Calculated Osmolal ity (285-295) mOsm/k g Lactate 1.1 (0.5-2.2) mmol/L Calcium (8.5-10.5) mg/dL Phosphorus (2.5-4.5) mg/dL Magnesium (1.7-2.3) mg/dL Total Bilirubin (0.15-1.2) mg/dL AST (0-32) U/L ALT (0-33) U/L Alkaline Phosphata se (35-105) IU/L Creatine Kinase (26-192) U/L Troponin T Baselin e 41 H (0-10) ng/L Troponin T 120 Min [place] (0-10) ng/L Delta Troponin T (0-10) ABS# C-Reactive Protein (0.0-4.9) mg/L NT-Pro-B Natriuret Pep (0-125) pg/mL Total Protein (6.6-8.7) g/dL Albumin (3.5-5.2) g/dL Globulin (1.3-4.6) g/dL Procalcitonin (0-0.5) ng/mL TSH (0.27-4.20) uIU/ mL Urine Color (Yellow) Urine Appearance (CLEAR) Urine pH (5-7) Ur Specific Gravit y (1.005-1.030) Urine Protein (Negative) Urine Glucose (UA) (Normal) Urine Ketones (Negative) Urine Blood (Negative) Urine Nitrate (Negative) Urine Bilirubin (Negative) Urine Urobilinogen (Negative) mg/dL Ur Leukocyte Raeann ase (Negative) Ethyl Alcohol (0-10) mg/dL SARS-CoV-2 Ag (Rap id) (Negative) 03/03/21 03/03/21 03/03/21 Range/Units 00:45 02:01 02:15 WBC (4.0-10.0) 10^3/ uL RBC (4.1-5.3) 10^6/u L Hgb (11.5-15.3) g/dL Hct (37.0-47.0) % MCV (81-99) fL MCH (28.0-34.0) pg MCHC (30.0-36.0) g/dL RDW (12.1-15.1) % Plt Count (130-400) 10^3/c mm MPV (7.4-10.4) fL Lymph % (Auto) Ross % (Auto) Lymph # (Auto) Ross # (Auto) Total Counted (0-100) Atypical Lymphs % (0-5) % Absolute Neutrophi ls (1.4-6.5) 10^3/c mm Segmented Neutroph ils % Abs Segm Neuts (Ma n) (1.6-7.1) 10/cmm Band Neutrophils % Abs Band Neuts (Ma n) (0.0-1.2) 10^3/c mm Absolute Lymphocyt es (1.2-3.4) 10^3/c mm Lymphocytes (Manua l) % Monocytes (Manual) % Absolute Monocytes (0.1-0.6) 10^3/c mm Eosinophils (Manua l) % Absolute Eosinophi ls (0.0-0.7) 10^3/c mm Basophils (Manual) % Absolute Basophils (0.0-0.2) 10^3/c mm Metamyelocytes % Platelet Estimate (Normal) Giant Platelets Polychromasia Poikilocytosis [place] Cells D-Dimer (0-0.59) ug/mIFE U Specimen Type Arterial Sample Site Brachial, right ABG pH 7.35 (7.35-7.45) ABG pCO2 34.8 L (35-45) mmHg ABG pO2 419.0 H (80.0-100.0) mmH g ABG HCO3 19.4 L (22-26) mmol/L ABG Base Excess -5.5 L (-2.0-2.0) mmol/ L Savage Test N/a Hematocrit 29.9 L (37-47) % O2 Delivery Device Bipap FiO2 100.0 % Industrial Health Engineer ID Rishabh Sodium (136-145) mmol/L Potassium (3.5-5.1) mmol/L Chloride (98-107) mmol/L Carbon Dioxide (22-29) mmol/L Anion Gap (5-19) BUN (8-23) mg/dL Creatinine (0.5-0.9) mg/dL GFR Calculation (90-130) mL/min Glucose (65-115) mg/dL Calculated Osmolal ity (285-295) mOsm/k g Lactate (0.5-2.2) mmol/L Calcium (8.5-10.5) mg/dL Phosphorus (2.5-4.5) mg/dL Magnesium (1.7-2.3) mg/dL Total Bilirubin (0.15-1.2) mg/dL AST (0-32) U/L ALT (0-33) U/L Alkaline Phosphata se (35-105) IU/L Creatine Kinase (26-192) U/L Troponin T Baselin e (0-10) ng/L Troponin T 120 Min [place] 31.23 H (0-10) ng/L Delta Troponin T -9.77 L (0-10) ABS# C-Reactive Protein (0.0-4.9) mg/L NT-Pro-B Natriuret Pep (0-125) pg/mL Total Protein (6.6-8.7) g/dL Albumin (3.5-5.2) g/dL Globulin (1.3-4.6) g/dL Procalcitonin (0-0.5) ng/mL TSH (0.27-4.20) uIU/ mL Urine Color Yellow (Yellow) Urine Appearance Clear (CLEAR) Urine pH 5 (5-7) Ur Specific Gravit y 1.020 (1.005-1.030) Urine Protein Neg (Negative) Urine Glucose (UA) Norm (Normal) Urine Ketones Negative (Negative) Urine Blood Neg (Negative) Urine Nitrate Negative (Negative) Urine Bilirubin 1+ H (Negative) Urine Urobilinogen Norm (Negative) mg/dL Ur Leukocyte Raeann ase Negative (Negative) Ethyl Alcohol (0-10) mg/dL SARS-CoV-2 Ag (Rap id) (Negative) 03/03/21 Range/Units 02:15 WBC (4.0-10.0) 10^3/ uL RBC (4.1-5.3) 10^6/u L Hgb (11.5-15.3) g/dL Hct (37.0-47.0) % MCV (81-99) fL MCH (28.0-34.0) pg MCHC (30.0-36.0) g/dL RDW (12.1-15.1) % Plt Count (130-400) 10^3/c mm MPV (7.4-10.4) fL Lymph % (Auto) Ross % (Auto) Lymph # (Auto) Ross # (Auto) Total Counted (0-100) Atypical Lymphs % (0-5) % Absolute Neutrophi ls (1.4-6.5) 10^3/c mm Segmented Neutroph ils % Abs Segm Neuts (Ma n) (1.6-7.1) 10/cmm Band Neutrophils % Abs Band Neuts (Ma n) (0.0-1.2) 10^3/c mm Absolute Lymphocyt es (1.2-3.4) 10^3/c mm Lymphocytes (Manua l) % Monocytes (Manual) % Absolute Monocytes (0.1-0.6) 10^3/c mm Eosinophils (Manua l) % Absolute Eosinophi ls (0.0-0.7) 10^3/c mm Basophils (Manual) % Absolute Basophils (0.0-0.2) 10^3/c mm Metamyelocytes % Platelet Estimate (Normal) Giant Platelets Polychromasia Poikilocytosis [place] Cells D-Dimer (0-0.59) ug/mIFE U Specimen Type Sample Site ABG pH (7.35-7.45) ABG pCO2 (35-45) mmHg ABG pO2 (80.0-100.0) mmH g ABG HCO3 (22-26) mmol/L ABG Base Excess (-2.0-2.0) mmol/ L Savage Test Hematocrit (37-47) % O2 Delivery Device FiO2 % Industrial Health Engineer ID Sodium (136-145) mmol/L Potassium (3.5-5.1) mmol/L Chloride (98-107) mmol/L Carbon Dioxide (22-29) mmol/L Anion Gap (5-19) BUN (8-23) mg/dL Creatinine (0.5-0.9) mg/dL GFR Calculation (90-130) mL/min Glucose (65-115) mg/dL Calculated Osmolal ity (285-295) mOsm/k g Lactate (0.5-2.2) mmol/L Calcium (8.5-10.5) mg/dL Phosphorus (2.5-4.5) mg/dL Magnesium (1.7-2.3) mg/dL Total Bilirubin (0.15-1.2) mg/dL AST (0-32) U/L ALT (0-33) U/L Alkaline Phosphata se (35-105) IU/L Creatine Kinase (26-192) U/L Troponin T Baselin e (0-10) ng/L Troponin T 120 Min [place] (0-10) ng/L Delta Troponin T (0-10) ABS# C-Reactive Protein (0.0-4.9) mg/L NT-Pro-B Natriuret Pep (0-125) pg/mL Total Protein (6.6-8.7) g/dL Albumin (3.5-5.2) g/dL Globulin (1.3-4.6) g/dL Procalcitonin 3.11 H (0-0.5) ng/mL TSH 2.00 (0.27-4.20) uIU/ mL Urine Color (Yellow) Urine Appearance (CLEAR) Urine pH (5-7) Ur Specific Gravit y (1.005-1.030) Urine Protein (Negative) Urine Glucose (UA) (Normal) Urine Ketones (Negative) Urine Blood (Negative) Urine Nitrate (Negative) Urine Bilirubin (Negative) Urine Urobilinogen (Negative) mg/dL Ur Leukocyte Raeann ase (Negative) Ethyl Alcohol (0-10) mg/dL SARS-CoV-2 Ag (Rap id) (Negative) Critical Care Time Critical Care Time: Critical Care Time: Yes Total Critical Care Time: 40 Attestation: This case had a high probability of a clinically significant, sudden, or life threatening deterioration of this patient's condition which required my full and direct attention, intervention and personal management. Discharge Plan Discharge Patient Disposition: Admitted As Inpatient Admit Provider: Amanda Banegas Clinical Impression: Dehydration, Acute respiratory failure with hypoxia, BERNARDINO (acute kidney injury) Altered mental status Qualifiers: Altered mental status type: stupor Qualified Code(s): R40.1 - Stupor Opioid overdose Qualifiers: Encounter type: initial encounter Injury intent: accidental or unintentional Qualified Code(s): T40.2X1A - Poisoning by other opioids, accidental (unintentional), initial encounter Condition: Serious Coding Level of Care Code ED Manager Construction for Sinan Fwd Exam Comprehensive
[2021-03-03 00:40] LABS: Hemoglobin 10.3 g/dL (11.5-15.3); Mean Corpuscular HGB Conc 32.2 g/dL (30.0-36.0); Mean Corpuscular Hemoglobin 30.1 pg (28.0-34.0); Mean Corpuscular Volume 93.6 fL (81-99); Mean Platelet Volume 10.5 fL (7.4-10.4); Platelet Count 73 10^3/cmm (130-400); Red Blood Count 3.42 10^6/uL (4.1-5.3); Red Cell Distribution Width 15.1 % (12.1-15.1); White Blood Count 6.1 10^3/uL (4.0-10.0)
[2021-03-03 00:47] LABS: Lactate (Lactic Acid level) 1.1 mmol/L (0.5-2.2); Troponin(5th) Baseline 41 ng/L (0-10)
[2021-03-03 00:52] LABS: Add Urine Microscopic? NO; Charge for UA Resulting for Rev
[2021-03-03 00:54] LABS: Alanine Aminotransferase 39 U/L (0-33); Albumin Level 3.2 g/dL (3.5-5.2); Alkaline Phosphatase 155 IU/L (35-105); Anion Gap 18.3 (5-19); Aspartate Amino Transferase 354 U/L (0-32); Blood Urea Nitrogen 71 mg/dL (8-23); C Reactive Protein 126.2 mg/L (0.0-4.9); Calcium 8.9 mg/dL (8.5-10.5); Carbon Dioxide 17 mmol/L (22-29); Chloride 101 mmol/L (98-107); Globulin 3.7 g/dL (1.3-4.6); Glomerular Filtration Rate 28.1 mL/min (90-130); Glucose 117 mg/dL (65-115); Magnesium 2.4 mg/dL (1.7-2.3); NT Pro B Type Natriuretic Pept 220 pg/mL (0-125); Osmolality Calculated 296 mOsm/kg (285-295); Phosphorus 4.3 mg/dL (2.5-4.5); Potassium 4.3 mmol/L (3.5-5.1); Sodium 132 mmol/L (136-145); Total Bilirubin 0.2 mg/dL (0.15-1.2); Total Protein 6.9 g/dL (6.6-8.7)
[2021-03-03 00:55] LABS: Alcohol Level < 10 mg/dL (0-10); Creatine Phosphokinase 345 U/L (26-192)
[2021-03-03 01:12] LABS: Bilirubin Urine 1+ (Negative); Blood Urine Neg (Negative); Glucose Urine UA Norm (Normal); Ketones Urine Negative (Negative); Leukocyte Esterase Urine Negative (Negative); Nitrate Urine Negative (Negative); Protein Urine Neg (Negative); Urine Appearance Clear (CLEAR); Urine Color Yellow (Yellow); Urobilinogen Urine Norm (Negative); pH Urine 5 (5-7)
[2021-03-03 01:21] LABS: Slide Review Slide Review Perform
[2021-03-03 01:21] LABS: D Dimer >= 20.00 ug/mIFEU (0-0.59)
[2021-03-03 01:22] LABS: Absolute Neutrophil 4.7 10^3/cmm (1.4-6.5); Absolute Segmented Neutrophil 3.1 10/cmm (1.6-7.1); Band Neutrophils Absolute 1.6 10^3/cmm (0.0-1.2); Eosinophils 0 %; Giant Platelets Trace; Lymphocytes 15 %; Lymphocytes Absolute 0.9 10^3/cmm (1.2-3.4); Monocytes Absolute 0.3 10^3/cmm (0.1-0.6); Platelet Estimate Decreased (Normal); Poikilocytosis 1+; Polychromasia Trace; Segmented Neutrophils 50 %; Total Cells Counted 100 (0-100)
[2021-03-03 01:23] LABS: Burr Cells 1+
[2021-03-03 01:31] LABS: SARS Covid-2 Antigen Negative (Negative)
--- NOTE | 2021-03-03 01:56 | PM.HP ---
Providers/Chief Complaint Primary Care Provider: Job Alexander Chief Complaint: infection, sent by Dr. Davies History of Present Illness Salima Farrell is a 65 year old female who has history of IgG lambda multiple myeloma, vertebral compression fractures status post kyphoplasty T11 L5, hypogammaglobulinemia, GERD, asthma, currently on steroid and chemotherapy regimen, presented today with chief complaint respiratory distress,& altered mental status. Daughter is at the bedside who is endorsing that her mother is a very private woman. She does not share much. She is not sure how many pills of morphine which she takes today. When she checked on her around afternoon, she found her very confused, lethargic. She was experiencing wheezing and respiratory distress. Because of her previous history of recurrent pneumonia she called Dr. Davies and conveyed her concerns. Dr. Davies asked her to go to the ER for further evaluation. Daughter noticed low-grade fever at home around 100F, no active emesis or diarrhea, her p.o. intake and urine output have decreased. She was very obtunded in the ER, Narcan improved her mentation, CBC revealed no leukocytosis, D-dimer greater than 20, ABG reveals normal pH with initial pulse ox on room air 80% which improved with BiPAP to 95%, she is sinus tachycardic heart rate 115, BMP revealed BERNARDINO, chest x-ray reveals right middle lobe pneumonia, requested procalcitonin and started heparin drip for concern of PE, she received ceftriaxone in the ER, naloxone 0.4 mg and 2 L of normal saline Review of Systems Const: Reports: fever(s), chills and fatigue Eyes: Denies: change in vision ENMT: Reports: throat pain Card: Reports: dyspnea on exertion; Denies: orthopnea Resp: Reports: dyspnea GI: Denies: abdominal pain : Denies: flank pain Musc: Denies: neck pain Skin/Breast: Reports: erythema and striae; Denies: rash Neuro: Denies: headache(s) Psych: Reports: anxiety, irritability and paranoia Endo: Denies: polyuria Jonh/Lymph: Reports: easy bruising, easy bleeding and petechiae All/Imm: Denies: urticaria Medications/Allergies Home Medications Medication Instructions Recorded Confirmed Last Taken Type Cam walker #1 each 03/08/20 01/24/21 Unknown Rx Morphine Sulfate See Rx Instructions .ROUTE .COMPLEX 03/08/20 01/24/21 01/24/21 History acetaminophen 325 mg capsule 325 mg PO QID PRN 03/08/20 01/24/21 Unknown History alprazolam 1 mg tablet 1 mg PO TID 03/08/20 01/24/21 01/24/21 History benzonatate 100 mg capsule 100 mg PO TID 03/08/20 01/24/21 Unknown History cyclobenzaprine 10 mg tablet 10 mg PO TID 03/08/20 01/24/21 01/23/21 History diclofenac sodium 1 % topical gel 2 gm TOPICAL QID 03/08/20 01/24/21 Unknown History gabapentin 100 mg capsule 100 mg PO BEDTIME 03/08/20 01/24/21 01/23/21 History lidocaine 5 % topical patch 3 patch TOPICAL DAILY 03/08/20 01/24/21 01/24/21 History melatonin 10 mg capsule 10 mg PO DAILY 03/08/20 01/24/21 01/23/21 History omeprazole 40 mg capsule,delayed 40 mg PO DAILY 03/08/20 01/24/21 01/23/21 History release albuterol sulfate See Rx Instructions .ROUTE .COMPLEX 01/24/21 01/24/21 01/24/21 History aspirin 325 - 650 mg PO Q4H PRN 01/24/21 01/24/21 01/24/21 History ibuprofen 200 - 400 mg PO Q4H PRN 01/24/21 01/24/21 01/24/21 History levothyroxine 25 mcg PO DAILY 01/24/21 01/24/21 01/20/21 History nitroglycerin 0.4 mg SUBLINGUAL Q5M PRN 01/24/21 01/24/21 01/23/21 History sodium chloride See Rx Instructions .ROUTE .COMPLEX 01/24/21 01/24/21 Unknown History tamsulosin 0.4 mg PO DAILY 01/24/21 01/24/21 01/23/21 History valerian root 1 cap PO DAILY 01/24/21 01/24/21 01/23/21 History morphine 30 mg PO Q4H PRN 01/25/21 01/25/21 Unknown History morphine 200 mg PO Q12H 01/25/21 01/25/21 Unknown History mupirocin 1 applic TOPICAL BID #30 g 01/25/21 Unknown Rx ondansetron HCl 8 mg PO Q8H PRN #15 tab 01/25/21 Unknown Rx Allergies Allergy/AdvReac Type Severity Reaction Status Date / Time codeine Allergy Unknown unknown Verified 03/29/20 09:30 PFSH Acute PFSH: Medical History (Updated 03/03/21 @ 03:03 by Amanda Banegas MD) Gastroesophageal reflux disease Mild asthma Multiple myeloma Transplanted bone marrow present Surgical History H/O kyphoplasty History of tubal ligation Hx of appendectomy Hx of total hysterectomy Family History Mother Cancer Heart attack Father Cancer Heart attack Brother Diabetes Sister Diabetes Cancer Social History Smoking and tobacco status: former smoker Alcohol intake: never Vitals/I&O/Wt Last Vital Signs Temp 98.1 F 03/03/21 00:04 Pulse 105 H 03/03/21 01:30 Resp 10 L 03/03/21 01:30 BP 100/52 03/03/21 01:30 Pulse Ox 97 03/03/21 01:30 Weight last 48 hrs Weight 63.503 kg Physical Exam Narrative: EXAM NARRATIVE: female who was on BiPAP at the time of my evaluation, daughter at the bedside She is verbally redirectable, she was back to sleep after answering 3-4 questions Able to protect her airways No neurological deficits and able to move her upper and lower extremities EOMI, PERRLA No signs of meningitis Bilateral assisted breath sounds Abdomen soft nontender no signs of peritonitis Low symmetry no edema gangrene ulcer Left-sided Mediport without any drainage or skin sensitivity Extremely drowsy Left forearm skin tear with mild bleeding Urinary Catheter Management^: Knowles: Cath Placed During This Visit: yes Urinary Catheter Date of Insertion: 03/03/21 Urinary Catheter Time of Insertion: 00:52 Data : 03/03/21 00:24 03/03/21 00:24 Micro: Microbiology 03/03/21 00:09 Blood Culture - Preliminary Blood SPECIMEN COLLECTED 03/03/21 00:24 Blood Culture - Preliminary Blood SPECIMEN COLLECTED A&P Assessment and plan (1) Community acquired pneumonia: Status: Acute (2) Acute respiratory failure with hypoxia: Status: Acute (3) Dehydration: Status: Acute (4) Altered mental status: Status: Acute (5) Opioid overdose: Status: Acute Additional A&P Information Acute hypoxic respiratory failure secondary to community-acquired pneumonia No signs of sepsis Initially on arrival on room air she was saturating 80%, oxygenation improved with BiPAP FiO2 30% BiPAP setting 14/6 ABG shows hypoxemia with compensated pH Chest x-ray shows right middle lobe pneumonia, requested procalcitonin level and urine antigens, blood cultures and MRSA PCR Considering immunocompromise state I would choose vancomycin for MRSA coverage and cefepime for gram-negative/pseudomonal coverage, Covid antigen negative Considering sinus tachycardia initial hypoxia high D-dimer heparin drip initiated, will get VQ scan, her D-dimer could be secondary to her hematological malignancy as well Negative delta troponin EKG without ischemic or infarctive changes, Opioid overdose It seems to be an accidental overdose on morphine, her mentation improved with 1 dose of Narcan in the ER Currently able to protect airways on BiPAP No active emesis Monitor in ICU I would reduce the dosages of short and long-acting morphine Add bowel regimen For altered mental status seems secondary to opioid overdose, no sign of stroke or meningitis, head CT unremarkable Dehydration with BERNARDINO Improvement anticipated with fluid resuscitation UA unremarkable Full code Cardiac diet DVT prophylaxis not needed currently on therapeutic dose of heparin Attestations Medical Necessity Statement*: Anticipating stay in the hospital cross more than 2 midnights for management of community-acquired pneumonia, opioid overdose Time Spent in Patient Care: (>than 50% of time spent in counselling and/or direct pt care on unit). 40mins Coding Level of Care Code Acute Supervisor Packing Room for Sinan Emanuel Diagnoses Community acquired pneumonia J18.9 Acute respiratory failure with hypoxia J96.01 Dehydration E86.0 Altered mental status R41.82 Opioid overdose T40.2X1A
--- NOTE | 2021-03-03 02:14 | ECG_ITS ---
[facility] Test Date: 2021-03-03 Pat Name: Salima Farrell Department: Room: Gender: Female [employer]mond [employer]er: : 1955 Requested By: Adis Moss Order Number: [id number] Delores MD: Ryann Wheatley M.D. Measurements Intervals [place] Rate: 101 P: 38 FL: 142 QRS: 69 QRSD: 89 T: 37 QT: 335 QTc: 435 Interpretive Statements SINUS TACHYCARDIA ABNORMAL RHYTHM ECG Compared to ECG 03/03/2021 00:28:52 Myocardial infarct finding no longer present Electronically Signed On 03-04-2021 9:46:52 CDT by Ryann Wheatley M.D. [id number]
[2021-03-03 02:15] LABS: ABG PCO2 34.8 mmHg (35-45); ABG PH Result 7.35 (7.35-7.45); Arterial Blood Gas Hematocrit 29.9 % (37-47); Base Excess ABG -5.5 mmol/L (-2.0-2.0); Blood Gas Operator Identificat JB; Blood Gas Sample Site Brachial, right; Blood Gas Sample Type Arterial; HCO3 ABG 19.4 mmol/L (22-26); Oxygen Device BIPAP
[2021-03-03 02:41] LABS: Troponin 5 2HR 31.23 ng/L (0-10)
[2021-03-03 02:49] LABS: Procalcitonin 3.11 ng/mL (0-0.5)
[2021-03-03] MEDS: heparin drip 25,000 UNIT/500 ML PREMIX 17.78 UNIT IV (03:04)
[2021-03-03] MEDS: heparin 5,000 unit/mL INJ 1 mL IV (03:21)
--- NOTE | 2021-03-03 04:05 | PC.PHAR ---
Vancomycin is dosed at 1250mg IVPB every 48 hours to produce a predicted trough level of 13.04 (population based pharmacokinetic analysis). A trough level has been ordered from the lab to be obtained before the fourth dose to confirm and adjust if needed.
[2021-03-03] MEDS: sodium chloride 0.9% 1,000 ML 30 ML IV (04:33)
[2021-03-03] MEDS: cefepime 2,000 MG in sodium chloride 0.9% (plus) 50 ML 100 MG IV (04:35)
[2021-03-03] MEDS: vancomycin 1,250 MG/250 ML PIGGYBACK 250 MG IV (05:07)
--- NOTE | 2021-03-03 06:14 | ECG_ITS ---
[facility] Test Date: 2021-03-03 Pat Name: Salima Farrell Department: Room: [facility] Gender: Female Grievance Coordinator: : 1955 Requested By: Adis Moss Order Number: [id number] Delores MD: Ryann Wheatley M.D. Measurements Intervals [place] Rate: 98 P: 51 TX: 144 QRS: 77 QRSD: 84 T: 59 QT: 328 QTc: 419 Interpretive Statements SINUS RHYTHM Compared to ECG 03/03/2021 02:00:45 Sinus tachycardia no longer present Electronically Signed On 03-04-2021 9:47:01 CDT by Ryann Wheatley M.D. [id number]
[2021-03-03 06:37] LABS: Basophils % 0.3 %; Hematocrit 29.1 % (37.0-47.0); Hemoglobin 9.4 g/dL (11.5-15.3); Lymphocytes # 0.4 10^3/uL (0.8-4.8); Lymphocytes % 6.8 %; Mean Corpuscular HGB Conc 32.3 g/dL (30.0-36.0); Mean Corpuscular Hemoglobin 30.3 pg (28.0-34.0); Mean Corpuscular Volume 93.9 fL (81-99); Mean Platelet Volume 11.8 fL (7.4-10.4); Monocytes # 0.3 10^3/uL (0.2-0.9); Monocytes % 5.5 %; Neutrophils # 5.33 10^3/uL (1.8-7.7); Neutrophils % 85.9 %; Nucleated Red Blood Cells % 0 %; Platelet Count 64 10^3/cmm (130-400); Red Cell Distribution Width 15.3 % (12.1-15.1)
[2021-03-03 06:58] LABS: White Blood Count 6.2 10^3/uL (4.0-10.0)
[2021-03-03 08:20] LABS: Anion Gap 15.1 (5-19); Blood Urea Nitrogen 54 mg/dL (8-23); Calcium 7.9 mg/dL (8.5-10.5); Carbon Dioxide 18 mmol/L (22-29); Chloride 107 mmol/L (98-107); Glomerular Filtration Rate 37.5 mL/min (90-130); Glucose 96 mg/dL (65-115); Osmolality Calculated 297 mOsm/kg (285-295); Potassium 4.1 mmol/L (3.5-5.1); Sodium 136 mmol/L (136-145)
[2021-03-03 08:47] LABS: Lactate Dehydrogenase 2502 U/L (135-214)
[2021-03-03 08:52] LABS: Hematocrit 29.2 % (37.0-47.0); Reticulocyte % 0.6 % (0.5-2.0)
[2021-03-03 08:54] LABS: Retic Production Index 0.52
[2021-03-03] MEDS: ipratropium-albuterol 3 mL Neb INHALATION (09:05)
--- NOTE | 2021-03-03 09:32 | P.PN_ITS ---
Subjective Subjective: Interval history: BiPAP is on, she is somewhat somnolent initially, speaking softly, but wakes up, states that she is in the hospital, states the year correctly. Thinks she is in [place], but agrees when corrected. Denies pain or discomfort currently. States that she took all her medicines yesterday except for the afternoon once for which she was waiting to take in the evening. Corrected herself several times with regards to how she takes her medications, but when asked if took any extra's denies. Vitals/I&O/Wt Last Vital Signs Temp 98.3 F 03/03/21 07:40 Pulse 100 03/03/21 09:11 Resp 18 03/03/21 09:04 BP 107/63 03/03/21 07:40 Pulse Ox 95 03/03/21 09:10 03/02/21 03/03/21 03/03/21 22:59 06:59 14:59 Intake Total 2049 / 2049 Output Total 1400 / 1400 Balance 650 / 650 Weight last 48 hrs Weight 63.503 kg Physical Exam Const: COMMON NORMALS: no acute distress ORIENTATION/CONSCIOUSNESS: Yes awake, Yes oriented to person, Yes oriented to place (hospital, not town) and Yes oriented to time OTHER: Generally weak, soft spoken, slowly waking up. HENMT: COMMON NORMALS: oropharynx normal Neck/C-Spine: COMMON NORMALS: no JVD Resp: COMMON NORMALS: normal respiratory effort AUSCULTATION: crackles Cardio: COMMON NORMALS: no JVD, regular rhythm, S1 normal heart sound present, S2 normal heart sound present and No murmurs present (Cardio) RATE: tachycardic RHYTHM: regular rhythm HEART SOUNDS: S1 normal heart sound present and S2 normal heart sound present GI: COMMON NORMALS: Normal to inspection, nondistended, normoactive bowel sounds present, Soft to palpation and non-tender PALPATION: Yes Soft to palpation Extremity: COMMON NORMALS: no joint enlargement and no pedal edema Neuro: COMMON NORMALS: moves all extremities SENSORIUM/ORIENTATION: Yes oriented to person, Yes oriented to place (hospital, not town) and Yes oriented to time Skin: COMMON NORMALS: no rashes or lesions noted GENERAL SKIN EXAM: no rashes or lesions noted Urinary Catheter Management^: Knowles: Cath Placed During This Visit: yes Reason for Continuing Indwelling Catheter: Accurate Measurement of Urinary Output in Critically Ill Patients Urinary Catheter Date of Insertion: 03/03/21 Urinary Catheter Time of Insertion: 00:52 Data : 03/03/21 04:32 03/03/21 04:32 Micro: Microbiology 03/03/21 04:45 Bacterial Antigens - Final Urine,Voided 03/03/21 04:45 Legionella Urinary Antigen - Final Urine Catheterized 03/03/21 00:09 Blood Culture - Preliminary Blood SPECIMEN COLLECTED 03/03/21 00:24 Blood Culture - Preliminary Blood SPECIMEN COLLECTED A&P Assessment and plan (1) Acute respiratory failure with hypoxia: Continue antibiotics for pneumonia. Collect sputum culture. Anticoagulation withpossible PE. VQ scan. Recheck platelets tonight. Discussed with her and her daughter. In case platelets declining further, may not be able to tolerate anticoagulation. She is waking up. Wean off BiPAP as tolerating. Nasal cannula if consistently awake. Trial of diet. Status: Acute (2) Community acquired pneumonia: As above Status: Acute (3) Dehydration: Daughter states she barely drinks any water continue gentle rehydration. Appears she sustained acute kidney injury, possibly secondary to dehydration, possibly also with NSAIDs as appears she takes ibuprofen at home. Also she had chemotherapy last week on Friday. Discussed lower possibility of tumor lysis syndrome but something to watch for. We will check uric acid. Phos. Status: Acute (4) Altered mental status: Acute encephalopathy suspected secondary to supratherapeutic effect of a number of medications secondary to acute kidney injury, hepatocellular injury. Discussed with her and her daughter. Discussed caution with regards number including high doses of morphine, concomitant benzodiazepine, concomitant muscle relaxer. Also is on gabapentin. Improving. Continue to hold medications. Monitor. BERNARDINO appears to be improving. Discussed with her and her daughter will need to exercise utmost caution especially with the dangers of medications including morphine, benzodiazepines, muscle relaxer. Status: Acute Qualifiers: Altered mental status type: stupor Qualified Code(s): R40.1 - Stupor (5) Opioid overdose: As above. Rather supratherapeutic effect secondary to acute kidney injury, hepatocellular injury. Will need to be very cautious going forward with pain, anxiety control. Status: Acute Qualifiers: Encounter type: initial encounter Injury intent: accidental or unintentional Qualified Code(s): T40.2X1A - Poisoning by other opioids, accidental (unintentional), initial encounter (6) BERNARDINO (acute kidney injury): Improving, creatinine down from urs-qdehs-ycjvvly kidney injury, also appears daughter states she barely drinks any water, so dehydration likely playing additional role with prerenal BERNARDINO. Appears to be responding to gentle fluid challenge. Discussed also possible effect of chemotherapy which she had just gotten last week. As above we will check uric acid, Phos. Although TLS appears less likely as potassium normal, corrected calcium normal. Status: Acute (7) Thrombocytopenia: Status: Acute Additional A&P Information D-dimer elevated: Suspect this may multiple myeloma. Pending VQ scan, requested also venous duplex lower extremities. She is empirically anticoagulated, but will recheck platelets, if trending down further below 50,000, anticoagulation may need to be held due to risk of bleeding. Transaminitis: Somewhat secondary to monitor AST, ALT Multiple myeloma: Status post chemotherapy last CK 345. Recheck CK. Wed after recent chemotherapy. Rhabdomyolysis: Mildnesday Attestations Medical Necessity Statement*: Continue admission for assessment of management of hypoxic respiratory failure, pneumonia, acute encephalopathy, acute kidney injury, hepatocellular injury, Coding Level of Care Code Acute Home Economics Expert for [facility] Diagnoses Acute respiratory failure with hypoxia J96.01 Community acquired pneumonia J18.9 Dehydration E86.0 Altered mental status R40.1 Altered mental status type: stupor Opioid overdose T40.2X1A Encounter type: initial encounter Injury intent: accidental or unintentional BERNARDINO (acute kidney injury) N17.9 Thrombocytopenia D69.6
[2021-03-03 09:38] LABS: INR 1.09 (0.8-1.2)
--- NOTE | 2021-03-03 09:44 | USR_ITS ---
PROCEDURE INFORMATION: Exam: US Duplex Lower Extremity Veins, Bilateral Exam date and time: 03/03/2021 9:44 AM Age: 65 years old Clinical indication: Abnormal findings; Abnormal lab test; Elevated d-dimer; Additional info: Elevated ddimer TECHNIQUE: Imaging protocol: Real-time duplex ultrasound of the extremities with 2-D cobian scale, color Doppler flow and spectral waveform analysis with image documentation. Complete exam focused on the bilateral lower extremity veins. COMPARISON: CR XR foot RT min 3V* [id number] 03/29/2020 9:35 AM FINDINGS: Right deep veins: Unremarkable. The common femoral, femoral, proximal profunda femoral, popliteal and visualized calf veins are patent without thrombus. Normal Doppler waveforms. Normal compressibility and/or augmentation response. Right superficial veins: Saphenofemoral junction is patent without thrombus. Left deep veins: Unremarkable. The common femoral, femoral, proximal profunda femoral, popliteal and visualized calf veins are patent without thrombus. Normal Doppler waveforms. Normal compressibility and/or augmentation response. Left superficial veins: Saphenofemoral junction is patent without thrombus. Soft tissues: Unremarkable. US/[place] [id number] IMPRESSION: No evidence of deep vein thrombosis.
[2021-03-03 10:24] LABS: Phosphorus 3.6 mg/dL (2.5-4.5); Uric Acid 9.5 mg/dL (2.4-5.7)
[2021-03-03 11:19] LABS: Partial Thromboplastin Time > 250.0 SECONDS (23.9-36.7)
[2021-03-03 13:27] LABS: ABG PCO2 42.2 mmHg (35-45); ABG PH Result 7.31 (7.35-7.45); Arterial Blood Gas Hematocrit 33.3 % (37-47); Base Excess ABG -5.1 mmol/L (-2.0-2.0); Blood Gas Operator Identificat HARKR; Blood Gas Sample Site Brachial, right; Blood Gas Sample Type Arterial; Oxygen Device NC; PO2 ABG 60.6 mmHg (80.0-100.0)
[2021-03-03] MEDS: morphine ER (12 HR) 100 mg Tablet PO (15:22)
[2021-03-03 15:27] LABS: Partial Thromboplastin Time 236.2 SECONDS (23.9-36.7)
--- NOTE | 2021-03-03 15:35 | NMR_ITS ---
PROCEDURE INFORMATION: Exam: NC Lung Ventilation and Perfusion Imaging Exam date and time: 03/03/2021 3:35 PM Age: 65 years old Clinical indication: Shortness of breath; Patient HX: SOB; Additional info: Hypoxia TECHNIQUE: Imaging protocol: Nuclear pulmonary ventilation with aerosol or gas was performed followed by perfusion. Views: Ventilation acquired with multiple projections. Perfusion acquired with multiple projections. Radiopharmaceutical: 5.2 mCi Tc-99m MAA (Macroaggregated Albumin), IV. 32.2 mCi Tc-99m DTPA (DTPA Aerosol), Inhalation. COMPARISON: CR (CHEST, ) 03/03/2021 1:01 AM FINDINGS: Ventilation: 32.2 mCi of DTPA was use. Normal. No ventilation defects. Bilateral hilar artifactual clumping is seen. Perfusion: 5.2 mCi of technetium 99 M labeled MAA were used. Normal. No perfusion defects. NC/NC pul vent and perfus* [id number] IMPRESSION: Normal perfusion. No evidence of pulmonary embolism.
[2021-03-03 15:59] LABS: Partial Thromboplastin Time 169.6 SECONDS (23.9-36.7)
[2021-03-03 17:29] LABS: Platelet Count 60 10^3/cmm (130-400)
[2021-03-03 17:50] LABS: Partial Thromboplastin Time 134.3 SECONDS (23.9-36.7)
[2021-03-03] MEDS: gabapentin 100 mg Capsule PO (21:06)
[2021-03-04] VITALS (16 sets, daily range): BP systolic 96–123; BP diastolic 54–66; PULSE 90–100; RESP 0–29; TEMP 36.3–37.2; O2SAT 89–998
--- NOTE | 2021-03-04 00:20 | PC.NURSE ---
O2 sats decreased to 87-88%, increased oxygen to 4LNC, patient more confused that earlier in night. Placed back on Bipap per RT. Will continue to monitor.
--- NOTE | 2021-03-04 02:08 | PC.NURSE ---
Addendum entered by Fidelina Zabala RN 03/04/21 02:10: Pulses remain strong and palpable to right arm with no reports of numbness or tingling. Original Note: Right elbow area more bruised and swollen, elevated right arm on pillow and ice place on bruising. Will continue to monitor.
[2021-03-04] MEDS: cefepime 2,000 MG in sodium chloride 0.9% (plus) 50 ML 100 MG IV ×2 (03:34→18:54)
[2021-03-04] MEDS: morphine ER (12 HR) 100 mg Tablet PO ×2 (03:35→18:11)
[2021-03-04] MEDS: sodium chloride 0.9% 1,000 ML 30 ML IV (03:37)
[2021-03-04 04:22] LABS: Basophils % 0.2 %; Hematocrit 24.7 % (37.0-47.0); Hemoglobin 7.8 g/dL (11.5-15.3); Lymphocytes # 1.2 10^3/uL (0.8-4.8); Lymphocytes % 29.1 %; Mean Corpuscular HGB Conc 31.6 g/dL (30.0-36.0); Mean Platelet Volume 10.3 fL (7.4-10.4); Monocytes # 0.4 10^3/uL (0.2-0.9); Monocytes % 9.2 %; Neutrophils # 2.52 10^3/uL (1.8-7.7); Nucleated Red Blood Cells % 0 %; Platelet Count 62 10^3/cmm (130-400); Red Cell Distribution Width 15.9 % (12.1-15.1); White Blood Count 4.1 10^3/uL (4.0-10.0)
[2021-03-04 04:43] LABS: Alanine Aminotransferase 30 U/L (0-33); Albumin Level 2.6 g/dL (3.5-5.2); Alkaline Phosphatase 98 IU/L (35-105); Anion Gap 10.2 (5-19); Aspartate Amino Transferase 178 U/L (0-32); Blood Urea Nitrogen 26 mg/dL (8-23); Calcium 8.6 mg/dL (8.5-10.5); Carbon Dioxide 24 mmol/L (22-29); Chloride 109 mmol/L (98-107); Creatine Phosphokinase 251 U/L (26-192); Glomerular Filtration Rate 99.7 mL/min (90-130); Glucose 107 mg/dL (65-115); Osmolality Calculated 293 mOsm/kg (285-295); Potassium 4.2 mmol/L (3.5-5.1); Sodium 139 mmol/L (136-145); Total Bilirubin 0.2 mg/dL (0.15-1.2); Total Protein 5.6 g/dL (6.6-8.7)
--- NOTE | 2021-03-04 05:03 | PC.NURSE ---
Notified Dr. Banegas of large hematoma to left inner arm, order given to hold 6AM dose of heparin.
[2021-03-04 05:12] LABS: Slide Review Slide Review Perform
[2021-03-04] MEDS: ipratropium-albuterol 3 mL Neb INHALATION (07:58)
--- NOTE | 2021-03-04 08:00 | PC.NURSE ---
Bedside rounding Hand-off report for initial rounding from night nurse. Pt is alert, oriented but has occassional disorganized thoughts e.g she said her hospital gown was from [employer] store. Noted fine jerky movements on her hands when she uses spoons and cups. 3 L on NC. Notified Dr. Church. Pt noted to have right upper arm swelling and hematoma. skin is warm, swelling is tender to the touch. radial pulse is palpable. Knowles catheter is draining well to gravity with clear dark yellow urine. oriented pt to oncoming staff.
[2021-03-04] MEDS: tamsulosin 0.4 mg Capsule PO (08:18)
[2021-03-04] MEDS: levothyroxine 25 mcg Tablet PO (08:18)
--- NOTE | 2021-03-04 08:31 | USCV_ITS ---
Salima Farrell Age: 65 Gender: F : 1955 Exam Date: 03/04/2021 09:58 Ordering Phys: Delta Church MD Technologist: Patti Reyes Exam Location: [place] Indication: Pain Risk Factors: Previous Vascular Surgery: Right BP: / Left BP: / RIGHT LEFT PSV PSV (cm/s) (cm/s) Waveform Waveform Triphasic 107.2 Subclavian Proximal Triphasic 97.9 Subclavian Distal Triphasic 111.9 Axillary Triphasic 168.6 Brachial Proximal Triphasic 141.3 Brachial Mid Triphasic Triphasic 140.7 Brachial at AC Biphasic 130.7 Radial Proximal Biphasic 81.5 Radial Mid Biphasic 81.5 Radial at Wrist Biphasic 140.7 Ulnar Proximal Biphasic 148.8 Ulnar Mid Biphasic 100.5 Ulnar at Wrist FINDINGS See measurements listed above. Patent subclavian, brachial, radial and ulnar artery on the right side. Low resistant waveforms in the distal arteries CONCLUSIONS Patent right upper extremity arteries with no evidence of any significant stenosis, based on the Doppler velocities. Blood pressures could not be obtained Dr Ryann Wheatley MD [facility] (Electronically Signed) Final Date: 04 March 2021 13:30 S
--- NOTE | 2021-03-04 08:35 | USCV_ITS ---
Salima Farrell Age: 65 Gender: F : 1955 Exam Date: 03/04/2021 09:39 Ordering Phys: Delta Church MD Technologist: Patti Reyes [place] [facility] [place]: Swelling, hematoma HISTORY: Right upper extremity swelling. PROCEDURES: Comparison: none available. Venous duplex imaging was performed in only the right upper extremity. The following venous structures were evaluated: internal jugular vein, subclavian vein, axillary vein, and brachial veins. In addition, the basilic vein, cephalic vein, radial veins, and ulnar veins were assessed. Serial compression, augmentation maneuvers, and spectral Doppler flow evaluation were performed. FINDINGS: No evidence of deep vein thrombosis or superficial thrombophlebitis in the right upper extremity. Diffuse edema noted antecubital area and the forearm. Echolucent areas were noted in the subcutaneous tissue of the antecubital region and in the forearm CONCLUSIONS No evidence of DVT or superficial vein thrombosis in the above- mentioned veins Features of edema in the antecubital and forearm. Dr Ryann Wheatley MD [facility] (Electronically Signed) Final Date: 04 March 2021 13:23 S
--- NOTE | 2021-03-04 09:11 | PM.PN ---
Subjective Subjective: Interval history: She is feeling a bit better today. She is awake, alert, oriented x3. She denies any pain or discomfort. She is generally weak, however, and with noted drinks/drops in her hands/arms when lifting/with effort. Vitals/I&O/Wt Last Vital Signs Temp 98.2 F 03/04/21 04:00 Pulse 93 03/04/21 08:05 Resp 17 03/04/21 08:00 BP 106/62 03/04/21 08:00 Pulse Ox 95 03/04/21 08:00 03/03/21 03/04/21 03/04/21 22:59 06:59 14:59 Intake Total 500 / 651.426 942 / 1593.426 155 / 155 Output Total 1000 / 1000 700 / 1700 Balance -500 / -348.574 242 / -106.574 155 / 155 Weight last 48 hrs Weight 80.195 kg Weight 63.503 kg Physical Exam Const: COMMON NORMALS: no acute distress ORIENTATION/CONSCIOUSNESS: Yes awake, Yes oriented to person, Yes oriented to place (hospital, not town) and Yes oriented to time OTHER: Generally weak, soft spoken, slowly waking up. HENMT: COMMON NORMALS: oropharynx normal Neck/C-Spine: COMMON NORMALS: no JVD Resp: COMMON NORMALS: normal respiratory effort AUSCULTATION: crackles Cardio: COMMON NORMALS: no JVD, regular rhythm, S1 normal heart sound present, S2 normal heart sound present and No murmurs present (Cardio) RATE: tachycardic RHYTHM: regular rhythm HEART SOUNDS: S1 normal heart sound present and S2 normal heart sound present GI: COMMON NORMALS: Normal to inspection, nondistended, normoactive bowel sounds present, Soft to palpation and non-tender PALPATION: Yes Soft to palpation Extremity: COMMON NORMALS: no joint enlargement and no pedal edema Neuro: COMMON NORMALS: moves all extremities SENSORIUM/ORIENTATION: Yes oriented to person, Yes oriented to place (hospital, not town) and Yes oriented to time Skin: COMMON NORMALS: no rashes or lesions noted GENERAL SKIN EXAM: no rashes or lesions noted Urinary Catheter Management^: Knowles: Cath Placed During This Visit: yes Reason for Continuing Indwelling Catheter: Accurate Measurement of Urinary Output in Critically Ill Patients Urinary Catheter Date of Insertion: 03/03/21 Urinary Catheter Time of Insertion: 00:52 Data : 03/04/21 03:30 03/04/21 03:30 Micro: Microbiology 03/03/21 00:09 Blood Culture - Preliminary Blood Gram positive cocci 03/03/21 00:24 Blood Culture - Preliminary Blood NEGATIVE TO DATE 03/03/21 02:55 MRSA Culture - Final Nose 03/03/21 04:45 Bacterial Antigens - Final Urine,Voided 03/03/21 04:45 Legionella Urinary Antigen - Final Urine Catheterized A&P Assessment and plan (1) Acute respiratory failure with hypoxia: Improving. Persistent hypoxia, requiring 3 L nasal cannula. She is so far weaned off BiPAP. Doing well on nasal cannula currently. Continue cefepime, vancomycin for pneumonia. Collect sputum culture. Heparin drip was discontinued yesterday afternoon after negative VQ scan and lower extremity duplex. Subcu heparin was ordered for this morning, however, this was discontinued due to noted swelling/hematoma right upper extremity. Advance diet. Status: Acute (2) Community acquired pneumonia: As above Status: Acute (3) Altered mental status: Acute encephalopathy is improving. She is having drop/myoclonic jerks with effort suspected secondary to metabolic encephalopathy. No seizure-like activity. She is ANO x3. Denies any pain or discomfort. We have restarted some of her home medications including morphine, although scheduled at lower dose 100 mg twice daily, resuming as needed morphine 30 mg MSIR. Monitor mental status, respiratory status. BERNARDINO has resolved. Hepatocellular injury is improving. Discussed with her long-term will need to taper off some of the medications which may be contributing to mental status changes especially unexpectedly of developed acute kidney injury, hepatocellular injury in the future. Yesterday discussed with her daughter as well will need to exercise utmost caution especially with the dangers of medications including morphine, benzodiazepines, muscle relaxer. Status: Acute Qualifiers: Altered mental status type: stupor Qualified Code(s): R40.1 - Stupor (4) Dehydration: Received IV rehydration. BERNARDINO resolved. DC IV fluid. Daughter states she barely drinks any water. Status: Acute (5) Opioid overdose: As above. Rather supratherapeutic effect secondary to acute kidney injury, hepatocellular injury. Will need to be very cautious going forward with pain, anxiety control. Status: Acute Qualifiers: Encounter type: initial encounter Injury intent: accidental or unintentional Qualified Code(s): T40.2X1A - Poisoning by other opioids, accidental (unintentional), initial encounter (6) BERNARDINO (acute kidney injury): Resolving. DC IVF. Encourage oral intake. Encourage hydration at home. Would discontinue ibuprofen at discharge. No sign of TLS. Status: Acute (7) Thrombocytopenia: Following multiple myeloma therapy last week. Platelets appear to have stabilized around 60,000. Status: Acute (8) Hematoma of arm: Right upper extremity swelling/hematoma noted. No sign of vascular compromise distally. Unclear whether this was after venous draws or ABG at admit. Requested right upper extremity venous and arterial duplex. Elevate extremity. Avoid additional blood draws or infusions there. Monitor. Transfuse platelets in case drop below 30k or severe bleeding. Status: Acute Additional A&P Information D-dimer elevated: Suspect this may due to multiple myeloma. Negative lower extremity duplex, VQ scan low probability of PE. Currently SCD DVT prophylaxis due to right upper extremity swelling/hematoma. Transaminitis: Somewhat secondary to monitor AST, ALT Multiple myeloma: Status post treatment last Friday. Fri after recent chemotherapy. Rhabdomyolysis: Mild. Improving. Attestations Medical Necessity Statement*: Continue admission for assessment management of hypoxia, pneumonia, improving acute encephalopathy, optimization of home medications which may contribute to encephalopathy, right upper extremity swelling/hematoma in setting of thrombocytopenia. Coding Level of Care Code Acute Nutrition Coordinator for [facility] Diagnoses Acute respiratory failure with hypoxia J96.01 Community acquired pneumonia J18.9 Altered mental status R40.1 Altered mental status type: stupor Dehydration E86.0 Opioid overdose T40.2X1A Encounter type: initial encounter Injury intent: accidental or unintentional BERNARDINO (acute kidney injury) N17.9 Thrombocytopenia D69.6 Hematoma of arm S40.029A
--- NOTE | 2021-03-04 10:49 | PC.NURSE ---
Hand-off report to [facility] Report given to TRES Mckenzie in 2N. Ushered pt via wheelchair with son at bedside.
[2021-03-04] MEDS: vancomycin 1,250 MG/250 ML PIGGYBACK 200 MG IV (12:29)
[2021-03-04] MEDS: heparin 5,000 unit/mL INJ 1 mL 5000 UNIT SUBCUT (18:12)
[2021-03-04] MEDS: pantoprazole DR 40 mg Tablet PO (18:12)
[2021-03-04] MEDS: gabapentin 100 mg Capsule PO (21:12)
[2021-03-05] VITALS (11 sets, daily range): BP systolic 97–147; BP diastolic 61–85; PULSE 61–102; RESP 16–20; TEMP 36.7–36.9; O2SAT 90–98
--- NOTE | 2021-03-05 02:24 | PC.NURSE ---
ROUNDING Set off bed alarm and was confused. Was wanting to find her phone so she could call her daughter. Reoriented and stated Well lets not call her at that time of the night c/o some nausea and message to Dr nakul galindo
[2021-03-05] MEDS: ondansetron 2 mg/ML SDV 2 mL 4 MG IVP ×3 (02:52→20:20)
[2021-03-05] MEDS: vancomycin 1,250 MG/250 ML PIGGYBACK 200 MG IV ×2 (04:21→22:45)
[2021-03-05] MEDS: morphine ER (12 HR) 100 mg Tablet PO (05:33)
[2021-03-05] MEDS: heparin 5,000 unit/mL INJ 1 mL 5000 UNIT SUBCUT ×2 (05:33→18:53)
[2021-03-05 05:52] LABS: Basophils % 0.3 %; Eosinophils % 0.3 %; Hematocrit 24.3 % (37.0-47.0); Hemoglobin 7.7 g/dL (11.5-15.3); Lymphocytes % 29.6 %; Mean Corpuscular HGB Conc 31.7 g/dL (30.0-36.0); Mean Corpuscular Hemoglobin 30.4 pg (28.0-34.0); Mean Platelet Volume 11.2 fL (7.4-10.4); Monocytes # 0.6 10^3/uL (0.2-0.9); Neutrophils # 1.75 10^3/uL (1.8-7.7); Neutrophils % 51.3 %; Nucleated Red Blood Cells % 0.6 %; Platelet Count 58 10^3/cmm (130-400); Red Blood Count 2.53 10^6/uL (4.1-5.3); Red Cell Distribution Width 15.9 % (12.1-15.1); White Blood Count 3.4 10^3/uL (4.0-10.0)
[2021-03-05 06:12] LABS: Alanine Aminotransferase 25 U/L (0-33); Albumin Level 2.7 g/dL (3.5-5.2); Alkaline Phosphatase 101 IU/L (35-105); Anion Gap 8.8 (5-19); Aspartate Amino Transferase 131 U/L (0-32); Blood Urea Nitrogen 12 mg/dL (8-23); Calcium 8.4 mg/dL (8.5-10.5); Carbon Dioxide 27 mmol/L (22-29); Chloride 109 mmol/L (98-107); Glomerular Filtration Rate 159.2 mL/min (90-130); Glucose 100 mg/dL (65-115); Osmolality Calculated 292 mOsm/kg (285-295); Potassium 3.8 mmol/L (3.5-5.1); Sodium 141 mmol/L (136-145); Total Bilirubin 0.3 mg/dL (0.15-1.2); Total Protein 5.7 g/dL (6.6-8.7)
[2021-03-05 06:44] LABS: Slide Review Slide Review Perform
[2021-03-05] MEDS: cefepime 2,000 MG in sodium chloride 0.9% (plus) 50 ML 100 MG IV ×2 (06:44→18:54)
--- NOTE | 2021-03-05 09:24 | PC.OT ---
OT note: Pt refused OT at this time as she was too fatigued. Family requested to speak to nurse, contacted nurse to let her know. Will attempt later as able.
[2021-03-05] MEDS: pantoprazole DR 40 mg Tablet PO ×2 (09:29→18:54)
[2021-03-05] MEDS: tamsulosin 0.4 mg Capsule PO (09:29)
[2021-03-05] MEDS: acetaminophen 325 mg Tablet PO (09:29)
--- NOTE | 2021-03-05 12:10 | PC.NUTR ---
Nutrition assessment completed due to Fredi consult, MST=4, and dx of FTT. Recommend obtain current weight when possible due to multiple varied wts in EMR and wt loss per admission screen. Have notified nurse. Also recommend assistance at all meals--have notified MD and nurse. Will add Ensure Plus (strawberry) TID. See RD assessment for further details.
--- NOTE | 2021-03-05 13:22 | PM.PN ---
Subjective Subjective: Interval history: alert awake,mentation improving per family. Most awake today. No new complaints except persisting nausea. Blood cx from 03/03 reported as positive for GPC awaiting further identification Medications: Reviewed: Yes Vitals/I&O/Wt Last Vital Signs Temp 98.1 F 03/05/21 08:00 Pulse 92 03/05/21 08:33 Resp 20 H 03/05/21 08:33 BP 128/77 03/05/21 08:00 Pulse Ox 96 03/05/21 08:33 03/04/21 03/05/21 03/05/21 22:59 06:59 14:59 Intake Total 50 / 815 400 / 1215 150 / 150 Output Total 1000 / 1000 600 / 1600 Balance -950 / -185 -200 / -385 150 / 150 Weight last 48 hrs Weight 80.195 kg Physical Exam Narrative: EXAM NARRATIVE: GEN: Awake, alert and oriented, no acute distress CVS: S1S2 N RS: CTA B/L Abd: Soft, nt/nd , bs+ 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 Persistent hypoxia, requiring 3 L nasal cannula. Stable requirements CTA negative for PE , off presumptive anticoagulation Continue cefepime, vancomycin for pneumonia Covid rapid antigen negative. Add incentive spiromtery, encourage ambulation Status: Acute (2) Community acquired pneumonia: As above Status: Acute (3) Altered mental status: Likely secondary to multifactorial acute metabolic encephalopathy which is improving. Reduce extended release morphine too 100mg po daily which she takes at home PRN MSIR to continue. CT head without acute events less likely leptomeningeal disease as uncommon with MM Status: Acute Qualifiers: Altered mental status type: stupor Qualified Code(s): R40.1 - Stupor (4) Dehydration: Received IV rehydration. BERNARDINO resolved. Encourage po intake. D/C Knowles Status: Acute (5) Opioid overdose: As above. Rather supratherapeutic effect secondary to acute kidney injury, hepatocellular injury. Will need to be very cautious going forward with pain, anxiety control. Status: Acute Qualifiers: Encounter type: initial encounter Injury intent: accidental or unintentional Qualified Code(s): T40.2X1A - Poisoning by other opioids, accidental (unintentional), initial encounter (6) BERNARDINO (acute kidney injury): Resolving. No signs of TLS Status: Acute (7) Thrombocytopenia: Following multiple myeloma therapy last week. Platelets appear to have stabilized around 60,000. Status: Acute (8) Hematoma of arm: Right upper extremity swelling/hematoma noted. Stable Status: Acute (9) Gram-positive cocci bacteremia: Status: Acute Additional A&P Information D-dimer elevated: Suspect this may due to multiple myeloma. Negative lower extremity duplex, VQ scan low probability of PE. Currently SCD DVT prophylaxis due to right upper extremity swelling/hematoma. Transaminitis: monitor AST, ALT Multiple myeloma: Status post treatment last Friday with belantamab mafodotin Rhabdomyolysis: Mild. Improving. 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
[2021-03-05 17:18] LABS: Influenza A by IFA Negative (Negative); Influenza B by IFA Negative (Negative)
[2021-03-05] MEDS: morphine IR 15 mg Tablet 30 MG PO (20:27)
[2021-03-05] MEDS: gabapentin 100 mg Capsule PO (20:27)
[2021-03-06] VITALS (14 sets, daily range): BP systolic 114–150; BP diastolic 69–81; PULSE 64–110; RESP 16–18; TEMP 36.4–37.2; O2SAT 90–97; BMI 30.7
[2021-03-06] MEDS: morphine IR 15 mg Tablet 30 MG PO ×3 (06:28→17:15)
[2021-03-06] MEDS: heparin 5,000 unit/mL INJ 1 mL 5000 UNIT SUBCUT ×2 (06:29→17:15)
[2021-03-06] MEDS: cefepime 2,000 MG in sodium chloride 0.9% (plus) 50 ML 100 MG IV ×2 (06:30→17:16)
[2021-03-06 06:56] LABS: Basophils % 0.3 %; Eosinophils % 0.3 %; Hematocrit 26.3 % (37.0-47.0); Hemoglobin 8.5 g/dL (11.5-15.3); Lymphocytes # 1.2 10^3/uL (0.8-4.8); Lymphocytes % 36.9 %; Mean Corpuscular HGB Conc 32.3 g/dL (30.0-36.0); Mean Corpuscular Hemoglobin 29.8 pg (28.0-34.0); Mean Corpuscular Volume 92.3 fL (81-99); Mean Platelet Volume 11.6 fL (7.4-10.4); Monocytes # 0.7 10^3/uL (0.2-0.9); Monocytes % 19.5 %; Neutrophils # 1.28 10^3/uL (1.8-7.7); Neutrophils % 38.5 %; Nucleated Red Blood Cells % 0.6 %; Platelet Count 71 10^3/cmm (130-400); Red Blood Count 2.85 10^6/uL (4.1-5.3); Red Cell Distribution Width 14.8 % (12.1-15.1); White Blood Count 3.3 10^3/uL (4.0-10.0)
[2021-03-06 07:14] LABS: Alanine Aminotransferase 21 U/L (0-33); Albumin Level 3.2 g/dL (3.5-5.2); Alkaline Phosphatase 95 IU/L (35-105); Anion Gap 16.2 (5-19); Aspartate Amino Transferase 106 U/L (0-32); Blood Urea Nitrogen 9 mg/dL (8-23); Calcium 8.2 mg/dL (8.5-10.5); Carbon Dioxide 25 mmol/L (22-29); Chloride 105 mmol/L (98-107); Globulin 3.2 g/dL (1.3-4.6); Glomerular Filtration Rate 221.9 mL/min (90-130); Glucose 106 mg/dL (65-115); Osmolality Calculated 295 mOsm/kg (285-295); Potassium 3.2 mmol/L (3.5-5.1); Sodium 143 mmol/L (136-145); Total Bilirubin 0.5 mg/dL (0.15-1.2); Total Protein 6.4 g/dL (6.6-8.7)
[2021-03-06 07:21] LABS: T3 Free 1.9 PG/ML (2.0-4.4)
[2021-03-06] MEDS: pantoprazole DR 40 mg Tablet PO ×2 (09:41→17:16)
[2021-03-06] MEDS: levothyroxine 25 mcg Tablet PO (09:41)
[2021-03-06] MEDS: morphine ER (12 HR) 100 mg Tablet PO (09:42)
[2021-03-06] MEDS: tamsulosin 0.4 mg Capsule PO (09:42)
--- NOTE | 2021-03-06 10:21 | PC.SOCIAL ---
Pg 2 IMM Explained to pt Pg 2 IMM. No questions voiced. Provided pt a copy. Initialed, dated, & timed, a copy & placed in chart.
[2021-03-06] MEDS: metoclopramide 5 mg/mL SDV 2 mL IVP ×2 (10:48→17:15)
[2021-03-06] MEDS: lanolin oint 7 gm 1 APPLIC TOPICAL (10:49)
--- NOTE | 2021-03-06 11:35 | PC.OT ---
OT tx attempted at this time. Pt and family declined therapy stating she just got comfortable and is trying to sleep . They request therapist return at later time.
[2021-03-06 16:46] LABS: Vancomycin Trough 6.8 ug/mL (10-15)
[2021-03-06] MEDS: vancomycin 1,500 MG/300 ML PIGGYBACK 200 MG IV (19:14)
[2021-03-06] MEDS: lidocaine 5% Patch 1 PATCH TOPICAL (19:14)
--- NOTE | 2021-03-06 20:30 | P.PN_ITS ---
Subjective Subjective: Interval history: pain worsened after cutting morphine from ER 100 BID to daily, mental status remains grossly unchanged, improved over admission , Patient with poor appetite and poor po intake. Cough unchanged. Platelet and leukocytes unchanged. GPC in blood cx identfied as micrococcus, likely contaminant Medications: Reviewed: Yes Vitals/I&O/Wt Last Vital Signs Temp 98.9 F 03/06/21 15:53 Pulse 91 03/06/21 15:53 Resp 17 03/06/21 17:15 BP 130/69 03/06/21 15:53 Pulse Ox 93 03/06/21 15:53 03/06/21 03/06/21 03/06/21 06:59 14:59 22:59 Intake Total 350 / 790 60 / 60 60 / 120 Output Total 400 / 500 Balance -50 / 290 60 / 60 60 / 120 Weight last 48 hrs Weight 73.624 kg Weight 75.387 kg Weight 76.204 kg Weight 76.204 kg Physical Exam Narrative: EXAM NARRATIVE: GEN: Awake, alert and oriented, no acute distress CVS: S1S2 N RS: CTA B/L Abd: Soft, nt/nd , bs+ 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 Persistent hypoxia, requiring 3 L nasal cannula. Stable requirements CTA negative for PE , off presumptive anticoagulation Continue cefepime, vancomycin for pneumonia Covid rapid antigen negative. Aded incentive spiromtery, encourage ambulation Status: Acute (2) Community acquired pneumonia: As above Status: Acute (3) Altered mental status: Likely secondary to multifactorial acute metabolic encephalopathy which is improving. Morphine today increased from 100mg daily to 100mg in am and 50mg in am PRN MSIR to continue. CT head without acute events less likely leptomeningeal disease as uncommon with MM, discussed with outpatient oncologist over phone Status: Acute Qualifiers: Altered mental status type: stupor Qualified Code(s): R40.1 - Stupor (4) Dehydration: Received IV rehydration. BERNARDINO resolved. Encourage po intake. D/C Knowles Status: Acute (5) Opioid overdose: As above. Rather supratherapeutic effect secondary to acute kidney injury, hepatocellular injury. Will need to be very cautious going forward with pain, anxiety control. Status: Acute Qualifiers: Encounter type: initial encounter Injury intent: accidental or unintentional Qualified Code(s): T40.2X1A - Poisoning by other opioids, accidental (unintentional), initial encounter (6) BERNARDINO (acute kidney injury): Resolving. No signs of TLS Status: Acute (7) Thrombocytopenia: Following multiple myeloma therapy last week. Platelets appear to have stabilized around 60,000. Status: Acute (8) Hematoma of arm: Right upper extremity swelling/hematoma noted. Stable Status: Acute (9) Gram-positive cocci bacteremia: now identified as micrococcus spp 09/11 on 03/03, likely to be contaminant Status: Acute Additional A&P Information D-dimer elevated: Suspect this may due to multiple myeloma. Negative lower extremity duplex, VQ scan low probability of PE. Currently SCD DVT prophylaxis due to right upper extremity swelling/hematoma. Transaminitis: monitor AST, ALT Multiple myeloma: Status post treatment last Friday with belantamab mafodotin Rhabdomyolysis: Mild. Improving. 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
[2021-03-06] MEDS: ondansetron 2 mg/ML SDV 2 mL 4 MG IVP (20:41)
[2021-03-06 20:59] LABS: D Dimer 6.39 ug/mIFEU (0-0.59)
[2021-03-06] MEDS: morphine ER (12 HR) 30 mg tablet 60 MG PO (21:38)
[2021-03-06] MEDS: gabapentin 100 mg Capsule PO (21:39)
[2021-03-07] VITALS (8 sets, daily range): BP systolic 134–153; BP diastolic 77–87; PULSE 93–102; RESP 14–18; TEMP 36.2–36.9; O2SAT 88–97
[2021-03-07] MEDS: cefepime 2,000 MG in sodium chloride 0.9% (plus) 50 ML 100 MG IV (05:33)
[2021-03-07] MEDS: heparin 5,000 unit/mL INJ 1 mL 5000 UNIT SUBCUT (05:33)
[2021-03-07] MEDS: vancomycin 1,500 MG/300 ML PIGGYBACK 200 MG IV (06:12)
[2021-03-07] MEDS: morphine IR 15 mg Tablet 30 MG PO ×2 (07:24→17:12)
[2021-03-07] MEDS: metoclopramide 5 mg/mL SDV 2 mL IVP ×2 (08:23→17:13)
[2021-03-07] MEDS: morphine ER (12 HR) 100 mg Tablet PO (08:32)
[2021-03-07] MEDS: pantoprazole DR 40 mg Tablet PO (08:33)
[2021-03-07] MEDS: tamsulosin 0.4 mg Capsule PO (08:33)
[2021-03-07] MEDS: levothyroxine 25 mcg Tablet PO (08:33)
[2021-03-07] MEDS: lidocaine 5% Patch 1 PATCH TOPICAL (08:34)
[2021-03-07] MEDS: dexamethasone 4 mg Tablet PO (12:28)
[2021-03-07] MEDS: potassium chloride ER 20 mEq Tablet 40 MEQ PO (12:28)
[2021-03-07] MEDS: ondansetron 2 mg/ML SDV 2 mL 4 MG IVP (12:30)
--- NOTE | 2021-03-07 19:11 | PC.NURSE ---
patient and daughter verbalized understanding of discharge instructions.
--- NOTE | 2021-03-21 06:26 | PM.DCS ---
Discharge Providers Date of Admission: 03/03/21 02:17 Date of Discharge: March 07, 2021 Attending Provider at Admission: Amanda Banegas MD Attending Provider at Discharge: Rain Maher MD Primary Care Provider: Job Alexander Diagnoses at Discharge Discharge Diagnosis (1) Acute respiratory failure with hypoxia: Status: Resolved (2) Community acquired pneumonia: Status: Resolved (3) Altered mental status: Status: Resolved Qualifiers: Altered mental status type: stupor Qualified Code(s): R40.1 - Stupor (4) Dehydration: Status: Resolved (5) Opioid overdose: Status: Resolved Qualifiers: Encounter type: initial encounter Injury intent: accidental or unintentional Qualified Code(s): T40.2X1A - Poisoning by other opioids, accidental (unintentional), initial encounter (6) BERNARDINO (acute kidney injury): Status: Resolved (7) Thrombocytopenia: Status: Acute (8) Hematoma of arm: Status: Resolved (9) Gram-positive cocci bacteremia: Status: Resolved Reason for Visit Reason for Visit: infection, sent by Dr. Morse Hospital Course Hospital Course Salima Farrell is a 65 year old female who has history of IgG lambda multiple myeloma, vertebral compression fractures status post kyphoplasty T11 L5, hypogammaglobulinemia, GERD, asthma, currently on steroid and chemotherapy regimen, presented for admission with chief complaint respiratory distress,& altered mental status. Hospital course as below: (1) Acute respiratory failure with hypoxia: Improving. requiring 3 L nasal cannula at discharge. Stable requirements CTA negative for PE Treated with cefepime, vancomycin for pneumonia Covid rapid antigen negative. (2) Community acquired pneumonia: (3) Altered mental status: Likely multifactorial from excess opiates and acute metabolic encephalopathy, mental status back at baseline at discharge. Morphine 100mg BID continued PRN MSIR to continue. CT head without acute events less likely leptomeningeal disease as uncommon with MM, discussed with outpatient oncologist over phone (4) Dehydration: Received IV rehydration. BERNARDINO resolved. Encourage po intake (6) BERNARDINO (acute kidney injury): Resolving with iv hydration. No signs of TLS (7) Thrombocytopenia: Following multiple myeloma therapy last week. Platelets appear to have stabilized around 60,000. (8) Hematoma of arm: Right upper extremity swelling/hematoma noted. Stable to resolving (9) Gram-positive cocci bacteremia: identified as micrococcus spp 09/11 on 03/03, likely to be contaminant Patient being discharged today with resolution of AMS and improvement of respiratory status.. Follow up with oncology in one week. Physical Exam Narrative: EXAM NARRATIVE: GEN: Awake, alert and oriented, no acute distress CVS: S1S2 N RS: CTA B/L Abd: Soft, nt/nd , bs+ CORRECTIONS SPECIALIST: no focal neuro deficits Urinary Catheter Management^: Knowles: Cath Placed During This Visit: yes, but has since been removed by the nurse Reason for Continuing Indwelling Catheter: Other Urinary Catheter Date of Insertion: 03/03/21 Urinary Catheter Time of Insertion: 00:52 Date Urinary Catheter Removed: 03/05/21 Time Urinary Catheter Discontinued: 12:22 Discharge Data Data Completed and Pending: Completed Studies During Hospitalization Category Date Time Status CT head wo con* 7 0450 Urgent Cat Scan 03/03/21 00:12 Completed XR chest 1V risa ble [id number] Urgent Exams 03/03/21 00:12 Completed NM pul vent and p erfus* [id number] Stat Nuc Med 03/03/21 15:35 [place] [id number] Routin e Ultrasound 03/03/21 09:44 Completed US arterial duple x upper extremity RT [CV arterial Ultrasound 03/04/21 08:31 Completed duplex UE RT 9393 1] Routine US venous duplex upper extremity RT [CV venous duplex Ultrasound 03/04/21 08:35 [place] [address]] Rout ine Vitals: Last Vital Signs Temp 97.4 F L 03/07/21 12:00 Pulse 94 03/07/21 12:00 Resp 18 03/07/21 19:13 BP 134/81 03/07/21 12:00 Pulse Ox 88 L 03/07/21 14:23 Discharge Plan Discharge Patient Disposition: Home Health Service Condition: Fair Prescriptions: New morphine 100 mg Tablet Extended Release 100 mg PO BIDWM Qty: 0 RF: 0 Reglan 5 mg tablet 5 mg PO Q8H PRN (Reason: nausea and vomiting) Qty: 30 RF: 0 Continued acetaminophen 325 mg capsule 325 mg PO QID PRN (Reason: Pain) RF: 0 benzonatate 100 mg capsule 100 mg PO TID RF: 0 gabapentin 100 mg capsule 100 mg PO TID RF: 0 lidocaine 5 % adhesive patch,medicated 3 patch TOPICAL DAILY RF: 0 melatonin 10 mg capsule 10 mg PO BEDTIME RF: 0 omeprazole 40 mg capsule,delayed release(DR/EC) 40 mg PO BID RF: 0 diclofenac sodium [Voltaren] 1 % gel 2 gm TOPICAL QID RF: 0 (DME) Quinn rojo See Rx Instructions .ROUTE .MEDSUPPLY Qty: 1 RF: 0 furosemide 40 mg tablet 40 mg PO BID PRN (Reason: Edema) RF: 0 potassium chloride 10 mEq tablet extended release 10 meq PO BID PRN (Reason: with Lasix) RF: 0 Narcan 4 mg/actuation spray,non-aerosol 1 spray INTRANASAL PRN PRN (Reason: overdose) RF: 0 ondansetron HCl 8 mg tablet 8 mg PO Q8H PRN (Reason: nausea/vomiting) 30 Days Qty: 90 RF: 0 ibuprofen 200 mg Tablet 200 - 400 mg PO Q4H PRN (Reason: headache/pain) RF: 0 albuterol sulfate 90 mcg/actuation Hfa Aerosol Inhaler 1 puff INHALATION QID PRN (Reason: Shortness Of Breath) Qty: 0 RF: 0 valerian root 1 cap PO DAILY RF: 0 tamsulosin 0.4 mg capsule 0.8 mg PO DAILY RF: 0 nitroglycerin 0.4 mg Tablet, Sublingual 0.4 mg SUBLINGUAL Q5M PRN (Reason: Chest Pain) RF: 0 morphine 30 mg tablet 30 mg PO Q4H PRN (Reason: Pain) RF: 0 mupirocin 2 % ointment 1 applic TOPICAL BID Qty: 30 RF: 0 Changed alprazolam 1 mg tablet 0.25 mg PO TID PRN (Reason: prn) Qty: 0 RF: 0 Discontinued cyclobenzaprine 10 mg tablet 10 mg PO TID PRN (Reason: Muscle Pain) RF: 0 Discharge Orders: Discharge Order (Routine); Ordered 03/07/21 Ordered By: Rain Maher Other Ambulatory Orders: DME: Oxygen (Order) Location: None Selected Ordered By: Rain Maher Referrals: [facility] [Other] [facility] [Outside] Kenroy Morse MD [Hospitalist] - 03/20/21 8:30 am (APPOINTMENT FOR LABS ON MARCH 13 AT 1:00 PM THEN APPOINTMENT WITH DR MORSE ON MARCH 20 AT 8:30 AM) Discharge Diet: Usual diet Discharge Activity: Resume usual activity Patient Instructions: Metoclopramide (By mouth), Mirtazapine (By mouth), Dexamethasone (By mouth), Morphine, Slow Release (By mouth), Opioid Safety Discharge Attestations Time Spent in Discharge Care*: greater than 30 min Specific Discharge Activities: educating patient, educating and/or supporting family/caregiver and discussing with pcp/other providers Status at Discharge: Cognitive status at discharge: cognitively intact, Behavioral status at discharge: cooperative, Quality Metrics Clinical Quality Measures During this hospital stay, did patient experience: None Coding Level of Care Code Acute Chg FW DC note Diagnoses Acute respiratory failure with hypoxia J96.01 Community acquired pneumonia J18.9 Altered mental status R40.1 Altered mental status type: stupor Dehydration E86.0 Opioid overdose T40.2X1A Encounter type: initial encounter Injury intent: accidental or unintentional BERNARDINO (acute kidney injury) N17.9 Thrombocytopenia D69.6 Hematoma of arm S40.029A Gram-positive cocci bacteremia R78.81
== END 2021-03-07 17:50 | disposition home health service (06) | DRG 193 ==
LOC: ER 03-03 01:10 → ICU 03-03 02:56 → MEDSURG 03-04 11:13
PROVIDERS: Internal Medicine; Admitting Provider Internal Medicine; Emergency Provider Emergency Medicine; PCP Family Medicine; Visit Provider Student in an Organized Health Care Education/Training Program
DX: J18.9 Pneumonia, unspecified organism (principal); J96.01 Acute respiratory failure with hypoxia; G92 Toxic encephalopathy; C90.00 Multiple myeloma not having achieved remission; D80.1 Nonfamilial hypogammaglobulinemia; N17.9 Acute kidney failure, unspecified; Z94.81 Bone marrow transplant status; S36.119A Unspecified injury of liver, initial encounter; M62.82 Rhabdomyolysis; K21.9 Gastro-esophageal reflux disease without esophagitis; J45.20 Mild intermittent asthma, uncomplicated; Z79.52 Long term (current) use of systemic steroids; Z79.899 Other long term (current) drug therapy; Z87.01 Personal history of pneumonia (recurrent); Z98.1 Arthrodesis status; Z87.891 Personal history of nicotine dependence; E86.0 Dehydration; T40.2X1A Poisoning by other opioids, accidental (unintentional), initial encounter; S40.021A Contusion of right upper arm, initial encounter; X58.XXXA Exposure to other specified factors, initial encounter; M79.89 Other specified soft tissue disorders; D69.6 Thrombocytopenia, unspecified
CPT/HCPCS: 36415; 36591; 36600; 51702; 70450; 71045; 78014; 80048; 80053; 80202; 80307; 81003; 82550; 82803; 83010; 83605; 83615; 83735; 83880; 84100; 84145; 84439; 84443; 84481; 84484; 84550; 85007; 85014; 85025; 85045; 85049; 85378; 85610; 85730; 86140; 86403; 87040; 87205; 87426; 87449; 87641; 87804; 92610; 93005; 93931; 93970; 93971; 94640; 94660; 96365; 96372; 97116; 97162; 97167; 97530; 97535; 99291; A9540; A9567; J0692; J0696; J1644; J2310; J2405; J2765; J3370; J7030; J8540

== ENCOUNTER 2021-03-14 15:29 | Outpatient (CLI) | payer MEDICARE, MEDICAID, SELFPAY ==
[2021-03-14 15:39] LABS: Basophils # 0.1 10^3/uL (0.0-0.1); Basophils % 1.4 %; Eosinophils % 0.5 %; Hematocrit 30.8 % (37.0-47.0); Lymphocytes # 1.3 10^3/uL (0.8-4.8); Lymphocytes % 22.3 %; Mean Corpuscular HGB Conc 32.5 g/dL (30.0-36.0); Mean Corpuscular Hemoglobin 30.2 pg (28.0-34.0); Mean Corpuscular Volume 93.1 fL (81-99); Mean Platelet Volume 11.1 fL (7.4-10.4); Monocytes # 0.9 10^3/uL (0.2-0.9); Monocytes % 16.5 %; Neutrophils # 3.34 10^3/uL (1.8-7.7); Neutrophils % 58.8 %; Nucleated Red Blood Cells % 0 %; Platelet Count 395 10^3/cmm (130-400); Red Blood Count 3.31 10^6/uL (4.1-5.3); Red Cell Distribution Width 15.6 % (12.1-15.1); White Blood Count 5.7 10^3/uL (4.0-10.0)
[2021-03-14 16:25] LABS: Alanine Aminotransferase 20 U/L (0-33); Albumin Level 4.1 g/dL (3.5-5.2); Alkaline Phosphatase 100 IU/L (35-105); Anion Gap 14.3 (5-19); Aspartate Amino Transferase 54 U/L (0-32); Blood Urea Nitrogen 17 mg/dL (8-23); Calcium 9.6 mg/dL (8.5-10.5); Carbon Dioxide 30 mmol/L (22-29); Chloride 98 mmol/L (98-107); Globulin 2.9 g/dL (1.3-4.6); Glomerular Filtration Rate 123.1 mL/min (90-130); Glucose 100 mg/dL (65-115); Osmolality Calculated 288 mOsm/kg (285-295); Potassium 4.3 mmol/L (3.5-5.1); Sodium 138 mmol/L (136-145); Total Bilirubin 0.6 mg/dL (0.15-1.2)
== END 2021-03-14 15:30 | disposition home or self-care (01) ==
LOC: ONCMED 15:29
PROVIDERS: PCP Family Medicine; Visit Provider Nurse Practitioner
DX: C90.00 Multiple myeloma not having achieved remission (principal); Z79.899 Other long term (current) drug therapy
CPT/HCPCS: 80053; 85025

== ENCOUNTER 2021-03-20 06:10 | Outpatient (CLI) | payer MEDICARE, MEDICAID, SELFPAY ==
[2021-03-20 08:49] LABS: Basophils # 0.1 10^3/uL (0.0-0.1); Basophils % 1.6 %; Eosinophils % 0.5 %; Hematocrit 34.1 % (37.0-47.0); Hemoglobin 10.6 g/dL (11.5-15.3); Lymphocytes # 1.1 10^3/uL (0.8-4.8); Lymphocytes % 29.3 %; Mean Corpuscular HGB Conc 31.1 g/dL (30.0-36.0); Mean Corpuscular Hemoglobin 29.6 pg (28.0-34.0); Mean Corpuscular Volume 95.3 fL (81-99); Mean Platelet Volume 9.5 fL (7.4-10.4); Monocytes # 0.6 10^3/uL (0.2-0.9); Monocytes % 16.8 %; Neutrophils # 1.93 10^3/uL (1.8-7.7); Neutrophils % 51.5 %; Nucleated Red Blood Cells % 0 %; Platelet Count 339 10^3/cmm (130-400); Red Blood Count 3.58 10^6/uL (4.1-5.3); Red Cell Distribution Width 15.1 % (12.1-15.1); White Blood Count 3.8 10^3/uL (4.0-10.0)
[2021-03-20 09:20] LABS: Alanine Aminotransferase 15 U/L (0-33); Albumin Level 3.9 g/dL (3.5-5.2); Alkaline Phosphatase 110 IU/L (35-105); Anion Gap 13.9 (5-19); Aspartate Amino Transferase 33 U/L (0-32); Blood Urea Nitrogen 17 mg/dL (8-23); Carbon Dioxide 27 mmol/L (22-29); Chloride 101 mmol/L (98-107); Globulin 2.7 g/dL (1.3-4.6); Glomerular Filtration Rate 123.1 mL/min (90-130); Glucose 107 mg/dL (65-115); Osmolality Calculated 288 mOsm/kg (285-295); Potassium 3.9 mmol/L (3.5-5.1); Sodium 138 mmol/L (136-145); Total Bilirubin 0.3 mg/dL (0.15-1.2); Total Protein 6.6 g/dL (6.6-8.7)
[2021-03-20 11:09] LABS: Immunoglobulin IGG 1003 mg/dL (700-1600); Thyroid Stimulating Hormone 3.21 uIU/mL (0.27-4.20)
[2021-03-20 11:22] LABS: Immunoglobulin IGA < 50 mg/dL (70-400); Immunoglobulin IGM < 25 mg/dL (40-230)
[2021-03-21 06:48] LABS: PROTEIN, TOTAL 6.4 g/dL (6.1-8.1)
--- NOTE | 2021-03-21 07:51 | ONC FU_ITS ---
Dr. Davies Patient Follow-Up Note Patient: Salima Farrell Unit #: [id number]: [id number] Dicatated By: Kenroy Davies M.D.Date of Visit:Mar 20, 2021 Onc Med Follow-up/Prog Note Chief Complaint: Myeloma. History of Present Illness: This is a 65 year-old woman with IgG lambda myeloma. She had presented in December 2012 with compression fractures of the T11 and L5 vertebral bodies. She underwent kyphoplasty at both levels, and biopsies were consistent with plasma cell neoplasm. Her protein electrophoresis showed biclonal protein bands with lambda light chain 0.33 g/dL and IgG lambda 4.6 g/dL. There were additional lytic lesions noted on her skeletal survey. Her 24 hour urine reportedly showed 7 gm of Bence-Zabala proteinuria. Bone marrow aspiration/biopsy in January 2013 showed atypical plasma cell infiltrate comprising 91% of the marrow cellularity. She underwent treatment with 4 cycles of Velcade/Revlimid/dexamethasone followed by high-dose melphalan/autologous stem cell transplant in May 2013. She began maintenance Revlimid in August 2013. It was stopped as of July 2015 due to toxicities. As of July 2016 her repeat bone marrow aspiration/biopsy showed 30-40% plasma cells. She restarted treatment with Revlimid. It was stopped again in December 2017 due to toxicity, mainly cytopenias. At that point her protein electrophoresis showed M protein at 1.52 g/dL. Skeletal survey reportedly showed no new abnormalities. Her repeat marrow aspiration/biopsy in February 2018 showed 70% involvement by plasma cells. The M protein at that point was up to 1.82 g/dL. PET/CT on 04/01/2018 showed new osseous involvement in the right sacral ala, SUV 4.15. She was seen by Dr. Shlomo Tanner on 04/06/2018. It was recommended that she begin salvage therapy with a combination of daratumumab, pomalidomide, and dexamethasone in preparation for possible second transplant procedure. She was seen here initially on 04/10/2018, as at that point she desired to have her treatment administered closer to home. She then returned to begin her treatment with daratumumab, pomalidomide, and dexamethasone on 04/29/2018. Due to her previous cytopenias with Revlimid, the pomalidomide was initiated at a reduced dosage of 3 mg daily on a day schedule. She began her initial infusion of daratumumab on 04/29/2018. She tolerated it without acute toxicity. She was able to complete 8 infusions at the weekly interval followed by 8 infusions at the 2-week interval. The treatments were then administered at a 4-week interval beginning in November 2018. During that time, she her pomalidomide had to be put on hold due to neutropenia. She eventually was able to tolerate it with the dosage reduced to 1 mg. She did have a very good response by protein electrophoresis. On 09/12/2019 she was admitted to [facility] in [place] with shortness of breath, wheezing, and productive cough. She did not have acute infiltrate on chest xray, but she was significantly hypoxic. She continued empiric antibiotic coverage with Levaquin, though it appeared to have most likely have been a viral illness. At her follow-up visit in September she was finally showing recovery from that illness, and she was able to continue her treatment. As of her follow-up visit on 04/05/2020 she had been doing well clinically with her M protein stable at 0.16 g/dL. Following that treatment, though, she became very ill. She had actually started having a cough during her daratumumab infusion and after returning home she had fever in the range of 101 to 102 degrees and she was out of it for 2 days, with virtually no recollection of that time period. She then had generalized bone pain and severe headache for 2 weeks and she could not eat during that time. By about the 11th day she began to feel better, but during that week she developed vomiting and diarrhea. She then continued to show gradually recovery. She did not have COVID testing. I had seen her for a follow-up visit on 05/03/2020, and at that point she was able to resume treatment with daratumumab in combination with pomalidomide and dexamethasone. Her other medical illnesses have been limited to GERD and mild asthma. Her other surgical/procedural history includes previous appendectomy and hysterectomy/bilateral salpingo-oophorectomy. She had a minimal smoking history in the past, and she quit smoking in 1991. INTERIM HISTORY: At her follow-up visit on 06/28/2020 she reported increased pain in her back and rib cage. It was severe enough that she had been seen in the emergency room in [place] earlier that week. There had been a slight increase in her lambda free light chain, concerning for disease progression. She was given IV Toradol for the pain and she was given antibiotic therapy with Levaquin for possible bronchitis. She also was scheduled for restaging PET/CT. That study was completed on 07/01/2020. It showed mild sacral activity and a bilateral pattern which was thought to be more suggestive of reactive uptake than myeloma. Pelvic lesions did not demonstrate increased FDG activity, and were felt to likely correspond to prior sites of active myeloma. She continued her treatment with daratumumab/pomalidomide/dexamethasone at 4-week intervals. However, at her follow-up visit in September 2020 her M protein had increased to 0.61 g/dL and there was a significant increase in her lambda free light chain to 366.71 mg/L. As of her follow-up visit on 10/30/2020 she continued treatment with daratumumab, but her pomalidomide was put on hold and her treatment was then transitioned to salvage therapy with a carfilzomib/dexamethasone regimen. She began her 1st cycle of treatment on 11/23/2020 with the carfilzomib administered on days 1, 8, and 15 of a 28-day schedule. At that point her M protein had increased to 1.5 g/dL. She initially was able to tolerate that treatment with acceptable toxicity, and she continued with cycle 2 on 12/21/2020 and with cycle 3 on 01/18/2021. Her repeat protein electrophoresis on 01/17/2021 M protein basically stable 1.60 g/dL. On 01/24/2021 she was admitted to the hospital with several days of nausea/vomiting. She also reported increased weakness and fatigue. This was all thought to be treatment related. She did improve with IV hydration and symptomatic measures. She was discharged home on 01/25/2021. I had seen her for a follow-up visit on 02/09/2021. Given the side effects she experienced with the carfilzomib and with no obvious response by M protein, I opted to transition her to salvage therapy with belantamab mafodotin. She began cycle 1 of belantamab mafodotin on 02/27/2021. She tolerated it without acute toxicity. However, on 03/03/2020 when she was taken to the emergency room after she had become extremely weak and confused. She was noted to have low-grade fever and she had fallen at home. On evaluation she was hypoxic and she had elevated D-dimer. Chest x-ray showed right middle lobe pneumonia. Her VQ lung scan showed normal perfusion with no evidence of pulmonary embolism. She improved on IV antibiotic coverage and supportive measures. She was discharged home on 03/07/2021. She is seen for a follow-up visit. She still very weak following her recent illness, she has started feeling a little better just yesterday and today. Her activity is still very limited. ECOG score is 3. She says her appetite is failing big-time, though she had been getting some benefit taking mirtazapine. She has not had fever or night sweats. She does not complain of sore mouth or throat and she currently does not have shortness of breath, cough, or chest pain. She has been having a lot of nausea. She has been taking Reglan with some benefit. Bowel and bladder function have been okay. Her back pain had worsened after the fall, but it is better now and her pain currently is being managed adequately with her usual pain regimen. She sometimes has headache. She has no numbness/paresthesia or other focal neurologic symptoms. Medications: Acetaminophen 2 Tablet (of 325 mg) Oral four times a day PRN, ALPRAZolam 1 Tablet (of 1 mg) Oral t.i.d., Benzonatate 1 Capsule (of 100 mg) Oral t.i.d. PRN, Childrens Aspirin 2 Tablet (of 81 mg) Tablet, chewable Oral daily, Cyclobenzaprine HCl 1 Tablet (of 10 mg) Oral t.i.d., Gabapentin 1 Capsule (of 100 mg) Oral t.i.d., Lidocaine 3 patch(es) (of 5 %) Patch Topical q 24 hours, Lidocaine 1 (5 %) Ointment Topical q 3 hours PRN, Melatonin 1 Tablet (of 10 mg) Oral at bedtime, Morphine Sulfate 1 - 2 Tablet (of 30 mg) Oral q 3 hours, Morphine Sulfate ER (100 mg) Tablet, controlled release Oral Take as Directed, Mupirocin 1 (2 %) Ointment Topical PRN, Omeprazole 1 Tablet (of 40 mg) Capsule Oral daily, Phentermine HCl 1 Capsule (of 37.5 mg) Oral daily, Pomalidomide 1 Capsule (of 1 mg) Oral daily, Tamsulosin HCl (0.4 mg) Capsule Oral b.i.d., Valerian Root 2 (1000 mg) Capsule Oral daily, Ventolin HFA 2 puff(s) (of 108 (90 base) mcg/act) Aerosol, solution Inhalation q 4 hours, Voltaren Gel (jelly) Transdermal Allergies: Codeine Sulfate Vital Signs: Performed on Mar 20, 2021 09:51 Height - 57.00 in Weight - 154.4 lbs (LOW) BSA - 1.61 sq.m BMI - 33.41 (HIGH) Temperature - 97.7 F (LOW) Pulse - 94 /min Respiration - 18 /min BP - 119/76 mm(hg) O2 Sat - 98 % Pain - 0 Fatigue - 9 Physical Examination: Constitutional - She appears generally weak, but not acutely ill, Eyes - Sclerae nonicteric. Conjunctivae clear, ENMT - No lesions noted in the oral cavity, Hematologic/Lymphatic - No cervical, clavicular, or axillary adenopathy, Respiratory - Lungs are clear, Cardiovascular - Heart rhythm is regular. There is a II/ systolic murmur. There is no gallop or rub noted, Abdomen - Mildly distended but soft. Liver and spleen are not enlarged. There is no abdominal mass or ascites noted and there is no inguinal adenopathy, Extremities - No edema. There is a large area of residual ecchymosis on the right arm, Integumentary - No skin eruption, Neurologic - No focal neurologic deficits noted. Lab/Imaging: Test performed on Mar 20, 2021 10:23 TSH 3.21 uIU/mL IgG 1003 mg/dL IgA < 50 mg/dL IgM < 25 mg/dL Test performed on Mar 20, 2021 08:30 Sodium 138 mmol/L Potassium 3.9 mmol/L Chloride 101 mmol/L CO2 27 mmol/L Anion Gap 13.9 BUN 17 mg/dL Creatinine 0.5 mg/dL Cr Clearance (Est) 128.6900 mL/min eGFR 123.1 mL/min Glucose 107 mg/dL Osmolality - Calculated 288 mOsm/kg Calcium 9.0 mg/dL Protein, Total 6.6 g/dL Albumin 3.9 g/dL Globulin 2.7 g/dL Bilirubin, Total 0.3 mg/dL ALT (SGPT) 15 U/L AST (SGOT) 33 U/L Alkaline Phosphatase 110 IU/L WBC 3.8 10 3/uL RBC 3.58 10 6/uL HGB 10.6 g/dL HCT 34.1 % MCV 95.3 fL MCH 29.6 pg MCHC 31.1 g/dL RDW 15.1 % Platelet Count 339 10 3/cmm MPV 9.5 fL Neutrophils 1.93 10 3/uL Lymphocytes 1.1 10 3/uL Monocytes 0.6 10 3/uL Eosinophils 0.0 10 3/uL Basophils 0.1 10 3/uL Neutrophil % 51.5 % Lymphocyte % 29.3 % Monocyte % 16.8 % Eosinophil % 0.5 % Basophils % 1.6 % NRBC % 0 % Problem List: 1. IgG lambda myeloma, initially diagnosed in December 2012. She had associated lytic bone involvement with vertebral compression fractures at T11 and L5. 2. She has associated hypogammaglobulinemia. 3. GERD. 4. Mild asthma. Problems Addressed with this Encounter and Plan: 1. Patient with IgG lambda myeloma, initially diagnosed in December 2012. She had associated lytic bone involvement with vertebral compression fractures at T11 and L5. Her myeloma therapy has included: 1. Velcade/Revlimid/dexamethasone for 4 cycles followed by high-dose melphalan/stem cell transplant in May 2013. 2. Maintenance Revlimid until July 2015, stopped due to toxicity. 3. Revlimid/dexamethasone restarted in July 2016 and continued through December 2017, stopped due to toxicities. 4. Daratumumab/pomalidomide/dexamethasone from April 2018 through October 2019, stopped due to disease progression. 5. Carfilzomib/dexamethasone for 3 cycles from 11/23/2020 through 01/18/2021, stopped due to toxicity and lack of response. She recently began a trial of salvage therapy with belantamab mafodotin, cycle 1 on 02/27/2021. She tolerated it without acute toxicity. However, by 03/03/2021 she had become extremely weak and she was admitted to the hospital with pneumonia. She is now beginning to show recovery from that illness, which she does attribute to the belantamab mafodotin, and she desires to have no further treatment with it. As such, I will repeat her protein electrophoresis studies today and I will look at options for further treatment, one of which would be a trial of therapy with melflufen. I also want to look into the possibility of CAR-T therapy through [facility]. 2. She has associated hypogammaglobulinemia. She previously has had just occasional respiratory infections, not frequent enough to justify starting IVIG. However, with his recent illness, I am now going to have her start replacement therapy. 3. She has chronic back pain associated with her vertebral compression fractures. It is being managed adequately with her current medication regimen. Signed By: Kenroy Davies M.D. <<Signature on File>>
[2021-03-21 13:03] LABS: ABNORMAL PROTEIN BAND 1 0.8 g/dL (NONE DETECTED); ALBUMIN 3.6 g/dL (3.8-4.8); ALPHA 1 GLOBULIN 0.4 g/dL (0.2-0.3); ALPHA 2 GLOBULIN 0.8 g/dL (0.5-0.9); BETA 1 GLOBULIN 0.5 g/dL (0.4-0.6); BETA 2 GLOBULIN 0.3 g/dL (0.2-0.5); GAMMA GLOBULIN 0.9 g/dL (0.8-1.7); KAPPA LIGHT CHAIN, FREE, SERUM 1.3 mg/L (3.3-19.4); KAPPA/LAMBDA LIGHT CHAINS FREE 0.22 (0.26-1.65)
== END 2021-03-20 06:11 | disposition home or self-care (01) ==
LOC: ONCMED 06:12
PROVIDERS: PCP Family Medicine; Visit Provider Internal Medicine Medical Oncology
DX: C90.00 Multiple myeloma not having achieved remission (principal); D80.1 Nonfamilial hypogammaglobulinemia; K21.9 Gastro-esophageal reflux disease without esophagitis; J45.20 Mild intermittent asthma, uncomplicated; Z92.21 Personal history of antineoplastic chemotherapy; M48.50XS Collapsed vertebra, not elsewhere classified, site unspecified, sequela of fracture; M54.9 Dorsalgia, unspecified; Z79.899 Other long term (current) drug therapy
CPT/HCPCS: 36415; 80053; 82784; 83883; 84155; 84165; 84443; 85025; 99215

== ENCOUNTER 2021-04-12 09:34 | Outpatient (CLI) | payer MEDICARE, MEDICAID, SELFPAY ==
--- NOTE | 2021-04-12 19:12 | ONC FU_ITS ---
Dr. Davies Patient Follow-Up Note Patient: Salima Farrell Unit #: [id number]: [id number] Dicatated By: Kenroy Davies M.D.Date of Visit:Apr 12, 2021 Onc Med Follow-up/Prog Note Chief Complaint: Myeloma. History of Present Illness: This is a 65 year-old woman with IgG lambda myeloma. She had presented in December 2012 with compression fractures of the T11 and L5 vertebral bodies. She underwent kyphoplasty at both levels, and biopsies were consistent with plasma cell neoplasm. Her protein electrophoresis showed biclonal protein bands with lambda light chain 0.33 g/dL and IgG lambda 4.6 g/dL. There were additional lytic lesions noted on her skeletal survey. Her 24 hour urine reportedly showed 7 gm of Bence-Zabala proteinuria. Bone marrow aspiration/biopsy in January 2013 showed atypical plasma cell infiltrate comprising 91% of the marrow cellularity. She underwent treatment with 4 cycles of Velcade/Revlimid/dexamethasone followed by high-dose melphalan/autologous stem cell transplant in May 2013. She began maintenance Revlimid in August 2013. It was stopped as of July 2015 due to toxicities. As of July 2016 her repeat bone marrow aspiration/biopsy showed 30-40% plasma cells. She restarted treatment with Revlimid. It was stopped again in December 2017 due to toxicity, mainly cytopenias. At that point her protein electrophoresis showed M protein at 1.52 g/dL. Skeletal survey reportedly showed no new abnormalities. Her repeat marrow aspiration/biopsy in February 2018 showed 70% involvement by plasma cells. The M protein at that point was up to 1.82 g/dL. PET/CT on 04/01/2018 showed new osseous involvement in the right sacral ala, SUV 4.15. She was seen by Dr. Shlomo Tanner on 04/06/2018. It was recommended that she begin salvage therapy with a combination of daratumumab, pomalidomide, and dexamethasone in preparation for possible second transplant procedure. She was seen here initially on 04/10/2018, as at that point she desired to have her treatment administered closer to home. She then returned to begin her treatment with daratumumab, pomalidomide, and dexamethasone on 04/29/2018. Due to her previous cytopenias with Revlimid, the pomalidomide was initiated at a reduced dosage of 3 mg daily on a day schedule. She began her initial infusion of daratumumab on 04/29/2018. She tolerated it without acute toxicity. She was able to complete 8 infusions at the weekly interval followed by 8 infusions at the 2-week interval. The treatments were then administered at a 4-week interval beginning in November 2018. During that time, she her pomalidomide had to be put on hold due to neutropenia. She eventually was able to tolerate it with the dosage reduced to 1 mg. She did have a very good response by protein electrophoresis. On 09/12/2019 she was admitted to [facility] in [place] with shortness of breath, wheezing, and productive cough. She did not have acute infiltrate on chest xray, but she was significantly hypoxic. She continued empiric antibiotic coverage with Levaquin, though it appeared to have most likely have been a viral illness. At her follow-up visit in September she was finally showing recovery from that illness, and she was able to continue her treatment. As of her follow-up visit on 04/05/2020 she had been doing well clinically with her M protein stable at 0.16 g/dL. Following that treatment, though, she became very ill. She had actually started having a cough during her daratumumab infusion and after returning home she had fever in the range of 101 to 102 degrees and she was out of it for 2 days, with virtually no recollection of that time period. She then had generalized bone pain and severe headache for 2 weeks and she could not eat during that time. By about the 11th day she began to feel better, but during that week she developed vomiting and diarrhea. She then continued to show gradually recovery. She did not have COVID testing. I had seen her for a follow-up visit on 05/03/2020, and at that point she was able to resume treatment with daratumumab in combination with pomalidomide and dexamethasone. Her other medical illnesses have been limited to GERD and mild asthma. Her other surgical/procedural history includes previous appendectomy and hysterectomy/bilateral salpingo-oophorectomy. She had a minimal smoking history in the past, and she quit smoking in 1991. INTERIM HISTORY: At her follow-up visit on 06/28/2020 she reported increased pain in her back and rib cage. It was severe enough that she had been seen in the emergency room in [place] earlier that week. There had been a slight increase in her lambda free light chain, concerning for disease progression. She was given IV Toradol for the pain and she was given antibiotic therapy with Levaquin for possible bronchitis. She also was scheduled for restaging PET/CT. That study was completed on 07/01/2020. It showed mild sacral activity and a bilateral pattern which was thought to be more suggestive of reactive uptake than myeloma. Pelvic lesions did not demonstrate increased FDG activity, and were felt to likely correspond to prior sites of active myeloma. She continued her treatment with daratumumab/pomalidomide/dexamethasone at 4-week intervals. However, at her follow-up visit in September 2020 her M protein had increased to 0.61 g/dL and there was a significant increase in her lambda free light chain to 366.71 mg/L. As of her follow-up visit on 10/30/2020 she continued treatment with daratumumab, but her pomalidomide was put on hold and her treatment was then transitioned to salvage therapy with a carfilzomib/dexamethasone regimen. She began her 1st cycle of treatment on 11/23/2020 with the carfilzomib administered on days 1, 8, and 15 of a 28-day schedule. At that point her M protein had increased to 1.5 g/dL. She initially was able to tolerate that treatment with acceptable toxicity, and she continued with cycle 2 on 12/21/2020 and with cycle 3 on 01/18/2021. Her repeat protein electrophoresis on 01/17/2021 M protein basically stable 1.60 g/dL. On 01/24/2021 she was admitted to the hospital with several days of nausea/vomiting. She also reported increased weakness and fatigue. This was all thought to be treatment related. She did improve with IV hydration and symptomatic measures. She was discharged home on 01/25/2021. I had seen her for a follow-up visit on 02/09/2021. Given the side effects she experienced with the carfilzomib and with no obvious response by M protein, I opted to transition her to salvage therapy with belantamab mafodotin. She began cycle 1 of belantamab mafodotin on 02/27/2021. She tolerated it without acute toxicity. However, on 03/03/2020 when she was taken to the emergency room after she had become extremely weak and confused. She was noted to have low-grade fever and she had fallen at home. On evaluation she was hypoxic and she had elevated D-dimer. Chest x-ray showed right middle lobe pneumonia. Her VQ lung scan showed normal perfusion with no evidence of pulmonary embolism. She improved on IV antibiotic coverage and supportive measures. She was discharged home on 03/07/2021. I had seen her for a follow-up visit on 03/20/2021. At that point she was still very weak, but she was beginning to show some recovery. Her repeat protein electrophoresis showed a very significant decline in her M protein to 0.8 g/dL and a significant decline in her lambda free light chain to 6.0 mg/L. With that finding, I had encouraged her to consider further treatment with belantamab mafodotin, but with some further time for recovery and with treatment administered at a reduced dosage. In the meantime, with her associated hypogammaglobulinemia and recurrent pneumonias, I had also put in a request to have her start replacement IVIG. Subsequent to that visit, she had called with complaints of recurrent fever, productive cough, and shortness of breath. Chest xray showed chronic scarring at the lung bases with superimposed active pneumonia within the right middle and right lower lobe. Her COVID-19 was negative by PCR. She was given additional antibiotic coverage with Levaquin 750 mg daily. She is seen for a followup visit. She finished her Levaquin yesterday. She has also been on steroid therapy with Medrol 4 mg daily for 14 days. She has been feeling better over the past 3-4 days. Her appetite is still not good. She is not having fever now and she is not having night sweating. She does not complain of sore mouth or throat. Her cough is better and her breathing is good now. She has been having pain in the epigastric area. She has no other GI or complaints. Her bone pain is adequately managed with medication. She does not have headache or dizziness. She has no focal neurologic symptoms. Medications: Acetaminophen 2 Tablet (of 325 mg) Oral four times a day PRN, ALPRAZolam 1 Tablet (of 1 mg) Oral t.i.d., Benzonatate 1 Capsule (of 100 mg) Oral t.i.d. PRN, Childrens Aspirin 2 Tablet (of 81 mg) Tablet, chewable Oral daily, Cyclobenzaprine HCl 1 Tablet (of 10 mg) Oral t.i.d., Gabapentin 1 Capsule (of 100 mg) Oral t.i.d., Lidocaine 3 patch(es) (of 5 %) Patch Topical q 24 hours, Lidocaine 1 (5 %) Ointment Topical q 3 hours PRN, Melatonin 1 Tablet (of 10 mg) Oral at bedtime, Morphine Sulfate 1 - 2 Tablet (of 30 mg) Oral q 3 hours, Morphine Sulfate ER (100 mg) Tablet, controlled release Oral Take as Directed, Mupirocin 1 (2 %) Ointment Topical PRN, Omeprazole 1 Tablet (of 40 mg) Capsule Oral daily, Phentermine HCl 1 Capsule (of 37.5 mg) Oral daily, Pomalidomide 1 Capsule (of 1 mg) Oral daily, Tamsulosin HCl (0.4 mg) Capsule Oral b.i.d., Valerian Root 2 (1000 mg) Capsule Oral daily, Ventolin HFA 2 puff(s) (of 108 (90 base) mcg/act) Aerosol, solution Inhalation q 4 hours, Voltaren Gel (jelly) Transdermal Allergies: Codeine Sulfate Vital Signs: Performed on Apr 12, 2021 10:22 Height - 57.00 in Weight - 155.4 lbs (HIGH) BSA - 1.62 sq.m BMI - 33.63 (HIGH) Temperature - 97.6 F (LOW) Pulse - 98 /min Respiration - 18 /min BP - 112/71 mm(hg) O2 Sat - 96 % Pain - 5 Fatigue - 9 Physical Examination: Constitutional - She appears somewhat weak generally, Eyes - Sclerae nonicteric. Conjunctivae clear, ENMT - No lesions noted in the oral cavity, Hematologic/Lymphatic - No cervical, clavicular, or axillary adenopathy, Respiratory - Lungs sound clear, Cardiovascular - Heart rhythm is regular. There is a II/ systolic murmur. There is no gallop or rub noted, Abdomen - Mildly distended but soft. Liver and spleen are not enlarged. There is no abdominal mass or ascites noted and there is no inguinal adenopathy, Extremities - No edema, Neurologic - No focal neurologic deficits noted. Lab/Imaging: Test performed on Mar 20, 2021 10:23 TSH 3.21 uIU/mL IgG 1003 mg/dL [place] Free Light Chains 1.3 mg/L Lambda Free Light Chains 6.0 mg/L IgA < 50 mg/dL [place]/Lambda Free Ratio 0.22 IgM < 25 mg/dL Test performed on Mar 20, 2021 08:30 Sodium 138 mmol/L Potassium 3.9 mmol/L Chloride 101 mmol/L CO2 27 mmol/L Anion Gap 13.9 BUN 17 mg/dL Creatinine 0.5 mg/dL Cr Clearance (Est) 128.6900 mL/min eGFR 123.1 mL/min Glucose 107 mg/dL Osmolality - Calculated 288 mOsm/kg Calcium 9.0 mg/dL Protein, Total 6.6 g/dL Albumin 3.9 g/dL Globulin 2.7 g/dL Bilirubin, Total 0.3 mg/dL ALT (SGPT) 15 U/L AST (SGOT) 33 U/L Alkaline Phosphatase 110 IU/L WBC 3.8 10 3/uL RBC 3.58 10 6/uL HGB 10.6 g/dL HCT 34.1 % MCV 95.3 fL MCH 29.6 pg MCHC 31.1 g/dL RDW 15.1 % Platelet Count 339 10 3/cmm MPV 9.5 fL Neutrophils 1.93 10 3/uL Lymphocytes 1.1 10 3/uL Monocytes 0.6 10 3/uL Eosinophils 0.0 10 3/uL Basophils 0.1 10 3/uL Neutrophil % 51.5 % Lymphocyte % 29.3 % Monocyte % 16.8 % Eosinophil % 0.5 % Basophils % 1.6 % NRBC % 0 % Problem List: 1. IgG lambda myeloma, initially diagnosed in December 2012. She had associated lytic bone involvement with vertebral compression fractures at T11 and L5. 2. She has associated hypogammaglobulinemia. 3. GERD. 4. Mild asthma. Problems Addressed with this Encounter and Plan: 1. Patient with IgG lambda myeloma, initially diagnosed in December 2012. She had associated lytic bone involvement with vertebral compression fractures at T11 and L5. Her myeloma therapy has included: 1. Velcade/Revlimid/dexamethasone for 4 cycles followed by high-dose melphalan/stem cell transplant in May 2013. 2. Maintenance Revlimid until July 2015, stopped due to toxicity. 3. Revlimid/dexamethasone restarted in July 2016 and continued through December 2017, stopped due to toxicities. 4. Daratumumab/pomalidomide/dexamethasone from April 2018 through October 2019, stopped due to disease progression. 5. Carfilzomib/dexamethasone for 3 cycles from 11/23/2020 through 01/18/2021, stopped due to toxicity and lack of response. She began a trial of salvage therapy with belantamab mafodotin, cycle 1 on 02/27/2021. She tolerated the initial infusion without acute toxicity. However, by 03/03/2021 she had become extremely weak and she was admitted to the hospital with pneumonia. As of her followup visit on 03/20/2021 she was beginning to show recovery, and at that point her protein electrophoresis studies did show a significant decline in her M protein and in her free lambda light chain, consistent with treatment response. Her further treatment has been delayed due to recurrent pneumonia. 2. She has associated hypogammaglobulinemia. She has been having recurrent pneumonia. She will start replacement IVIG pending verification of insurance coverage. 3. She has been having epigastric pain. She will increase omeprazole to twice daily. 4. She has chronic back pain associated with her vertebral compression fractures. It is being managed adequately with her current medication regimen. Signed By: Kenroy Davies M.D. <<Signature on File>>
== END 2021-04-12 09:35 | disposition home or self-care (01) ==
PROVIDERS: PCP Family Medicine; Visit Provider Internal Medicine Medical Oncology
DX: C90.00 Multiple myeloma not having achieved remission (principal); D80.1 Nonfamilial hypogammaglobulinemia; K21.9 Gastro-esophageal reflux disease without esophagitis; J45.20 Mild intermittent asthma, uncomplicated; Z92.21 Personal history of antineoplastic chemotherapy; Z79.899 Other long term (current) drug therapy; M48.50XS Collapsed vertebra, not elsewhere classified, site unspecified, sequela of fracture; M54.9 Dorsalgia, unspecified
CPT/HCPCS: 99214

== ENCOUNTER 2021-04-17 06:17 | Outpatient (CLI) | payer MEDICARE, MEDICAID, SELFPAY ==
[2021-04-17 10:48] LABS: Basophils # 0.1 10^3/uL (0.0-0.1); Basophils % 1.5 %; Eosinophils # 0.1 10^3/uL (0.0-0.8); Eosinophils % 2.1 %; Hematocrit 34.9 % (37.0-47.0); Hemoglobin 10.6 g/dL (11.5-15.3); Lymphocytes # 1.4 10^3/uL (0.8-4.8); Lymphocytes % 40.9 %; Mean Corpuscular HGB Conc 30.4 g/dL (30.0-36.0); Mean Platelet Volume 9.7 fL (7.4-10.4); Monocytes # 0.6 10^3/uL (0.2-0.9); Monocytes % 18.2 %; Neutrophils # 1.25 10^3/uL (1.8-7.7); Neutrophils % 37.3 %; Nucleated Red Blood Cells % 0 %; Platelet Count 245 10^3/cmm (130-400); Red Blood Count 3.92 10^6/uL (4.1-5.3); Red Cell Distribution Width 14.8 % (12.1-15.1); White Blood Count 3.4 10^3/uL (4.0-10.0)
[2021-04-17 11:53] LABS: Alanine Aminotransferase 10 U/L (0-33); Albumin Level 3.5 g/dL (3.5-5.2); Alkaline Phosphatase 81 IU/L (35-105); Anion Gap 13.1 (5-19); Aspartate Amino Transferase 24 U/L (0-32); Blood Urea Nitrogen 13 mg/dL (8-23); Calcium 8.6 mg/dL (8.5-10.5); Carbon Dioxide 26 mmol/L (22-29); Chloride 101 mmol/L (98-107); Globulin 1.9 g/dL (1.3-4.6); Glomerular Filtration Rate 159.2 mL/min (90-130); Glucose 97 mg/dL (65-115); Lipase 18 U/L (13-60); Osmolality Calculated 282 mOsm/kg (285-295); Potassium 4.1 mmol/L (3.5-5.1); Sodium 136 mmol/L (136-145); Total Bilirubin 0.2 mg/dL (0.15-1.2); Total Protein 5.4 g/dL (6.6-8.7)
[2021-04-17] MEDS: diphenhydrAMINE 25 mg Capsule PO (12:05)
[2021-04-17] MEDS: acetaminophen 325 mg Tablet 650 MG PO (12:05)
[2021-04-17] MEDS: sodium chloride 0.9% 250 ML 75 ML IV (12:34)
--- NOTE | 2021-04-17 12:51 | ONC FU_ITS ---
Dr. Davies Patient Follow-Up Note Patient: Salima Farrell Unit #: [id number]: 1955 Dicatated By: Kenroy Davies M.D.Date of Visit:Apr 17, 2021 Onc Med Follow-up/Prog Note Chief Complaint: Myeloma. History of Present Illness: This is a 65 year-old woman with IgG lambda myeloma. She had presented in December 2012 with compression fractures of the T11 and L5 vertebral bodies. She underwent kyphoplasty at both levels, and biopsies were consistent with plasma cell neoplasm. Her protein electrophoresis showed biclonal protein bands with lambda light chain 0.33 g/dL and IgG lambda 4.6 g/dL. There were additional lytic lesions noted on her skeletal survey. Her 24 hour urine reportedly showed 7 gm of Bence-Zabala proteinuria. Bone marrow aspiration/biopsy in January 2013 showed atypical plasma cell infiltrate comprising 91% of the marrow cellularity. She underwent treatment with 4 cycles of Velcade/Revlimid/dexamethasone followed by high-dose melphalan/autologous stem cell transplant in May 2013. She began maintenance Revlimid in August 2013. It was stopped as of July 2015 due to toxicities. As of July 2016 her repeat bone marrow aspiration/biopsy showed 30-40% plasma cells. She restarted treatment with Revlimid. It was stopped again in December 2017 due to toxicity, mainly cytopenias. At that point her protein electrophoresis showed M protein at 1.52 g/dL. Skeletal survey reportedly showed no new abnormalities. Her repeat marrow aspiration/biopsy in February 2018 showed 70% involvement by plasma cells. The M protein at that point was up to 1.82 g/dL. PET/CT on 04/01/2018 showed new osseous involvement in the right sacral ala, SUV 4.15. She was seen by Dr. Shlomo Tanner on 04/06/2018. It was recommended that she begin salvage therapy with a combination of daratumumab, pomalidomide, and dexamethasone in preparation for possible second transplant procedure. She was seen here initially on 04/10/2018, as at that point she desired to have her treatment administered closer to home. She then returned to begin her treatment with daratumumab, pomalidomide, and dexamethasone on 04/29/2018. Due to her previous cytopenias with Revlimid, the pomalidomide was initiated at a reduced dosage of 3 mg daily on a day schedule. She began her initial infusion of daratumumab on 04/29/2018. She tolerated it without acute toxicity. She was able to complete 8 infusions at the weekly interval followed by 8 infusions at the 2-week interval. The treatments were then administered at a 4-week interval beginning in November 2018. During that time, she her pomalidomide had to be put on hold due to neutropenia. She eventually was able to tolerate it with the dosage reduced to 1 mg. She did have a very good response by protein electrophoresis. On 09/12/2019 she was admitted to [facility] in [place] with shortness of breath, wheezing, and productive cough. She did not have acute infiltrate on chest xray, but she was significantly hypoxic. She continued empiric antibiotic coverage with Levaquin, though it appeared to have most likely have been a viral illness. At her follow-up visit in September she was finally showing recovery from that illness, and she was able to continue her treatment. As of her follow-up visit on 04/05/2020 she had been doing well clinically with her M protein stable at 0.16 g/dL. Following that treatment, though, she became very ill. She had actually started having a cough during her daratumumab infusion and after returning home she had fever in the range of 101 to 102 degrees and she was out of it for 2 days, with virtually no recollection of that time period. She then had generalized bone pain and severe headache for 2 weeks and she could not eat during that time. By about the 11th day she began to feel better, but during that week she developed vomiting and diarrhea. She then continued to show gradually recovery. She did not have COVID testing. I had seen her for a follow-up visit on 05/03/2020, and at that point she was able to resume treatment with daratumumab in combination with pomalidomide and dexamethasone. Her other medical illnesses have been limited to GERD and mild asthma. Her other surgical/procedural history includes previous appendectomy and hysterectomy/bilateral salpingo-oophorectomy. She had a minimal smoking history in the past, and she quit smoking in 1991. INTERIM HISTORY: At her follow-up visit on 06/28/2020 she reported increased pain in her back and rib cage. It was severe enough that she had been seen in the emergency room in [place] earlier that week. There had been a slight increase in her lambda free light chain, concerning for disease progression. She was given IV Toradol for the pain and she was given antibiotic therapy with Levaquin for possible bronchitis. She also was scheduled for restaging PET/CT. That study was completed on 07/01/2020. It showed mild sacral activity and a bilateral pattern which was thought to be more suggestive of reactive uptake than myeloma. Pelvic lesions did not demonstrate increased FDG activity, and were felt to likely correspond to prior sites of active myeloma. She continued her treatment with daratumumab/pomalidomide/dexamethasone at 4-week intervals. However, at her follow-up visit in September 2020 her M protein had increased to 0.61 g/dL and there was a significant increase in her lambda free light chain to 366.71 mg/L. As of her follow-up visit on 10/30/2020 she continued treatment with daratumumab, but her pomalidomide was put on hold and her treatment was then transitioned to salvage therapy with a carfilzomib/dexamethasone regimen. She began her 1st cycle of treatment on 11/23/2020 with the carfilzomib administered on days 1, 8, and 15 of a 28-day schedule. At that point her M protein had increased to 1.5 g/dL. She initially was able to tolerate that treatment with acceptable toxicity, and she continued with cycle 2 on 12/21/2020 and with cycle 3 on 01/18/2021. Her repeat protein electrophoresis on 01/17/2021 M protein basically stable 1.60 g/dL. On 01/24/2021 she was admitted to the hospital with several days of nausea/vomiting. She also reported increased weakness and fatigue. This was all thought to be treatment related. She did improve with IV hydration and symptomatic measures. She was discharged home on 01/25/2021. I had seen her for a follow-up visit on 02/09/2021. Given the side effects she experienced with the carfilzomib and with no obvious response by M protein, I opted to transition her to salvage therapy with belantamab mafodotin. She began cycle 1 of belantamab mafodotin on 02/27/2021. She tolerated it without acute toxicity. However, on 03/03/2020 when she was taken to the emergency room after she had become extremely weak and confused. She was noted to have low-grade fever and she had fallen at home. On evaluation she was hypoxic and she had elevated D-dimer. Chest x-ray showed right middle lobe pneumonia. Her VQ lung scan showed normal perfusion with no evidence of pulmonary embolism. She improved on IV antibiotic coverage and supportive measures. She was discharged home on 03/07/2021. I had seen her for a follow-up visit on 03/20/2021. At that point she was still very weak, but she was beginning to show some recovery. Her repeat protein electrophoresis showed a very significant decline in her M protein to 0.8 g/dL and a significant decline in her lambda free light chain to 6.0 mg/L. With that finding, I had encouraged her to consider further treatment with belantamab mafodotin, but with some further time for recovery and with treatment administered at a reduced dosage. In the meantime, with her associated hypogammaglobulinemia and recurrent pneumonias, I had also put in a request to have her start replacement IVIG. Subsequent to that visit, she had called with complaints of recurrent fever, productive cough, and shortness of breath. She also reported having abdominal pain. Her CT abdomen/pelvis showed no acute findings. Chest xray showed chronic scarring at the lung bases with superimposed active pneumonia within the right middle and right lower lobe. Her COVID-19 was negative by PCR. She was given additional antibiotic coverage with Levaquin 750 mg daily. As of her follow-up visit on 04/12/2021 she was feeling much better, though she continued to complain of having episodes of pain in the epigastric area. I opted to keep her treatment on hold. She is seen for a followup visit. She has been feeling pretty good generally, though she is still having episodes of pretty significant pain in her epigastric area. She has not been getting any significant relief with her omeprazole increased to twice daily or with Tums or other antacid type medications. She does get relief taking extra small doses of alprazolam. She still has some fatigue, but she is doing light work. ECOG score is 1. Appetite is not good, but she is eating. She does not have fever or night sweats. She does not complain of shortness of breath or cough, and she has not been having chest pain. Her acid reflux symptoms are adequately managed. Bowel and bladder function have been okay. She has chronic back pain, but that is managed adequately with her pain medication. She does not complain of headache or dizziness, and she has no focal neurologic symptoms. Medications: Acetaminophen 2 Tablet (of 325 mg) Oral four times a day PRN, ALPRAZolam 1 Tablet (of 1 mg) Oral t.i.d., Benzonatate 1 Capsule (of 100 mg) Oral t.i.d. PRN, Childrens Aspirin 2 Tablet (of 81 mg) Tablet, chewable Oral daily, Cyclobenzaprine HCl 1 Tablet (of 10 mg) Oral t.i.d., Gabapentin 1 Capsule (of 100 mg) Oral t.i.d., Lidocaine 3 patch(es) (of 5 %) Patch Topical q 24 hours, Lidocaine 1 (5 %) Ointment Topical q 3 hours PRN, Melatonin 1 Tablet (of 10 mg) Oral at bedtime, Morphine Sulfate 1 - 2 Tablet (of 30 mg) Oral q 3 hours, Morphine Sulfate ER (100 mg) Tablet, controlled release Oral Take as Directed, Mupirocin 1 (2 %) Ointment Topical PRN, Omeprazole 1 Tablet (of 40 mg) Capsule Oral daily, Phentermine HCl 1 Capsule (of 37.5 mg) Oral daily, Pomalidomide 1 Capsule (of 1 mg) Oral daily, Tamsulosin HCl (0.4 mg) Capsule Oral b.i.d., Valerian Root 2 (1000 mg) Capsule Oral daily, Ventolin HFA 2 puff(s) (of 108 (90 base) mcg/act) Aerosol, solution Inhalation q 4 hours, Voltaren Gel (jelly) Transdermal Allergies: Codeine Sulfate Vital Signs: Performed on Apr 17, 2021 11:31 Height - 57.00 in Weight - 157.2 lbs (HIGH) BSA - 1.62 sq.m BMI - 34.02 (HIGH) Temperature - 97.8 F (LOW) Pulse - 83 /min Respiration - 18 /min BP - 120/79 mm(hg) O2 Sat - 94 % (LOW) Pain - 3 Fatigue - 10 Physical Examination: Constitutional - She does not appear acutely ill, Eyes - Sclerae nonicteric. Conjunctivae clear, ENMT - No lesions noted in the oral cavity, Hematologic/Lymphatic - No cervical, clavicular, or axillary adenopathy, Respiratory - Lungs sound clear, Cardiovascular - Heart rhythm is regular. There is a II/ systolic murmur. There is no gallop or rub noted, Abdomen - Mildly distended but soft. There is only minimal abdominal tenderness. Liver and spleen are not enlarged. There is no abdominal mass or ascites noted and there is no inguinal adenopathy, Extremities - No edema, Neurologic - No focal neurologic deficits noted. Lab/Imaging: Test performed on Apr 17, 2021 10:30 Lipase 18 U/L Sodium 136 mmol/L Potassium 4.1 mmol/L Chloride 101 mmol/L CO2 26 mmol/L Anion Gap 13.1 BUN 13 mg/dL Creatinine 0.4 mg/dL Cr Clearance (Est) 160.8600 mL/min eGFR 159.2 mL/min Glucose 97 mg/dL Osmolality - Calculated 282 mOsm/kg Calcium 8.6 mg/dL Protein, Total 5.4 g/dL Albumin 3.5 g/dL Globulin 1.9 g/dL Bilirubin, Total 0.2 mg/dL ALT (SGPT) 10 U/L AST (SGOT) 24 U/L Alkaline Phosphatase 81 IU/L WBC 3.4 10 3/uL RBC 3.92 10 6/uL HGB 10.6 g/dL HCT 34.9 % MCV 89.0 fL MCH 27.0 pg MCHC 30.4 g/dL RDW 14.8 % Platelet Count 245 10 3/cmm MPV 9.7 fL Neutrophils 1.25 10 3/uL Lymphocytes 1.4 10 3/uL Monocytes 0.6 10 3/uL Eosinophils 0.1 10 3/uL Basophils 0.1 10 3/uL Neutrophil % 37.3 % Lymphocyte % 40.9 % Monocyte % 18.2 % Eosinophil % 2.1 % Basophils % 1.5 % NRBC % 0 % Problem List: 1. IgG lambda myeloma, initially diagnosed in December 2012. She had associated lytic bone involvement with vertebral compression fractures at T11 and L5. 2. She has associated hypogammaglobulinemia. 3. GERD. 4. Mild asthma. Problems Addressed with this Encounter and Plan: 1. Patient with IgG lambda myeloma, initially diagnosed in December 2012. She had associated lytic bone involvement with vertebral compression fractures at T11 and L5. Her myeloma therapy has included: 1. Velcade/Revlimid/dexamethasone for 4 cycles followed by high-dose melphalan/stem cell transplant in May 2013. 2. Maintenance Revlimid until July 2015, stopped due to toxicity. 3. Revlimid/dexamethasone restarted in July 2016 and continued through December 2017, stopped due to toxicities. 4. Daratumumab/pomalidomide/dexamethasone from April 2018 through October 2019, stopped due to disease progression. 5. Carfilzomib/dexamethasone for 3 cycles from 11/23/2020 through 01/18/2021, stopped due to toxicity and lack of response. She began a trial of salvage therapy with belantamab mafodotin, cycle 1 on 02/27/2021. She tolerated the initial infusion without acute toxicity. However, by 03/03/2021 she had become extremely weak and she was admitted to the hospital with pneumonia. As of her followup visit on 03/20/2021 she was beginning to show recovery, and at that point her protein electrophoresis studies did show a significant decline in her M protein and in her free lambda light chain, consistent with treatment response. Her further treatment was delayed due to recurrent pneumonia. She has been feeling somewhat better generally after completing antibiotic therapy. However, as she has ongoing problems with abdominal pain, her treatment for now will remain on hold. 2. She has associated hypogammaglobulinemia. She has been having recurrent pneumonia. She will now start replacement IVIG 30 gm by IV infusion monthly. 3. She has been having epigastric pain. A specific cause has not been determined. Her recent CT scan abdomen/pelvis showed no acute findings. Thus far the pain has not responded to usual GI treatment measures. I will check a serum lipase today. If that is normal, I will arrange for her to have further evaluation with EGD. 4. She has chronic back pain associated with her vertebral compression fractures. It is being managed adequately with her current medication regimen. Signed By: Kenroy Davies M.D. <<Signature on File>>
[2021-04-18 05:52] LABS: PROTEIN, TOTAL 5.4 g/dL (6.1-8.1)
[2021-04-18 12:33] LABS: KAPPA/LAMBDA LIGHT CHAINS FREE 0.26 (0.26-1.65); LAMBDA LIGHT CHAIN, FREE, SERU 11.5 mg/L (5.7-26.3)
[2021-04-18 15:33] LABS: ABNORMAL PROTEIN BAND 1 0.4 g/dL (NONE DETECTED); ALBUMIN 3.1 g/dL (3.8-4.8); ALPHA 1 GLOBULIN 0.4 g/dL (0.2-0.3); ALPHA 2 GLOBULIN 0.8 g/dL (0.5-0.9); BETA 1 GLOBULIN 0.5 g/dL (0.4-0.6); BETA 2 GLOBULIN 0.2 g/dL (0.2-0.5); GAMMA GLOBULIN 0.5 g/dL (0.8-1.7)
== END 2021-04-17 06:18 | disposition home or self-care (01) ==
PROVIDERS: PCP Family Medicine; Visit Provider Internal Medicine Medical Oncology
DX: C90.00 Multiple myeloma not having achieved remission (principal); D80.1 Nonfamilial hypogammaglobulinemia; K21.9 Gastro-esophageal reflux disease without esophagitis; J45.20 Mild intermittent asthma, uncomplicated; Z92.21 Personal history of antineoplastic chemotherapy; M48.50XS Collapsed vertebra, not elsewhere classified, site unspecified, sequela of fracture; M54.9 Dorsalgia, unspecified; Z79.899 Other long term (current) drug therapy
CPT/HCPCS: 80053; 83690; 83883; 84155; 84165; 85025; 96365; 96366; 99214; J1568; J7050

== ENCOUNTER 2021-05-22 07:39 | Outpatient (CLI) | payer MEDICARE, MEDICAID, SELFPAY ==
[2021-05-22 08:31] LABS: Basophils # 0.1 10^3/uL (0.0-0.1); Eosinophils # 0.2 10^3/uL (0.0-0.8); Eosinophils % 2.6 %; Hemoglobin 11.2 g/dL (11.5-15.3); Lymphocytes # 1.3 10^3/uL (0.8-4.8); Lymphocytes % 20.2 %; Mean Corpuscular HGB Conc 31.1 g/dL (30.0-36.0); Mean Corpuscular Hemoglobin 25.1 pg (28.0-34.0); Mean Corpuscular Volume 80.5 fl (81-99); Mean Platelet Volume 9.4 fL (7.4-10.4); Monocytes # 0.7 10^3/uL (0.2-0.9); Monocytes % 10.6 %; Neutrophils # 4.06 10^3/uL (1.8-7.7); Neutrophils % 65.4 %; Nucleated Red Blood Cells % 0 %; Platelet Count 355 10^3/cmm (130-400); Red Blood Count 4.47 10^6/uL (4.1-5.3); White Blood Count 6.2 10^3/uL (4.0-10.0)
[2021-05-22 08:54] LABS: Alanine Aminotransferase 10 U/L (0-33); Albumin Level 3.7 g/dL (3.5-5.2); Alkaline Phosphatase 137 IU/L (35-105); Anion Gap 12.3 (5-19); Aspartate Amino Transferase 20 U/L (0-32); Blood Urea Nitrogen 17 mg/dL (8-23); Calcium 8.7 mg/dL (8.5-10.5); Carbon Dioxide 28 mmol/L (22-29); Chloride 97 mmol/L (98-107); Globulin 2.7 g/dL (1.3-4.6); Glomerular Filtration Rate 159.2 mL/min (90-130); Glucose 107 mg/dL (65-115); Osmolality Calculated 278 mOsm/kg (285-295); Potassium 4.3 mmol/L (3.5-5.1); Sodium 133 mmol/L (136-145); Total Bilirubin 0.2 mg/dL (0.15-1.2); Total Protein 6.4 g/dL (6.6-8.7)
[2021-05-22] MEDS: famotidine 20 mg/2 mL INJ IVP (09:55)
[2021-05-22] MEDS: sodium chloride 0.9% 500 ML IV (09:58)
[2021-05-22 10:30] LABS: Iron 16 ug/dL (37-145); Percent Saturation 3.8 % (20-50); Total Iron Binding Capacity 419 mcg/dl; Unsaturated Iron Binding 403 ug/dL (112-347)
[2021-05-22] MEDS: ferric carboxy (IVPB) 750 MG in sodium chloride 0.9% (100 ml) 100 ML 345 MG IV (10:35)
--- NOTE | 2021-05-22 16:44 | ONC FU_ITS ---
Dr. Davies Patient Follow-Up Note Patient: Salima Farrell Unit #: [id number]: 1955 Dicatated By: Kenroy Davies M.D.Date of Visit:May 22, 2021 Onc Med Follow-up/Prog Note Chief Complaint: Myeloma. History of Present Illness: This is a 65 year-old woman with IgG lambda myeloma. She had presented in December 2012 with compression fractures of the T11 and L5 vertebral bodies. She underwent kyphoplasty at both levels, and biopsies were consistent with plasma cell neoplasm. Her protein electrophoresis showed biclonal protein bands with lambda light chain 0.33 g/dL and IgG lambda 4.6 g/dL. There were additional lytic lesions noted on her skeletal survey. Her 24 hour urine reportedly showed 7 gm of Bence-Zabala proteinuria. Bone marrow aspiration/biopsy in January 2013 showed atypical plasma cell infiltrate comprising 91% of the marrow cellularity. She underwent treatment with 4 cycles of Velcade/Revlimid/dexamethasone followed by high-dose melphalan/autologous stem cell transplant in May 2013. She began maintenance Revlimid in August 2013. It was stopped as of July 2015 due to toxicities. As of July 2016 her repeat bone marrow aspiration/biopsy showed 30-40% plasma cells. She restarted treatment with Revlimid. It was stopped again in December 2017 due to toxicity, mainly cytopenias. At that point her protein electrophoresis showed M protein at 1.52 g/dL. Skeletal survey reportedly showed no new abnormalities. Her repeat marrow aspiration/biopsy in February 2018 showed 70% involvement by plasma cells. The M protein at that point was up to 1.82 g/dL. PET/CT on 04/01/2018 showed new osseous involvement in the right sacral ala, SUV 4.15. She was seen by Dr. Shlomo Tanner on 04/06/2018. It was recommended that she begin salvage therapy with a combination of daratumumab, pomalidomide, and dexamethasone in preparation for possible second transplant procedure. She was seen here initially on 04/10/2018, as at that point she desired to have her treatment administered closer to home. She then returned to begin her treatment with daratumumab, pomalidomide, and dexamethasone on 04/29/2018. Due to her previous cytopenias with Revlimid, the pomalidomide was initiated at a reduced dosage of 3 mg daily on a day schedule. She began her initial infusion of daratumumab on 04/29/2018. She tolerated it without acute toxicity. She was able to complete 8 infusions at the weekly interval followed by 8 infusions at the 2-week interval. The treatments were then administered at a 4-week interval beginning in November 2018. During that time, she her pomalidomide had to be put on hold due to neutropenia. She eventually was able to tolerate it with the dosage reduced to 1 mg. She did have a very good response by protein electrophoresis. On 09/12/2019 she was admitted to [facility] in [place] with shortness of breath, wheezing, and productive cough. She did not have acute infiltrate on chest xray, but she was significantly hypoxic. She continued empiric antibiotic coverage with Levaquin, though it appeared to have most likely have been a viral illness. At her follow-up visit in September she was finally showing recovery from that illness, and she was able to continue her treatment. As of her follow-up visit on 04/05/2020 she had been doing well clinically with her M protein stable at 0.16 g/dL. Following that treatment, though, she became very ill. She had actually started having a cough during her daratumumab infusion and after returning home she had fever in the range of 101 to 102 degrees and she was out of it for 2 days, with virtually no recollection of that time period. She then had generalized bone pain and severe headache for 2 weeks and she could not eat during that time. By about the 11th day she began to feel better, but during that week she developed vomiting and diarrhea. She then continued to show gradually recovery. She did not have COVID testing. I had seen her for a follow-up visit on 05/03/2020, and at that point she was able to resume treatment with daratumumab in combination with pomalidomide and dexamethasone. Her other medical illnesses have been limited to GERD and mild asthma. Her other surgical/procedural history includes previous appendectomy and hysterectomy/bilateral salpingo-oophorectomy. She had a minimal smoking history in the past, and she quit smoking in 1991. INTERIM HISTORY: At her follow-up visit on 06/28/2020 she reported increased pain in her back and rib cage. It was severe enough that she had been seen in the emergency room in [place] earlier that week. There had been a slight increase in her lambda free light chain, concerning for disease progression. She was given IV Toradol for the pain and she was given antibiotic therapy with Levaquin for possible bronchitis. She also was scheduled for restaging PET/CT. That study was completed on 07/01/2020. It showed mild sacral activity and a bilateral pattern which was thought to be more suggestive of reactive uptake than myeloma. Pelvic lesions did not demonstrate increased FDG activity, and were felt to likely correspond to prior sites of active myeloma. She continued her treatment with daratumumab/pomalidomide/dexamethasone at 4-week intervals. However, at her follow-up visit in September 2020 her M protein had increased to 0.61 g/dL and there was a significant increase in her lambda free light chain to 366.71 mg/L. As of her follow-up visit on 10/30/2020 she continued treatment with daratumumab, but her pomalidomide was put on hold and her treatment was then transitioned to salvage therapy with a carfilzomib/dexamethasone regimen. She began her 1st cycle of treatment on 11/23/2020 with the carfilzomib administered on days 1, 8, and 15 of a 28-day schedule. At that point her M protein had increased to 1.5 g/dL. She initially was able to tolerate that treatment with acceptable toxicity, and she continued with cycle 2 on 12/21/2020 and with cycle 3 on 01/18/2021. Her repeat protein electrophoresis on 01/17/2021 M protein basically stable 1.60 g/dL. On 01/24/2021 she was admitted to the hospital with several days of nausea/vomiting. She also reported increased weakness and fatigue. This was all thought to be treatment related. She did improve with IV hydration and symptomatic measures. She was discharged home on 01/25/2021. I had seen her for a follow-up visit on 02/09/2021. Given the side effects she experienced with the carfilzomib and with no obvious response by M protein, I opted to transition her to salvage therapy with belantamab mafodotin. She began cycle 1 of belantamab mafodotin on 02/27/2021. She tolerated it without acute toxicity. However, on 03/03/2020 when she was taken to the emergency room after she had become extremely weak and confused. She was noted to have low-grade fever and she had fallen at home. On evaluation she was hypoxic and she had elevated D-dimer. Chest x-ray showed right middle lobe pneumonia. Her VQ lung scan showed normal perfusion with no evidence of pulmonary embolism. She improved on IV antibiotic coverage and supportive measures. She was discharged home on 03/07/2021. I had seen her for a follow-up visit on 03/20/2021. At that point she was still very weak, but she was beginning to show some recovery. Her repeat protein electrophoresis showed a very significant decline in her M protein to 0.8 g/dL and a significant decline in her lambda free light chain to 6.0 mg/L. With that finding, I had encouraged her to consider further treatment with belantamab mafodotin, but with some further time for recovery and with treatment administered at a reduced dosage. In the meantime, with her associated hypogammaglobulinemia and recurrent pneumonias, I had also put in a request to have her start replacement IVIG. Subsequent to that visit, she had called with complaints of recurrent fever, productive cough, and shortness of breath. She also reported having abdominal pain. Her CT abdomen/pelvis showed no acute findings. Chest xray showed chronic scarring at the lung bases with superimposed active pneumonia within the right middle and right lower lobe. Her COVID-19 was negative by PCR. She was given additional antibiotic coverage with Levaquin 750 mg daily. As of her follow-up visit on 04/12/2021 she was feeling much better, though she continued to complain of having episodes of pain in the epigastric area. I opted to keep her treatment on hold. Her repeat protein electrophoresis on 04/17/2021 showed further decline in the M protein to 0.4 g/dL. She continued to have significant pain in the epigastric area. On 05/21/2021 she underwent EGD by Dr. Thomas. It showed diffuse gastritis with some striping. A moderate amount of bilious fluid was present. Her VIRGIL test was negative for H. pylori. She is seen for a followup visit. Her main complaint is that she has continued to have pretty severe pain in the epigastric area. She says it sometimes moves around to her back. It is clearly aggravated by eating, and her oral intake lately has been limited to yogurt or milk. She says any other food puts her stomach into a rage. She complains that she has no energy. She is still doing light housework. ECOG score is 1. She recently had a temp spike to 101 degrees, but it was just transient. She has started having some sweating at night. She has not had sore mouth or throat and she does not have difficulty swallowing. She has no shortness of breath, cough, or chest pain. She has not been complaining of nausea and her bowel function has been okay. She has no complaints. She still has some back pain, but she says her stomach has been overriding it. She does not complain of headache or dizziness. She has some numbness in her right hand. Medications: Acetaminophen 2 Tablet (of 325 mg) Oral four times a day PRN, ALPRAZolam 1 Tablet (of 1 mg) Oral t.i.d., Benzonatate 1 Capsule (of 100 mg) Oral t.i.d. PRN, Childrens Aspirin 2 Tablet (of 81 mg) Tablet, chewable Oral daily, Cyclobenzaprine HCl 1 Tablet (of 10 mg) Oral t.i.d., Gabapentin 1 Capsule (of 100 mg) Oral t.i.d., Lidocaine 3 patch(es) (of 5 %) Patch Topical q 24 hours, Lidocaine 1 (5 %) Ointment Topical q 3 hours PRN, Melatonin 1 Tablet (of 10 mg) Oral at bedtime, Morphine Sulfate 1 - 2 Tablet (of 30 mg) Oral q 3 hours, Morphine Sulfate ER (100 mg) Tablet, controlled release Oral Take as Directed, Mupirocin 1 (2 %) Ointment Topical PRN, Omeprazole 1 Tablet (of 40 mg) Capsule Oral daily, Phentermine HCl 1 Capsule (of 37.5 mg) Oral daily, Pomalidomide 1 Capsule (of 1 mg) Oral daily, Tamsulosin HCl (0.4 mg) Capsule Oral b.i.d., Valerian Root 2 (1000 mg) Capsule Oral daily, Ventolin HFA 2 puff(s) (of 108 (90 base) mcg/act) Aerosol, solution Inhalation q 4 hours, Voltaren Gel (jelly) Transdermal Allergies: Codeine Sulfate Vital Signs: Performed on May 22, 2021 09:28 Height - 57.00 in Weight - 148.8 lbs (LOW) BSA - 1.59 sq.m BMI - 32.20 (HIGH) Temperature - 98.1 F (LOW) Pulse - 96 /min Respiration - 18 /min BP - 118/72 mm(hg) Pain - 8 Fatigue - 9 Physical Examination: Constitutional - She appears somewhat weak generally, Eyes - Sclerae nonicteric. Conjunctivae clear, ENMT - No lesions noted in the oral cavity, Hematologic/Lymphatic - No cervical, clavicular, or axillary adenopathy, Respiratory - Lungs sound clear, Cardiovascular - Heart rhythm is regular. There is a II/ systolic murmur. There is no gallop or rub noted, Abdomen - Mildly distended. There is significant tenderness in the epigastric area. Liver and spleen are not enlarged. There is no abdominal mass or ascites noted and there is no inguinal adenopathy, Extremities - No edema, Neurologic - No focal neurologic deficits noted. Lab/Imaging: Test performed on May 22, 2021 09:50 Iron 16 mcg/dL Iron Binding Capacity (TIBC) 419 mcg/dl % Iron Saturation 3.8 % UIBC 403 mcg/dL Test performed on May 22, 2021 08:05 Sodium 133 mmol/L Potassium 4.3 mmol/L Chloride 97 mmol/L CO2 28 mmol/L Anion Gap 12.3 BUN 17 mg/dL Creatinine 0.4 mg/dL Cr Clearance (Est) 160.8600 mL/min eGFR 159.2 mL/min Glucose 107 mg/dL Osmolality - Calculated 278 mOsm/kg Calcium 8.7 mg/dL Protein, Total 6.4 g/dL Albumin 3.7 g/dL Globulin 2.7 g/dL Bilirubin, Total 0.2 mg/dL ALT (SGPT) 10 U/L AST (SGOT) 20 U/L Alkaline Phosphatase 137 IU/L WBC 6.2 10 3/uL RBC 4.47 10 6/uL HGB 11.2 g/dL HCT 36.0 % MCV 80.5 fl MCH 25.1 pg MCHC 31.1 g/dL RDW 15.0 % Platelet Count 355 10 3/cmm MPV 9.4 fL Neutrophils 4.06 10 3/uL Lymphocytes 1.3 10 3/uL Monocytes 0.7 10 3/uL Eosinophils 0.2 10 3/uL Basophils 0.1 10 3/uL Neutrophil % 65.4 % Lymphocyte % 20.2 % Monocyte % 10.6 % Eosinophil % 2.6 % Basophils % 1.0 % NRBC % 0 % Problem List: 1. IgG lambda myeloma, initially diagnosed in December 2012. She had associated lytic bone involvement with vertebral compression fractures at T11 and L5. 2. She has associated hypogammaglobulinemia. 3. GERD. 4. Mild asthma. Problems Addressed with this Encounter and Plan: 1. Patient with IgG lambda myeloma, initially diagnosed in December 2012. She had associated lytic bone involvement with vertebral compression fractures at T11 and L5. Her myeloma therapy has included: 1. Velcade/Revlimid/dexamethasone for 4 cycles followed by high-dose melphalan/stem cell transplant in May 2013. 2. Maintenance Revlimid until July 2015, stopped due to toxicity. 3. Revlimid/dexamethasone restarted in July 2016 and continued through December 2017, stopped due to toxicities. 4. Daratumumab/pomalidomide/dexamethasone from April 2018 through October 2019, stopped due to disease progression. 5. Carfilzomib/dexamethasone for 3 cycles from 11/23/2020 through 01/18/2021, stopped due to toxicity and lack of response. She began a trial of salvage therapy with belantamab mafodotin, cycle 1 on 02/27/2021. She tolerated the initial infusion without acute toxicity. However, by 03/03/2021 she had become extremely weak and she was admitted to the hospital with pneumonia. As of her followup visit on 03/20/2021 she was beginning to show recovery, and at that point her protein electrophoresis studies did show a significant decline in her M protein and in her free lambda light chain, consistent with treatment response. Her further treatment was delayed due to recurrent pneumonia. She had been feeling better generally after completing antibiotic therapy, but thus far her further treatment has remained on hold due to persistent abdominal pain and difficulty eating. 2. She has been having epigastric pain. Her EGD showed evidence of gastritis but with negative VIRGIL test. As she is having difficulty eating, she will be given IV fluid today and IV famotidine. She will increase omeprazole to 40 mg twice daily before breakfast and supper, and she will add 20 mg of famotidine at bedtime. 3. She has become mildly anemic. Her serum iron studies are consistent with iron deficiency with transferrin saturation 3.8%. As she has not been able to tolerate oral iron due to her GI symptoms, she will be given parenteral iron replacement with Injectafer. She returns in 1 week. 4. She has chronic back pain associated with her vertebral compression fractures. It is being managed adequately with her current medication regimen. Signed By: Kenroy Davies M.D. <<Signature on File>>
[2021-05-23 09:23] LABS: PROTEIN, TOTAL 6.1 g/dL (6.1-8.1)
[2021-05-23 13:21] LABS: ABNORMAL PROTEIN BAND 1 0.4 g/dL (NONE DETECTED); ALBUMIN 3.2 g/dL (3.8-4.8); ALPHA 1 GLOBULIN 0.4 g/dL (0.2-0.3); BETA 1 GLOBULIN 0.5 g/dL (0.4-0.6); BETA 2 GLOBULIN 0.3 g/dL (0.2-0.5); GAMMA GLOBULIN 0.7 g/dL (0.8-1.7)
[2021-05-23 14:32] LABS: KAPPA/LAMBDA LIGHT CHAINS FREE 0.13 (0.26-1.65)
== END 2021-05-22 07:40 | disposition home or self-care (01) ==
LOC: ONCMED 07:44
PROVIDERS: PCP Family Medicine; Visit Provider Internal Medicine Medical Oncology
DX: C90.00 Multiple myeloma not having achieved remission (principal); C79.51 Secondary malignant neoplasm of bone; D80.1 Nonfamilial hypogammaglobulinemia; K21.9 Gastro-esophageal reflux disease without esophagitis; J45.20 Mild intermittent asthma, uncomplicated; D50.9 Iron deficiency anemia, unspecified; Z79.899 Other long term (current) drug therapy; Z92.21 Personal history of antineoplastic chemotherapy; Z92.3 Personal history of irradiation
CPT/HCPCS: 80053; 83540; 83550; 83883; 84155; 84165; 85025; 96361; 96365; 96375; 99215; J1439; J3490; J7040

== ENCOUNTER 2021-05-30 06:31 | Outpatient (CLI) | payer MEDICARE, MEDICAID, SELFPAY ==
[2021-05-30] MEDS: ferric carboxy (IVPB) 750 MG in sodium chloride 0.9% (100 ml) 100 ML 460 MG IV (11:10)
[2021-05-30 11:35] LABS: Basophils # 0.1 10^3/uL (0.0-0.1); Basophils % 0.9 %; Eosinophils # 0.2 10^3/uL (0.0-0.8); Eosinophils % 2.5 %; Hematocrit 39.2 % (37.0-47.0); Hemoglobin 12.3 g/dL (11.5-15.3); Lymphocytes # 1.7 10^3/uL (0.8-4.8); Lymphocytes % 26.6 %; Mean Corpuscular HGB Conc 31.4 g/dL (30.0-36.0); Mean Corpuscular Hemoglobin 25.3 pg (28.0-34.0); Mean Corpuscular Volume 80.7 fl (81-99); Mean Platelet Volume 9.9 fL (7.4-10.4); Monocytes # 0.7 10^3/uL (0.2-0.9); Monocytes % 10.7 %; Neutrophils # 3.83 10^3/uL (1.8-7.7); Neutrophils % 59.1 %; Nucleated Red Blood Cells % 0 %; Platelet Count 363 10^3/cmm (130-400); Red Blood Count 4.86 10^6/uL (4.1-5.3); Red Cell Distribution Width 16.6 % (12.1-15.1); White Blood Count 6.5 10^3/uL (4.0-10.0)
--- NOTE | 2021-06-02 12:26 | ONC FU_ITS ---
Dr. Davies Patient Follow-Up Note Patient: Salima Farrell Unit #: [id number]: 1955 Dicatated By: Kenroy Davies M.D.Date of Visit:May 30, 2021 Onc Med Follow-up/Prog Note Chief Complaint: Myeloma. History of Present Illness: This is a 65 year-old woman with IgG lambda myeloma. She had presented in December 2012 with compression fractures of the T11 and L5 vertebral bodies. She underwent kyphoplasty at both levels, and biopsies were consistent with plasma cell neoplasm. Her protein electrophoresis showed biclonal protein bands with lambda light chain 0.33 g/dL and IgG lambda 4.6 g/dL. There were additional lytic lesions noted on her skeletal survey. Her 24 hour urine reportedly showed 7 gm of Bence-Zabala proteinuria. Bone marrow aspiration/biopsy in January 2013 showed atypical plasma cell infiltrate comprising 91% of the marrow cellularity. She underwent treatment with 4 cycles of Velcade/Revlimid/dexamethasone followed by high-dose melphalan/autologous stem cell transplant in May 2013. She began maintenance Revlimid in August 2013. It was stopped as of July 2015 due to toxicities. As of July 2016 her repeat bone marrow aspiration/biopsy showed 30-40% plasma cells. She restarted treatment with Revlimid. It was stopped again in December 2017 due to toxicity, mainly cytopenias. At that point her protein electrophoresis showed M protein at 1.52 g/dL. Skeletal survey reportedly showed no new abnormalities. Her repeat marrow aspiration/biopsy in February 2018 showed 70% involvement by plasma cells. The M protein at that point was up to 1.82 g/dL. PET/CT on 04/01/2018 showed new osseous involvement in the right sacral ala, SUV 4.15. She was seen by Dr. Shlomo Tanner on 04/06/2018. It was recommended that she begin salvage therapy with a combination of daratumumab, pomalidomide, and dexamethasone in preparation for possible second transplant procedure. She was seen here initially on 04/10/2018, as at that point she desired to have her treatment administered closer to home. She then returned to begin her treatment with daratumumab, pomalidomide, and dexamethasone on 04/29/2018. Due to her previous cytopenias with Revlimid, the pomalidomide was initiated at a reduced dosage of 3 mg daily on a day schedule. She began her initial infusion of daratumumab on 04/29/2018. She tolerated it without acute toxicity. She was able to complete 8 infusions at the weekly interval followed by 8 infusions at the 2-week interval. The treatments were then administered at a 4-week interval beginning in November 2018. During that time, she her pomalidomide had to be put on hold due to neutropenia. She eventually was able to tolerate it with the dosage reduced to 1 mg. She did have a very good response by protein electrophoresis. On 09/12/2019 she was admitted to [facility] in [place] with shortness of breath, wheezing, and productive cough. She did not have acute infiltrate on chest xray, but she was significantly hypoxic. She continued empiric antibiotic coverage with Levaquin, though it appeared to have most likely have been a viral illness. At her follow-up visit in September she was finally showing recovery from that illness, and she was able to continue her treatment. As of her follow-up visit on 04/05/2020 she had been doing well clinically with her M protein stable at 0.16 g/dL. Following that treatment, though, she became very ill. She had actually started having a cough during her daratumumab infusion and after returning home she had fever in the range of 101 to 102 degrees and she was out of it for 2 days, with virtually no recollection of that time period. She then had generalized bone pain and severe headache for 2 weeks and she could not eat during that time. By about the 11th day she began to feel better, but during that week she developed vomiting and diarrhea. She then continued to show gradually recovery. She did not have COVID testing. I had seen her for a follow-up visit on 05/03/2020, and at that point she was able to resume treatment with daratumumab in combination with pomalidomide and dexamethasone. Her other medical illnesses have been limited to GERD and mild asthma. Her other surgical/procedural history includes previous appendectomy and hysterectomy/bilateral salpingo-oophorectomy. She had a minimal smoking history in the past, and she quit smoking in 1991. INTERIM HISTORY: At her follow-up visit on 06/28/2020 she reported increased pain in her back and rib cage. It was severe enough that she had been seen in the emergency room in [place] earlier that week. There had been a slight increase in her lambda free light chain, concerning for disease progression. She was given IV Toradol for the pain and she was given antibiotic therapy with Levaquin for possible bronchitis. She also was scheduled for restaging PET/CT. That study was completed on 07/01/2020. It showed mild sacral activity and a bilateral pattern which was thought to be more suggestive of reactive uptake than myeloma. Pelvic lesions did not demonstrate increased FDG activity, and were felt to likely correspond to prior sites of active myeloma. She continued her treatment with daratumumab/pomalidomide/dexamethasone at 4-week intervals. However, at her follow-up visit in September 2020 her M protein had increased to 0.61 g/dL and there was a significant increase in her lambda free light chain to 366.71 mg/L. As of her follow-up visit on 10/30/2020 she continued treatment with daratumumab, but her pomalidomide was put on hold and her treatment was then transitioned to salvage therapy with a carfilzomib/dexamethasone regimen. She began her 1st cycle of treatment on 11/23/2020 with the carfilzomib administered on days 1, 8, and 15 of a 28-day schedule. At that point her M protein had increased to 1.5 g/dL. She initially was able to tolerate that treatment with acceptable toxicity, and she continued with cycle 2 on 12/21/2020 and with cycle 3 on 01/18/2021. Her repeat protein electrophoresis on 01/17/2021 M protein basically stable 1.60 g/dL. On 01/24/2021 she was admitted to the hospital with several days of nausea/vomiting. She also reported increased weakness and fatigue. This was all thought to be treatment related. She did improve with IV hydration and symptomatic measures. She was discharged home on 01/25/2021. I had seen her for a follow-up visit on 02/09/2021. Given the side effects she experienced with the carfilzomib and with no obvious response by M protein, I opted to transition her to salvage therapy with belantamab mafodotin. She began cycle 1 of belantamab mafodotin on 02/27/2021. She tolerated it without acute toxicity. However, on 03/03/2020 when she was taken to the emergency room after she had become extremely weak and confused. She was noted to have low-grade fever and she had fallen at home. On evaluation she was hypoxic and she had elevated D-dimer. Chest x-ray showed right middle lobe pneumonia. Her VQ lung scan showed normal perfusion with no evidence of pulmonary embolism. She improved on IV antibiotic coverage and supportive measures. She was discharged home on 03/07/2021. I had seen her for a follow-up visit on 03/20/2021. At that point she was still very weak, but she was beginning to show some recovery. Her repeat protein electrophoresis showed a very significant decline in her M protein to 0.8 g/dL and a significant decline in her lambda free light chain to 6.0 mg/L. With that finding, I had encouraged her to consider further treatment with belantamab mafodotin, but with some further time for recovery and with treatment administered at a reduced dosage. In the meantime, with her associated hypogammaglobulinemia and recurrent pneumonias, I had also put in a request to have her start replacement IVIG. Subsequent to that visit, she had called with complaints of recurrent fever, productive cough, and shortness of breath. She also reported having abdominal pain. Her CT abdomen/pelvis showed no acute findings. Chest xray showed chronic scarring at the lung bases with superimposed active pneumonia within the right middle and right lower lobe. Her COVID-19 was negative by PCR. She was given additional antibiotic coverage with Levaquin 750 mg daily. As of her follow-up visit on 04/12/2021 she was feeling much better, though she continued to complain of having episodes of pain in the epigastric area. I opted to keep her treatment on hold. Her repeat protein electrophoresis on 04/17/2021 showed further decline in the M protein to 0.4 g/dL. She continued to have significant pain in the epigastric area. On 05/21/2021 she underwent EGD by Dr. Thomas. It showed diffuse gastritis with some striping. A moderate amount of bilious fluid was present. Her VIRGIL test was negative for H. pylori. At her follow-up visit on 05/22/2021 she continued to have pain in the upper abdomen/epigastric area, severe enough that she was having difficulty eating. Given the EGD findings, I had her increase her omeprazole to 40 mg twice daily and also had her add famotidine at bedtime. Her treatment remain on hold, but that time she began parenteral iron replacement with Injectafer for iron deficiency anemia. She is seen for a followup visit. She really is not feeling much better. She had transient improvement following her IV iron infusion, but since then she has not had much energy. Her activity has been limited. ECOG score is two. She has poor appetite and poor oral intake. She continues to have pain in the upper abdomen. She now complains of pain in her left lateral chest area, which she says feels like fire. She is also having pain in her mid back. She had a slight fever at 100.8 degrees, just one evening. She had some sweating with it, but none since then. She has not had sore mouth or throat. She does not complain of shortness of breath or cough. She has not been having nausea or acid reflux symptoms. Bowel and bladder function remain adequate. She does not complain of headache or dizziness. She has no numbness/paresthesia or other focal neurologic symptoms. Medications: Acetaminophen 2 Tablet (of 325 mg) Oral four times a day PRN, ALPRAZolam 1 Tablet (of 1 mg) Oral t.i.d., Benzonatate 1 Capsule (of 100 mg) Oral t.i.d. PRN, Childrens Aspirin 2 Tablet (of 81 mg) Tablet, chewable Oral daily, Cyclobenzaprine HCl 1 Tablet (of 10 mg) Oral t.i.d., Gabapentin 1 Capsule (of 100 mg) Oral t.i.d., Lidocaine 3 patch(es) (of 5 %) Patch Topical q 24 hours, Lidocaine 1 (5 %) Ointment Topical q 3 hours PRN, Melatonin 1 Tablet (of 10 mg) Oral at bedtime, Morphine Sulfate 1 - 2 Tablet (of 30 mg) Oral q 3 hours, Morphine Sulfate ER (100 mg) Tablet, controlled release Oral Take as Directed, Mupirocin 1 (2 %) Ointment Topical PRN, Omeprazole 1 Tablet (of 40 mg) Capsule Oral daily, Phentermine HCl 1 Capsule (of 37.5 mg) Oral daily, Pomalidomide 1 Capsule (of 1 mg) Oral daily, Tamsulosin HCl (0.4 mg) Capsule Oral b.i.d., Valerian Root 2 (1000 mg) Capsule Oral daily, Ventolin HFA 2 puff(s) (of 108 (90 base) mcg/act) Aerosol, solution Inhalation q 4 hours, Voltaren Gel (jelly) Transdermal Allergies: Codeine Sulfate Vital Signs: Performed on May 30, 2021 13:14 Height - 57.00 in Weight - 144 lbs (LOW) BSA - 1.56 sq.m BMI - 31.16 (HIGH) Temperature - 97.2 F (LOW) Pulse - 103 /min (HIGH) Respiration - 18 /min BP - 106/70 mm(hg) Pain - 6 Fatigue - 8 Physical Examination: Constitutional - She appears somewhat weak generally, Eyes - Sclerae nonicteric. Conjunctivae clear, ENMT - No lesions noted in the oral cavity, Hematologic/Lymphatic - No cervical, clavicular, or axillary adenopathy, Respiratory - Lungs sound clear, Cardiovascular - Heart rhythm is regular with a mild tachycardia. There is a II/ systolic murmur. There is no gallop or rub noted, Abdomen - Mildly distended. There is mild tenderness in the upper abdomen. There is a palpable nodule in the lateral rib cage on the left side. Liver and spleen are not enlarged. There is no abdominal mass or ascites noted and there is no inguinal adenopathy, Extremities - No edema, Neurologic - No focal neurologic deficits noted. Lab/Imaging: Test performed on May 30, 2021 11:05 WBC 6.5 10 3/uL RBC 4.86 10 6/uL HGB 12.3 g/dL HCT 39.2 % MCV 80.7 fl MCH 25.3 pg MCHC 31.4 g/dL RDW 16.6 % Platelet Count 363 10 3/cmm MPV 9.9 fL Neutrophils 3.83 10 3/uL Lymphocytes 1.7 10 3/uL Monocytes 0.7 10 3/uL Eosinophils 0.2 10 3/uL Basophils 0.1 10 3/uL Neutrophil % 59.1 % Lymphocyte % 26.6 % Monocyte % 10.7 % Eosinophil % 2.5 % Basophils % 0.9 % NRBC % 0 % Problem List: 1. IgG lambda myeloma, initially diagnosed in December 2012. She had associated lytic bone involvement with vertebral compression fractures at T11 and L5. 2. She has associated hypogammaglobulinemia. 3. GERD. 4. Mild asthma. Problems Addressed with this Encounter and Plan: 1. Patient with IgG lambda myeloma, initially diagnosed in December 2012. She had associated lytic bone involvement with vertebral compression fractures at T11 and L5. Her myeloma therapy has included: 1. Velcade/Revlimid/dexamethasone for 4 cycles followed by high-dose melphalan/stem cell transplant in May 2013. 2. Maintenance Revlimid until July 2015, stopped due to toxicity. 3. Revlimid/dexamethasone restarted in July 2016 and continued through December 2017, stopped due to toxicities. 4. Daratumumab/pomalidomide/dexamethasone from April 2018 through October 2019, stopped due to disease progression. 5. Carfilzomib/dexamethasone for 3 cycles from 11/23/2020 through 01/18/2021, stopped due to toxicity and lack of response. She began a trial of salvage therapy with belantamab mafodotin, cycle 1 on 02/27/2021. She tolerated the initial infusion without acute toxicity. However, by 03/03/2021 she had become extremely weak and she was admitted to the hospital with pneumonia. As of her followup visit on 03/20/2021 she was beginning to show recovery, and at that point her protein electrophoresis studies did show a significant decline in her M protein and in her free lambda light chain, consistent with treatment response. Her further treatment was delayed due to recurrent pneumonia. She initially flet better after completing antibiotic therapy. However, her further treatment has remained on hold due to persistent abdominal pain and difficulty eating. 2. She has been having pain in the epigastric area, severe enough that she has had difficulty eating. Her EGD showed evidence of gastritis but with negative VIRGIL test. Thus far her symptoms have not improved significantly after increasing omeprazole to 40 mg twice daily and with addition of famotidine at bedtime, and at this point I am wondering if it may not be gastrointestinal in origin. At this point I will give her prescription for Carafate suspension to take 4 times daily, but I am also going to schedule her for MRI of the thoracic spine. She will have further evaluation as indicated. 3. She has become mildly anemic. Her serum iron studies are consistent with iron deficiency with transferrin saturation 3.8%. As she had not been able to tolerate oral iron due to her GI symptoms, she is being given parenteral iron replacement with Injectafer. She receives her second infusion today. 4. She has chronic back pain associated with her vertebral compression fractures. It is being managed adequately with her current medication regimen. Signed By: Kenroy Davies M.D. <<Signature on File>>
== END 2021-05-30 06:32 | disposition home or self-care (01) ==
LOC: ONCMED 06:31
PROVIDERS: PCP Family Medicine; Visit Provider Internal Medicine Medical Oncology
DX: D50.9 Iron deficiency anemia, unspecified (principal); Z79.899 Other long term (current) drug therapy
CPT/HCPCS: 85025; 96365; 99214; J1439

== ENCOUNTER 2021-06-27 06:30 | Outpatient (RCR) | payer MEDICARE, MEDICAID, SELFPAY ==
--- NOTE | 2021-06-13 09:44 | MR_ITS ---
WS: [id number] MRI THORACIC SPINE with and without contrast HISTORY: History of multiple myeloma. Back pain. COMPARISON: PET scan 07/01/2020. TECHNIQUE: Multiplanar sequences are performed in sagittal and axial planes. Sagittal and axial T1 fat sat sequences post-MultiHance 13 cc IV. Quality of this examination is significantly limited by patient motion. Patient was unable to remain still for this examination. There is a large destructive soft tissue tumor causing cord compression centered at the T6 vertebral body. Soft tissue tumor extends over length of 5.2 cm and encases the thoracic cord and effaces compl etely the CSF. There is tumor extension into the neural foramen greatest to the LEFT at T5-6, T6-7 an d T7-8. There are no corresponding axial and sagittal images. There is a large soft tissue component of the tumor extending into the LEFT paravertebral soft tissues measuring 4.6 x 3.7 cm and extending over a length of 4.9 cm. This mass abuts the undersurface of the descending aorta and extends into th e pleural is inseparable from the vertebral bodies especially T6. Significant vertebral planar compre ssion of T7. Soft tissue tumor also extends into the RIGHT foramen at T5-6 and T6-7 but to a lesser e xtent. There is also tumor extension posterior into the paraspinous soft tissues at the T6 and T7 lev els. Severe planar compression fracture at T11. Numerous compression fractures throughout the lumbar spine without significant retropulsion. No additional cord compression. There is marrow edema throughout t he lumbar vertebral bodies but this may be due to an osteoporotic compression fracture. As there was significant movement between the sagittal and axial planes and numbering of the vertebral bodies beco mes difficult as I cannot correlate between the 2 sequences. MR/MR thoracic spine wo/w [id number] IMPRESSION: 1. Cord compression by large soft tissue mass centered at T6. Complete effacem ent of CSF with posterior thoracic cord compression by mass that measures 4.6 x 3.7 cm and extends over length of 4.9 cm. 2. There is soft tissue tumor extending into the neural foramina greatest on t he LEFT at T5-6, T6-7 and T7-8. Soft tissue tumor extension in the paraspinal s oft tissues and to a lesser extent into the RIGHT foramen at T5-6 and T6-7. 3. Additional numerous osteoporotic compression fractures. Notified Kenroy Davies MD at 06/13/2021 12:32 PM. Spoke Jordyn at the [facility]. She will relay this report to Dr. Davies.
[2021-06-13] MEDS: morphine 4 mg/mL SDV 1 mL 2 MG IV (11:35)
--- NOTE | 2021-06-14 | CT_ITS ---
Radiation Therapy Planning CT images; total exam DLP: 412.40 mGy-cm MTDD
--- NOTE | 2021-06-14 08:48 | N.ONRAD NP_ITS ---
Radiation Oncology Consultation Patient Name: Salima Farrell Date of : 1955 Date of Service: 06/14/2021 Attending Physician: Job Zabala M.D. Salima Farrell was seen in consultation this morning at the request of Kenroy Davies M.D. for consideration of radiotherapy for the management of multiple myeloma. The patient was diagnosed with biclonal multiple myeloma in December 2012 after being evaluated for compression fractures within the eleventh thoracic and fifth lumbar vertebral bodies. Kyphoplasties were performed and biopsies confirmed a plasma cell neoplasm. Skeletal survey demonstrated additional lytic lesions. A bone marrow biopsy revealed plasma cell infiltrate comprising 91% of the marrow cellularity. She received 4 cycles of Velcade, Revlimid, and dexamethasone prior to high-dose melphalan and autologous stem cell transplant in May 2013. Maintenance Revlimid was prescribed in August 2013 and discontinued in July 2015 secondary to adverse effects. A repeat bone marrow biopsy in July 2016 revealed 30 to 40% plasma cell infiltration. Revlimid was prescribed through December 2017. Bone marrow biopsy completed in February 2018 demonstrated 70% involvement by plasma cells. Salvage therapy consisting of daratumumab, pomalidomide, and dexamethasone was recommended in preparation for a second autologous stem cell transplant. In November 2020, carfilzomib and dexamethasone regimen was instituted. Secondary to adverse effects from carfilzomib, belantamab mafodotin was started in February 2021. During a recent follow-up appointment, she described thoracic back pain without neurological symptoms. An MRI of the thoracic spine ordered on June 13, 2021 denoted a large destructive soft tissue tumor with cord compression at the sixth thoracic vertebral body. The soft tissue tumor measured 5.2 cm in length and extends into the T5-6, T6-7, and T7-8 neural foramen. Also reported was a tumor mass measuring 4.6 cm x 3.3 cm x 4.9 cm abutting the descending aorta and extending into T6. Compression fractions were noted in the lumbar spine and T11. The patient was evaluated for palliative radiotherapy to the thoracic spine soft tissue mass and spinal cord compression. I discussed with the patient the role for radiotherapy in the setting of multiple myeloma with spinal cord compression. I anticipate a 2 week course of treatment. A computed tomographic radiotherapy planning scan in the treatment position will be performed to delineate the gross tumor volume. The potential toxicities of thoracic spine radiotherapy were reviewed. The patient has verbalized understanding would like to proceed as recommended. The medical treatment plan was discussed with Kenroy Davies M.D. Signed by: Dr. Job Zabala 06/14/2021 8:46:47 AM
--- NOTE | 2021-06-18 09:46 | ONCRAD TMN_ITS ---
Radiation Oncology Treatment Management Note Patient Name: Salima Farrell Date of : 1955 Date of Service: 06/18/2021 Attending Physician: Job Zabala M.D. Salima Farrell is a 66 year-old white female diagnosed with biclonal multiple myeloma in December 2012. During a recent follow-up appointment, she described thoracic back pain without neurological symptoms. An MRI of the thoracic spine ordered on June 13, 2021 denoted a large destructive soft tissue tumor with cord compression at the sixth thoracic vertebral body. The soft tissue tumor measured 5.2 cm in length and extends into the T5-6, T6-7, and T7-8 neural foramen. Also reported was a tumor mass measuring 4.6 cm x 3.3 cm x 4.9 cm abutting the descending aorta and extending into T6. Compression fractions were noted in the lumbar spine and T11. The patient has received 9 Gy of a prescribed 30 Álvarez to T5 through T8 with a 3-dimensional conformal radiotherapy plan utilizing wedge pair treatment escobar. Upon review of systems, she denied any neurological complaints. On physical examination, the patient weighed 139 lbs. Her temperature was 97.8 ???F with a blood pressure of 118/73 mmHg. Her pulse was 66 bpm and the respiratory rate was 20. No erythema was present within the skin. Continue palliative radiotherapy as prescribed. Signed by: Dr. Job Zabala 06/18/2021 9:43:58 AM
--- NOTE | 2021-06-25 09:52 | ONCRAD TMN_ITS ---
Radiation Oncology Treatment Management Note Patient Name: Salima aFrrell Date of : 1955 Date of Service: 06/25/2021 Attending Physician: Job Zabala M.D. Salima Farrell is a 66 year-old white female diagnosed with biclonal multiple myeloma in December 2012. During a recent follow-up appointment, she described thoracic back pain without neurological symptoms. An MRI of the thoracic spine ordered on June 13, 2021 denoted a large destructive soft tissue tumor with cord compression at the sixth thoracic vertebral body. The soft tissue tumor measured 5.2 cm in length and extends into the T5-6, T6-7, and T7-8 neural foramen. Also reported was a tumor mass measuring 4.6 cm x 3.3 cm x 4.9 cm abutting the descending aorta and extending into T6. Compression fractions were noted in the lumbar spine and T11. The patient has received 24 Gy of a prescribed 30 Álvarez to T5 through T8 with a 3-dimensional conformal radiotherapy plan utilizing wedge pair treatment escobar. Upon review of systems, she reported significant diminution in back pain. On physical examination, the patient weighed 138 lbs. Her temperature was 98.6 ???F and the blood pressure was 123/77 mmHg. Her pulse was 69 bpm and the respiratory rate was 18. No erythema was present within the skin. Continue palliative radiotherapy as planned. Signed by: Dr. Job Zabala 06/25/2021 9:50:47 AM
--- NOTE | 2021-06-27 09:09 | N.ONRD TS_ITS ---
Radiation OncologyTreatment Summary Patient Name: Salima Farrell Date of : 1955 Date of Service: 06/27/2021 Attending Physician: Job Zabala M.D. Salima Farrell has completed palliative radiation therapy for the management of multiple myeloma. During a recent follow-up appointment, she described thoracic back pain without neurological symptoms. An MRI of the thoracic spine ordered on June 13, 2021 denoted a large destructive soft tissue tumor with cord compression at the sixth thoracic vertebral body. The soft tissue tumor measured 5.2 cm in length and extends into the T5-6, T6-7, and T7-8 neural foramen. Also reported was a tumor mass measuring 4.6 cm x 3.3 cm x 4.9 cm abutting the descending aorta and extending into T6. Compression fractions were noted in the lumbar spine and T11. Daily radiotherapy was administered between the dates of June 14, 2021 through June 27, 2021. A prescribed dose of 30 Gy was delivered in 11 fractions encompassing 14 elapsed days. T5 through T8 were treated utilizing a 3-dimensional conformal radiotherapy plan with a LPO/RPO wedge pair field design. The LPO/RPO wedge pair escobar were designed with a gantry angles of 130??? and 230??? and an enhanced dynamic wedge of 45???. The LPO field measured 5 cm x 5 cm within the X-direction and 7 cm x 7 cm within the Y-direction. The measured SSD was 91.4 cm. The field allocated 211 monitor units. The RPO field measured 5 cm x 5 cm within the X-direction and 7 cm x 7 cm within the Y-direction. The SSD measured 91 cm. The port apportioned 231 monitor units. All treatments were performed with the Impressto linear accelerator and an isocentric technique. The dose was calculated by Anisotropic Analytic Algorithm. A photon energy of 15 MV was prescribed with the plan normalized to deliver 100% of the prescription dose to 99.5% of the planning target volume. Signed by: Dr. Job Zabala 06/27/2021 9:07:09 AM
== END 2021-07-08 23:59 | disposition home or self-care (01) ==
LOC: ONCMED 06:30
PROVIDERS: PCP Family Medicine; Visit Provider Radiology Radiation Oncology
DX: Z51.0 Encounter for antineoplastic radiation therapy (principal); C90.00 Multiple myeloma not having achieved remission; C79.51 Secondary malignant neoplasm of bone; G95.29 Other cord compression; Z79.899 Other long term (current) drug therapy
CPT/HCPCS: 72157; 77280; 77295; 77300; 77334; 77336; 77387; 77412; 96374; 99205; A9577; J2270

== ENCOUNTER 2021-07-17 06:21 | Outpatient (RCR) | payer MEDICARE, MEDICAID, SELFPAY ==
[2021-07-09] MEDS: sodium chloride 0.9% 1,000 ML 999 ML IV (11:20)
[2021-07-09 11:29] LABS: Eosinophils # 0.2 10^3/uL (0.0-0.8); Eosinophils % 5.9 %; Hematocrit 44.3 % (37.0-47.0); Lymphocytes # 0.8 10^3/uL (0.8-4.8); Lymphocytes % 19.7 %; Mean Corpuscular HGB Conc 31.6 g/dL (30.0-36.0); Mean Corpuscular Volume 82.3 fl (81-99); Mean Platelet Volume 9.3 fL (7.4-10.4); Monocytes # 0.6 10^3/uL (0.2-0.9); Monocytes % 13.8 %; Neutrophils # 2.41 10^3/uL (1.8-7.7); Neutrophils % 59.1 %; Nucleated Red Blood Cells % 0 %; Platelet Count 248 10^3/cmm (130-400); Red Blood Count 5.38 10^6/uL (4.1-5.3); Red Cell Distribution Width 23.7 % (12.1-15.1); White Blood Count 4.1 10^3/uL (4.0-10.0)
[2021-07-09 11:48] LABS: Alanine Aminotransferase 11 U/L (0-33); Albumin Level 3.4 g/dL (3.5-5.2); Alkaline Phosphatase 87 IU/L (35-105); Anion Gap 12.7 (5-19); Aspartate Amino Transferase 19 U/L (0-32); Blood Urea Nitrogen 16 mg/dL (8-23); Calcium 8.8 mg/dL (8.5-10.5); Carbon Dioxide 27 mmol/L (22-29); Chloride 98 mmol/L (98-107); Globulin 2.6 g/dL (1.3-4.6); Glomerular Filtration Rate 158.7 mL/min (90-130); Glucose 156 mg/dL (65-115); Immunoglobulin IGA 50 mg/dL (70-400); Immunoglobulin IGG 590 mg/dL (700-1600); Immunoglobulin IGM 25 mg/dL (40-230); Osmolality Calculated 282 mOsm/kg (285-295); Potassium 3.7 mmol/L (3.5-5.1); Sodium 134 mmol/L (136-145); Total Bilirubin 0.3 mg/dL (0.15-1.2)
[2021-07-10 10:13] LABS: PROTEIN, TOTAL 5.7 g/dL (6.1-8.1)
[2021-07-10] MEDS: sodium chloride 0.9% 1,000 ML 999 ML IV (10:16)
[2021-07-10] MEDS: dexamethasone 4 mg/mL INJ 5 mL 20 MG IV (10:16)
[2021-07-10 14:33] LABS: KAPPA LIGHT CHAIN, FREE, SERUM 5.5 mg/L (3.3-19.4); KAPPA/LAMBDA LIGHT CHAINS FREE 0.41 (0.26-1.65); LAMBDA LIGHT CHAIN, FREE, SERU 13.3 mg/L (5.7-26.3)
[2021-07-10 15:28] LABS: ABNORMAL PROTEIN BAND 1 0.3 g/dL (NONE DETECTED); ALBUMIN 3.1 g/dL (3.8-4.8); ALPHA 1 GLOBULIN 0.5 g/dL (0.2-0.3); BETA 1 GLOBULIN 0.4 g/dL (0.4-0.6); BETA 2 GLOBULIN 0.3 g/dL (0.2-0.5); GAMMA GLOBULIN 0.5 g/dL (0.8-1.7)
[2021-07-11] MEDS: dexamethasone 4 mg/mL INJ 5 mL 40 MG IV (09:46)
[2021-07-11] MEDS: sodium chloride 0.9% 1,000 ML 999 ML IV (09:46)
[2021-07-12] MEDS: sodium chloride 0.9% 1,000 ML 999 ML IV (09:30)
[2021-07-12] MEDS: dexamethasone 4 mg/mL INJ 5 mL 40 MG (09:35)
--- NOTE | 2021-07-13 07:24 | ONC FU_ITS ---
Dr. Davies Patient Follow-Up Note Patient: Salima Farrell Unit #: [id number]: 1955 Dicatated By: Kenroy Davies M.D.Date of Visit:Jul 09, 2021 Onc Med Follow-up/Prog Note Chief Complaint: Myeloma. History of Present Illness: This is a 66 year-old woman with IgG lambda myeloma. She had presented in December 2012 with compression fractures of the T11 and L5 vertebral bodies. She underwent kyphoplasty at both levels, and biopsies were consistent with plasma cell neoplasm. Her protein electrophoresis showed biclonal protein bands with lambda light chain 0.33 g/dL and IgG lambda 4.6 g/dL. There were additional lytic lesions noted on her skeletal survey. Her 24 hour urine reportedly showed 7 gm of Bence-Zabala proteinuria. Bone marrow aspiration/biopsy in January 2013 showed atypical plasma cell infiltrate comprising 91% of the marrow cellularity. She underwent treatment with 4 cycles of Velcade/Revlimid/dexamethasone followed by high-dose melphalan/autologous stem cell transplant in May 2013. She began maintenance Revlimid in August 2013. It was stopped as of July 2015 due to toxicities. As of July 2016 her repeat bone marrow aspiration/biopsy showed 30-40% plasma cells. She restarted treatment with Revlimid. It was stopped again in December 2017 due to toxicity, mainly cytopenias. At that point her protein electrophoresis showed M protein at 1.52 g/dL. Skeletal survey reportedly showed no new abnormalities. Her repeat marrow aspiration/biopsy in February 2018 showed 70% involvement by plasma cells. The M protein at that point was up to 1.82 g/dL. PET/CT on 04/01/2018 showed new osseous involvement in the right sacral ala, SUV 4.15. She was seen by Dr. Shlomo Tanner on 04/06/2018. It was recommended that she begin salvage therapy with a combination of daratumumab, pomalidomide, and dexamethasone in preparation for possible second transplant procedure. She was seen here initially on 04/10/2018, as at that point she desired to have her treatment administered closer to home. She then returned to begin her treatment with daratumumab, pomalidomide, and dexamethasone on 04/29/2018. Due to her previous cytopenias with Revlimid, the pomalidomide was initiated at a reduced dosage of 3 mg daily on a day schedule. She began her initial infusion of daratumumab on 04/29/2018. She tolerated it without acute toxicity. She was able to complete 8 infusions at the weekly interval followed by 8 infusions at the 2-week interval. The treatments were then administered at a 4-week interval beginning in November 2018. During that time, she her pomalidomide had to be put on hold due to neutropenia. She eventually was able to tolerate it with the dosage reduced to 1 mg. She did have a very good response by protein electrophoresis. On 09/12/2019 she was admitted to [facility] in [place] with shortness of breath, wheezing, and productive cough. She did not have acute infiltrate on chest xray, but she was significantly hypoxic. She continued empiric antibiotic coverage with Levaquin, though it appeared to have most likely have been a viral illness. At her follow-up visit in September she was finally showing recovery from that illness, and she was able to continue her treatment. As of her follow-up visit on 04/05/2020 she had been doing well clinically with her M protein stable at 0.16 g/dL. Following that treatment, though, she became very ill. She had actually started having a cough during her daratumumab infusion and after returning home she had fever in the range of 101 to 102 degrees and she was out of it for 2 days, with virtually no recollection of that time period. She then had generalized bone pain and severe headache for 2 weeks and she could not eat during that time. By about the 11th day she began to feel better, but during that week she developed vomiting and diarrhea. She then continued to show gradually recovery. She did not have COVID testing. I had seen her for a follow-up visit on 05/03/2020, and at that point she was able to resume treatment with daratumumab in combination with pomalidomide and dexamethasone. At her follow-up visit on 06/28/2020 she reported increased pain in her back and rib cage. It was severe enough that she had been seen in the emergency room in [place] earlier that week. There had been a slight increase in her lambda free light chain, concerning for disease progression. She was given IV Toradol for the pain and she was given antibiotic therapy with Levaquin for possible bronchitis. She also was scheduled for restaging PET/CT. That study was completed on 07/01/2020. It showed mild sacral activity and a bilateral pattern which was thought to be more suggestive of reactive uptake than myeloma. Pelvic lesions did not demonstrate increased FDG activity, and were felt to likely correspond to prior sites of active myeloma. She continued her treatment with daratumumab/pomalidomide/dexamethasone at 4-week intervals. However, at her follow-up visit in September 2020 her M protein had increased to 0.61 g/dL and there was a significant increase in her lambda free light chain to 366.71 mg/L. As of her follow-up visit on 10/30/2020 she continued treatment with daratumumab, but her pomalidomide was put on hold and her treatment was then transitioned to salvage therapy with a carfilzomib/dexamethasone regimen. She began her 1st cycle of treatment on 11/23/2020 with the carfilzomib administered on days 1, 8, and 15 of a 28-day schedule. At that point her M protein had increased to 1.5 g/dL. She initially was able to tolerate that treatment with acceptable toxicity, and she continued with cycle 2 on 12/21/2020 and with cycle 3 on 01/18/2021. Her repeat protein electrophoresis on 01/17/2021 M protein basically stable 1.60 g/dL. On 01/24/2021 she was admitted to the hospital with several days of nausea/vomiting. She also reported increased weakness and fatigue. This was all thought to be treatment related. She did improve with IV hydration and symptomatic measures. She was discharged home on 01/25/2021. I had seen her for a follow-up visit on 02/09/2021. Given the side effects she experienced with the carfilzomib and with no obvious response by M protein, I opted to transition her to salvage therapy with belantamab mafodotin. Her other medical illnesses have been limited to GERD and mild asthma. Her other surgical/procedural history includes previous appendectomy and hysterectomy/bilateral salpingo-oophorectomy. She had a minimal smoking history in the past, and she quit smoking in 1991. INTERIM HISTORY: She began cycle 1 of belantamab mafodotin on 02/27/2021. She tolerated it without acute toxicity. However, on 03/03/2020 when she was taken to the emergency room after she had become extremely weak and confused. She was noted to have low-grade fever and she had fallen at home. On evaluation she was hypoxic and she had elevated D-dimer. Chest x-ray showed right middle lobe pneumonia. Her VQ lung scan showed normal perfusion with no evidence of pulmonary embolism. She improved on IV antibiotic coverage and supportive measures. She was discharged home on 03/07/2021. I had seen her for a follow-up visit on 03/20/2021. At that point she was still very weak, but she was beginning to show some recovery. Her repeat protein electrophoresis showed a very significant decline in her M protein to 0.8 g/dL and a significant decline in her lambda free light chain to 6.0 mg/L. With that finding, I had encouraged her to consider further treatment with belantamab mafodotin, but with some further time for recovery and with treatment administered at a reduced dosage. In the meantime, with her associated hypogammaglobulinemia and recurrent pneumonias, I had also put in a request to have her start replacement IVIG. Subsequent to that visit, she had called with complaints of recurrent fever, productive cough, and shortness of breath. She also reported having abdominal pain. Her CT abdomen/pelvis showed no acute findings. Chest xray showed chronic scarring at the lung bases with superimposed active pneumonia within the right middle and right lower lobe. Her COVID-19 was negative by PCR. She was given additional antibiotic coverage with Levaquin 750 mg daily. As of her follow-up visit on 04/12/2021 she was feeling much better, though she continued to complain of having episodes of pain in the epigastric area. I opted to keep her treatment on hold. Her repeat protein electrophoresis on 04/17/2021 showed further decline in the M protein to 0.4 g/dL. She continued to have significant pain in the epigastric area. On 05/21/2021 she underwent EGD by Dr. Thomas. It showed diffuse gastritis with some striping. A moderate amount of bilious fluid was present. Her VIRGIL test was negative for H. pylori. At her follow-up visit on 05/22/2021 she continued to have pain in the upper abdomen/epigastric area, severe enough that she was having difficulty eating. Her repeat protein electrophoresis at that time showed stable M protein at 0.4 g/dL. Her free light chain assay showed an increase in the free lambda light chain at 31.0 mg/L with decreased kappa/lambda ratio 0.13. Given the EGD findings, I had her increase her omeprazole to 40 mg twice daily and also had her add famotidine at bedtime. Her treatment remained on hold, but at that time she began parenteral iron replacement with Injectafer for iron deficiency anemia. As of her follow-up visit on 05/30/2021 she was not feeling much better. She reported increased pain in her mid back area radiating into the left lateral chest. MRI of the thoracic spine on 06/13/2021 showed a large destructive soft tissue tumor centered at the T6 vertebral body and extending over a length of 5.2 cm. The tumor was noted to encase the thoracic cord with complete effacement of the CSF. There was extension into the neuroforamen greatest to the left at T5-6, T6-7, and T7-8. There was severe plantar compression fracture at T11. With those findings, she was referred to Dr. Zabala, and she began palliative radiation to the thoracic spine. She completed treatment on 06/27/2021 to a total dose of 3000 cGy administered in 10 fractions. She is seen for a follow-up visit. She has not been feeling good. Her back pain has improved with the radiation, she now complains that it hurts to swallow, and she is having difficulty eating. She has had a weight loss of 25 pounds since March. Her energy is poor and she has had decline in activity tolerance. ECOG score is 2. She had a fever yesterday up to 102 degrees, that seems to have resolved. She is having night sweating. She has developed a painful nodule on her right calf. She does not have cough, she does not complain of shortness of breath or chest pain. She is having nausea. Bowel and bladder function remain adequate. She has some pain in her legs when she stands, she complains that her legs are weak. She has been having some headache. She has no numbness/paresthesia or other focal neurologic symptoms. Medications: Acetaminophen 2 Tablet (of 325 mg) Oral four times a day PRN, ALPRAZolam 1 Tablet (of 1 mg) Oral t.i.d., Benzonatate 1 Capsule (of 100 mg) Oral t.i.d. PRN, Childrens Aspirin 2 Tablet (of 81 mg) Tablet, chewable Oral daily, Cyclobenzaprine HCl 1 Tablet (of 10 mg) Oral t.i.d., Fluconazole 1 Tablet (of 200 mg) Oral daily, Gabapentin 1 Capsule (of 100 mg) Oral t.i.d., Lidocaine 3 patch(es) (of 5 %) Patch Topical q 24 hours, Lidocaine 1 (5 %) Ointment Topical q 3 hours PRN, Melatonin 1 Tablet (of 10 mg) Oral at bedtime, Morphine Sulfate 1 - 2 Tablet (of 30 mg) Oral q 3 hours, Morphine Sulfate ER (100 mg) Tablet, controlled release Oral Take as Directed, Mupirocin 1 (2 %) Ointment Topical PRN, Omeprazole 1 Tablet (of 40 mg) Capsule Oral daily, Phentermine HCl 1 Capsule (of 37.5 mg) Oral daily, Pomalidomide 1 Capsule (of 1 mg) Oral daily, Tamsulosin HCl (0.4 mg) Capsule Oral b.i.d., Valerian Root 2 (1000 mg) Capsule Oral daily, Ventolin HFA 2 puff(s) (of 108 (90 base) mcg/act) Aerosol, solution Inhalation q 4 hours, Voltaren Gel (jelly) Transdermal Allergies: Codeine Sulfate Vital Signs: Performed on Jul 09, 2021 10:47 Height - 57.00 in Weight - 129 lbs (LOW) BSA - 1.49 sq.m BMI - 27.92 Temperature - 96.9 F (LOW) Pulse - 99 /min Respiration - 18 /min BP - 103/67 mm(hg) Pain - 3 Fatigue - 10 Physical Examination: Constitutional - She appears generally weak, Eyes - Sclerae nonicteric. Conjunctivae clear, ENMT - No lesions noted in the oral cavity, Hematologic/Lymphatic - No cervical, clavicular, or axillary adenopathy, Respiratory - Lungs show coarse breath sounds with slightly diminished air movement bilaterally, Cardiovascular - Heart rhythm is regular. There is a II/ systolic murmur. There is no gallop or rub noted, Abdomen - Mildly distended but soft. Liver and spleen are not enlarged. There is no abdominal mass or ascites noted and there is no inguinal adenopathy, Extremities - No edema. There is a subcutaneous nodule palpable in the mid to lower right calf measuring 2 to 3 cm, Neurologic - No focal neurologic deficits noted. Lab/Imaging: Test performed on Jul 09, 2021 11:09 Sodium 134 mmol/L Potassium 3.7 mmol/L Chloride 98 mmol/L CO2 27 mmol/L Anion Gap 12.7 BUN 16 mg/dL Creatinine 0.4 mg/dL Cr Clearance (Est) 124.3400 mL/min eGFR 158.7 mL/min Glucose 156 mg/dL Osmolality - Calculated 282 mOsm/kg Calcium 8.8 mg/dL Protein, Total 6.0 g/dL Albumin 3.4 g/dL Globulin 2.6 g/dL Bilirubin, Total 0.3 mg/dL ALT (SGPT) 11 U/L AST (SGOT) 19 U/L Alkaline Phosphatase 87 IU/L WBC 4.1 10 3/uL RBC 5.38 10 6/uL HGB 14.0 g/dL HCT 44.3 % MCV 82.3 fl MCH 26.0 pg MCHC 31.6 g/dL RDW 23.7 % Platelet Count 248 10 3/cmm MPV 9.3 fL Neutrophils 2.41 10 3/uL Lymphocytes 0.8 10 3/uL Monocytes 0.6 10 3/uL Eosinophils 0.2 10 3/uL Basophils 0.0 10 3/uL Neutrophil % 59.1 % Lymphocyte % 19.7 % Monocyte % 13.8 % Eosinophil % 5.9 % Basophils % 1.0 % NRBC % 0 % [place] Free Light Chains 5.5 mg/L Lambda Free Light Chains 13.3 mg/L IgA 50 mg/dL [place]/Lambda Free Ratio 0.41 Problem List: 1. IgG lambda myeloma, initially diagnosed in December 2012. She had associated lytic bone involvement with vertebral compression fractures at T11 and L5. 2. She has associated hypogammaglobulinemia. 3. GERD. 4. Mild asthma. Problems Addressed with this Encounter and Plan: 1. Patient with IgG lambda myeloma, initially diagnosed in December 2012. She had associated lytic bone involvement with vertebral compression fractures at T11 and L5. Her myeloma therapy has included: 1. Velcade/Revlimid/dexamethasone for 4 cycles followed by high-dose melphalan/stem cell transplant in May 2013. 2. Maintenance Revlimid until July 2015, stopped due to toxicity. 3. Revlimid/dexamethasone restarted in July 2016 and continued through December 2017, stopped due to toxicities. 4. Daratumumab/pomalidomide/dexamethasone from April 2018 through October 2019, stopped due to disease progression. 5. Carfilzomib/dexamethasone for 3 cycles from 11/23/2020 through 01/18/2021, stopped due to toxicity and lack of response. She began a trial of salvage therapy with belantamab mafodotin, cycle 1 on 02/27/2021. She tolerated the initial infusion without acute toxicity. However, by 03/03/2021 she had become extremely weak and she was admitted to the hospital with pneumonia. As of her followup visit on 03/20/2021 she was beginning to show recovery, and at that point her protein electrophoresis studies did show a significant decline in her M protein and in her free lambda light chain, consistent with treatment response. Her further treatment was delayed due to recurrent pneumonia. During subsequent follow-up she continued to have fairly marginal performance status and she had ongoing complaints of epigastric pain and anorexia. As of her follow-up visit on 05/22/2021 there was a slight increase in her free lambda light chain, but her M protein remained stable. Her treatment remained on hold. She then presented with increased pain in the midthoracic area/left chest, she was found to have an MRI to have a large tumor mass centered at the T6 vertebral body. There was associated cord compression. She underwent palliative radiation, completed on 06/27/2021 to a total dose of 3000 cGy administered in 10 fractions. She has had symptomatic improvement following the radiation, but she continues to have very marginal performance status. She has had significant weight loss since March. It is uncertain to what extent her decline is directly related to the myeloma, the concern being that the protein electrophoresis studies are no longer accurately reflecting the status of her myeloma. At this point I am going to have her empirically start treatment with high-dose dexamethasone, 40 mg IV daily for 4 days. She will be given daily IV hydration. If she is showing improvement, she will then have the option to continue further treatment with belantamab mafodotin. 2. She has developed significant of dyne aphasia. This may just be due to radiation-induced esophagitis. As a precaution, I am going to have her start treatment with fluconazole to also cover possible esophageal candidiasis. 3. She had become mildly anemic. Her serum iron studies were consistent with iron deficiency with transferrin saturation 3.8%. As she had not been able to tolerate oral iron due to her GI symptoms, she was given parenteral iron replacement with Injectafer. She has had a very good clinical response. 4. She has chronic back pain associated with her vertebral compression fractures. It is being managed with opiate pain medication. Signed By: Kenroy Davies M.D. <<Signature on File>>
[2021-07-17] MEDS: sodium chloride 0.9% 250 ML 999 ML IV (08:35)
[2021-07-17] MEDS: acetaminophen 325 mg Tablet 650 MG PO (08:35)
[2021-07-17] MEDS: diphenhydrAMINE 50 mg/mL SDV 1mL 25 MG IV (08:36)
[2021-07-17] MEDS: ondansetron 2 mg/ML SDV 2 mL 8 MG IV (08:38)
[2021-07-17 11:37] LABS: CREATININE, 24 HOUR URINE 0.87 g/24 h (0.50-2.15); PROTEIN, TOTAL, 24 HR UR 187 mg/24 h (<150); Protein/Creatinine Ratio 0.214 (< OR = 0.114); Protein/Creatinine Ratio 214 mg/g creat (< OR = 114)
[2021-07-19 08:23] LABS: ALBUMIN 0 %; ALPHA-1-GLOBULINS 0 %; ALPHA-2-GLOBULINS 0 %; BETA GLOBULINS 0 %; GAMMA GLOBULINS 0 %
== END 2021-07-26 | disposition home or self-care (01) ==
LOC: ONCMED 06:21
PROVIDERS: Internal Medicine Medical Oncology; PCP Family Medicine; Visit Provider Internal Medicine Hematology & Oncology
DX: C90.00 Multiple myeloma not having achieved remission (principal); C79.51 Secondary malignant neoplasm of bone; D80.1 Nonfamilial hypogammaglobulinemia; K21.9 Gastro-esophageal reflux disease without esophagitis; J45.20 Mild intermittent asthma, uncomplicated; Z79.899 Other long term (current) drug therapy
CPT/HCPCS: 80053; 82784; 83883; 84155; 84156; 84165; 84166; 85025; 96360; 96361; 96365; 96375; 96413; 99215; J1100; J1200; J2405; J7030; J7050; J9037

== ENCOUNTER 2021-07-26 00:12 | Emergency (ER) | payer MEDICARE, MEDICAID, SELFPAY ==
[2021-07-26] VITALS (7 sets, daily range): BP systolic 82–95; BP diastolic 45–62; PULSE 79–113; RESP 15–18; TEMP 36.8; O2SAT 92–96; BMI 26.7
--- NOTE | 2021-07-26 01:49 | ECG_ITS ---
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 [id number]
[2021-07-26] MEDS: sodium chloride 0.9% 1,000 ML 999 ML IV ×2 (03:10→05:03)
[2021-07-26 03:13] LABS: Basophils % 0.6 %; Eosinophils # 0.1 10^3/uL (0.0-0.8); Eosinophils % 1.4 %; Hematocrit 42.3 % (37.0-47.0); Hemoglobin 13.6 g/dL (11.5-15.3); Lymphocytes # 0.7 10^3/uL (0.8-4.8); Lymphocytes % 10.5 %; Mean Corpuscular HGB Conc 32.2 g/dL (30.0-36.0); Mean Corpuscular Hemoglobin 26.2 pg (28.0-34.0); Mean Corpuscular Volume 81.5 fl (81-99); Mean Platelet Volume 9.7 fL (7.4-10.4); Monocytes # 0.8 10^3/uL (0.2-0.9); Monocytes % 11.9 %; Neutrophils # 4.96 10^3/uL (1.8-7.7); Neutrophils % 74.4 %; Nucleated Red Blood Cells % 0 %; Platelet Count 159 10^3/cmm (130-400); Red Blood Count 5.19 10^6/uL (4.1-5.3); White Blood Count 6.7 10^3/uL (4.0-10.0)
[2021-07-26 03:53] LABS: Alanine Aminotransferase 27 U/L (0-33); Albumin Level 2.9 g/dL (3.5-5.2); Alkaline Phosphatase 85 IU/L (35-105); Anion Gap 13.4 (5-19); Aspartate Amino Transferase 47 U/L (0-32); Blood Urea Nitrogen 14 mg/dL (8-23); Calcium 8.3 mg/dL (8.5-10.5); Carbon Dioxide 28 mmol/L (22-29); Chloride 100 mmol/L (98-107); Globulin 2.5 g/dL (1.3-4.6); Glomerular Filtration Rate 83.2 mL/min (90-130); Glucose 80 mg/dL (65-115); Lipase 24 U/L (13-60); Osmolality Calculated 285 mOsm/kg (285-295); Potassium 3.4 mmol/L (3.5-5.1); Sodium 138 mmol/L (136-145); Total Bilirubin 0.4 mg/dL (0.15-1.2); Total Protein 5.4 g/dL (6.6-8.7)
[2021-07-26 04:43] LABS: Troponin T (5th) Once 37 ng/L (0-10)
--- NOTE | 2021-07-26 04:51 | W.ED.GENADLT ---
Documented by User: Teo Ardon MD 07/26/21 05:07 HPI - General Adult General: Chief complaint: Weakness Stated complaint: weak an mutiple falls since chemo on wed Time Seen by Provider: 07/26/21 00:20 History of Present Illness: HPI narrative: Patient is a 66-year-old female with a history of multiple myeloma on chemoradiation therapy presenting to the emergency room for concerns of generalized weakness. She tells me that that every time she undergoes chemotherapy, she feels very lightheaded and passes out a few days afterwards. Patient requests for IV fluids. Patient had radiation and felt lightheaded. Patient says that she did not have any LOC or fall or injuries. Patient has had decreased p.o. intake since chemotherapy denies any fever or chills, nausea/vomiting, diarrhea, melena/hematochezia, cough, runny nose, sore throat or other complaints at this time. Onset: 2 weeks ago Duration:2 weeks Location:ongoing Severity:moderate Review of Systems Narrative: Constitutional: No fever, no chills. HEENT: No vision changes CV: No chest pain, no palpitations PULM: no cough, no dyspnea GI: No abdominal pain, no N/V/D. : No dysuria MSKEL: No muscle pain SKIN: No new rashes, no lesions. NEURO: No headache, no focal weakness. +generalized weakness HEME: No visible bruises PSYCH: Normal mood PFSH ED PFSH: Medical History (Updated 07/27/21 @ 00:01 by ) Gastroesophageal reflux disease Mild asthma Multiple myeloma Transplanted bone marrow present Surgical History H/O kyphoplasty History of tubal ligation Hx of appendectomy Hx of total hysterectomy Family History Mother Cancer Heart attack Father Cancer Heart attack Brother Diabetes Sister Diabetes Cancer Social History Smoking and tobacco status: former smoker Alcohol intake: never Physical Exam Narrative: EXAM NARRATIVE: Head: Atraumatic Eyes: PERRL, conjunctiva without injection ENT: Mucous membrane dry NECK: Supple, ROM intact LUNGS: LCTAB, no crackles/rhonchi CV: Sinus tachycardia ABDOMEN: Soft, nontender in all quadrants EXTREMITY: Normal ROM SKIN: No rash or erythema, +L chest port site dry/clean/infact NEURO: Awake and alert, no focal motor deficits PSYCH: Normal mood and affect Course Vital Signs: Vital signs: Vital Signs Temperature 98.2 F 07/26/21 00:18 Pulse Rate 86 07/26/21 06:00 Respiratory Rate 15 07/26/21 06:00 Blood Pressure 95/51 07/26/21 06:00 Pulse Oximetry 94 07/26/21 06:00 MDM - General Adult MDM Narrative: Medical decision making narrative: Patient is a 58-year-old female history of multiple, presenting to the emergency room for complaints of generalized weakness and lightheadedness after including radiation followed by chemothearpy treatments 2 weeks prior. On exam, patient appears to be dry. Patient is noted to be in sinus tachycardic to low 100s. As of exam within normal limit. Work-up showed mild hypokalemia to 3.4. Rest of laboratory evaluation within normal limit. Patient requests for 3L of IV fluids to the emergency room. S/p IVF with improvement in HRs. Reports feeling symptomatically improved at this time. Patient reassures me that she will follow-up with her primary care doctor for evaluation and follow-up. At the present time, patient denies any fever or chills, any focal complaints. No signs of neutropenia on blood work. EKG showing regular sinus rhythm at HT of [103]. Normal axis. No ST elevations/depressions to suggest coronary occlusion. Normal SC, QRS, QT intervals. Troponin of 37. Pending repeat troponin at this time. Lab Data: Labs: Lab Results 07/26/21 07/26/21 07/26/21 03:03 03:03 03:03 WBC 6.7 10^3/uL 10^3/ uL (4.0-10.0) RBC 5.19 10^6/uL 10^6 /uL (4.1-5.3) Hgb 13.6 g/dL g/dL (11.5-15.3) Hct 42.3 % % (37.0-47.0) MCV 81.5 fl fl (81-99) MCH 26.2 pg L pg (28.0-34.0) MCHC 32.2 g/dL g/dL (30.0-36.0) RDW 25.0 % H % (12.1-15.1) Plt Count 159 10^3/cmm 10^3 /cmm (130-400) MPV 9.7 fL fL (7.4-10.4) Neut % (Auto) 74.4 % % Lymph % (Auto) 10.5 % % Whitley % (Auto) 11.9 % % Eos % (Auto) 1.4 % % Baso % (Auto) 0.6 % % Neut # (Auto) 4.96 10^3/uL 10^3 /uL (1.8-7.7) Lymph # (Auto) 0.7 10^3/uL L 10^ 3/uL (0.8-4.8) Whitley # (Auto) 0.8 10^3/uL 10^3/ uL (0.2-0.9) Eos # (Auto) 0.1 10^3/uL 10^3/ uL (0.0-0.8) Baso # (Auto) 0.0 10^3/uL 10^3/ uL (0.0-0.1) Nucleated RBC % (a uto) 0 % % Nucleated RBCs # 0.0 /100WBC /100W BC Sodium 138 mmol/L mmol/L (136-145) Potassium 3.4 mmol/L L mmol /L (3.5-5.1) Chloride 100 mmol/L mmol/L (98-107) Carbon Dioxide 28 mmol/L mmol/L (22-29) Anion Gap 13.4 (5-19) BUN 14 mg/dL mg/dL (8-23) Creatinine 0.7 mg/dL mg/dL (0.5-0.9) GFR Calculation 83.2 mL/min L mL/ min (90-130) Glucose 80 mg/dL mg/dL (65-115) Calculated Osmolal ity 285 mOsm/kg mOsm/ kg (285-295) Calcium 8.3 mg/dL L mg/dL (8.5-10.5) Total Bilirubin 0.4 mg/dL mg/dL (0.15-1.2) AST 47 U/L H U/L (0-32) ALT 27 U/L U/L (0-33) Alkaline Phosphata se 85 IU/L IU/L (35-105) Troponin T Gen 5 n g/L 37 ng/L H ng/L (0-10) Troponin T 120 Min [place] Troponin T Total Protein 5.4 g/dL L g/dL (6.6-8.7) Albumin 2.9 g/dL L g/dL (3.5-5.2) Globulin 2.5 g/dL g/dL (1.3-4.6) Lipase 24 U/L U/L (13-60) 07/26/21 05:18 WBC RBC Hgb Hct MCV MCH MCHC RDW Plt Count MPV Neut % (Auto) Lymph % (Auto) Whitley % (Auto) Eos % (Auto) Baso % (Auto) Neut # (Auto) Lymph # (Auto) Whitley # (Auto) Eos # (Auto) Baso # (Auto) Nucleated RBC % (a uto) Nucleated RBCs # Sodium Potassium Chloride Carbon Dioxide Anion Gap BUN Creatinine GFR Calculation Glucose Calculated Osmolal ity Calcium Total Bilirubin AST ALT Alkaline Phosphata se Troponin T Gen 5 n g/L Troponin T 120 Min [place] 37.23 ng/L H ng/L (0-10) Delta Troponin T 0.23 ABS# ABS# (0-10) Total Protein Albumin Globulin Lipase Discharge Plan Discharge Patient Disposition: Home Clinical Impression: Generalized weakness, Chemotherapy induced nausea and vomiting, Dehydration, IgG multiple myeloma Condition: Stable Prescriptions: Changed potassium chloride 10 mEq tablet extended release 10 meq PO TID PRN (Reason: with Lasix) Qty: 0 RF: 0 No Action acetaminophen 325 mg capsule 325 mg PO QID PRN (Reason: Pain) RF: 0 benzonatate 100 mg capsule 100 mg PO TID RF: 0 gabapentin 100 mg capsule 100 mg PO TID RF: 0 lidocaine 5 % adhesive patch,medicated 3 patch TOPICAL DAILY RF: 0 melatonin 10 mg capsule 10 mg PO BEDTIME RF: 0 omeprazole 40 mg capsule,delayed release(DR/EC) 40 mg PO BID RF: 0 diclofenac sodium [Voltaren] 1 % gel 2 gm TOPICAL QID RF: 0 (DME) Cam walker See Rx Instructions .ROUTE .MEDSUPPLY Qty: 1 RF: 0 furosemide 40 mg tablet 40 mg PO BID PRN (Reason: Edema) RF: 0 Narcan 4 mg/actuation spray,non-aerosol 1 spray INTRANASAL PRN PRN (Reason: overdose) RF: 0 morphine 100 mg Tablet Extended Release 100 mg PO BIDWM Qty: 0 RF: 0 Reglan 5 mg tablet 5 mg PO Q8H PRN (Reason: nausea and vomiting) Qty: 30 RF: 0 alprazolam 1 mg tablet 0.25 mg PO TID PRN (Reason: prn) Qty: 0 RF: 0 ondansetron HCl 8 mg tablet 8 mg PO Q8H PRN (Reason: nausea/vomiting) 30 Days Qty: 90 RF: 0 ibuprofen 200 mg Tablet 200 - 400 mg PO Q4H PRN (Reason: headache/pain) RF: 0 albuterol sulfate 90 mcg/actuation Hfa Aerosol Inhaler 1 puff INHALATION QID PRN (Reason: Shortness Of Breath) Qty: 0 RF: 0 valerian root 1 cap PO DAILY RF: 0 tamsulosin 0.4 mg capsule 0.8 mg PO DAILY RF: 0 nitroglycerin 0.4 mg Tablet, Sublingual 0.4 mg SUBLINGUAL Q5M PRN (Reason: Chest Pain) RF: 0 morphine 30 mg tablet 30 mg PO Q4H PRN (Reason: Pain) RF: 0 mupirocin 2 % ointment 1 applic TOPICAL BID Qty: 30 RF: 0 Discharge Orders: Discharge ED (Routine); Ordered 07/26/21 Ordered By: Stephen Mahoney Referrals: Job Alexander [Primary Care Provider] - Discharge Diet: Advance as tolerated Discharge Activity: Resume usual activity Patient Instructions: Chemotherapy Activity Restrictions/Additional Instructions: Come back to the emergency room if you have any lightheadedness, fever/chills, chest pain or shortness of breath, nausea/vomiting, or any new concerning complaints. Follow-up with Dr. Davies within the week call for an appointment. Sign Out Sign Out Data: Patient Sign Out occurred on 07/26/21 at 06:02. Patient's care was discussed, and care was transferred from to Stephen Mahoney DO. Coding Level of Care Code ED Directional Drill Operator for Chg Fwd Documented by User: Stephen Mahoney DO 07/31/21 06:38 HPI - General Adult General: Chief complaint: Weakness Stated complaint: weak an mutiple falls since chemo on wed Time Seen by Provider: 07/26/21 00:20 PFSH ED PFSH: Medical History (Updated 07/27/21 @ 00:01 by ) Gastroesophageal reflux disease Mild asthma Multiple myeloma Transplanted bone marrow present Surgical History H/O kyphoplasty History of tubal ligation Hx of appendectomy Hx of total hysterectomy Family History Mother Cancer Heart attack Father Cancer Heart attack Brother Diabetes Sister Diabetes Cancer Social History Smoking and tobacco status: former smoker Alcohol intake: never Course Vital Signs: Vital signs: Vital Signs Temperature 98.2 F 07/26/21 00:18 Pulse Rate 86 07/26/21 06:00 Respiratory Rate 15 07/26/21 06:00 Blood Pressure 95/51 07/26/21 06:00 Pulse Oximetry 94 07/26/21 06:00 MDM - General Adult MDM Narrative: Medical decision making narrative: Care assumed from change of shift. Patient is feeling better. We will go ahead and discharge home follow-up with oncology. 6 labs imaging EKG reviewed as on the chart. Lab Data: Labs: Lab Results 07/26/21 07/26/21 07/26/21 03:03 03:03 03:03 WBC 6.7 10^3/uL 10^3/ uL (4.0-10.0) RBC 5.19 10^6/uL 10^6 /uL (4.1-5.3) Hgb 13.6 g/dL g/dL (11.5-15.3) Hct 42.3 % % (37.0-47.0) MCV 81.5 fl fl (81-99) MCH 26.2 pg L pg (28.0-34.0) MCHC 32.2 g/dL g/dL (30.0-36.0) RDW 25.0 % H % (12.1-15.1) Plt Count 159 10^3/cmm 10^3 /cmm (130-400) MPV 9.7 fL fL (7.4-10.4) Neut % (Auto) 74.4 % % Lymph % (Auto) 10.5 % % Whitley % (Auto) 11.9 % % Eos % (Auto) 1.4 % % Baso % (Auto) 0.6 % % Neut # (Auto) 4.96 10^3/uL 10^3 /uL (1.8-7.7) Lymph # (Auto) 0.7 10^3/uL L 10^ 3/uL (0.8-4.8) Whitley # (Auto) 0.8 10^3/uL 10^3/ uL (0.2-0.9) Eos # (Auto) 0.1 10^3/uL 10^3/ uL (0.0-0.8) Baso # (Auto) 0.0 10^3/uL 10^3/ uL (0.0-0.1) Nucleated RBC % (a uto) 0 % % Nucleated RBCs # 0.0 /100WBC /100W BC Sodium 138 mmol/L mmol/L (136-145) Potassium 3.4 mmol/L L mmol /L (3.5-5.1) Chloride 100 mmol/L mmol/L (98-107) Carbon Dioxide 28 mmol/L mmol/L (22-29) Anion Gap 13.4 (5-19) BUN 14 mg/dL mg/dL (8-23) Creatinine 0.7 mg/dL mg/dL (0.5-0.9) GFR Calculation 83.2 mL/min L mL/ min (90-130) Glucose 80 mg/dL mg/dL (65-115) Calculated Osmolal ity 285 mOsm/kg mOsm/ kg (285-295) Calcium 8.3 mg/dL L mg/dL (8.5-10.5) Total Bilirubin 0.4 mg/dL mg/dL (0.15-1.2) AST 47 U/L H U/L (0-32) ALT 27 U/L U/L (0-33) Alkaline Phosphata se 85 IU/L IU/L (35-105) Troponin T Gen 5 n g/L 37 ng/L H ng/L (0-10) Troponin T 120 Min [place] Troponin T Total Protein 5.4 g/dL L g/dL (6.6-8.7) Albumin 2.9 g/dL L g/dL (3.5-5.2) Globulin 2.5 g/dL g/dL (1.3-4.6) Lipase 24 U/L U/L (13-60) 07/26/21 05:18 WBC RBC Hgb Hct MCV MCH MCHC RDW Plt Count MPV Neut % (Auto) Lymph % (Auto) Whitley % (Auto) Eos % (Auto) Baso % (Auto) Neut # (Auto) Lymph # (Auto) Whitley # (Auto) Eos # (Auto) Baso # (Auto) Nucleated RBC % (a uto) Nucleated RBCs # Sodium Potassium Chloride Carbon Dioxide Anion Gap BUN Creatinine GFR Calculation Glucose Calculated Osmolal ity Calcium Total Bilirubin AST ALT Alkaline Phosphata se Troponin T Gen 5 n g/L Troponin T 120 Min [place] 37.23 ng/L H ng/L (0-10) Delta Troponin T 0.23 ABS# ABS# (0-10) Total Protein Albumin Globulin Lipase Discharge Plan Discharge Patient Disposition: Home Clinical Impression: Generalized weakness, Chemotherapy induced nausea and vomiting, Dehydration, IgG multiple myeloma Condition: Stable Prescriptions: Changed potassium chloride 10 mEq tablet extended release 10 meq PO TID PRN (Reason: with Lasix) Qty: 0 RF: 0 No Action acetaminophen 325 mg capsule 325 mg PO QID PRN (Reason: Pain) RF: 0 benzonatate 100 mg capsule 100 mg PO TID RF: 0 gabapentin 100 mg capsule 100 mg PO TID RF: 0 lidocaine 5 % adhesive patch,medicated 3 patch TOPICAL DAILY RF: 0 melatonin 10 mg capsule 10 mg PO BEDTIME RF: 0 omeprazole 40 mg capsule,delayed release(DR/EC) 40 mg PO BID RF: 0 diclofenac sodium [Voltaren] 1 % gel 2 gm TOPICAL QID RF: 0 (DME) Cam walker See Rx Instructions .ROUTE .MEDSUPPLY Qty: 1 RF: 0 furosemide 40 mg tablet 40 mg PO BID PRN (Reason: Edema) RF: 0 Narcan 4 mg/actuation spray,non-aerosol 1 spray INTRANASAL PRN PRN (Reason: overdose) RF: 0 morphine 100 mg Tablet Extended Release 100 mg PO BIDWM Qty: 0 RF: 0 Reglan 5 mg tablet 5 mg PO Q8H PRN (Reason: nausea and vomiting) Qty: 30 RF: 0 alprazolam 1 mg tablet 0.25 mg PO TID PRN (Reason: prn) Qty: 0 RF: 0 ondansetron HCl 8 mg tablet 8 mg PO Q8H PRN (Reason: nausea/vomiting) 30 Days Qty: 90 RF: 0 ibuprofen 200 mg Tablet 200 - 400 mg PO Q4H PRN (Reason: headache/pain) RF: 0 albuterol sulfate 90 mcg/actuation Hfa Aerosol Inhaler 1 puff INHALATION QID PRN (Reason: Shortness Of Breath) Qty: 0 RF: 0 valerian root 1 cap PO DAILY RF: 0 tamsulosin 0.4 mg capsule 0.8 mg PO DAILY RF: 0 nitroglycerin 0.4 mg Tablet, Sublingual 0.4 mg SUBLINGUAL Q5M PRN (Reason: Chest Pain) RF: 0 morphine 30 mg tablet 30 mg PO Q4H PRN (Reason: Pain) RF: 0 mupirocin 2 % ointment 1 applic TOPICAL BID Qty: 30 RF: 0 Discharge Orders: Discharge ED (Routine); Ordered 07/26/21 Ordered By: Stephen Mahoney Referrals: Job Alexander [Primary Care Provider] - Discharge Diet: Advance as tolerated Discharge Activity: Resume usual activity Patient Instructions: Chemotherapy Activity Restrictions/Additional Instructions: Come back to the emergency room if you have any lightheadedness, fever/chills, chest pain or shortness of breath, nausea/vomiting, or any new concerning complaints. Follow-up with Dr. Davies within the week call for an appointment. Sign Out Sign Out Data: Patient Sign Out occurred on 07/26/21 at 06:02. Patient's care was discussed, and care was transferred from to Stephen Mahoney DO. Coding Level of Care Code ED Directional Drill Operator for Sinan Eamnuel
[2021-07-26 05:59] LABS: Troponin 5 2HR 37.23 ng/L (0-10)
[2021-07-26 06:05] LABS: Troponin 5 2HR Delta 0.23 ABS# (0-10)
--- NOTE | 2021-07-26 06:22 | USCV_ITS ---
Salima Farrell Age: 66 Gender: F : 1955 Exam Date: 07/26/2021 06:41 Ordering Phys: Stephen Mahoney DO Technologist: Exam Location: [facility] [place]_ Indication: PAIN RT POST CALF HISTORY: Lower extremity pain. PROCEDURES: Venous duplex imaging was performed in only the right lower extremity. The following venous structures were evaluated: common femoral vein, profunda vein, proximal portion of the greater saphenous vein, superficial femoral vein, and the popliteal vein. In addition, the posterior tibial and peroneal trunk were evaluated. On the right side, the common femoral, superficial femoral, profunda femoral, popliteal, posterior tibial, greater saphenous veins and the peroneal trunk were identified and interrogated in the standard fashion. These veins were found to be easily compressible with spontaneous blood flow. No evidence of insufficiency or thrombus noted. FINDINGS: Normal 2-D Doppler and augmentation and compressibility throughout the lower extremity venous structures. Additional imaging through the proximal calf veins also reveals no thrombus. Limited evaluation of the greater saphenous vein is patent with no thrombus.. THERE IS A SOLID MASS WITH BLOOD FLOW IN THE POSTERIOR RT CALF CONCLUSIONS No evidence of right lower extremity DVT. 2.3 x 2.1 cm complex hypoechoic lesion posterior calf with vascularity. This is nonspecific in apperarance and could be further evaluated with contrast enhanced CT for better anatomic detail. Louie Montiel MD (Electronically Signed) Final Date: 26 July 2021 13:05 S
== END 2021-07-26 07:49 | disposition home or self-care (01) ==
PROVIDERS: Emergency Medicine; Emergency Provider Family Medicine; PCP Family Medicine
DX: R53.1 Weakness (principal); E86.0 Dehydration; R11.2 Nausea with vomiting, unspecified; C90.00 Multiple myeloma not having achieved remission; Z79.899 Other long term (current) drug therapy; Z94.81 Bone marrow transplant status; Z87.891 Personal history of nicotine dependence; M79.604 Pain in right leg
CPT/HCPCS: 36415; 80053; 83690; 84484; 85025; 93005; 93971; 96361; 96374; 99284; J3411; J7030

== ENCOUNTER 2021-07-31 14:59 | Outpatient (RCR) | payer MEDICARE, MEDICAID, SELFPAY ==
--- NOTE | 2021-07-31 17:34 | ONC FU_ITS ---
Dr. Davies Patient Follow-Up Note Patient: Salima Farrell Unit #: [id number]: 1955 Dicatated By: Kenroy Davies M.D.Date of Visit:Jul 31, 2021 Onc Med Follow-up/Prog Note Chief Complaint: Myeloma. History of Present Illness: This is a 66 year-old woman with IgG lambda myeloma. She had presented in December 2012 with compression fractures of the T11 and L5 vertebral bodies. She underwent kyphoplasty at both levels, and biopsies were consistent with plasma cell neoplasm. Her protein electrophoresis showed biclonal protein bands with lambda light chain 0.33 g/dL and IgG lambda 4.6 g/dL. There were additional lytic lesions noted on her skeletal survey. Her 24 hour urine reportedly showed 7 gm of Bence-Zabala proteinuria. Bone marrow aspiration/biopsy in January 2013 showed atypical plasma cell infiltrate comprising 91% of the marrow cellularity. She underwent treatment with 4 cycles of Velcade/Revlimid/dexamethasone followed by high-dose melphalan/autologous stem cell transplant in May 2013. She began maintenance Revlimid in August 2013. It was stopped as of July 2015 due to toxicities. As of July 2016 her repeat bone marrow aspiration/biopsy showed 30-40% plasma cells. She restarted treatment with Revlimid. It was stopped again in December 2017 due to toxicity, mainly cytopenias. At that point her protein electrophoresis showed M protein at 1.52 g/dL. Skeletal survey reportedly showed no new abnormalities. Her repeat marrow aspiration/biopsy in February 2018 showed 70% involvement by plasma cells. The M protein at that point was up to 1.82 g/dL. PET/CT on 04/01/2018 showed new osseous involvement in the right sacral ala, SUV 4.15. She was seen by Dr. Shlomo Tanner on 04/06/2018. It was recommended that she begin salvage therapy with a combination of daratumumab, pomalidomide, and dexamethasone in preparation for possible second transplant procedure. She was seen here initially on 04/10/2018, as at that point she desired to have her treatment administered closer to home. She then returned to begin her treatment with daratumumab, pomalidomide, and dexamethasone on 04/29/2018. Due to her previous cytopenias with Revlimid, the pomalidomide was initiated at a reduced dosage of 3 mg daily on a day schedule. She began her initial infusion of daratumumab on 04/29/2018. She tolerated it without acute toxicity. She was able to complete 8 infusions at the weekly interval followed by 8 infusions at the 2-week interval. The treatments were then administered at a 4-week interval beginning in November 2018. During that time, she her pomalidomide had to be put on hold due to neutropenia. She eventually was able to tolerate it with the dosage reduced to 1 mg. She did have a very good response by protein electrophoresis. On 09/12/2019 she was admitted to [facility] in [place] with shortness of breath, wheezing, and productive cough. She did not have acute infiltrate on chest xray, but she was significantly hypoxic. She continued empiric antibiotic coverage with Levaquin, though it appeared to have most likely have been a viral illness. At her follow-up visit in September she was finally showing recovery from that illness, and she was able to continue her treatment. As of her follow-up visit on 04/05/2020 she had been doing well clinically with her M protein stable at 0.16 g/dL. Following that treatment, though, she became very ill. She had actually started having a cough during her daratumumab infusion and after returning home she had fever in the range of 101 to 102 degrees and she was out of it for 2 days, with virtually no recollection of that time period. She then had generalized bone pain and severe headache for 2 weeks and she could not eat during that time. By about the 11th day she began to feel better, but during that week she developed vomiting and diarrhea. She then continued to show gradually recovery. She did not have COVID testing. I had seen her for a follow-up visit on 05/03/2020, and at that point she was able to resume treatment with daratumumab in combination with pomalidomide and dexamethasone. At her follow-up visit on 06/28/2020 she reported increased pain in her back and rib cage. It was severe enough that she had been seen in the emergency room in [place] earlier that week. There had been a slight increase in her lambda free light chain, concerning for disease progression. She was given IV Toradol for the pain and she was given antibiotic therapy with Levaquin for possible bronchitis. She also was scheduled for restaging PET/CT. That study was completed on 07/01/2020. It showed mild sacral activity and a bilateral pattern which was thought to be more suggestive of reactive uptake than myeloma. Pelvic lesions did not demonstrate increased FDG activity, and were felt to likely correspond to prior sites of active myeloma. She continued her treatment with daratumumab/pomalidomide/dexamethasone at 4-week intervals. However, at her follow-up visit in September 2020 her M protein had increased to 0.61 g/dL and there was a significant increase in her lambda free light chain to 366.71 mg/L. As of her follow-up visit on 10/30/2020 she continued treatment with daratumumab, but her pomalidomide was put on hold and her treatment was then transitioned to salvage therapy with a carfilzomib/dexamethasone regimen. She began her 1st cycle of treatment on 11/23/2020 with the carfilzomib administered on days 1, 8, and 15 of a 28-day schedule. At that point her M protein had increased to 1.5 g/dL. She initially was able to tolerate that treatment with acceptable toxicity, and she continued with cycle 2 on 12/21/2020 and with cycle 3 on 01/18/2021. Her repeat protein electrophoresis on 01/17/2021 M protein basically stable 1.60 g/dL. On 01/24/2021 she was admitted to the hospital with several days of nausea/vomiting. She also reported increased weakness and fatigue. This was all thought to be treatment related. She did improve with IV hydration and symptomatic measures. She was discharged home on 01/25/2021. I had seen her for a follow-up visit on 02/09/2021. Given the side effects she experienced with the carfilzomib and with no obvious response by M protein, I opted to transition her to salvage therapy with belantamab mafodotin. Her other medical illnesses have been limited to GERD and mild asthma. Her other surgical/procedural history includes previous appendectomy and hysterectomy/bilateral salpingo-oophorectomy. She had a minimal smoking history in the past, and she quit smoking in 1991. INTERIM HISTORY: She began cycle 1 of belantamab mafodotin on 02/27/2021. She tolerated it without acute toxicity. However, on 03/03/2020 when she was taken to the emergency room after she had become extremely weak and confused. She was noted to have low-grade fever and she had fallen at home. On evaluation she was hypoxic and she had elevated D-dimer. Chest x-ray showed right middle lobe pneumonia. Her VQ lung scan showed normal perfusion with no evidence of pulmonary embolism. She improved on IV antibiotic coverage and supportive measures. She was discharged home on 03/07/2021. I had seen her for a follow-up visit on 03/20/2021. At that point she was still very weak, but she was beginning to show some recovery. Her repeat protein electrophoresis showed a very significant decline in her M protein to 0.8 g/dL and a significant decline in her lambda free light chain to 6.0 mg/L. With that finding, I had encouraged her to consider further treatment with belantamab mafodotin, but with some further time for recovery and with treatment administered at a reduced dosage. In the meantime, with her associated hypogammaglobulinemia and recurrent pneumonias, I had also put in a request to have her start replacement IVIG. Subsequent to that visit, she had called with complaints of recurrent fever, productive cough, and shortness of breath. She also reported having abdominal pain. Her CT abdomen/pelvis showed no acute findings. Chest xray showed chronic scarring at the lung bases with superimposed active pneumonia within the right middle and right lower lobe. Her COVID-19 was negative by PCR. She was given additional antibiotic coverage with Levaquin 750 mg daily. As of her follow-up visit on 04/12/2021 she was feeling much better, though she continued to complain of having episodes of pain in the epigastric area. I opted to keep her treatment on hold. Her repeat protein electrophoresis on 04/17/2021 showed further decline in the M protein to 0.4 g/dL. She continued to have significant pain in the epigastric area. On 05/21/2021 she underwent EGD by Dr. Thomas. It showed diffuse gastritis with some striping. A moderate amount of bilious fluid was present. Her VIRGIL test was negative for H. pylori. At her follow-up visit on 05/22/2021 she continued to have pain in the upper abdomen/epigastric area, severe enough that she was having difficulty eating. Her repeat protein electrophoresis at that time showed stable M protein at 0.4 g/dL. Her free light chain assay showed an increase in the free lambda light chain at 31.0 mg/L with decreased kappa/lambda ratio 0.13. Given the EGD findings, I had her increase her omeprazole to 40 mg twice daily and also had her add famotidine at bedtime. Her treatment remained on hold, but at that time she began parenteral iron replacement with Injectafer for iron deficiency anemia. As of her follow-up visit on 05/30/2021 she was not feeling much better. She reported increased pain in her mid back area radiating into the left lateral chest. MRI of the thoracic spine on 06/13/2021 showed a large destructive soft tissue tumor centered at the T6 vertebral body and extending over a length of 5.2 cm. The tumor was noted to encase the thoracic cord with complete effacement of the CSF. There was extension into the neuroforamen greatest to the left at T5-6, T6-7, and T7-8. There was severe plantar compression fracture at T11. With those findings, she was referred to Dr. Zabala, and she began palliative radiation to the thoracic spine. She completed treatment on 06/27/2021 to a total dose of 3000 cGy administered in 10 fractions. She was then seen for follow-up on 07/09/2021. She had significant improvement in her pain, but she was feeling very weak and she was having a dyne aphasia and difficulty swallowing. She began on IV hydration and she was treated empirically with IV fluconazole. She was then given further treatment for the myeloma with high-dose dexamethasone, 40 mg IV daily for 4 days. She tolerated that treatment well, and she was then feeling significantly better. She then returned for cycle 2 of belantamab mafodotin on 07/22/2021. It was administered at a reduced dosage. She is seen for an unplanned visit. Her daughter called this morning indicating that she was very weak again. She began feeling bad after her treatment 2 weeks ago, and her condition has just continued to gradually decline. Today she became very weak. She is having difficulty staying awake, and her daughter indicates that she is also been having a lot of confusion. She is eating only a little. She has not had fever, chills, or night sweats. She has having sore throat, and she has started having some pain with swallowing again. She does not complain of cough. She says her breathing is okay, and she has not been having chest pain. She has had no nausea/vomiting. Bowel and bladder function remain adequate. Her bone pain has been managed adequately with her pain medication since completing the radiation, but she still has a painful knot in her right leg. She has been having some headache since her treatment. She does not appear to be having any focal neurologic symptoms. Medications: Acetaminophen 2 Tablet (of 325 mg) Oral four times a day PRN, ALPRAZolam 1 Tablet (of 1 mg) Oral t.i.d., Benzonatate 1 Capsule (of 100 mg) Oral t.i.d. PRN, Childrens Aspirin 2 Tablet (of 81 mg) Tablet, chewable Oral daily, Cyclobenzaprine HCl 1 Tablet (of 10 mg) Oral t.i.d., Fluconazole 1 Tablet (of 200 mg) Oral daily, Gabapentin 1 Capsule (of 100 mg) Oral t.i.d., Lidocaine 3 patch(es) (of 5 %) Patch Topical q 24 hours, Lidocaine 1 (5 %) Ointment Topical q 3 hours PRN, Melatonin 1 Tablet (of 10 mg) Oral at bedtime, Morphine Sulfate 1 - 2 Tablet (of 30 mg) Oral q 3 hours, Morphine Sulfate ER (100 mg) Tablet, controlled release Oral Take as Directed, Mupirocin 1 (2 %) Ointment Topical PRN, Omeprazole 1 Tablet (of 40 mg) Capsule Oral daily, Phentermine HCl 1 Capsule (of 37.5 mg) Oral daily, Pomalidomide 1 Capsule (of 1 mg) Oral daily, Tamsulosin HCl (0.4 mg) Capsule Oral b.i.d., Valerian Root 2 (1000 mg) Capsule Oral daily, Ventolin HFA 2 puff(s) (of 108 (90 base) mcg/act) Aerosol, solution Inhalation q 4 hours, Voltaren Gel (jelly) Transdermal Allergies: Codeine Sulfate Vital Signs: Performed on Jul 31, 2021 15:48 Height - 57.00 in Temperature - 99.8 F (HIGH) Pulse - 102 /min (HIGH) Respiration - 18 /min BP - 111/71 mm(hg) O2 Sat - 95 % (LOW) Pain - 9 Fatigue - 10 Physical Examination: Constitutional - She appears extremely weak and lethargic, to the point that she can barely keep her eyes open, Eyes - Sclerae nonicteric. Conjunctivae clear, ENMT - She appears to have mild candidiasis on her tongue. There are no other lesions noted in the oral cavity, Hematologic/Lymphatic - No cervical, clavicular, or axillary adenopathy, Respiratory - Lungs sound clear with diminished air movement bilaterally, Cardiovascular - Heart rhythm is regular. There is a II/ systolic murmur. There is no gallop or rub noted, Abdomen - Mildly distended but soft. Liver and spleen are not enlarged. There is no abdominal mass or ascites noted and there is no inguinal adenopathy, Extremities - No edema. There is a tender subcutaneous nodule palpable in the mid to lower right calf measuring at least 3 cm, Neurologic - She does not appear to have any focal neurologic deficit. Lab/Imaging: Test performed on Jul 09, 2021 11:09 Sodium 134 mmol/L Potassium 3.7 mmol/L Chloride 98 mmol/L CO2 27 mmol/L Anion Gap 12.7 BUN 16 mg/dL Creatinine 0.4 mg/dL Cr Clearance (Est) 124.3400 mL/min eGFR 158.7 mL/min Glucose 156 mg/dL Osmolality - Calculated 282 mOsm/kg Calcium 8.8 mg/dL Protein, Total 6.0 g/dL Albumin 3.4 g/dL Globulin 2.6 g/dL Bilirubin, Total 0.3 mg/dL ALT (SGPT) 11 U/L AST (SGOT) 19 U/L Alkaline Phosphatase 87 IU/L WBC 4.1 10 3/uL RBC 5.38 10 6/uL HGB 14.0 g/dL HCT 44.3 % MCV 82.3 fl MCH 26.0 pg MCHC 31.6 g/dL RDW 23.7 % Platelet Count 248 10 3/cmm MPV 9.3 fL Neutrophils 2.41 10 3/uL Lymphocytes 0.8 10 3/uL Monocytes 0.6 10 3/uL Eosinophils 0.2 10 3/uL Basophils 0.0 10 3/uL Neutrophil % 59.1 % Lymphocyte % 19.7 % Monocyte % 13.8 % Eosinophil % 5.9 % Basophils % 1.0 % NRBC % 0 % [place] Free Light Chains 5.5 mg/L Lambda Free Light Chains 13.3 mg/L IgA 50 mg/dL [place]/Lambda Free Ratio 0.41 Problem List: 1. IgG lambda myeloma, initially diagnosed in December 2012. She had associated lytic bone involvement with vertebral compression fractures at T11 and L5. 2. She has associated hypogammaglobulinemia. 3. GERD. 4. Mild asthma. Problems Addressed with this Encounter and Plan: 1. Patient with IgG lambda myeloma, initially diagnosed in December 2012. She had associated lytic bone involvement with vertebral compression fractures at T11 and L5. Her myeloma therapy has included: 1. Velcade/Revlimid/dexamethasone for 4 cycles followed by high-dose melphalan/stem cell transplant in May 2013. 2. Maintenance Revlimid until July 2015, stopped due to toxicity. 3. Revlimid/dexamethasone restarted in July 2016 and continued through December 2017, stopped due to toxicities. 4. Daratumumab/pomalidomide/dexamethasone from April 2018 through October 2019, stopped due to disease progression. 5. Carfilzomib/dexamethasone for 3 cycles from 11/23/2020 through 01/18/2021, stopped due to toxicity and lack of response. She began a trial of salvage therapy with belantamab christo, cycle 1 on 02/27/2021. She tolerated the initial infusion without acute toxicity. However, by 03/03/2021 she had become extremely weak and she was admitted to the hospital with pneumonia. As of her followup visit on 03/20/2021 she was beginning to show recovery, and at that point her protein electrophoresis studies did show a significant decline in her M protein and in her free lambda light chain, consistent with treatment response. Her further treatment was delayed due to recurrent pneumonia. During subsequent follow-up she continued to have fairly marginal performance status and she had ongoing complaints of epigastric pain and anorexia. As of her follow-up visit on 05/22/2021 there was a slight increase in her free lambda light chain, but her M protein remained stable. Her treatment remained on hold. She then presented with increased pain in the midthoracic area/left chest, she was found to have an MRI to have a large tumor mass centered at the T6 vertebral body. There was associated cord compression. She underwent palliative radiation, completed on 06/27/2021 to a total dose of 3000 cGy administered in 10 fractions. She had symptomatic improvement following the radiation, but she continued to have very marginal performance status. I was uncertain as to what extent her decline was directly related to the myeloma, but it did appear that her protein electrophoresis studies were no longer accurately reflecting the status of her myeloma. I did opt to treat her empirically with high-dose dexamethasone, 40 mg IV daily for 4 days, which she completed on 07/12/2021. She appeared to have a very good clinical response. She then continued with cycle 2 of belantamab mafodotinon 07/17/2021. It was administered at a reduced dosage. Since her treatment 2 weeks ago she has had a progressive decline in her performance status, now to the point that she is extremely weak and lethargic. It is likely that at least some component is treatment related, but she also is at significant risk for pneumonia/sepsis. Under the circumstances, she is recommended to proceed to the emergency room for further evaluation. I am assuming that she will require hospital admission. 2. She has a painful nodule in the right mid calf area. 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 Depending on her clinical course, he may want to consider treating it palliatively with radiation. 3. She previously was given empiric treatment with fluconazole for suspected esophageal candidiasis, and she appears now to have mild oral candidiasis. 4. She had become mildly anemic. Her serum iron studies were consistent with iron deficiency with transferrin saturation 3.8%. As she had not been able to tolerate oral iron due to her GI symptoms, she was given parenteral iron replacement with Injectafer. She had a good clinical response. 5. She has chronic back pain associated with her vertebral compression fractures. It has been managed adequately with opiate pain medication. Signed By: Kenroy Davies M.D. <<Signature on File>>
== END 2021-07-31 16:00 | disposition home or self-care (01) ==
LOC: ONCMED 14:59
PROVIDERS: PCP Family Medicine; Visit Provider Internal Medicine Hematology & Oncology
DX: C90.00 Multiple myeloma not having achieved remission (principal); C79.51 Secondary malignant neoplasm of bone; D80.1 Nonfamilial hypogammaglobulinemia; K21.9 Gastro-esophageal reflux disease without esophagitis; J45.20 Mild intermittent asthma, uncomplicated; Z79.899 Other long term (current) drug therapy; Z92.21 Personal history of antineoplastic chemotherapy; Z92.3 Personal history of irradiation
CPT/HCPCS: 99215

== ENCOUNTER 2021-07-31 15:57 | Inpatient (IN) | payer MEDICARE, MEDICAID, SELFPAY ==
[2021-07-31 16:05] VITALS: BP 106/69; PULSE 98; RESP 16; TEMP 36.6; O2SAT 93
[2021-07-31 16:39] VITALS: PULSE 98; RESP 18; O2SAT 88
--- NOTE | 2021-07-31 17:46 | XRR_ITS ---
PROCEDURE INFORMATION: Exam: XR Chest Exam date and time: 07/31/2021 5:46 PM Age: 66 years old Clinical indication: Other: Eval pna; Prior surgery; Patient HX: Ex smoker, HX cancer, overall weakness TECHNIQUE: Imaging protocol: XR of the chest. Views: 2 views. COMPARISON: CR XR chest 1V portable [id number] 03/03/2021 1:01 AM FINDINGS: Lungs: No consolidative pulmonary infiltrates are noted. Pleural spaces: No pleural effusion. No pneumothorax. Heart/Mediastinum: There is a hiatal hernia noted. Left-sided infusion port, unchanged. Bones/joints: Advanced degenerative changes of the thoracic spine. Old compression fractures and previous kyphoplasty noted. XR/XR chest 2V* [id number] IMPRESSION: 1. No acute abnormality demonstrated. 2. No new abnormality demonstrated, when compared to the prior study. Radiation Dose CTDIVOL = (mGy): DLP = (mGy-cm)
--- NOTE | 2021-07-31 17:47 | ECG_ITS ---
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 Measurements Intervals [place] Rate: 80 P: 37 IN: 156 QRS: 83 QRSD: 86 T: 53 QT: 358 QTc: 414 Interpretive Statements SINUS RHYTHM Compared to ECG 07/26/2021 00:39:32 Sinus tachycardia no longer present Electronically Signed On 08-01-2021 17:38:58 SOFTWARE PROGRAMMER by Fausto Mcgarry M.D. [id number]
--- NOTE | 2021-07-31 18:17 | ED_ITS ---
HPI - General Adult General: Chief complaint: Weakness Stated complaint: CANCER/OVERALL WEAKNESS & PAIN Time Seen by Provider: 07/31/21 16:28 History of Present Illness: HPI narrative: Pt is a 66-year-old female history multiple myeloma on chemotherapy, last round chemotherapy was 2 weeks ago presenting to the emergency room at the request of Dr. Davies for generalized weakness and dehydration that been progressively getting worse since last round chemotherapy. Patient also complains of right lower extremity pain. Patient was seen and evaluated in the emergency room 1 week ago and was given fluids and discharged home. At the present time, patient is afebrile, has no focal complaints other than right leg pain. Patient denies any chest pain, shortness of breath, palpitation, nausea/vomiting, abdominal complaints, diarrhea, melena/hematochezia, or complaints. Onset: 2 weeks ago Duration:2 weeks Location:home Severity:moderate Review of Systems Narrative: Constitutional: No fever, no chills. +generalized weakness HEENT: No vision changes CV: No chest pain, no palpitations PULM: no cough, no dyspnea. GI: No abdominal pain, no N/V/D. : No dysuria MSKEL: No muscle pain, +R leg pain SKIN: No new rashes, no lesions. NEURO: No headache, no focal weakness. HEME: No visible bruises PSYCH: Normal mood PFSH ED PFSH: Medical History (Updated 07/31/21 @ 20:39 by Teo Ardon MD) Gastroesophageal reflux disease Mild asthma Multiple myeloma Transplanted bone marrow present Surgical History H/O kyphoplasty History of tubal ligation Hx of appendectomy Hx of total hysterectomy Family History Mother Cancer Heart attack Father Cancer Heart attack Brother Diabetes Sister Diabetes Cancer Social History Smoking and tobacco status: former smoker Alcohol intake: never Physical Exam Narrative: EXAM NARRATIVE: Head: Atraumatic Eyes: PERRL, conjunctiva without injection ENT: Mucous membrane Dry NECK: Supple, ROM intact LUNGS: LCTAB, no crackles/rhonchi CV: RRR ABDOMEN: Soft, nontender in all quadrants EXTREMITY: Normal ROM, +papable mass and tenderness in the R calf SKIN: No rash or erythema, +L chest port site appears to be dry/clean/intact NEURO: Awake and alert, no focal motor deficits PSYCH: Normal mood and affect Course Vital Signs: Vital signs: Vital Signs Temperature 98.3 F 07/31/21 20:39 Pulse Rate 65 07/31/21 20:39 Respiratory Rate 18 07/31/21 21:08 Blood Pressure 93/56 07/31/21 20:39 Pulse Oximetry 97 07/31/21 20:39 MDM - General Adult MDM Narrative: Medical decision making narrative: Patient is a 66-year-old female history of multiple myeloma on chemotherapy presents emergency room with generalized weakness, concern for dehydration and right posterior calf pain. On exam, patient has of palpable mass in the right calf that is tender to palpation any fluctuance, surrounding erythema, edema or warmth. Appears to be HDS, afebrile currently with dry mucous membrane. Ultrasound of the mass showed similar finding compared to prior presentation. There is no suggestion that this is an infected mass. Patient has no signs of DVT. She received 2 L of fluid. Lab work did not show any signs of neutropenia. Per request of Dr. Davies, patient will be admitted to hospital for rehydration. Dr. Davies will follow patient first in the morning. Disposition: Admission Lab Data: Labs: Lab Results 07/31/21 07/31/21 07/31/21 20:00 20:50 20:50 WBC 3.7 10^3/uL L 10^ 3/uL (4.0-10.0) RBC 5.08 10^6/uL 10^6 /uL (4.1-5.3) Hgb 13.7 g/dL g/dL (11.5-15.3) Hct 41.7 % % (37.0-47.0) MCV 82.1 fl fl (81-99) MCH 27.0 pg L pg (28.0-34.0) MCHC 32.9 g/dL g/dL (30.0-36.0) RDW Not Reportable Plt Count 243 10^3/cmm 10^3 /cmm (130-400) MPV 9.3 fL fL (7.4-10.4) Neut % (Auto) 58.0 % % Lymph % (Auto) 19.0 % % Franklin % (Auto) 17.4 % % Eos % (Auto) 2.7 % % Baso % (Auto) 1.3 % % Neut # (Auto) 2.16 10^3/uL 10^3 /uL (1.8-7.7) Lymph # (Auto) 0.7 10^3/uL L 10^ 3/uL (0.8-4.8) Franklin # (Auto) 0.7 10^3/uL 10^3/ uL (0.2-0.9) Eos # (Auto) 0.1 10^3/uL 10^3/ uL (0.0-0.8) Baso # (Auto) 0.1 10^3/uL 10^3/ uL (0.0-0.1) Nucleated RBC % (a uto) 0 % % Nucleated RBCs # 0.0 /100WBC /100W BC Anisocytosis 2+ H Target Cells Trace Ovalocytes Trace Sodium 134 mmol/L L mmol /L (136-145) Potassium 4.5 mmol/L mmol/L (3.5-5.1) Chloride 98 mmol/L mmol/L (98-107) Carbon Dioxide 30 mmol/L H mmol/ L (22-29) Anion Gap 10.5 (5-19) BUN 11 mg/dL mg/dL (8-23) Creatinine 0.5 mg/dL mg/dL (0.5-0.9) GFR Calculation 122.7 mL/min mL/m in (90-130) Glucose 87 mg/dL mg/dL (65-115) Calculated Osmolal ity 277 mOsm/kg L mOs m/kg (285-295) Uric Acid 3.2 mg/dL mg/dL (2.4-5.7) Calcium 8.6 mg/dL mg/dL (8.5-10.5) Total Bilirubin 0.3 mg/dL mg/dL (0.15-1.2) AST 31 U/L U/L (0-32) ALT 17 U/L U/L (0-33) Alkaline Phosphata se 65 IU/L IU/L (35-105) Lactate Dehydrogen ase 437 U/L H U/L (135-214) Total Protein 5.3 g/dL L g/dL (6.6-8.7) Albumin 3.0 g/dL L g/dL (3.5-5.2) Globulin 2.3 g/dL g/dL (1.3-4.6) Lipase 33 U/L U/L (13-60) Urine Color Yellow (Yellow) Urine Appearance Clear (CLEAR) Urine pH 7 (5-7) Ur Specific Gravit y 1.005 (1.005-1.030) Urine Protein Neg (Negative) Urine Glucose (UA) Norm (Normal) Urine Ketones Negative (Negative) Urine Blood Neg (Negative) Urine Nitrate Negative (Negative) Urine Bilirubin Neg (Negative) Urine Urobilinogen 1 mg/dL H mg/dL (Negative) Ur Leukocyte Raeann ase Negative (Negative) Imaging Data^: Other Imaging: Radiologist's impression: [address] [id number] ReportSigned Patient: Elba Farrell #: [id number]: 1955cct#:[id number]/Sex: 66 / FADM Date: 07/31/21Loc: ERRoom/Bed:Attending Dr: Ordering Provider/Ordering MD: Teo Ardon MD Date of Service: 07/31/21 Procedure(s): [place] [address] Accession Number(s): [id number] Report Number: [id number] PROCEDURE INFORMATION: Exam: US Duplex Right Lower Extremity Veins, Limited Exam date and time: 07/31/2021 6:24 PM Age: 66 years old Clinical indication: Pain; Leg, lower; Right; Additional info: Eval for infection with mass TECHNIQUE: Imaging protocol: Real-time Duplex ultrasound of the Right Lower Extremity with 2-D cobian scale, color Doppler flow and spectral waveform analysis with image documentation. Limited exam was focused on the right lower extremity veins. COMPARISON: No relevant prior studies available. FINDINGS: Right deep veins: Unremarkable. The common femoral, femoral, proximal profunda femoral and popliteal veins are patent without thrombus. Normal Doppler waveforms. Normal compressibility and/or augmentation response. Right superficial veins: Unremarkable. Saphenofemoral junction is patent without thrombus. Soft tissues: 1.9 x 1.9 x 2.4 cm complex hypoechoic collection in the right posterior calf which may represent a small Rojas's cyst versus a small hematoma. US/[place] [id number] IMPRESSION: 1. No evidence of deep vein thrombosis, right lower extremity. 2. 1.9 x 1.9 x 2.4 cm complex hypoechoic collection in the right posterior calf which may represent a small Rojas's cyst versus a small hematoma. Radiation Dose CTDIVOL = (mGy): DLP = (mGy-cm) Dictated By:Donn Frazier MDSigned By:Donn Frazier MDSigned Date/Time:07/31/211908DD/ 23 Discharge Plan Discharge Patient Disposition: Admitted As Inpatient Clinical Impression: Dehydration, Multiple myeloma Condition: Stable Coding Level of Care Code ED Incident Response Consultant for Sinan Emanuel
--- NOTE | 2021-07-31 18:24 | USR_ITS ---
PROCEDURE INFORMATION: Exam: US Duplex Right Lower Extremity Veins, Limited Exam date and time: 07/31/2021 6:24 PM Age: 66 years old Clinical indication: Pain; Leg, lower; Right; Additional info: Eval for infection with mass TECHNIQUE: Imaging protocol: Real-time Duplex ultrasound of the Right Lower Extremity with 2-D cobian scale, color Doppler flow and spectral waveform analysis with image documentation. Limited exam was focused on the right lower extremity veins. COMPARISON: No relevant prior studies available. FINDINGS: Right deep veins: Unremarkable. The common femoral, femoral, proximal profunda femoral and popliteal veins are patent without thrombus. Normal Doppler waveforms. Normal compressibility and/or augmentation response. Right superficial veins: Unremarkable. Saphenofemoral junction is patent without thrombus. Soft tissues: 1.9 x 1.9 x 2.4 cm complex hypoechoic collection in the right posterior calf which may represent a small Rojas's cyst versus a small hematoma. US/[place] [id number] IMPRESSION: 1. No evidence of deep vein thrombosis, right lower extremity. 2. 1.9 x 1.9 x 2.4 cm complex hypoechoic collection in the right posterior calf which may represent a small Rojas's cyst versus a small hematoma. Radiation Dose CTDIVOL = (mGy): DLP = (mGy-cm)
--- NOTE | 2021-07-31 18:55 | PC.NURSE ---
PT PLACED ON 3L NC, O2 RAISED TO 94%
--- NOTE | 2021-07-31 20:08 | PC.NURSE ---
Pt assisted to bathroom via w/c due to weakness, pain, unsteady gait. 1:1 staff assist.
[2021-07-31 20:39] VITALS: BP 93/56; PULSE 65; RESP 24; TEMP 36.8; O2SAT 97
[2021-07-31 20:44] LABS: Add Urine Microscopic? NO; Charge for UA Resulting for Rev
[2021-07-31 20:47] LABS: Bilirubin Urine Neg (Negative); Blood Urine Neg (Negative); Glucose Urine UA Norm (Normal); Ketones Urine Negative (Negative); Leukocyte Esterase Urine Negative (Negative); Nitrate Urine Negative (Negative); Protein Urine Neg (Negative); Specific Gravity, Urine 1.005 (1.005-1.030); Urine Appearance Clear (CLEAR); Urine Color Yellow (Yellow); Urobilinogen Urine 1 mg/dL (Negative); pH Urine 7 (5-7)
[2021-07-31] MEDS: sodium chloride 0.9% 1,000 ML 999 ML IV ×3 (21:02→23:30)
[2021-07-31 21:08] VITALS: RESP 18
[2021-07-31] MEDS: morphine 4 mg/mL SDV 1 mL IVP (21:08)
[2021-07-31 21:16] LABS: Basophils # 0.1 10^3/uL (0.0-0.1); Basophils % 1.3 %; Eosinophils # 0.1 10^3/uL (0.0-0.8); Eosinophils % 2.7 %; Hematocrit 41.7 % (37.0-47.0); Hemoglobin 13.7 g/dL (11.5-15.3); Lymphocytes # 0.7 10^3/uL (0.8-4.8); Mean Corpuscular HGB Conc 32.9 g/dL (30.0-36.0); Mean Corpuscular Volume 82.1 fl (81-99); Mean Platelet Volume 9.3 fL (7.4-10.4); Monocytes # 0.7 10^3/uL (0.2-0.9); Monocytes % 17.4 %; Neutrophils # 2.16 10^3/uL (1.8-7.7); Nucleated Red Blood Cells % 0 %; Platelet Count 243 10^3/cmm (130-400); Red Blood Count 5.08 10^6/uL (4.1-5.3); White Blood Count 3.7 10^3/uL (4.0-10.0)
[2021-07-31 21:39] LABS: Alanine Aminotransferase 17 U/L (0-33); Alkaline Phosphatase 65 IU/L (35-105); Blood Urea Nitrogen 11 mg/dL (8-23); Calcium 8.6 mg/dL (8.5-10.5); Carbon Dioxide 30 mmol/L (22-29); Chloride 98 mmol/L (98-107); Creatinine Clr Calc Pharmacy 64.5798; Globulin 2.3 g/dL (1.3-4.6); Glomerular Filtration Rate 122.7 mL/min (90-130); Glucose 87 mg/dL (65-115); Lipase 33 U/L (13-60); Osmolality Calculated 277 mOsm/kg (285-295); Sodium 134 mmol/L (136-145); Total Bilirubin 0.3 mg/dL (0.15-1.2); Total Protein 5.3 g/dL (6.6-8.7); Uric Acid 3.2 mg/dL (2.4-5.7)
[2021-07-31 21:46] LABS: Anion Gap 10.5 (5-19); Aspartate Amino Transferase 31 U/L (0-32); Lactate Dehydrogenase 437 U/L (135-214); Potassium 4.5 mmol/L (3.5-5.1)
[2021-07-31 21:55] LABS: Add RBC Morph Yes; Anisocytosis 2+; Ovalocytes Trace; RBC Morph Comp No; Slide Review Slide Review Perform; Target Cells Trace
[2021-07-31 22:26] LABS: Lactate (Lactic Acid level) 0.5 mmol/L (0.5-2.2)
--- NOTE | 2021-07-31 23:34 | PM.HP ---
Providers/Chief Complaint Admitting Physician: Raul Judd Primary Care Provider: Kenroy Davies MD Chief Complaint: CANCER/OVERALL WEAKNESS & PAIN History of Present Illness 66-year-old female with a past medical history significant for multiple myeloma with hx of multiple vertebral compression fracture rq kyphoplasty, currently on high dose decadron on 07/12 plus cycle 2 of belantamab mafadotinon on 07/17 who was sent in to hospital for eval of dehydration. Patient has been feeling very nauseous with chills however no documented fevers. C/o right calf pain. Laboratory workup neuro showed a WBC of 3.7, hemoglobin of 13.7, hematocrit of 41.7 and a platelet count 243. Sodium 134, potassium 4.5, chloride 98, bicarb 30, BUN 11 and creatinine is 0.5. UA negative. Venous US showed 1.9 x 1.9 x 2.4 cm complex hypoechoic collection in the right posterior calf which may represent a small Rojas's cyst versus a small hematoma. Chest xray appeared negative. Patient was given multiple liter of ns bolus and admitted. Review of Systems General: Reports: 10 or more systems reviewed and unremarkable except in HPI and below Medications/Allergies Home Medications Medication Instructions Recorded Confirmed Last Taken Type Cam walker #1 each 03/08/20 03/03/21 Unknown Rx acetaminophen 325 mg capsule 325 mg PO QID PRN 03/08/20 03/03/21 Unknown History benzonatate 100 mg capsule 100 mg PO TID 03/08/20 03/03/21 Unknown History diclofenac sodium 1 % topical gel 2 gm TOPICAL QID 03/08/20 03/03/21 Unknown History gabapentin 100 mg capsule 100 mg PO TID 03/08/20 03/03/21 03/02/21 History lidocaine 5 % topical patch 3 patch TOPICAL DAILY 03/08/20 03/03/21 01/24/21 History melatonin 10 mg capsule 10 mg PO BEDTIME 03/08/20 03/03/21 01/23/21 History omeprazole 40 mg capsule,delayed 40 mg PO BID 03/08/20 03/03/21 01/23/21 History release albuterol sulfate 1 puff INHALATION QID PRN #0 01/24/21 03/03/21 01/24/21 History ibuprofen 200 - 400 mg PO Q4H PRN 01/24/21 03/03/21 01/24/21 History nitroglycerin 0.4 mg SUBLINGUAL Q5M PRN 01/24/21 03/03/21 01/23/21 History tamsulosin 0.8 mg PO DAILY 01/24/21 03/03/21 01/23/21 History valerian root 1 cap PO DAILY 01/24/21 03/03/21 01/23/21 History morphine 30 mg PO Q4H PRN 01/25/21 03/03/21 Unknown History mupirocin 1 applic TOPICAL BID #30 g 01/25/21 03/03/21 Unknown Rx Narcan 1 spray INTRANASAL PRN PRN 03/03/21 03/03/21 Unknown History furosemide 40 mg PO BID PRN 03/03/21 03/03/21 Unknown History alprazolam 0.25 mg PO TID PRN #0 tab 03/07/21 03/03/21 01/24/21 Rx metoclopramide HCl [Reglan] 5 mg PO Q8H PRN #30 tab 03/07/21 Unknown Rx morphine 100 mg PO BIDWM #0 tab 03/07/21 Unknown Rx ondansetron HCl 8 mg PO Q8H PRN 30 Days #90 tab 03/07/21 Unknown Rx potassium chloride 10 meq PO TID PRN #0 tab 07/26/21 03/03/21 Unknown Rx Allergies Allergy/AdvReac Type Severity Reaction Status Date / Time codeine Allergy Unknown unknown Verified 07/26/21 00:18 PFSH Acute PFSH: Medical History (Updated 07/31/21 @ 20:39 by Teo Ardon MD) Gastroesophageal reflux disease Mild asthma Multiple myeloma Transplanted bone marrow present Surgical History H/O kyphoplasty History of tubal ligation Hx of appendectomy Hx of total hysterectomy Family History Mother Cancer Heart attack Father Cancer Heart attack Brother Diabetes Sister Diabetes Cancer Social History Smoking and tobacco status: former smoker Alcohol intake: never Vitals/I&O/Wt Last Vital Signs Temp 98.3 F 07/31/21 20:39 Pulse 79 08/01/21 00:15 Resp 20 H 08/01/21 00:15 BP 125/78 08/01/21 00:15 Pulse Ox 97 08/01/21 00:15 07/31/21 07/31/21 08/01/21 14:59 22:59 06:59 Intake Total 1000 / 1000 2000 / 3000 Balance 1000 / 1000 2000 / 3000 Weight last 48 hrs Weight 60.781 kg Physical Exam Narrative: EXAM NARRATIVE: General; Alert, in mild distress due to pain HEENT Grossly unremarkable CVS; RRR Chsest CTABL ABD ; Soft, NT,ND Ext; Right upper calf tenderness Data : 07/31/21 20:50 07/31/21 20:50 Micro: Microbiology 07/31/21 20:30 Blood Culture - Preliminary Blood SPECIMEN COLLECTED 07/31/21 20:50 Blood Culture - Preliminary Blood SPECIMEN COLLECTED A&P Assessment and plan (1) Adult failure to thrive: Status: Acute (2) Dehydration: Status: Acute (3) IgG multiple myeloma: Status: Acute Additional A&P Information Dehydration Unable to tolerate oral intake NS bolus x 2 NS at 125cc/hr Zofran PRN for nausea No clear evidence of infectious PT/OT consult Right LE Painful nodule 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 Coding Level of Care Code Acute Checker Cashier for Sinan Fwd Diagnoses Adult failure to thrive R62.7 Dehydration E86.0 IgG multiple myeloma C90.00
[2021-08-01 00:15] VITALS: BP 125/78; PULSE 79; RESP 20; O2SAT 97
[2021-08-01] MEDS: sodium chloride 0.9% 1,000 ML 125 ML IV ×3 (01:33→18:06)
[2021-08-01] MEDS: enoxaparin 40 mg/0.4 mL Syringe SUBCUT (01:36)
[2021-08-01 04:00] VITALS: BP 145/101; PULSE 82; RESP 16; TEMP 36.4; O2SAT 90
[2021-08-01 07:21] VITALS: BP 143/87; PULSE 99; RESP 16; TEMP 37.4; O2SAT 92
[2021-08-01] MEDS: morphine ER (12 HR) 15 mg Tablet PO ×2 (08:30→18:07)
[2021-08-01] MEDS: pantoprazole DR 40 mg Tablet PO (08:30)
--- NOTE | 2021-08-01 08:56 | PC.NURSE ---
Patient's left chest wall port-a-cath found to be previously accessed and secured in place. No signs of infection. Dr. Ardon notified and port-a-cath removed without incident. Surrounding skin found to be free from signs of infection and free from purulent drainage. Patient denies pain at port-a-cath site.
[2021-08-01 09:14] LABS: Basophils # 0.1 10^3/uL (0.0-0.1); Basophils % 1.2 %; Eosinophils # 0.1 10^3/uL (0.0-0.8); Hemoglobin 14.6 g/dL (11.5-15.3); Lymphocytes # 1.1 10^3/uL (0.8-4.8); Lymphocytes % 17.7 %; Mean Corpuscular HGB Conc 31.7 g/dL (30.0-36.0); Mean Corpuscular Hemoglobin 26.6 pg (28.0-34.0); Mean Corpuscular Volume 83.8 fl (81-99); Mean Platelet Volume 9.4 fL (7.4-10.4); Monocytes # 0.8 10^3/uL (0.2-0.9); Monocytes % 13.5 %; Neutrophils # 3.88 10^3/uL (1.8-7.7); Neutrophils % 65.3 %; Nucleated Red Blood Cells % 0 %; Platelet Count 258 10^3/cmm (130-400); Red Blood Count 5.49 10^6/uL (4.1-5.3); White Blood Count 5.9 10^3/uL (4.0-10.0)
[2021-08-01 09:39] LABS: Slide Review Slide Review Perform
[2021-08-01 09:45] LABS: Alanine Aminotransferase 15 U/L (0-33); Albumin Level 3.1 g/dL (3.5-5.2); Alkaline Phosphatase 75 IU/L (35-105); Aspartate Amino Transferase 31 U/L (0-32); Blood Urea Nitrogen 6 mg/dL (8-23); Calcium 7.9 mg/dL (8.5-10.5); Carbon Dioxide 24 mmol/L (22-29); Chloride 97 mmol/L (98-107); Globulin 2.4 g/dL (1.3-4.6); Glomerular Filtration Rate 158.7 mL/min (90-130); Glucose 83 mg/dL (65-115); Osmolality Calculated 271 mOsm/kg (285-295); Sodium 132 mmol/L (136-145); Total Bilirubin 0.4 mg/dL (0.15-1.2); Total Protein 5.5 g/dL (6.6-8.7)
[2021-08-01 09:47] LABS: Creatinine Clr Calc Pharmacy 64.5798
[2021-08-01 09:48] LABS: Anion Gap 14.9 (5-19); Potassium 3.9 mmol/L (3.5-5.1)
--- NOTE | 2021-08-01 10:21 | PC.CHAP ---
Pastoral Care Encounter/Spiritual Assessment Type of Contact [] Declined electrical instrument maker visit [] Patient/Family/Request visit [] Outpatient visit [] Follow-up visit [] Physician referral [] Code/Alert [x] Routine visit [] Staff referral [] Actively dying [x] Patient sleeping [] Family support [] [] Out of room [] Palliative care [] [] Receiving care in room [] Pre-surgical visit [] Trauma [] Long length of stay [] ICU visit [] Other: Relational/Emotional Strength [] Patient feels connected with others/family/visitors/staff [] Distress [] Loneliness/isolation [] Abandonment Spirituality of Patient [] Person of Carole [] Attends Mormonism of their Carole [] Believes in Prayer [] Reads Bible or Christianity materials [] There are Spiritual issues to be addressed Septic Tank Servicer Interventions [] Prayer [] Active listening [] Non-anxious presence [] Spiritual/emotional support [] Crisis/trauma care [] Spiritual counseling [] Bereavement support [] Provided bereavement packet [] Provided Bible/devotional materials [] Provided toy/stuffed animal, coloring book to patient or family member [] Provided Communion [] Anointing/[place] [] Salvation [] Completed spiritual assessment [] Other: Impact on Illness or Injury [] Angry [] Fearful [] Anxious [] Often cries [] Exhaustion [] Unable to work [] Unable to attend methodist [] Unable to walk/stand [] Unable to read [] Unable to drive [] Unable to eat/drink [] Unable to sleep [] Unable to be with family [] Patient intubated [] Other: Summary Time spent with patient
[2021-08-01 11:07] VITALS: BP 142/88; PULSE 102; RESP 16; TEMP 37.3; O2SAT 90
[2021-08-01] MEDS: ondansetron 2 mg/ML SDV 2 mL 4 MG IVP ×2 (14:31→19:45)
[2021-08-01] MEDS: acetaminophen 325 mg Tablet 650 MG PO (14:37)
[2021-08-01 16:00] VITALS: BP 120/74; PULSE 88; RESP 16; TEMP 36.7; O2SAT 91
[2021-08-01 20:00] VITALS: BP 113/68; PULSE 81; RESP 18; TEMP 36.5; O2SAT 90
--- NOTE | 2021-08-01 20:12 | PM.PN ---
Subjective Subjective: Interval history: Patient was seen and examined this morning continues to be extremely weak , lethargic , she was telling that she feels very sleepy today, right lower extremity pain has improved. Her vitals and labs have been reviewed. Medications: Reviewed: Yes Vitals/I&O/Wt Last Vital Signs Temp 98.0 F 08/01/21 16:00 Pulse 88 08/01/21 16:00 Resp 16 08/01/21 16:00 BP 120/74 08/01/21 16:00 Pulse Ox 91 08/01/21 16:00 08/01/21 08/01/21 08/01/21 06:59 14:59 22:59 Intake Total 2120 / 3120 870.833 / 789.490 5553 / 1870.833 Output Total 1000 / 1000 400 / 1400 Balance 2120 / 3120 -129.167 / -129.167 600 / 470.833 Weight last 48 hrs Weight 60.781 kg Physical Exam Const: COMMON NORMALS: patient oriented x3 HENMT: COMMON NORMALS: normocephalic and atraumatic HEAD & SCALP: normocephalic and atraumatic Resp: COMMON NORMALS: clear to auscultation bilaterally AUSCULTATION: clear to auscultation bilaterally Cardio: COMMON NORMALS: regular rate, regular rhythm, S1 normal heart sound present, S2 normal heart sound present, No gallops present (Cardio), No murmurs present (Cardio), No rub (Cardio) and Peripheral pulses 2+ throughout RATE: regular rate RHYTHM: regular rhythm HEART SOUNDS: S1 normal heart sound present and S2 normal heart sound present PERIPHERAL PULSES: Peripheral pulses 2+ throughout GI: COMMON NORMALS: Normal to inspection, nondistended, normoactive bowel sounds present, Soft to palpation, non-tender, No hepatosplenomegaly present and no masses AUSCULTATION: Yes normoactive bowel sounds PALPATION: Yes Soft to palpation and Yes No hepatosplenomegaly present RECTAL EXAM: deferred Extremity: COMMON NORMALS: no clubbing, cyanosis or edema and no pedal edema Neuro: COMMON NORMALS: patient oriented x3 Data : 08/01/21 08:40 08/01/21 08:40 Micro: Microbiology 07/31/21 20:30 Blood Culture - Preliminary Blood SPECIMEN COLLECTED 07/31/21 20:50 Blood Culture - Preliminary Blood SPECIMEN COLLECTED A&P Assessment and plan (1) Dehydration: Severe dehydration likely secondary to poor oral intake, secondary to severe nausea, secondary to chemotherapy effect. Continue IV hydration Encourage oral intake Status: Acute (2) Generalized weakness: PT / OT Status: Acute (3) IgG multiple myeloma: Status: Acute (4) Adult failure to thrive: Status: Acute (5) Chemotherapy induced nausea and vomiting: Status: Acute Attestations Medical Necessity Statement*: Patient needs to be in hospital for severe dehydration and need for IV hydration, need to facilitate oral intake. Coding Level of Care Code Acute City Routeman for Chg Fwd Diagnoses Dehydration E86.0 Generalized weakness R53.1 IgG multiple myeloma C90.00 Adult failure to thrive R62.7 Chemotherapy induced nausea and vomiting R11.2; T45.1X5A
[2021-08-01] MEDS: promethazine 25 mg/mL SDV 1 mL IM (23:09)
[2021-08-02] VITALS (9 sets, daily range): BP systolic 118–134; BP diastolic 74–82; PULSE 77–110; RESP 16–19; TEMP 36.4–37.2; O2SAT 90–94
[2021-08-02] MEDS: enoxaparin 40 mg/0.4 mL Syringe SUBCUT (02:38)
[2021-08-02] MEDS: acetaminophen 325 mg Tablet 650 MG PO (07:38)
[2021-08-02] MEDS: sodium chloride 0.9% 1,000 ML 125 ML IV (07:38)
[2021-08-02] MEDS: morphine ER (12 HR) 15 mg Tablet PO (09:25)
[2021-08-02] MEDS: pantoprazole DR 40 mg Tablet PO (09:25)
--- NOTE | 2021-08-02 10:19 | PC.CHAP ---
Pastoral Care Encounter/Spiritual Assessment Type of Contact [x] Declined soft work cigar machine operator visit [] Patient/Family/Request visit [] Outpatient visit [] Follow-up visit [] Physician referral [] Code/Alert [] Routine visit [] Staff referral [] Actively dying [] Patient sleeping [] Family support [] [] Out of room [] Palliative care [] [] Receiving care in room [] Pre-surgical visit [] Trauma [] Long length of stay [] ICU visit [] Other: Relational/Emotional Strength [] Patient feels connected with others/family/visitors/staff [] Distress [] Loneliness/isolation [] Abandonment Spirituality of Patient [] Person of Carole [] Attends Hoahaoism of their Carole [] Believes in Prayer [] Reads Bible or Yarsanism materials [] There are Spiritual issues to be addressed Ice Guard Inspector Interventions [] Prayer [] Active listening [] Non-anxious presence [] Spiritual/emotional support [] Crisis/trauma care [] Spiritual counseling [] Bereavement support [] Provided bereavement packet [] Provided Bible/devotional materials [] Provided toy/stuffed animal, coloring book to patient or family member [] Provided Communion [] Anointing/[place] [] Salvation [] Completed spiritual assessment [] Other: Impact on Illness or Injury [] Angry [] Fearful [] Anxious [] Often cries [] Exhaustion [] Unable to work [] Unable to attend samaritan [] Unable to walk/stand [] Unable to read [] Unable to drive [] Unable to eat/drink [] Unable to sleep [] Unable to be with family [] Patient intubated [] Other: Summary eclined soft work cigar machine operator visit Time spent with patient 5 mins
[2021-08-02] MEDS: nystatin 100,000 unit/mL UDC 5 mL 100000 UNIT PO ×4 (10:43→19:50)
[2021-08-02] MEDS: fluconazole premix 200 MG/100 ML PREMIX 100 MG IV (10:43)
[2021-08-02] MEDS: ondansetron 2 mg/ML SDV 2 mL 4 MG IVP (10:44)
[2021-08-02] MEDS: dexamethasone 10 mg/mL INJ IVP ×3 (11:23→23:14)
[2021-08-02 12:02] LABS: Glucose Point of Care 67 mg/dL (70-110)
--- NOTE | 2021-08-02 13:21 | P.PN_ITS ---
Subjective Subjective: Interval history: Patient was seen and examined this morning continues to be extremely weak. Continues to have poor oral intake. Her other vitals and labs have been reviewed. Medications: Reviewed: Yes Vitals/I&O/Wt Last Vital Signs Temp 98.3 F 08/02/21 11:26 Pulse 87 08/02/21 11:26 Resp 18 08/02/21 11:26 BP 120/74 08/02/21 11:26 Pulse Ox 94 08/02/21 11:26 08/01/21 08/02/21 08/02/21 22:59 06:59 14:59 Intake Total 1200 / 2070.833 1360 / 3430.833 Output Total 400 / 1400 250 / 250 Balance 800 / 897.896 7578 / 2030.833 -250 / -250 Weight last 48 hrs Weight 60.781 kg Physical Exam Const: COMMON NORMALS: patient oriented x3 HENMT: COMMON NORMALS: normocephalic and atraumatic HEAD & SCALP: normocephalic and atraumatic Resp: COMMON NORMALS: clear to auscultation bilaterally AUSCULTATION: clear to auscultation bilaterally Cardio: COMMON NORMALS: regular rate, regular rhythm, S1 normal heart sound present, S2 normal heart sound present, No gallops present (Cardio), No murmurs present (Cardio), No rub (Cardio) and Peripheral pulses 2+ throughout RATE: regular rate RHYTHM: regular rhythm HEART SOUNDS: S1 normal heart sound present and S2 normal heart sound present PERIPHERAL PULSES: Peripheral pulses 2+ throughout GI: COMMON NORMALS: Normal to inspection, nondistended, normoactive bowel sounds present, Soft to palpation, non-tender, No hepatosplenomegaly present and no masses AUSCULTATION: Yes normoactive bowel sounds PALPATION: Yes Soft to palpation and Yes No hepatosplenomegaly present RECTAL EXAM: deferred Extremity: COMMON NORMALS: no clubbing, cyanosis or edema and no pedal edema Neuro: COMMON NORMALS: patient oriented x3 Data : 08/01/21 08:40 08/01/21 08:40 Micro: Microbiology 07/31/21 20:30 Blood Culture - Preliminary Blood NEGATIVE TO DATE 07/31/21 20:50 Blood Culture - Preliminary Blood NEGATIVE TO DATE A&P Assessment and plan (1) Dehydration: Severe dehydration likely secondary to poor oral intake, secondary to severe nausea, secondary to chemotherapy effect. 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 Current plan is to give it for 3 days Sliding scale insulin for possible hyperglycemia management. Oral candidiasis: On fluconazole IV daily. We will switch to p.o. fluconazole on discharge. DVT ppx Lovenox 40 mg SQ daily Attestations Medical Necessity Statement*: Patient needs to be in hospital for IV hydration as well as IV dexamethasone. Coding Level of Care Code Acute Commercial Property Administrator for g Fwd Exam Detailed Diagnoses Dehydration E86.0 Generalized weakness R53.1 IgG multiple myeloma C90.00 Adult failure to thrive R62.7 Chemotherapy induced nausea and vomiting R11.2; T45.1X5A
[2021-08-02] MEDS: promethazine 25 mg/mL SDV 1 mL IM (13:31)
[2021-08-02] MEDS: morphine ER (12 HR) 30 mg tablet 60 MG PO ×2 (15:56→19:51)
[2021-08-02 17:23] LABS: Glucose Point of Care 100 mg/dL (70-110)
[2021-08-02] MEDS: oxyCODONE 5 mg IR Tab/Cap PO ×2 (18:08→22:58)
[2021-08-02] MEDS: sodium chloride 0.9% 1,000 ML 75 ML IV (19:51)
[2021-08-02 21:07] LABS: Glucose Point of Care 118 mg/dL (70-110)
[2021-08-03] VITALS (7 sets, daily range): BP systolic 95–128; BP diastolic 60–81; PULSE 67–86; RESP 16–18; TEMP 36.4–37.1; O2SAT 90–96
[2021-08-03] MEDS: enoxaparin 40 mg/0.4 mL Syringe SUBCUT (00:52)
[2021-08-03] MEDS: ondansetron 2 mg/ML SDV 2 mL 4 MG IVP ×5 (00:52→23:30)
[2021-08-03] MEDS: oxyCODONE 5 mg IR Tab/Cap PO (05:38)
[2021-08-03] MEDS: dexamethasone 10 mg/mL INJ IVP ×4 (05:38→23:30)
[2021-08-03 06:32] LABS: Glucose Point of Care 184 mg/dL (70-110)
[2021-08-03 06:48] LABS: Basophils % 0.2 %; Hematocrit 42.6 % (37.0-47.0); Hemoglobin 13.9 g/dL (11.5-15.3); Lymphocytes # 0.6 10^3/uL (0.8-4.8); Lymphocytes % 12.4 %; Mean Corpuscular HGB Conc 32.6 g/dL (30.0-36.0); Mean Corpuscular Hemoglobin 26.8 pg (28.0-34.0); Mean Corpuscular Volume 82.2 fl (81-99); Mean Platelet Volume 9.3 fL (7.4-10.4); Monocytes # 0.1 10^3/uL (0.2-0.9); Monocytes % 1.8 %; Neutrophils # 4.22 10^3/uL (1.8-7.7); Neutrophils % 84.6 %; Nucleated Red Blood Cells % 0 %; Platelet Count 310 10^3/cmm (130-400); Red Blood Count 5.18 10^6/uL (4.1-5.3)
[2021-08-03 07:14] LABS: Anion Gap 17.1 (5-19); Blood Urea Nitrogen 15 mg/dL (8-23); Calcium 8.1 mg/dL (8.5-10.5); Carbon Dioxide 20 mmol/L (22-29); Chloride 101 mmol/L (98-107); Glomerular Filtration Rate 158.7 mL/min (90-130); Glucose 196 mg/dL (65-115); Osmolality Calculated 284 mOsm/kg (285-295); Potassium 4.1 mmol/L (3.5-5.1); Sodium 134 mmol/L (136-145)
[2021-08-03 07:17] LABS: Creatinine Clr Calc Pharmacy 64.5798
[2021-08-03] MEDS: insulin lispro 100 unit/1 mL SUBCUT ×3 (08:20→21:58)
[2021-08-03] MEDS: morphine ER (12 HR) 30 mg tablet 60 MG PO ×2 (08:20→21:57)
[2021-08-03] MEDS: sodium chloride 0.9% 1,000 ML 75 ML IV (08:21)
[2021-08-03] MEDS: pantoprazole DR 40 mg Tablet PO (08:21)
[2021-08-03] MEDS: nystatin 100,000 unit/mL UDC 5 mL 100000 UNIT PO ×4 (08:21→21:59)
--- NOTE | 2021-08-03 10:12 | PC.PT ---
Patient refused due to migraine
[2021-08-03] MEDS: acetaminophen 325 mg Tablet 650 MG PO (10:32)
[2021-08-03 11:13] LABS: Glucose Point of Care 171 mg/dL (70-110)
[2021-08-03] MEDS: fluconazole premix 200 MG/100 ML PREMIX 100 MG IV (11:26)
[2021-08-03 17:17] LABS: Glucose Point of Care 132 mg/dL (70-110)
--- NOTE | 2021-08-03 19:26 | P.PN_ITS ---
Subjective Subjective: Interval history: Patient was seen and examined this morning continues to complain of severe nausea, as well as poor oral intake, though her oral intake has slightly improved since yesterday.Denies any other complaint. Medications: Reviewed: Yes Vitals/I&O/Wt Last Vital Signs Temp 98.2 F 08/03/21 15:49 Pulse 82 08/03/21 15:49 Resp 17 08/03/21 15:49 BP 128/81 08/03/21 15:49 Pulse Ox 96 08/03/21 15:49 08/03/21 08/03/21 08/03/21 06:59 14:59 22:59 Intake Total 100 / 440 1037.5 / 1037.5 240 / 1277.5 Output Total 800 / 800 Balance 100 / -1060 237.5 / 237.5 240 / 477.5 Physical Exam Const: COMMON NORMALS: patient oriented x3 HENMT: COMMON NORMALS: normocephalic and atraumatic HEAD & SCALP: normocephalic and atraumatic Resp: COMMON NORMALS: clear to auscultation bilaterally AUSCULTATION: clear to auscultation bilaterally Cardio: COMMON NORMALS: regular rate, regular rhythm, S1 normal heart sound present, S2 normal heart sound present, No gallops present (Cardio), No murmurs present (Cardio), No rub (Cardio) and Peripheral pulses 2+ throughout RATE: regular rate RHYTHM: regular rhythm HEART SOUNDS: S1 normal heart sound present and S2 normal heart sound present PERIPHERAL PULSES: Peripheral pulses 2+ throughout GI: COMMON NORMALS: Normal to inspection, nondistended, normoactive bowel sounds present, Soft to palpation, non-tender, No hepatosplenomegaly present and no masses AUSCULTATION: Yes normoactive bowel sounds PALPATION: Yes Soft to palpation and Yes No hepatosplenomegaly present RECTAL EXAM: deferred Extremity: COMMON NORMALS: no clubbing, cyanosis or edema and no pedal edema Neuro: COMMON NORMALS: patient oriented x3 Data : 08/03/21 06:20 08/03/21 06:20 A&P Assessment and plan (1) Dehydration: Severe dehydration likely secondary to poor oral intake, secondary to severe nausea, secondary to chemotherapy effect. 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 Current plan is to give it for 3 days Sliding scale insulin for possible hyperglycemia management. Oral candidiasis: On fluconazole IV daily. We will switch to p.o. fluconazole on discharge. DVT ppx Lovenox 40 mg SQ daily Attestations Medical Necessity Statement*: Patient needs to be in hospital for continued IV hydration as well, high-dose IV steroids. Coding Level of Care Code Acute Director Physical for Chg Fwd Diagnoses Dehydration E86.0 Generalized weakness R53.1 IgG multiple myeloma C90.00 Adult failure to thrive R62.7 Chemotherapy induced nausea and vomiting R11.2; T45.1X5A
[2021-08-03 21:21] LABS: Glucose Point of Care 251 mg/dL (70-110)
[2021-08-04] VITALS: BP 129/76; PULSE 64; RESP 18; TEMP 36.6; O2SAT 90
[2021-08-04] MEDS: sodium chloride 0.9% 1,000 ML 75 ML IV (01:19)
[2021-08-04 01:20] VITALS: RESP 18; O2SAT 90
[2021-08-04] MEDS: enoxaparin 40 mg/0.4 mL Syringe SUBCUT (01:20)
[2021-08-04] MEDS: oxyCODONE 5 mg IR Tab/Cap PO (01:20)
[2021-08-04 04:00] VITALS: BP 107/63; PULSE 64; RESP 16; TEMP 36.5; O2SAT 92
[2021-08-04] MEDS: ondansetron 2 mg/ML SDV 2 mL 4 MG IVP ×2 (04:04→08:39)
[2021-08-04] MEDS: dexamethasone 10 mg/mL INJ IVP ×2 (04:05→11:42)
[2021-08-04] MEDS: promethazine 25 mg/mL SDV 1 mL IM (06:13)
[2021-08-04 06:42] LABS: Glucose Point of Care 157 mg/dL (70-110)
[2021-08-04 07:20] VITALS: BP 114/67; PULSE 69; RESP 18; TEMP 36.9; O2SAT 95
[2021-08-04 07:34] LABS: Basophils % 0.2 %; Hemoglobin 13.6 g/dL (11.5-15.3); Lymphocytes # 0.7 10^3/uL (0.8-4.8); Lymphocytes % 4.9 %; Mean Corpuscular HGB Conc 33.2 g/dL (30.0-36.0); Mean Corpuscular Hemoglobin 27.5 pg (28.0-34.0); Mean Platelet Volume 9.3 fL (7.4-10.4); Monocytes # 0.2 10^3/uL (0.2-0.9); Monocytes % 1.1 %; Neutrophils # 12.29 10^3/uL (1.8-7.7); Neutrophils % 92.7 %; Nucleated Red Blood Cells % 0 %; Platelet Count 358 10^3/cmm (130-400); Red Blood Count 4.94 10^6/uL (4.1-5.3); White Blood Count 13.3 10^3/uL (4.0-10.0)
[2021-08-04] MEDS: morphine ER (12 HR) 30 mg tablet 60 MG PO (08:10)
[2021-08-04] MEDS: pantoprazole DR 40 mg Tablet PO (08:10)
[2021-08-04] MEDS: insulin lispro 100 unit/1 mL SUBCUT ×2 (08:10→12:51)
[2021-08-04] MEDS: nystatin 100,000 unit/mL UDC 5 mL 100000 UNIT PO (08:10)
[2021-08-04 08:27] LABS: Anion Gap 15.4 (5-19); Blood Urea Nitrogen 17 mg/dL (8-23); Calcium 8.2 mg/dL (8.5-10.5); Carbon Dioxide 21 mmol/L (22-29); Chloride 104 mmol/L (98-107); Creatinine Clr Calc Pharmacy 64.5798; Glomerular Filtration Rate 158.7 mL/min (90-130); Glucose 132 mg/dL (65-115); Osmolality Calculated 285 mOsm/kg (285-295); Potassium 4.4 mmol/L (3.5-5.1); Sodium 136 mmol/L (136-145)
--- NOTE | 2021-08-04 09:55 | XRR_ITS ---
PROCEDURE INFORMATION: Exam: XR Chest Exam date and time: 08/04/2021 9:55 AM Age: 66 years old Clinical indication: Shortness of breath; Additional info: SOB TECHNIQUE: Imaging protocol: XR of the chest. Views: 1 view. Total images: 1 COMPARISON: CR (CHEST, ) 07/31/2021 6:06 PM FINDINGS: Tubes, catheters and devices: Left Infusaport catheter. Lungs: Minimal bibasilar discoid atelectasis. COPD/chronic bronchitis. Mild senile fibrosis. Pleural spaces: No pleural effusion. No pneumothorax. Heart/Mediastinum: Cardiac structures and configuration with arteriosclerosis. Small hiatal hernia. Bones/joints: Old left rib fracture. Previous thoracic vertebroplasties. XR/XR chest 1V portable [id number] IMPRESSION: Minimal bibasilar discoid atelectasis. Radiation Dose CTDIVOL = (mGy): DLP = (mGy-cm)
--- NOTE | 2021-08-04 09:58 | PC.SOCIAL ---
IMM update Updated patient of medicare rights, verbalized understanding. Provided patient with a copy and placed initialed, timed, dated copy in chart.
--- NOTE | 2021-08-04 10:45 | P.DS_ITS ---
Discharge Providers Date of Admission: 08/01/21 19:39 Date of Discharge: August 04, 2021 Attending Provider at Admission: Raul Judd Attending Provider at Discharge: Man Delong MD Primary Care Provider: Kenroy Davies MD Diagnoses at Discharge Discharge Diagnosis (1) Dehydration: Status: Inactive (2) Generalized weakness: Status: Inactive (3) IgG multiple myeloma: Status: Inactive (4) Adult failure to thrive: Status: Acute (5) Chemotherapy induced nausea and vomiting: Status: Resolved Reason for Visit Reason for Visit: CANCER/OVERALL WEAKNESS & PAIN Hospital Course Hospital Course 66-year-old female with a past medical history significant for multiple myeloma with hx of multiple vertebral compression fracture rq kyphoplasty, currently on high dose decadron on 07/12 plus cycle 2 of belantamab mafadotinon on 07/17 who was sent in to hospital for eval of dehydration. Patient has been feeling very nauseous with chills however no documented fevers. C/o right calf pain. Laboratory workup neuro showed a WBC of 3.7, hemoglobin of 13.7, hematocrit of 41.7 and a platelet count 243. Sodium 134, potassium 4.5, chloride 98, bicarb 30, BUN 11 and creatinine is 0.5. UA negative. Venous US showed 1.9 x 1.9 x 2.4 cm complex hypoechoic collection in the right posterior calf which may represent a small Rojas's cyst versus a small hematoma. Chest xray appeared negative. She was admitted for the management of Severe dehydration likely secondary to poor oral intake, secondary to severe nausea, secondary to chemotherapy effect she was kept on I.V hydration to which she responded well.She was also kept on High dose I.V steroids per discussion with for her MM Treatment plan was to give for 3 days.She was discahrged on po dexamethasone for one more day.She was also on I.V fluconazole for mild oral candidiasis as well as oral nystatin.she was also manged for chemotherapy induced nausea and vomitting was kept on zofran, reglan.She responded well to above medical management and was discharged home in stable condition.She will follow oncology as outpatient. Physical Exam Const: COMMON NORMALS: patient oriented x3 HENMT: COMMON NORMALS: normocephalic and atraumatic HEAD & SCALP: normocephalic and atraumatic Resp: COMMON NORMALS: clear to auscultation bilaterally AUSCULTATION: clear to auscultation bilaterally Cardio: COMMON NORMALS: regular rate, regular rhythm, S1 normal heart sound present, S2 normal heart sound present, No gallops present (Cardio), No murmurs present (Cardio), No rub (Cardio) and Peripheral pulses 2+ throughout RATE: regular rate RHYTHM: regular rhythm HEART SOUNDS: S1 normal heart sound present and S2 normal heart sound present PERIPHERAL PULSES: Peripheral pulses 2+ throughout GI: COMMON NORMALS: Normal to inspection, nondistended, normoactive bowel sounds present, Soft to palpation, non-tender, No hepatosplenomegaly present and no masses AUSCULTATION: Yes normoactive bowel sounds PALPATION: Yes Soft to palpation and Yes No hepatosplenomegaly present RECTAL EXAM: deferred Extremity: COMMON NORMALS: no clubbing, cyanosis or edema and no pedal edema Neuro: COMMON NORMALS: patient oriented x3 Discharge Data Data Completed and Pending: Completed Studies During Hospitalization Category Date Time Status XR chest 2V* [id number] Urgent Exams 07/31/21 17:46 [place] [id number] Urgent Ultrasound 07/31/21 18:24 Completed Pending at discharge Category Date Time Status XR chest 1V risa ble [id number] Routine Exams 08/04/21 09:55 Ordered Basic Metabolic P meliza AM LABS Lab 08/05/21 04:00 Ordered Blood Culture Sta t Lab 07/31/21 20:30 Results Complete Blood Co unt w/Auto AM LABS Lab 08/05/21 04:00 Ordered Labs from last 24 hours 08/04/21 08/04/21 08/04/21 06:35 05:48 05:48 WBC 13.3 H RBC 4.94 Hgb 13.6 Hct 41.0 MCV 83.0 MCH 27.5 L MCHC 33.2 RDW Not Reportable Plt Count 358 MPV 9.3 Neut % (Auto) 92.7 Lymph % (Auto) 4.9 Braxton % (Auto) 1.1 Eos % (Auto) 0.0 Baso % (Auto) 0.2 Neut # (Auto) 12.29 H Lymph # (Auto) 0.7 L Braxton # (Auto) 0.2 Eos # (Auto) 0.0 Baso # (Auto) 0.0 Nucleated RBC % (a uto) 0 Nucleated RBCs # 0.0 Sodium 136 Potassium 4.4 Chloride 104 Carbon Dioxide 21 L Anion Gap 15.4 BUN 17 Creatinine 0.4 L GFR Calculation 158.7 H Glucose 132 H POC Glucose 157 H Calculated Osmolal ity 285 Calcium 8.2 L 08/03/21 08/03/21 08/03/21 21:11 17:12 11:10 WBC RBC Hgb Hct MCV MCH MCHC RDW Plt Count MPV Neut % (Auto) Lymph % (Auto) Braxton % (Auto) Eos % (Auto) Baso % (Auto) Neut # (Auto) Lymph # (Auto) Braxton # (Auto) Eos # (Auto) Baso # (Auto) Nucleated RBC % (a uto) Nucleated RBCs # Sodium Potassium Chloride Carbon Dioxide Anion Gap BUN Creatinine GFR Calculation Glucose POC Glucose 251 H 132 H 171 H Calculated Osmolal ity Calcium Vitals: Last Vital Signs Temp 98.5 F 08/04/21 07:20 Pulse 69 08/04/21 07:20 Resp 18 08/04/21 07:20 BP 114/67 08/04/21 07:20 Pulse Ox 95 08/04/21 07:20 Discharge Plan Discharge Patient Disposition: Home Condition: Stable Prescriptions: New dexamethasone 20 mg tablet 40 mg PO DAILY Qty: 2 RF: 0 Continued acetaminophen 325 mg capsule 325 mg PO QID PRN (Reason: Pain) RF: 0 benzonatate 100 mg capsule 100 mg PO TID RF: 0 gabapentin 100 mg capsule 100 mg PO TID RF: 0 lidocaine 5 % adhesive patch,medicated 3 patch TOPICAL DAILY RF: 0 melatonin 10 mg capsule 10 mg PO BEDTIME RF: 0 omeprazole 40 mg capsule,delayed release(DR/EC) 40 mg PO BID RF: 0 diclofenac sodium [Voltaren] 1 % gel 2 gm TOPICAL QID RF: 0 (DME) Cam walker See Rx Instructions .ROUTE .MEDSUPPLY Qty: 1 RF: 0 furosemide 40 mg tablet 40 mg PO BID PRN (Reason: Edema) RF: 0 Narcan 4 mg/actuation spray,non-aerosol 1 spray INTRANASAL PRN PRN (Reason: overdose) RF: 0 morphine 100 mg Tablet Extended Release 100 mg PO BIDWM MDD see pharmacy comment Qty: 0 RF: 0 alprazolam 1 mg tablet 0.25 mg PO TID PRN (Reason: prn) Qty: 0 RF: 0 ibuprofen 200 mg Tablet 200 - 400 mg PO Q4H PRN (Reason: headache/pain) RF: 0 albuterol sulfate 90 mcg/actuation Hfa Aerosol Inhaler 1 puff INHALATION QID PRN (Reason: Shortness Of Breath) Qty: 0 RF: 0 valerian root 1 cap PO DAILY RF: 0 tamsulosin 0.4 mg capsule 0.4 mg PO DAILY RF: 0 nitroglycerin 0.4 mg Tablet, Sublingual 0.4 mg SUBLINGUAL Q5M PRN (Reason: Chest Pain) RF: 0 morphine 30 mg tablet 30 mg PO Q4H PRN (Reason: Pain) RF: 0 mupirocin 2 % ointment 1 applic TOPICAL BID Qty: 30 RF: 0 potassium chloride 10 mEq tablet extended release 10 meq PO TID PRN (Reason: with Lasix) Qty: 0 RF: 0 trazodone 50 mg Tablet 50 mg PO BEDTIME RF: 0 famotidine 40 mg tablet 40 mg PO DAILY RF: 0 oxycodone 5 mg/5 mL Solution 5 mg PO Q4H PRN (Reason: Pain) RF: 0 ondansetron HCl 8 mg tablet 8 mg PO Q8H PRN (Reason: nausea/vomiting) 30 Days Qty: 90 RF: 0 Reglan 5 mg tablet 5 mg PO Q8H PRN (Reason: nausea and vomiting) 14 Days Qty: 30 RF: 0 Discharge Orders: Discharge Order (Routine); Ordered 08/04/21 Ordered By: Man Delong Referrals: [facility] ([facility]) [Outside] Kenroy Davies MD [Primary Care Provider] - 4-7 days (PLEASE CALL FOR APPOINTMENT FOR 1 WEEK) Discharge Diet: Regular Discharge Activity: Increase activity as tolerated Patient Instructions: Dehydration (DC), Weakness (DC), Chemo Induced Nausea and Vomiting (DC), Opioid Safety Discharge Attestations Time Spent in Discharge Care*: less than 30 min Specific Discharge Activities: educating patient, educating and/or supporting family/caregiver, discussing with pcp/other providers, discussing with case management director/social workers/dc planners, documenting/other paperwork and evaluating patient/reviewing data Status at Discharge: Cognitive status at discharge: cognitively intact , Behavioral status at discharge: cooperative , Quality Metrics Clinical Quality Measures During this hospital stay, did patient experience: None Coding Level of Care Code Acute Chg FW DC note Diagnoses Dehydration E86.0 Generalized weakness R53.1 IgG multiple myeloma C90.00 Adult failure to thrive R62.7 Chemotherapy induced nausea and vomiting R11.2; T45.1X5A
[2021-08-04] MEDS: fluconazole premix 200 MG/100 ML PREMIX 100 MG IV (10:53)
[2021-08-04 11:05] VITALS: BP 121/71; PULSE 74; RESP 18; TEMP 37.1; O2SAT 91
[2021-08-04 12:07] LABS: Glucose Point of Care 172 mg/dL (70-110)
--- NOTE | 2021-08-06 11:19 | PC.SOCIAL ---
Spoke with daughter since she was unable to get last dose of Dexamethasone at our pharmacy. Daughter would like this called to [facility] in [place]. Dr Delong agreeable to have patient still take the last dose of 40mg. Called to requested pharmacy and script was read back. Notified Omar at our pharmacy. Also Daughter would like additional assistance to care for Mother. Per Notes HH is to go out tomorrow. Patient also has [facility]. Sent email to Tello at our company and asked when they evaluate tomorrow to see if she will qualify for in home services as well. Also provided Ambreen holden daughters number as main contact [phone]. Tello responded that they will evaluate.
== END 2021-08-04 15:23 | disposition home health service (06) | DRG 641 ==
LOC: ER 22:45 → MEDSURG 22:50
PROVIDERS: Admitting Provider Hospitalist; Emergency Provider Emergency Medicine; PCP Internal Medicine Medical Oncology; Visit Provider Internal Medicine
DX: E86.0 Dehydration (principal); C90.00 Multiple myeloma not having achieved remission; B37.0 Candidal stomatitis; Z79.899 Other long term (current) drug therapy; K21.9 Gastro-esophageal reflux disease without esophagitis; J45.909 Unspecified asthma, uncomplicated; Z94.89 Other transplanted organ and tissue status; Z87.891 Personal history of nicotine dependence; R62.7 Adult failure to thrive; Z68.30 Body mass index [BMI] 30.0-30.9, adult; R11.2 Nausea with vomiting, unspecified; T45.1X5A Adverse effect of antineoplastic and immunosuppressive drugs, initial encounter; Z79.891 Long term (current) use of opiate analgesic; Z79.51 Long term (current) use of inhaled steroids
CPT/HCPCS: 36415; 36416; 71045; 71046; 80048; 80053; 81003; 82962; 83605; 83615; 83690; 84550; 85025; 87040; 93005; 93971; 96361; 96372; 96374; 97161; 99215; 99285; G0378; J1100; J1450; J1650; J1815; J2270; J2405; J2550; J7030

== ENCOUNTER 2021-08-07 06:00 | Outpatient (RCR) | payer MEDICARE, MEDICAID, SELFPAY ==
[2021-08-07 14:36] LABS: Basophils % 0.4 %; Eosinophils # 0.1 10^3/uL (0.0-0.8); Eosinophils % 0.8 %; Hematocrit 49.2 % (37.0-47.0); Hemoglobin 15.5 g/dL (11.5-15.3); Lymphocytes # 0.8 10^3/uL (0.8-4.8); Lymphocytes % 10.7 %; Mean Corpuscular HGB Conc 31.5 g/dL (30.0-36.0); Mean Corpuscular Hemoglobin 27.2 pg (28.0-34.0); Mean Corpuscular Volume 86.5 fl (81-99); Mean Platelet Volume 9.8 fL (7.4-10.4); Monocytes # 0.7 10^3/uL (0.2-0.9); Monocytes % 8.9 %; Neutrophils # 5.65 10^3/uL (1.8-7.7); Neutrophils % 77.8 %; Nucleated Red Blood Cells % 0 %; Platelet Count 228 10^3/cmm (130-400); Red Blood Count 5.69 10^6/uL (4.1-5.3); White Blood Count 7.3 10^3/uL (4.0-10.0)
[2021-08-07 15:45] LABS: Slide Review Slide Review Perform
== END 2021-08-07 23:59 | disposition home or self-care (01) ==
LOC: ONCMED 06:00
PROVIDERS: Neurological Surgery; PCP Internal Medicine Medical Oncology; Visit Provider Internal Medicine Hematology & Oncology
DX: C90.00 Multiple myeloma not having achieved remission (principal); C79.49 Secondary malignant neoplasm of other parts of nervous system; D80.1 Nonfamilial hypogammaglobulinemia
CPT/HCPCS: 85025